=== PATIENT | female | born 1935 | race African-American/Black ===

== ENCOUNTER 2016-10-19 08:49 | Observation (INO) | payer BC, OTHER ==
--- NOTE | 2016-10-19 09:05 | CPEKG ---
Heart Rate: 79 RR Interval: 759 P-R Interval: 204 QRSD Interval: 108 QT Interval: 436 QTC Interval: 500 P [place]: 77 QRS [place]: -51 T Wave [place]: 83 EKG Severity - ABNORMAL ECG - EKG Impression: SINUS RHYTHM EKG Impression: MULTIPLE VENTRICULAR PREMATURE COMPLEXES EKG Impression: LEFT ATRIAL ABNORMALITY EKG Impression: LEFT ANTERIOR FASCICULAR BLOCK EKG Impression: CONSIDER ANTERIOR INFARCT EKG Impression: BORDERLINE PROLONGED QT INTERVAL Electronically Signed By: Doug Seals 19-Oct-2016 11:20:39
--- NOTE | 2016-10-19 09:14 | EDPHY ---
H & P Time Seen by Provider: 10/19/16 09:11 HPI/ROS: Chief complaint. Chest pain HPI. 81-year-old female here with chest discomfort that began about 2:00 a.m.. It is described as pressure. No radiation. She has associated shortness of breath. No cough or fever. Her discomfort is worse with deep breathing. She has no unusual leg pain or swelling. She was admitted about 1 week ago for dyspnea but no chest discomfort at that time. ROS Constitutional. no fever/chills, no weakness Eyes. no problems with vision ENT. no sore throat, no nasal drainage Cardiovascular. Chest pressure Respiratory. Shortness of breath Abdominal. no abdominal pain, no nausea/vomiting, no diarrhea . no problems urinating MS. no calf pain/swelling, no neck/back pain, no joint pain Skin. no rash Lymph. no swollen glands Neuro. no headache, no dizziness, no difficulty walking or with speech Past Medical/Surgical History: Past medical history is significant for coronary artery bypass graft, coronary artery disease, endarterectomy, hypertension, atrial fibrillation Social History: , lives at home, nonsmoker, no alcohol Smoking Status: Never smoked Physical Exam: General Appearance: Alert well-developed female mild distress vital signs are stable Eyes: Pupils equal and round no pallor or injection. ENT, Mouth: Mucous membranes are moist. Respiratory: There are no retractions, lungs are clear to auscultation. Cardiovascular: Regular rate and rhythm. Gastrointestinal: Abdomen is soft and nontender, no masses, bowel sounds normal. Neurological: Awake and alert, sensory and motor exams grossly normal. Skin: Warm and dry, no rashes. Musculoskeletal: Neck is supple nontender. Extremities symmetrical, full range of motion. Psychiatric: Patient is oriented X 3, there is no agitation. Constitutional: Initial Vital Signs Temperature (C) 36.5 C 10/19/16 08:52 Heart Rate 71 10/19/16 08:52 Respiratory Rate 16 10/19/16 08:52 Blood Pressure 144/71 H 10/19/16 08:52 O2 Sat (%) 94 10/19/16 08:52 O2 Delivery Mode Room Air Allergies/Adverse Reactions: Penicillins Allergy (Intermediate, Verified 09/21/15 07:09) Hives Home Medications: Medication Instructions Recorded Atorvastatin Calcium [Lipitor 20 20 mg PO DAILY@10/19/13 mg (*)] Cholecalciferol Vit D3 [Vitamin D3 1,000 units PO DAILY@10/19/13 (*)] Multivitamins [Multivitamin (*)] 1 each PO DAILY@10/19/13 [place]-3 Fatty Acids [Fish Oil 1000 1,000 mg PO DAILY@10/19/13 mg (*)] Clopidogrel Bisulfate [Plavix (*)] 75 mg PO DAILY@10/24/13 Apixaban [Eliquis] 5 mg PO BID@,04/16/15 Gabapentin [Neurontin 100 MG (*)] 100 mg PO BID@,04/22/15 Herbals/Supplements -Info Only 1 ea PO DAILY@05/18/16 Pantoprazole Sodium [Protonix 40mg 40 mg PO DAILY@05/18/16 (*)] Amlodipine Besylate 5 mg PO BID@,10/11/16 Calcium Carbonate [Oyster Shell 500 mg PO BID@,10/11/16 Calcium 500 mg (*)] Lisinopril [Zestril 10 mg (*)] 10 mg PO DAILY@10/11/16 Ranolazine [Ranexa] 500 mg PO BID@,10/11/16 Medical Decision Making - Diagnostics EKG Interpretation: EKG interpreted by me shows normal sinus rhythm normal interval. There is left axis deviation. There is left anterior fascicular block. There is no significant ST elevation or depression. There is multiple PVCs. The rate is 79 There is no significant change from previous EKG 10/11/2016 Imaging: One-view chest x-ray shows cardiomegaly and coronary artery disease but no evidence for pneumonia, pneumothorax, CHF Procedures: IV normal saline, monitor ED Course/Re-evaluation: Re-evaluation at 10:00 a.m. and patient remains stable. She continues to have some anterior chest discomfort. The patient, her son, and I discussed laboratory, EKG, x-ray he evaluation. We discussed treatment plan and recommendation for admission. They expressed understanding and agreement I consulted and discussed the case with Dr. Barnett who agrees to the admission Differential Diagnosis: I considered acute coronary syndrome, congestive heart failure. Unlikely the patient has pulmonary embolus as she is on Eliquis. - Data Points Laboratory Results: Laboratory Results 10/19/16 09:09 10/19/16 09:09 10/19/16 09:09 WBC 3.09 L 10^3/uL (3.80-9.50) RBC 4.60 10^6/uL (4.18-5.33) Hgb 13.5 g/dL (12.6-16.3) Hct 40.9 % (38.0-47.0) MCV 88.9 fL (81.5-99.8) MCH 29.3 pg (27.9-34.1) MCHC 33.0 g/dL (32.4-36.7) RDW 14.3 % (11.5-15.2) Plt Count 132 L 10^3/uL (150-400) MPV 10.9 fL (8.7-11.7) Neut % (Auto) 50.8 % (39.3-74.2) Lymph % (Auto) 39.2 % (15.0-45.0) Foster % (Auto) 7.1 % (4.5-13.0) Eos % (Auto) 1.6 % (0.6-7.6) Baso % (Auto) 1.0 % (0.3-1.7) Nucleat RBC Rel Count 0.0 % (0.0-0.2) Absolute Neuts (auto) 1.57 L 10^3/uL (1.70-6.50) Absolute Lymphs (auto) 1.21 10^3/uL (1.00-3.00) Absolute Monos (auto) 0.22 L 10^3/uL (0.30-0.80) Absolute Eos (auto) 0.05 10^3/uL (0.03-0.40) Absolute Basos (auto) 0.03 10^3/uL (0.02-0.10) Absolute Nucleated RBC 0.00 10^3/uL (0-0.01) Immature Gran % 0.3 % (0.0-1.1) Immature Gran # 0.01 10^3/uL (0.00-0.10) PT 14.6 SEC (12.0-15.0) INR 1.15 (0.83-1.16) APTT 32.0 SEC (23.0-38.0) Sodium 146 H mEq/L (134-144) Potassium 4.4 mEq/L (3.5-5.2) Chloride 107 mEq/L (97-110) Carbon Dioxide 27 mEq/l (22-31) Anion Gap 12 mEq/L (8-16) BUN 17 mg/dL (7-23) Creatinine 1.0 mg/dL (0.6-1.0) Estimated GFR 53 Glucose 106 H mg/dL (70-100) Calcium 9.8 mg/dL (8.5-10.4) Troponin I 0.021 ng/mL (0-0.034) NT-Pro-B Natriuret Pep 422 pg/mL (0-450) Departure - Departure Disposition: [facility] Inpatient Acute Clinical Impression: Chest pain Condition: Fair Referrals: Jorge Reardon [Primary Care Provider] - As per Instructions
[2016-10-19 09:43] LABS: ANION GAP 12 mEq/L (8-16); CALCIUM 9.8 mg/dL (8.5-10.4); CARBON DIOXIDE 27 mEq/l (22-31); CHLORIDE 107 mEq/L (97-110); GLOMERULAR FILTRATION RATE 53; GLUCOSE 106 mg/dL (70-100); POTASSIUM 4.4 mEq/L (3.5-5.2); SODIUM 146 mEq/L (134-144)
--- NOTE | 2016-10-19 09:43 | DX ---
Portable Chest, Single View October 19, 2016 at 9:32 am Indication: Chest pain Comparison: Two-view chest dated October 11, 2016 Findings: Cardiomegaly, midline sternal wires, prosthetic aortic valve, and numerous coronary stents are unchanged in configuration since 2 weeks prior. No pulmonary edema or pleural effusion has develo ped. Chronic peribronchial thickening is unchanged. Impression: 1. Cardiomegaly and stigmata of coronary artery disease are unchanged since 2 weeks prior. 2. No acute failure.
[2016-10-19 09:46] LABS: % IMMATURE GRANULYOCYTES 0.3 % (0.0-1.1); ABSOLUTE IMMATURE GRANULOCYTES 0.01 10^3/uL (0.00-0.10); ADD DIFF? NO; ADD MORPH? NO; ADD SCAN? NO; ATYPICAL LYMPHOCYTE FLAG 10 (0-99); FRAGMENT RBC FLAG 0 (0-99); HEMATOCRIT 40.9 % (38.0-47.0); HEMOGLOBIN 13.5 g/dL (12.6-16.3); LEFT SHIFT FLG 0 (0-99); LIPEMIA HEMOLYSIS FLAG 80 (0-99); MEAN CELL HEMOGLOBIN 29.3 pg (27.9-34.1); MEAN CELL VOLUME 88.9 fL (81.5-99.8); MEAN PLATELET VOLUME 10.9 fL (8.7-11.7); PLATELET CLUMPS FLAG 0 (0-99); PLATELET COUNT 132 10^3/uL (150-400); RED CELL DISTRIBUTION WIDTH 14.3 % (11.5-15.2)
[2016-10-19 09:47] LABS: INR 1.15 (0.83-1.16); PROTIME(PATIENT) 14.6 SEC (12.0-15.0)
[2016-10-19 09:54] LABS: TROPONIN I 0.021 ng/mL (0-0.034)
[2016-10-19] MEDS ORDERED: ALBUTEROL 3 ML DEYVIAL IH PRN (12:02)
[2016-10-19] MEDS ORDERED: ACETAMINOPHEN 325 MG TAB PO PRN (12:02)
[2016-10-19] MEDS ORDERED: ONDANSETRON 4 MG/2 ML VIAL IVP PRN (12:02)
[2016-10-19] MEDS ORDERED: ONDANSETRON DISINTEGRATING 4 MG TAB PO PRN (12:02)
--- NOTE | 2016-10-19 16:20 | GHP ---
[f rep st] HISTORY AND PHYSICAL DATE OF ADMISSION: 10/19/2016 CHIEF COMPLAINT: Chest pain. HISTORY: This is an 81-year-old female, with a past medical history of coronary artery disease and P E, who presents with chest pain. She notes that the pain began last night. She notes it has improve d since then, but she still feels some tightness. She denies any shortness of breath. She notes destiney t she had very similar symptoms about 1 week ago, when she also was hospitalized. She denies fevers or chills. She denies nausea or vomiting. She has had no numbness or weakness. PAST MEDICAL HISTORY: Includes: 1. Coronary artery disease. 2. History of PE, on chronic anticoagulation. 3. Atrial fibrillation. 4. Hypertension. 5. Hyperlipidemia. 6. Peripheral arterial disease. 7. Congestive heart failure with diastolic dysfunction and ejection fraction 45% to 50%. 8. Moderate pulmonary hypertension. 9. Chronic leukopenia and thrombocytopenia. PAST SURGICAL HISTORY: 1. CABG. 2. Cardiac stents. 3. CEA. FAMILY HISTORY: Parents are . SOCIAL HISTORY: The patient lives alone, but has a son who lives nearby and is very involved in her care. She is a never smoker. She denies significant alcohol use. No drug use. REVIEW OF SYSTEMS: A 10-point review of systems is obtained, negative except as per HPI. MEDICATIONS: Include: 1. Amlodipine. 2. Ranolazine. 3. Pantoprazole. 4. [place]-3 fatty acids. 5. Nitroglycerin. 6. Multivitamin. 7. Memantine. 8. Lisinopril. 9. Gabapentin. 10. Clopidogrel. 11. Cholecalciferol. 12. Calcium carbonate. 13. Atorvastatin. 14. Aspirin. 15. Eliquis. ALLERGIES: Penicillin. PHYSICAL EXAM: VITAL SIGNS: BP 144/77, heart rate 68, respiratory rate 18, O2 saturation 94% on rosie m air, temperature 36.4. GENERAL APPEARANCE: An elderly female. She is awake and alert. She is in no acute distress. HEENT: Eyes anicteric. Her pupils are dysconjugate. Orophary nx is clear, moist mucous membranes. HEART: Regular rate and rhythm, no MRG. PULMONARY: CTA bilat erally, normal work of breathing. ABDOMEN: Soft, nontender, nondistended. EXTREMITIES: No clubbin g, cyanosis, or edema. SKIN: Warm and dry, well perfused. NEURO/PSYCH: Oriented, appropriate, ple asant. CLINICAL DATA: Labs reviewed, significant for a white blood cell count of 3, platelets of 132. Coag s are within normal limits. Troponin is 0.021. ProBNP is 422. Otherwise CBC is essentially unremar kable. Chest x-ray reviewed and interpreted independently by myself shows cardiomegaly and stigmata of coron zaira artery disease, without change from prior. EKG reviewed and interpreted independently by myself shows sinus rhythm, multiple PVCs. Otherwise no acute abnormalities. ASSESSMENT AND PLAN: This is an 81-year-old female, past medical history of coronary artery disease, recent hospitalization for shortness of breath and chest pain, presenting with chest pain. 1. Chest pain, present for greater than 12 hours with initial negative troponin making acute coronar y syndrome highly unlikely. There are no significant EKG changes. She had a recent hospitalization for the same, at which time an echocardiogram was performed, showing no new wall motion abnormalities or other significant findings. Suspect there is some component of anxiety contributing to this. Sh e will be monitored overnight on telemetry. Will obtain serial troponins. If her initial workup is unremarkable, I would likely discharge her home to follow up with cardiology. In terms of medication changes, could consider addition of a long-acting nitrate, and it is unclear if patient is not curre ntly on a beta mir, but this will need to be evaluated further. 2. Coronary artery disease status post CABG and stents. As per above. She is followed by Dr. Jorge cabrera. 3. History of pulmonary embolus. Continue on Eliquis. Her presenting symptoms do not sound consist ent with a new PE, and she is not hypoxic, though could consider CT angiogram if she becomes hypoxic or tachycardic during this hospitalization. 4. History of atrial fibrillation, currently in sinus rhythm. Monitor on telemetry. 5. Chronic heart failure with both diastolic and mild systolic dysfunction. She does not have any e vidence of volume overload and her proBNP is within normal limits. Currently. 6. Moderate pulmonary hypertension. She is continued on her nocturnal oxygen. 7. Code status: She is a full code. 8. Disposition: Observation status. She likely will need less than 48 hours stay for evaluation an d management of above. 9. The patient is in my care. Old records were reviewed and summarized as per HPI and past medical history. Care plan reviewed with ER doctor and the patient's son, who is present at bedside. /[id number]/MODL
[2016-10-19] MEDS: APIXABAN 5 MG TAB PO SCH (19:57)
[2016-10-19] MEDS: GABAPENTIN 100 MG CAP PO SCH (19:58)
[2016-10-19] MEDS: RANOLAZINE 500 MG TAB.ER PO SCH (19:58)
[2016-10-19] MEDS ORDERED: amLODIPine BESYLATE 5 MG TAB PO SCH (20:00)
[2016-10-19] MEDS ORDERED: ASPIRIN 325 MG TAB PO SCH (21:00)
[2016-10-20 05:11] LABS: % IMMATURE GRANULYOCYTES 0.3 % (0.0-1.1); ABSOLUTE IMMATURE GRANULOCYTES 0.01 10^3/uL (0.00-0.10); ADD DIFF? NO; ADD MORPH? NO; ADD SCAN? NO; ATYPICAL LYMPHOCYTE FLAG 10 (0-99); FRAGMENT RBC FLAG 0 (0-99); HEMATOCRIT 38.6 % (38.0-47.0); HEMOGLOBIN 12.9 g/dL (12.6-16.3); LEFT SHIFT FLG 0 (0-99); LIPEMIA HEMOLYSIS FLAG 80 (0-99); MEAN CELL HEMOGLOBIN CONCENTR. 33.4 g/dL (32.4-36.7); MEAN CELL VOLUME 86.7 fL (81.5-99.8); MEAN PLATELET VOLUME 10.6 fL (8.7-11.7); PLATELET CLUMPS FLAG 0 (0-99); PLATELET COUNT 128 10^3/uL (150-400); RED BLOOD CELL COUNT 4.45 10^6/uL (4.18-5.33); RED CELL DISTRIBUTION WIDTH 13.9 % (11.5-15.2)
[2016-10-20 05:25] LABS: ANION GAP 7 mEq/L (8-16); CALCIUM 9.1 mg/dL (8.5-10.4); CARBON DIOXIDE 26 mEq/l (22-31); CHLORIDE 109 mEq/L (97-110); CREATININE 0.9 mg/dL (0.6-1.0); GLOMERULAR FILTRATION RATE 60; GLUCOSE 89 mg/dL (70-100); POTASSIUM 4.1 mEq/L (3.5-5.2); SODIUM 142 mEq/L (134-144)
[2016-10-20] MEDS ORDERED: LISINOPRIL 10 MG TAB PO SCH (08:00)
[2016-10-20] MEDS ORDERED: CLOPIDOGREL BISULFATE 75 MG TAB PO SCH (08:00)
[2016-10-20] MEDS ORDERED: CALCIUM CARBONATE 500 MG TAB PO SCH (08:00)
[2016-10-20] MEDS ORDERED: MULTIVITAMINS 1 EACH TAB PO SCH (08:00)
[2016-10-20] MEDS ORDERED: CHOLECALCIFEROL VIT D3 1,000 UNITS TAB PO SCH (08:00)
[2016-10-20] MEDS ORDERED: OMEGA-3 FATTY ACIDS 1,000 MG CAP PO SCH (08:00)
[2016-10-20] MEDS ORDERED: ATORVASTATIN CALCIUM 20 MG TAB PO SCH (08:00)
[2016-10-20] MEDS ORDERED: PANTOPRAZOLE SODIUM 40 MG TAB PO SCH (08:00)
[2016-10-20 08:05] VITALS: RESP 16
--- NOTE | 2016-10-20 08:55 | CPEKG ---
Heart Rate: 70 RR Interval: 857 P-R Interval: 200 QRSD Interval: 94 QT Interval: 420 QTC Interval: 454 P [place]: 62 QRS [place]: -73 T Wave [place]: 120 EKG Severity - ABNORMAL ECG - EKG Impression: SINUS RHYTHM EKG Impression: PROBABLE LEFT ATRIAL ABNORMALITY EKG Impression: LAD, CONSIDER LEFT ANTERIOR FASCICULAR BLOCK EKG Impression: NONSPECIFIC T ABNORMALITIES, LATERAL LEADS Electronically Signed By: Bhaskar Craig 20-Oct-2016 09:12:02
[2016-10-20] MEDS ORDERED: Memantine Hcl [Namenda Xr] 21 MG PO SCH (09:00)
[2016-10-20] MEDS: RANOLAZINE 500 MG TAB.ER PO SCH (09:00)
[2016-10-20] MEDS: GABAPENTIN 100 MG CAP PO SCH (09:00)
[2016-10-20] MEDS: APIXABAN 5 MG TAB PO SCH (09:01)
--- NOTE | 2016-10-20 12:37 | HOSPPROG ---
Hospitalist Progress Note Assessment/Plan: 81 yo F with pmh of CAD and recent admission for cp admitted with cp # chest pain: with negative trops x 3 and resolution of her chest pain since the time of admission. No significant events on tele or changes on ecg appreciated. Had recent IP w/u including echo and cardiology consultation. Cardiology consulted, but suspect patient is safe for dc home today once that evaluation is complete. # CAD: w/hx of cabg and stents, as above, followed by Atul and will continue her op regimen at this time which includes asa, statin, plavix. # PE: continue eliquis # p afib: without e/o a fib currently, continued on AC, monitoring on tele # chronic chf: EF of 45%, no e/o acute decompensation # htn/hld/pad: continue op meds # dispo: observation, expect she will be ready for dc later today if ok with cardiology Subjective: no significant overnight events, patient now feeling well, she is chest pain free, she has no other complaints, would like to see cardiology Objective: Vital Signs Temp Pulse Resp BP Pulse Ox 36.5 C 63 16 118/64 99 10/20/16 12:08 10/20/16 12:08 10/20/16 12:08 10/20/16 12:08 10/20/16 12:08 Laboratory Results 10/20/16 04:22 10/20/16 04:22 10/19/16 10/20/16 10/21/16 05:59 05:59 05:59 Intake Total 1040 Balance 1040 PT 14.6 SEC (12.0-15.0) 10/19/16 09:09 INR 1.15 (0.83-1.16) 10/19/16 09:09 awake alert elderly nad anicteric op clear rrr systolic murmur cta b soft nt nd no cce warm dry well perfused oriented appropriate ICD10 Worksheet Patient Problems: Problems Problem Status Diagnosed Atrial flutter Acute Chest pain Acute NSTEMI (non-ST elevated myocardial infarction) Acute Pelvic fracture Acute Pulmonary emboli Acute CAD (coronary artery disease) Acute Chest pain in adult Acute Dyspnea Acute Elevated blood pressure reading Acute Headache Acute Hypertension Acute
[2016-10-20 15:36] VITALS: BP 115/76; PULSE 61; TEMP 97.4; O2SAT 97
--- NOTE | 2016-10-21 10:10 | PDDCSUM ---
Discharge Summary Discharge Summary: Dates of service 10/19-10/20/15 Hospital course by problem: # chest pain: with negative trops x 3 and resolution of her chest pain since the time of admission. Cardiology evaluated and felt she was safe for dc and op f/u # CAD: w/hx of cabg and stents, as above, followed by Atul and will continue her op regimen at this time which includes asa, statin, plavix. # PE: continue eliquis # p afib: without e/o a fib currently, continued on AC, monitoring on tele # chronic chf: EF of 45%, no e/o acute decompensation # htn/hld/pad: continue op meds Dc home f/u with pcp/cardiology
== END 2016-10-20 19:15 | disposition home or self-care (01) ==
LOC: F2W 11:56
PROVIDERS: ADMIT Internal Medicine; ATTEND Internal Medicine
DX: R07.9 Chest pain, unspecified (principal); I25.10 Atherosclerotic heart disease of native coronary artery without angina pectoris; Z95.5 Presence of coronary angioplasty implant and graft; Z95.1 Presence of aortocoronary bypass graft; I48.0 Paroxysmal atrial fibrillation; I50.22 Chronic systolic (congestive) heart failure; Z86.711 Personal history of pulmonary embolism; I10 Essential (primary) hypertension; E78.5 Hyperlipidemia, unspecified; I73.9 Peripheral vascular disease, unspecified; D72.819 Decreased white blood cell count, unspecified; D69.6 Thrombocytopenia, unspecified
CPT/HCPCS: 71010; 93005; 97161; 97165; 99285; G0378; G8978; G8979; G8980; G8987; G8988; G8989

== ENCOUNTER 2016-10-22 06:22 | Inpatient (IN) | payer OTHER ==
--- NOTE | 2016-10-22 06:39 | CPEKG ---
Heart Rate: 62 RR Interval: 968 P-R Interval: 220 QRSD Interval: 96 QT Interval: 448 QTC Interval: 455 P [place]: 49 QRS [place]: -61 T Wave [place]: 65 EKG Severity - ABNORMAL ECG - EKG Impression: SINUS RHYTHM EKG Impression: FIRST DEGREE AV BLOCK EKG Impression: PROBABLE LEFT ATRIAL ABNORMALITY EKG Impression: LAD, CONSIDER LEFT ANTERIOR FASCICULAR BLOCK Electronically Signed By: Parisa Merlos 22-Oct-2016 14:09:04
[2016-10-22 06:53] LABS: % IMMATURE GRANULYOCYTES 0.3 % (0.0-1.1); ABSOLUTE IMMATURE GRANULOCYTES 0.01 10^3/uL (0.00-0.10); ADD DIFF? NO; ADD MORPH? NO; ADD SCAN? NO; ATYPICAL LYMPHOCYTE FLAG 0 (0-99); FRAGMENT RBC FLAG 0 (0-99); HEMATOCRIT 40.9 % (38.0-47.0); HEMOGLOBIN 13.4 g/dL (12.6-16.3); LEFT SHIFT FLG 0 (0-99); LIPEMIA HEMOLYSIS FLAG 80 (0-99); MEAN CELL HEMOGLOBIN 28.5 pg (27.9-34.1); MEAN CELL HEMOGLOBIN CONCENTR. 32.8 g/dL (32.4-36.7); MEAN PLATELET VOLUME 10.5 fL (8.7-11.7); PLATELET CLUMPS FLAG 0 (0-99); PLATELET COUNT 149 10^3/uL (150-400); RED CELL DISTRIBUTION WIDTH 13.8 % (11.5-15.2)
[2016-10-22 07:02] LABS: ALANINE AMINOTRANSFERASE 22 IU/L (9-52); ALBUMIN 4.3 g/dL (3.5-5.0); ALKALINE PHOSPHATASE 58 IU/L (38-126); ANION GAP 10 mEq/L (8-16); ASPARTATE AMINOTRANSFERASE 37 IU/L (14-46); BILIRUBIN,TOTAL 0.8 mg/dL (0.1-1.4); CALCIUM 9.6 mg/dL (8.5-10.4); CARBON DIOXIDE 26 mEq/l (22-31); CHLORIDE 107 mEq/L (97-110); GLOMERULAR FILTRATION RATE 53; GLUCOSE 103 mg/dL (70-100); POTASSIUM 4.6 mEq/L (3.5-5.2); SODIUM 143 mEq/L (134-144); TOTAL PROTEIN 7.1 g/dL (6.3-8.2)
[2016-10-22 07:13] LABS: TROPONIN I 0.034 ng/mL (0-0.034)
--- NOTE | 2016-10-22 07:25 | EDPHY ---
[id number]: The patient is an 81 year old female with history of CAD presenting with recurrent chest pain. The patient was admitted 10/19/15 with similar symptoms. She had 3 negative Troponin and was seen by Dr. Pollard, Cardiology, who discharged her home. This morning her chest pain returned. She woke up at 2:30 a.m. with shortness of breath and chest tightness. She got up, went downstairs, and took 3 Nitro but found no relief. She was able to sleep sitting up in a chair. Continues to have mild cp. The patient has a history of PE, she is on Eliquis. She took Aspirin last night. The patient denies cough, congestion, or recent sickness. REVIEW OF SYSTEMS: Aside from elements discussed in the HPI, a comprehensive 10-point review of systems was reviewed and is negative. Past Medical/Surgical History: CAD, HTN, PE, Afib, CABG 2013, Stents 2014, Aortic valve replacement, Blind in right eye. Social History: Family at bedside. Smoking Status: Never smoked Physical Exam: General Appearance: Alert, no distress Eyes: Pupils equal and round, no conjunctival pallor or injection ENT, Mouth: Mucous membranes moist Neck: Normal inspection Respiratory: Lungs are clear to auscultation Cardiovascular: Regular rate and rhythm, 2/6 systolic murmur, reproducible chest wall tenderness Gastrointestinal: Abdomen is soft and non-tender Neurological: A&O, nonfocal, normal gait Skin: Warm and dry, no rash Extremities: Nontender, 1+ pedal edema bilaterally Psychiatric: Mood and affect normal Constitutional: Initial Vital Signs Temperature (C) 36.4 C 10/22/16 06:24 Heart Rate 66 10/22/16 06:24 Respiratory Rate 17 10/22/16 06:24 Blood Pressure 116/62 10/22/16 06:24 O2 Sat (%) 94 10/22/16 06:24 O2 Delivery Mode Nasal Cannula O2 (L/minute) 2 Allergies/Adverse Reactions: Penicillins Allergy (Intermediate, Verified 10/26/16 07:15) Hives Home Medications: Medication Instructions Recorded Cholecalciferol Vit D3 [Vitamin D3 1,000 units PO DAILY@10/19/13 (*)] Multivitamins [Multivitamin (*)] 1 each PO DAILY@10/19/13 Clopidogrel Bisulfate [Plavix (*)] 75 mg PO DAILY@10/24/13 Apixaban [Eliquis] 5 mg PO BID@,04/16/15 Gabapentin [Neurontin 100 MG (*)] 100 mg PO BID@,04/22/15 Herbals/Supplements -Info Only 1 ea PO DAILY@05/18/16 Calcium Carbonate [Oyster Shell 500 mg PO DAILY@10/11/16 Calcium 500 mg (*)] Lisinopril [Zestril 10 mg (*)] 10 mg PO DAILY@10/11/16 Nitroglycerin [Nitrostat 0.4 mg 0.4 mg SL Q5M PRN 10/19/16 (*)] amLODIPine BESYLATE [Norvasc 5 mg 5 mg PO DAILY@10/19/16 (*)] Aspirin EC [Aspirin EC 81 mg (*)] 81 mg PO DAILY #0 tab 10/24/16 Atorvastatin Calcium [Lipitor 40 40 mg PO DAILY #30 tab 10/24/16 mg (*)] Medical Decision Making - Diagnostics EKG Interpretation: The 12 lead EKG was interpreted by myself. See hard copy and/or "tracemaster" electronic copy for interpretation: Sinus rhythm, First degree AV block, No ST or T segment changes. Imaging: Study: X-ray of the chest was obtained. Results: No change from 3 days ago. Images were interpreted by the radiologist, Dr. Hansen. I viewed the images myself on the PACS system. ED Course/Re-evaluation: This pt with known extensive CAD presents with recurrent cp. stat EKG reveals no evidence of ischemia or dysthymia. Pt took ASA in last 24 hrs. IV was established. The patient received 4mg Morphine IV, 4mg Zofran IV, and Nitro. Better after meds. Stable throughout her ED course. 0815: initial troponin negative. Pt will require admission for further cardiac evaluation. Hospitalist service consulted. The patient will be admitted to the hospitalist, Dr. Berrios. I do not suspect recurrent PE in this pt. Differential Diagnosis: includes though not limited to ACS, PE, PTX, pneumonia, GERD. - Data Points Laboratory Results: Laboratory Results 10/23/16 04:06 10/23/16 04:06 Medications Given: Discontinued Medications Acetaminophen (Tylenol) 650 mg PO Q4HRS PRN PRN Reason: Pain, Mild/Fever, Can Take PO Stop: 04/20/17 08:50 Last Admin: 10/22/16 22:08 Dose: 650 mg Acetaminophen (Tylenol) 650 mg PO QID PRN PRN Reason: Pain, Mild Able to Take PO Stop: 04/21/17 05:59 Last Admin: 10/24/16 12:00 Dose: 650 mg Amlodipine Besylate (Norvasc) 5 mg PO DAILY@20 [facility] Stop: 04/20/17 19:59 Last Admin: 10/23/16 19:58 Dose: 5 mg Apixaban (Eliquis) 5 mg PO BID@08,20 [facility] Stop: 04/20/17 19:59 Last Admin: 10/22/16 21:04 Dose: Not Given Aspirin (Aspirin) 325 mg PO HS [facility] Stop: 04/20/17 20:59 Last Admin: 10/22/16 20:23 Dose: 325 mg Aspirin Buffered (Aspirin Ec) 325 mg PO ONCALL ONE Stop: 10/23/16 10:01 Last Admin: 10/23/16 13:45 Dose: Not Given Aspirin Buffered (Aspirin Ec) 325 mg PO DAILY [facility] Stop: 04/22/17 08:59 Last Admin: 10/24/16 08:54 Dose: 325 mg Atorvastatin Calcium (Lipitor) 20 mg PO DAILY@08 [facility] Stop: 04/21/17 07:59 Last Admin: 10/23/16 13:44 Dose: 20 mg Atorvastatin Calcium (Lipitor) 40 mg PO DAILY [facility] Stop: 04/22/17 08:59 Last Admin: 10/24/16 08:55 Dose: 40 mg Clopidogrel Bisulfate (Plavix) 75 mg PO DAILY@08 [facility] Stop: 04/21/17 07:59 Last Admin: 10/23/16 13:40 Dose: Not Given Clopidogrel Bisulfate (Plavix) 300 mg PO ONCE ONE Stop: 10/23/16 12:04 Last Admin: 10/23/16 13:45 Dose: Not Given Clopidogrel Bisulfate (Plavix) 75 mg PO DAILY [facility] Stop: 04/22/17 08:59 Last Admin: 10/24/16 08:54 Dose: 75 mg Diazepam (Valium) 5 mg PO ONCALL ONE Stop: 10/23/16 10:01 Last Admin: 10/23/16 13:45 Dose: Not Given Diphenhydramine HCl (Benadryl) 25 mg PO ONCALL ONE Stop: 10/23/16 10:01 Last Admin: 10/23/16 13:44 Dose: Not Given Famotidine (Pepcid) 20 mg PO ONCALL ONE Stop: 10/23/16 10:01 Last Admin: 10/23/16 13:44 Dose: Not Given Famotidine (Pepcid) 20 mg PO BID [facility] Stop: 04/21/17 20:59 Last Admin: 10/24/16 08:53 Dose: 20 mg Gabapentin (Neurontin) 100 mg PO BID@08,20 [facility] Stop: 04/20/17 19:59 Last Admin: 10/24/16 08:54 Dose: 100 mg Lisinopril (Zestril) 10 mg PO DAILY@08 [facility] Stop: 04/21/17 07:59 Last Admin: 10/24/16 08:54 Dose: 10 mg Morphine Sulfate (Morphine) 4 mg IVP EDNOW ONE Stop: 10/22/16 07:34 Last Admin: 10/22/16 07:47 Dose: 4 mg Nitroglycerin (Nitro-Bid 2%) 1 inch TP EDNOW ONE Stop: 10/22/16 07:35 Last Admin: 10/22/16 07:48 Dose: 1 inch Ondansetron HCl (Zofran) 4 mg IVP EDNOW ONE Stop: 10/22/16 07:34 Last Admin: 10/22/16 07:48 Dose: 4 mg Departure - Departure Disposition: [facility] Inpatient Acute Clinical Impression: Chest pain Condition: Fair Report Scribed for: Parisa Merlos Report Scribed by: Tiffany Benitez Date of Report: 10/22/16 Time of Report: 07:28 Physician Review and Approval Statement: 10/22/16 07:29 Portions of this note were transcribed by a medical staff assistant. I personally performed the history, physical exam, and medical decision-making; and confirmed the accuracy of the information in the transcribed note.
[2016-10-22] MEDS ORDERED: ONDANSETRON 4 MG/2 ML VIAL IVP ONE (07:33)
[2016-10-22] MEDS ORDERED: NITROGLYCERIN 2% 1 GM PACKET TP ONE (07:34)
--- NOTE | 2016-10-22 08:35 | DX ---
PA and Lateral Chest October 22, 2016 Indication: Chest pain Comparison: Portable chest dated October 19, 2016 Findings: The lungs remain clear. Cardiomegaly, prosthetic aortic valve, midline sternal wires, and n umerous coronary stents are unchanged in configuration. No edema or effusion has developed. Impression: 1. No acute change since 3 days prior. 2. Cardiomegaly and stigmata of cardiovascular disease are unchanged.
[2016-10-22] MEDS ORDERED: ONDANSETRON 4 MG/2 ML VIAL IVP PRN (08:51)
[2016-10-22] MEDS ORDERED: ONDANSETRON DISINTEGRATING 4 MG TAB PO PRN (08:51)
[2016-10-22] MEDS ORDERED: oxyCODONE IR 5 MG TAB PO PRN (08:51)
--- NOTE | 2016-10-22 09:29 | GHP ---
[f rep st] HISTORY AND PHYSICAL DATE OF ADMISSION: 10/22/2016 CHIEF COMPLAINT: Chest pain. HISTORY OF PRESENT ILLNESS: This is an 81-year-old female with a history of coronary artery disease, status post multiple stents, as well as a CABG, an aortic valve replacement, [address] [facility] t week and a half for chest pain and dyspnea, presents with chest pain. This started when she was in bed. It does not seem to be exertional. Described as a pressure sensation associated with shortnes s of breath. No other real symptoms. She took 3 nitroglycerin, which did not help her pain. She th us presented to the emergency department where she received 4 mg of morphine. When I am seeing her, she is chest pain-free. She says that this is like her similar episodes of angina, which have requir ed stenting in the past. The patient took her Eliquis as well as her aspirin and Plavix today. PAST MEDICAL/SURGICAL HISTORY: 1. Coronary artery disease, status post CABG about 4 years ago. Her last catheterization was April, where she received a balloon angioplasty. 2. History of PE. She is on anticoagulation, took her Eliquis this morning. 3. Atrial fibrillation. 4. Hypertension. 5. Hyperlipidemia. 6. Peripheral vascular disease. 7. Congestive heart failure with diastolic dysfunction and ejection fraction of 45% to 50%. 8. Moderate pulmonary hypertension. 9. Chronic leukopenia and thrombocytopenia. 10. CEA. FAMILY HISTORY: Parents are . SOCIAL HISTORY: She lives alone. She has sons who are involved in her care. She does not drink sig nificant alcohol. She does not use drugs. REVIEW OF SYSTEMS: Ten-point review of systems is negative, except per HPI. MEDICATIONS: Please see medication reconciliation. ALLERGIES: Penicillin. PHYSICAL EXAM: VITAL SIGNS: Blood pressure is 153/71, heart rate 62, respiration rate 16, saturatin g 99% on room air. Temperature is 36.4. GENERAL: The patient is a pleasant, elderly female who is lying in bed, comfortable, in no acute distress. HEENT: Shows her to be normocephalic, atraumatic. CARDIOVASCULAR: Regular rate and rhythm. She has a 1/6 systolic murmur. She has no elevated JVP. No lower extremity edema. PULMONARY: Lungs clear to auscultation bilaterally. ABDOMEN: Soft, non tender, nondistended. SKIN: No rash. : No Cruz. NEUROLOGIC: Exam shows her to be alert and or iented x3. She is moving all extremities. PSYCHIATRIC: Exam shows normal mood and affect. LABS: White count is 3. Platelets are 149. D-dimer 0.28. Troponin 0.034. Creatinine is 1.0. DATA: 1. I have personally viewed and interpreted her chest x-ray. This shows cardiomegaly with nothing a cute. 2. EKG is unchanged from prior. This shows sinus rhythm, left axis deviation. IMPRESSION/PLAN: An 81-year-old female with chest pain. 1. Chest pain: She has a history of pulmonary embolism and coronary artery disease, though she is a nticoagulated, with a negative D-dimer. I have discussed this with Dr. Akhtar. She has had 3 admissio ns in about the last week and a half for similar issues. Will defer to Drs. Akhtar and Atul barnett ng additional workup, including stress test or catheterization. I will trend her troponins for now. Continue her cardiac medications. 2. Coronary artery disease, status post CABG: Continue cardiac medications as above. 3. History of pulmonary embolism: Continue Eliquis. 4. Hypertension. 5. Hyperlipidemia. 6. Congestive heart failure: Does not appear decompensated now. 7. History of pulmonary hypertension: On nocturnal oxygen. 8. Code status: She would like to be full code. /[id number]/MODL
--- NOTE | 2016-10-22 12:48 | SOAPPROG ---
SOAP Progress Note Assessment/Plan: Assessment: Cardiology ([facility]) 1. Recurrent chest pain. 3rd admission for chest discomfort/shortness of breath in the past month. She describes substernal chest heaviness substernally with a pleuritic component. She compares her chest discomfort quality to her recent previous admission but not exactly like prior angina. It was however unresponsive to NTG in the ED. Initial trop is negative. 12 lead EKG in non acute. CXR shows cardiomegaly w/o overt CHF. 2. Non-ischemic cardiomyopathy, last LVEF 40-45% in March 2016. On SEBASTIEN, no BB. 3. CAD s/p remote multivessel PCI and CABG. She has a known SVG occlusion to OM1. LHC in January 2016 showed no progression of CAD. Treated w/ Plavix. History of chronic anginal symptoms treated w/ Ranexa. 4. Bioprosthetic AVR with recent increase in gradients. 5. History of right carotid endarterectomy. 6. History of atrial fibrillation, currently maintaining NSR. 7. Frequent premature ventricular and atrial contractions on telemetry. No correlation w/ symptoms during physical exam. 8. History of moderate pulmonary hypertension treated w/ nocturnal O2. 9. Hypertension adequately controlled on current medication regimen. 10. Beta mir intolerance. 11. Hyperlipidemia. 12. History of pulmonary embolism, currently treated w/ Eliquis. 13. Chronic leukopenia and thrombocytopenia. Plan: 1. Keep NPO. 2. Dr. Pollard to perform LHC cath this afternoon, tomorrow possibly. Awaiting final word. Subjective: Chest pain free at this time. No other complaints. She had been feeling very leading up to this episode. Chest discomfort has been coming at nights but not during the day. Objective: Vital Signs Temp Pulse Resp BP Pulse Ox 36.5 C 68 18 121/70 H 94 10/22/16 11:48 10/22/16 11:48 10/22/16 11:48 10/22/16 11:48 10/22/16 11:48 Physical Exam - Physical Exam General Appearance: WD/WN, alert, no apparent distress Respiratory: chest non-tender, lungs clear, normal breath sounds Cardiac/Chest: normal peripheral pulses, regular rate, rhythm, edema (1+ bilat. lower extremity bilaterally), systolic murmur (II/ GENO LSB) Peripheral Pulses: 2+: dorsalis-pedis (R), dorsalis-pedis (L) Abdomen: normal bowel sounds, non-tender, soft Extremities: swelling Neuro/Psych: no motor/sensory deficits, alert, normal mood/affect, oriented x 3 ICD10 Worksheet Patient Problems: Problems Problem Status Diagnosed Atrial flutter Acute Chest pain Acute NSTEMI (non-ST elevated myocardial infarction) Acute Pelvic fracture Acute Pulmonary emboli Acute CAD (coronary artery disease) Acute Chest pain in adult Acute Dyspnea Acute Elevated blood pressure reading Acute Headache Acute Hypertension Acute
[2016-10-22] MEDS: ACETAMINOPHEN 325 MG TAB PO PRN ×2 (15:17→22:08)
[2016-10-22] MEDS ORDERED: NITROGLYCERIN 0.4 MG BTL SL PRN (19:07)
[2016-10-22] MEDS ORDERED: APIXABAN 5 MG TAB PO SCH (20:00)
[2016-10-22] MEDS: amLODIPine BESYLATE 5 MG TAB PO SCH (20:22)
[2016-10-22] MEDS: GABAPENTIN 100 MG CAP PO SCH (20:22)
[2016-10-22] MEDS ORDERED: ASPIRIN 325 MG TAB PO SCH (21:00)
[2016-10-22] MEDS ORDERED: TEMAZEPAM 15 MG CAP PO PRN (23:25)
[2016-10-23 04:57] LABS: ADD DIFF? NO; ADD MORPH? NO; ADD SCAN? NO; ATYPICAL LYMPHOCYTE FLAG 30 (0-99); FRAGMENT RBC FLAG 0 (0-99); HEMATOCRIT 39.4 % (38.0-47.0); HEMOGLOBIN 12.8 g/dL (12.6-16.3); LEFT SHIFT FLG 0 (0-99); LIPEMIA HEMOLYSIS FLAG 80 (0-99); MEAN CELL HEMOGLOBIN CONCENTR. 32.5 g/dL (32.4-36.7); MEAN CELL VOLUME 89.3 fL (81.5-99.8); MEAN PLATELET VOLUME 10.7 fL (8.7-11.7); PLATELET CLUMPS FLAG 0 (0-99); PLATELET COUNT 128 10^3/uL (150-400); RED BLOOD CELL COUNT 4.41 10^6/uL (4.18-5.33); RED CELL DISTRIBUTION WIDTH 13.8 % (11.5-15.2)
[2016-10-23 05:09] LABS: APTT 31.3 SEC (23.0-38.0); INR 1.14 (0.83-1.16); PROTIME(PATIENT) 14.5 SEC (12.0-15.0)
[2016-10-23 05:33] LABS: ANION GAP 7 mEq/L (8-16); CALCIUM 9.1 mg/dL (8.5-10.4); CARBON DIOXIDE 29 mEq/l (22-31); CHLORIDE 106 mEq/L (97-110); CHOLESTEROL 153 mg/dL (140-220); CREATININE 1.1 mg/dL (0.6-1.0); GLOMERULAR FILTRATION RATE 48; GLUCOSE 87 mg/dL (70-100); HIGH DENSITY LIPOPROTEIN 51 mg/dL (40-85); LDL/HDL RATIO 1.67 RATIO (1.00-3.22); LOW DENSITY LIPOPROTEIN 85 mg/dL (80-100); MAGNESIUM 1.9 mg/dL (1.6-2.3); NON-HIGH DENSITY LIPOPROTEIN 102 mg/dL (90-129); POTASSIUM 4.6 mEq/L (3.5-5.2); SODIUM 142 mEq/L (134-144); TRIGLYCERIDE 89 mg/dL (35-135); VERY LOW DENSITY LIPOPROTEINS 17 mg/dL (8-25)
[2016-10-23] MEDS ORDERED: NITROGLYCERIN 0.4 MG BTL SL PRN ×2 (06:00→12:03)
[2016-10-23] MEDS ORDERED: ACETAMINOPHEN 325 MG TAB PO PRN (06:00)
[2016-10-23] MEDS ORDERED: ATORVASTATIN CALCIUM 20 MG TAB PO SCH (08:00)
[2016-10-23] MEDS ORDERED: CLOPIDOGREL BISULFATE 75 MG TAB PO SCH (08:00)
--- NOTE | 2016-10-23 08:10 | CPEKG ---
Heart Rate: 65 RR Interval: 923 P-R Interval: 200 QRSD Interval: 102 QT Interval: 460 QTC Interval: 479 P [place]: 47 QRS [place]: -28 T Wave [place]: 85 EKG Severity - ABNORMAL ECG - EKG Impression: SINUS RHYTHM EKG Impression: VENTRICULAR TRIGEMINY EKG Impression: BORDERLINE LEFT AXIS DEVIATION Electronically Signed By: Bhaskar Craig 23-Oct-2016 10:51:30
[2016-10-23] MEDS ORDERED: MIDAZOLAM 2 MG/2 ML VIAL ONE ×2 (09:11→10:55)
[2016-10-23] MEDS ORDERED: fentaNYL 100 MCG/2 ML INJ ONE (09:11)
[2016-10-23] MEDS ORDERED: LIDOCAINE 1% 30 ML SDV ONE (09:11)
[2016-10-23] MEDS ORDERED: VERAPAMIL 5 MG/2 ML VIAL ONE ×2 (09:11→10:55)
[2016-10-23] MEDS ORDERED: IOPAMIDOL (ISOVUE-370) 150 ML BTL IV ONE ×3 (09:11→11:13)
[2016-10-23] MEDS ORDERED: HEPARIN 10,000 UNIT/10 ML MDV ONE (09:11)
--- NOTE | 2016-10-23 09:41 | PDCARPN ---
Cardiology Progress Note Chief Complaint: CC: Chest pain Assessment/Plan: Assessment: 1. CAD 2. Paroxysmal atrial fibrillation 3. Non ischemic CM, LVEF 40% 4. Hx of prosthetic AVR 5. new onset of atypical chest pain with normal enzymes Plan: 1. Left heart catheterization this AM 2. INcrease Amlodipine to 10 mg daily 3. INcrease Atorvastatin to 40 mg daily 10/23/16 09:39 Subjective: Lizeth is feeling well this AM. No new episodes of chest pain. Trop is negative x 3. Telemetry demonstrates NSR with ventricular bigeminy, asymptomatic. BP slightly elevated with readings in the upper 130's to 140's. LDL is 85 on Atorvastatin 20 mg daily. Reviewed/Discussed With: family, multidisciplinary team Time Spent With Patient: 20 min Objective: Vital Signs (8 Hrs) Temp Pulse Resp BP Pulse Ox 10/23/16 08:31 36.7 C 68 19 134/70 H 94 10/23/16 04:07 36.6 C 61 20 146/64 H 100 Intake/Output (24 Hrs) 10/22/16 10/23/16 10/24/16 05:59 05:59 05:59 Intake Total 350 Balance 350 Intake: Oral (ml) 350 Other: Weight 74.8 kg Number of Voids Toilet 1 Result Diagrams: 10/23/16 04:06 10/23/16 04:06 Cardiac Labs: Cardiac Lab Results (72 Hrs) 10/22/16 10/22/16 17:35 15:20 Troponin I 0.022 0.013 - Physical Exam Constitutional: WDWN Cardiovascular: regular rate and rhythm Neurologic: AAOx3 Psychiatric: cooperative, interactive, following commands ICD10 Worksheet Patient Problems: Problems Problem Status Diagnosed Atrial flutter Acute Chest pain Acute NSTEMI (non-ST elevated myocardial infarction) Acute Pelvic fracture Acute Pulmonary emboli Acute CAD (coronary artery disease) Acute Chest pain in adult Acute Dyspnea Acute Elevated blood pressure reading Acute Headache Acute Hypertension Acute
[2016-10-23] MEDS ORDERED: diphenhydrAMINE 25 MG CAP PO ONE (10:00)
[2016-10-23] MEDS ORDERED: ASPIRIN EC 325 MG TAB PO ONE (10:00)
[2016-10-23] MEDS ORDERED: FAMOTIDINE 20 MG TAB PO ONE (10:00)
[2016-10-23] MEDS ORDERED: DIAZEPAM 5 MG TAB PO ONE (10:00)
[2016-10-23] MEDS ORDERED: NITROGLYCERIN 1,500 MCG/15 ML VIAL MISC ONE (10:55)
[2016-10-23] MEDS ORDERED: CLOPIDOGREL BISULFATE 75 MG TAB ONE (11:51)
[2016-10-23] MEDS ORDERED: LORazepam 2 MG/ML INJ IVP PRN (12:03)
[2016-10-23] MEDS ORDERED: HYDROCODONE/APAP 5/325 TAB PO PRN (12:03)
[2016-10-23] MEDS ORDERED: CLOPIDOGREL BISULFATE 75 MG TAB PO ONE (12:03)
[2016-10-23] MEDS ORDERED: ATROPINE SULFATE 1 MG/10 ML SYR IVP PRN (12:03)
[2016-10-23] MEDS ORDERED: TEMAZEPAM 15 MG CAP PO PRN (12:03)
[2016-10-23] MEDS ORDERED: OXYCODONE/APAP 5/325 TAB PO PRN (12:03)
--- NOTE | 2016-10-23 12:12 | PDDXCAT ---
Diagnostic Cath Note - . Date: 10/23/16 Manager Treasury: Atul Indication: CCC Class III and IV angina on medical treatment - Procedure Access: right wrist Procedure: coronary angiography, other (PCI OM1) - Materials Left Heart Cath size: 6F Left Heart Cath materials: JL4.5, JR4.0 - Findings-Left Heart Catheterization LM: Bifurcates. No significant disease LAD: Extensive stenting in the proximal, mid and distal vessel-widely patent. Extensive stenting in bifurcation fashion of 1st diagonal branch - widely patent. Up to 50% ostial diagonal stenosis-unchanged. Up to 50% apical LAD stenosis-unchanged. LCX: Dominant. Proximal stent widely patent. Distal vessel including multiple posterolateral and PDA branches widely patent with mild diffuse disease. Extensively stented 1st. Two 6 marginal branch once again demonstrates severe recurrent restenoses greater than 90% in the proximal and midvessel. RCA: Large non dominant vessel with proximal tubular 60% stenosis. Mid 50% disease. rSVG: Not injected. Known to be occluded. LVEF: Prosthetic Aortic valve not crossed Complications: None apparent Estimated blood loss: <50ml Closure method: TR Band Assessment: 1. Once again patient demonstrates progressive restenotic recurrent lesions within 1st obtuse marginal branch. 2. All other stented segments including LAD, diagonal and proximal circumflex are widely patent. Plan: Circumflex percutaneous intervention Intervention: Obtuse marginal was approached utilizing a 6 [place] EBU 4.5 guide catheter. A long steffen house supervisor 150 wire was placed through a 2.0 x 12 mm crso-blz-aais emerge balloon. The wire was exchanged for a long [place] wire. Pre dilation was performed up to 14 atmospheres. intravascular ultrasound imaging was then performed. We then attempted to place a 2.5 mm x 32 mm synergy drug-eluting stent. However, this would not cross proximally. 2.5 mm balloon angioplasty was performed and again the stent would not cross. The 2 mm sqqs-sdj-jqcl balloon was again placed out distally and the wire was exchanged for a long wiggle wire. 2.75 mm x 12 mm non compliant emerge balloon was utilized for proximal and ostial pre dilation up to 25 atmospheres. This allowed passage of the 2.5 mm x 32 mm synergy stent which was carefully positioned at the ostium of the OptEase marginal branch through the proximal and midvessel and deployed to 16 and then 18 atmospheres. Ultrasound imaging demonstrated excellent stent deployment except in a focal area proximally where there was severe under expansion due to with was likely fibrotic stenosis. The 2.75 mm noncompliant emerge balloon was again positioned and post dilations were performed to 25 and 30 atmospheres. Balloon wire removed intracoronary nitroglycerin and verapamil were administered followed by final orthogonal angiography. Post intervention there was no evidence of complication. There was angiographic excellent result with likely some degree of persistent under dilation due to unyielding lesion in the very proximal portion of the OptEase marginal branch. This is likely less than 50% in severity. There is no significant encroachment on the AV groove circumflex. Patient will remain on low-dose aspirin, Plavix and we will consider reinstituting her oral anticoagulant tomorrow. If chest pain persists other nonischemic causes will need to be evaluated. for further restenoses of this lesion consideration for laser atherectomy or rotational atherectomy will need to be undertaken. Patient Problems: Problems Problem Status Diagnosed Atrial flutter Acute Chest pain Acute NSTEMI (non-ST elevated myocardial infarction) Acute Pelvic fracture Acute Pulmonary emboli Acute CAD (coronary artery disease) Acute Chest pain in adult Acute Dyspnea Acute Elevated blood pressure reading Acute Headache Acute Hypertension Acute
[2016-10-23] MEDS ORDERED: D5W 1/2 NS 1,000 ML IV SCH (12:15)
[2016-10-23] MEDS ORDERED: ACETAMINOPHEN 325 MG TAB ONE (12:34)
--- NOTE | 2016-10-23 12:37 | CPEKG ---
Heart Rate: 55 RR Interval: 1091 P-R Interval: 216 QRSD Interval: 100 QT Interval: 468 QTC Interval: 448 P [place]: 35 QRS [place]: -55 T Wave [place]: 148 EKG Severity - ABNORMAL ECG - EKG Impression: SINUS RHYTHM EKG Impression: LAD, CONSIDER LEFT ANTERIOR FASCICULAR BLOCK EKG Impression: NONSPECIFIC T ABNORMALITIES, LATERAL LEADS Electronically Signed By: Bhaskar Craig 23-Oct-2016 22:04:40
--- NOTE | 2016-10-23 13:33 | HOSPPROG ---
Hospitalist Progress Note Assessment/Plan: ASSESSMENT/PLAN: # CAD with CP s/p RADHA to OM1 for ISR - asa/plavix/statin - s/p CABG about 4 years ago # paroxysmal atrial fibrillation - Eliquis per Cardiology # htn - norvasc, lisino # AVR, prosthetic # PE - eliquis per cards # FCFT SUBJECTIVE: Status post drug-eluting stent placement; no chest pain currently OBJECTIVE: Vitals reviewed Comfortable, no acute distress Regular rate and rhythm, 1/6 systolic murmur, no rubs or gallops No respiratory distress, lungs clear to auscultation bilaterally; no wheezes rales or rhonchi Abdomen with normal bowel sounds, soft, nontender, nondistended LABORATORY DATA: Troponins negative IMAGING: Nothing new MICROBIOLOGY: None ECG: T-wave flattening in V6, personally interpreted Dr. Pollard's operative no reviewed Disposition: Inpatient needs greater than 2 midnights for treatment of the above Objective: Vital Signs Temp Pulse Resp BP Pulse Ox 36.4 C 53 L 16 130/68 H 98 10/23/16 12:06 10/23/16 12:06 10/23/16 12:06 10/23/16 12:06 10/23/16 12:06 Laboratory Results 10/23/16 04:06 10/23/16 04:06 10/22/16 10/23/16 10/24/16 05:59 05:59 05:59 Intake Total 350 1000 Balance 350 1000 PT 14.5 SEC (12.0-15.0) 10/23/16 04:06 INR 1.14 (0.83-1.16) 10/23/16 04:06 ICD10 Worksheet Patient Problems: Problems Problem Status Diagnosed Atrial flutter Acute Chest pain Acute NSTEMI (non-ST elevated myocardial infarction) Acute Pelvic fracture Acute Pulmonary emboli Acute CAD (coronary artery disease) Acute Chest pain in adult Acute Dyspnea Acute Elevated blood pressure reading Acute Headache Acute Hypertension Acute
[2016-10-23] MEDS: LISINOPRIL 10 MG TAB PO SCH (13:44)
[2016-10-23] MEDS: GABAPENTIN 100 MG CAP PO SCH ×2 (13:44→19:58)
[2016-10-23] MEDS: amLODIPine BESYLATE 5 MG TAB PO SCH (19:58)
[2016-10-23] MEDS: FAMOTIDINE 20 MG TAB PO SCH (19:58)
[2016-10-24 04:45] LABS: ADD DIFF? NO; ADD MORPH? NO; ADD SCAN? NO; ATYPICAL LYMPHOCYTE FLAG 10 (0-99); FRAGMENT RBC FLAG 0 (0-99); HEMATOCRIT 37.7 % (38.0-47.0); HEMOGLOBIN 12.5 g/dL (12.6-16.3); LEFT SHIFT FLG 0 (0-99); LIPEMIA HEMOLYSIS FLAG 80 (0-99); MEAN CELL HEMOGLOBIN 29.1 pg (27.9-34.1); MEAN CELL HEMOGLOBIN CONCENTR. 33.2 g/dL (32.4-36.7); MEAN CELL VOLUME 87.7 fL (81.5-99.8); MEAN PLATELET VOLUME 10.3 fL (8.7-11.7); PLATELET CLUMPS FLAG 0 (0-99); PLATELET COUNT 118 10^3/uL (150-400); RED CELL DISTRIBUTION WIDTH 13.9 % (11.5-15.2)
[2016-10-24 05:13] LABS: ALBUMIN 3.5 g/dL (3.5-5.0); ANION GAP 6 mEq/L (8-16); ASPARTATE AMINOTRANSFERASE 23 IU/L (14-46); BILIRUBIN,TOTAL 0.4 mg/dL (0.1-1.4); CALCIUM 8.9 mg/dL (8.5-10.4); CARBON DIOXIDE 28 mEq/l (22-31); CHLORIDE 107 mEq/L (97-110); CREATININE 0.9 mg/dL (0.6-1.0); GLOMERULAR FILTRATION RATE 60; GLUCOSE 84 mg/dL (70-100); LACTATE DEHYDROGENASE 463 IU/L (313-618); MAGNESIUM 1.8 mg/dL (1.6-2.3); POTASSIUM 4.2 mEq/L (3.5-5.2); SODIUM 141 mEq/L (134-144)
[2016-10-24 07:40] VITALS: O2SAT 96
--- NOTE | 2016-10-24 08:07 | PDCARPN ---
Cardiology Progress Note Chief Complaint: Chest Pain Assessment/Plan: Assessment: 1. CAD with PCI yesterday to OM1 2. Paroxysmal atrial fibrillation 3. Non ischemic CM, LVEF 40% 4. Hx of prosthetic AVR 5. new onset of atypical chest pain with normal enzymes Plan: 1. Tylenol this Am for headache 2. Aspirin 81 mg daily 3. Plavix 75 mg daily 4. Restart Eliquis 5 mg bid tomorrow 5. Stable for discharge home 6. Increased Atorvastatin to 40 mg daily 7. Keep amlodipine at 5 mg daily 8. Will arrange for follow up next week 10/23/16 09:39 10/24/16 08:02 Subjective: Lizeth has had no further complaints of chest pain. [facility] yesterday with PCI to OM1. Tolerated procedure well. No post op complications. Hemodynamically stable. Radial site with mild ecchymosis. Radial pulse 2+. Occaisional PvC's and trigeminy on telemetery. BP well controlled. She does complaint of headache this morning. Time Spent With Patient: 20 minutes Objective: Vital Signs (8 Hrs) Temp Pulse Resp BP Pulse Ox 10/24/16 07:37 36.6 C 75 16 109/65 96 10/24/16 04:00 36.6 C 67 14 135/71 H 98 Intake/Output (24 Hrs) 10/23/16 10/24/16 10/25/16 05:59 05:59 05:59 Intake Total 850 Balance 850 Intake: Oral (ml) 850 Other: Number of Voids Toilet 2 Number of Stools Toilet 1 Result Diagrams: 10/24/16 04:00 10/24/16 04:00 ICD10 Worksheet Patient Problems: Problems Problem Status Diagnosed Atrial flutter Acute Chest pain Acute NSTEMI (non-ST elevated myocardial infarction) Acute Pelvic fracture Acute Pulmonary emboli Acute CAD (coronary artery disease) Acute Chest pain in adult Acute Dyspnea Acute Elevated blood pressure reading Acute Headache Acute Hypertension Acute
--- NOTE | 2016-10-24 08:41 | CPEKG ---
Heart Rate: 64 RR Interval: 938 P-R Interval: 204 QRSD Interval: 96 QT Interval: 444 QTC Interval: 458 P [place]: 44 QRS [place]: -54 T Wave [place]: 221 EKG Severity - ABNORMAL ECG - EKG Impression: SINUS RHYTHM EKG Impression: VENTRICULAR TRIGEMINY EKG Impression: LEFT ANTERIOR FASCICULAR BLOCK EKG Impression: NONSPECIFIC T ABNORMALITIES, LATERAL LEADS Electronically Signed By: Deric Sandhu 24-Oct-2016 15:47:31
[2016-10-24] MEDS: FAMOTIDINE 20 MG TAB PO SCH (08:53)
[2016-10-24] MEDS: LISINOPRIL 10 MG TAB PO SCH (08:54)
[2016-10-24] MEDS: GABAPENTIN 100 MG CAP PO SCH (08:54)
[2016-10-24] MEDS ORDERED: ATORVASTATIN CALCIUM 40 MG TAB PO SCH (09:00)
[2016-10-24] MEDS ORDERED: ASPIRIN EC 325 MG TAB PO SCH (09:00)
[2016-10-24] MEDS ORDERED: CLOPIDOGREL BISULFATE 75 MG TAB PO SCH (09:00)
[2016-10-24 11:03] VITALS: PULSE 81; RESP 17; TEMP 97.8
[2016-10-24 13:23] VITALS: BP 113/62
--- NOTE | 2016-10-24 15:35 | GDS ---
[f rep st] DISCHARGE SUMMARY DISCHARGE DIAGNOSES: 1. Coronary artery disease, status post recent stenting to marginal branch of left circumflex. 2. Previous history of CABG. 3. History of pulmonary embolism. 4. Atrial fibrillation. 5. Hypertension. 6. Peripheral vascular disease. 7. Congestive heart failure with diastolic dysfunction. Ejection fraction of 45% to 50%. 8. Moderate pulmonary hypertension. 9. Chronic leukopenia. 10. Thrombocytopenia. HISTORY: This is an 81-year-old female who has been admitted 3 times in the last several weeks for c hest pain. HOSPITAL COURSE: Patient was admitted. Cardiology was consulted, and the patient underwent angiogra m. She did have a re-stenosis of a marginal branch of the left circumflex. That was stented. She h as been doing well. She had one blood pressure that was low the morning of discharge. When repeated , it was back to normal. She will be discharged home. She is instructed to restart her Eliquis carlos rrow, but to continue all other medicines as previous, except that her lovastatin will be increased t o 40 mg daily. FOLLOWUP INSTRUCTIONS: She is instructed to follow up with Cardiology in 1-2 weeks. /[id number]/MODL
== END 2016-10-24 16:01 | disposition home or self-care (01) | DRG 247 ==
LOC: F2W 09:13 → OBSVTOIN 10-23 13:33
PROVIDERS: ADMIT Student in an Organized Health Care Education/Training Program; ATTEND Student in an Organized Health Care Education/Training Program
PROC: 027034Z Dilation of Coronary Artery, One Artery with Drug-eluting Intraluminal Device, Percutaneous Approach (ICD-10-PCS; principal; 2016-10-23 11:48)
PROC: B2111ZZ Fluoroscopy of Multiple Coronary Arteries using Low Osmolar Contrast (ICD-10-PCS; principal; 2016-10-23 11:48)
DX: I77.1 Stricture of artery (principal); I50.30 Unspecified diastolic (congestive) heart failure; I42.9 Cardiomyopathy, unspecified; I48.91 Unspecified atrial fibrillation; I11.0 Hypertensive heart disease with heart failure; I73.9 Peripheral vascular disease, unspecified; I27.2 Other secondary pulmonary hypertension; D72.819 Decreased white blood cell count, unspecified; D69.6 Thrombocytopenia, unspecified; H54.41 Blindness, right eye, normal vision left eye; E78.5 Hyperlipidemia, unspecified; Z95.1 Presence of aortocoronary bypass graft; Z86.711 Personal history of pulmonary embolism; Z88.0 Allergy status to penicillin; Z95.3 Presence of xenogenic heart valve
CPT/HCPCS: C1725; C1753; C1769; C1874; C1887; C9600; G0378; J1644; J2250; J2405; J3010; Q9967

== ENCOUNTER 2016-10-26 07:10 | Emergency (ER) | payer OTHER ==
--- NOTE | 2016-10-26 07:17 | EDPHY ---
H & P Time Seen by Provider: 10/26/16 07:15 HPI/ROS: CHIEF COMPLAINT: It is hard for me to breathe HISTORY OF PRESENT ILLNESS: This 81-year-old woman is anticoagulated on Eliquis for history of atrial fibrillation. She had cardiac catheterization on October 23 of this year and had obtuse marginal stenting but the remainder of her coronary is did not show critical stenosis. She was restarted on her Eliquis 2 days ago and felt reasonably well yesterday except being a little bit tired. Today she woke up at 6:20 a.m. this some tightness or chest and felt like she was having a little bit of trouble breathing. Symptoms mild and not associated with cough or fever or leg swelling or hemoptysis. Her tightness in her chest does not radiate and not associated with syncope or nausea or vomiting. REVIEW OF SYSTEMS: Eye: no change in vision ENT: no sore throat Cardiac: HPI Pulmonary: HPI Abdomen: no vomiting, diarrhea, abdominal pain Musculoskeletal: no back pain Skin: Some bruising on the right wrist at the site of her angiogram Neuro: no headache Constitutional: no fever : no urinary symptoms A comprehensive 10 point review of systems is otherwise negative aside from elements mentioned in the history of present illness. PAST MEDICAL HISTORY: Discharge summary dated 1 the 03/04/2016, discharge summary dated 10/23/2026, cardiac catheterization note dated 06/02/2017 personally reviewed by myself. Includes coronary artery disease, bypass surgery, pulmonary embolism on Eliquis, atrial fibrillation, hypertension, CHF with ejection fraction approximately 50%, chronic leukopenia and thrombocytopenia. She had coronary angiogram on October [address] Pollard which has 1st OM stenting at that time. Social history: Here with family, nonsmoker General Appearance: Alert and conversant, cooperative. Eyes: No scleral icterus. ENT, Mouth: Normal mucous membranes. Respiratory: Normal respiratory effort, breath sounds equal, lungs are clear to auscultation. Cardiovascular: Regular rate and rhythm. Frequent extrasystole. Gastrointestinal: Abdomen is soft and non tender. Neurological: Alert and oriented x3. Normally conversant. Face symmetric, normal movement and sensation in all extremities. Skin: Bruising around the right radial artery angiogram site but normal motor sensory and capillary refill in the right hand. Musculoskeletal: No peripheral edema and no joint swelling. No calf tenderness. Psychiatric: Not agitated. Emergency Department course/MDM: Patient presents with oxygen saturation 97% on room air. She is speaking in full sentences. She is on Eliquis and I think that pulmonary embolism would therefore be unlikely. She had recent coronary arteriography and I think acute coronary closure in is not highly likely. 841: Results discussed with patient and family, stable for discharge. Discussed with Dr. Pollard in detail he knows the patient well who recommends discharge if no acute changes on EKG, he believes that the troponin value would be related to her recent stenting and does not require admission or further evaluation. Smoking Status: Never smoked Constitutional: Initial Vital Signs Temperature (C) 36.6 C 10/26/16 07:16 Heart Rate 72 10/26/16 07:16 Respiratory Rate 20 10/26/16 07:16 O2 Sat (%) 97 10/26/16 07:16 O2 Delivery Mode Room Air Allergies/Adverse Reactions: Penicillins Allergy (Intermediate, Verified 10/26/16 07:15) Hives Home Medications: Medication Instructions Recorded Cholecalciferol Vit D3 [Vitamin D3 1,000 units PO DAILY@10/19/13 (*)] Multivitamins [Multivitamin (*)] 1 each PO DAILY@10/19/13 Clopidogrel Bisulfate [Plavix (*)] 75 mg PO DAILY@10/24/13 Apixaban [Eliquis] 5 mg PO BID@,04/16/15 Gabapentin [Neurontin 100 MG (*)] 100 mg PO BID@,04/22/15 Herbals/Supplements -Info Only 1 ea PO DAILY@05/18/16 Calcium Carbonate [Oyster Shell 500 mg PO DAILY@10/11/16 Calcium 500 mg (*)] Lisinopril [Zestril 10 mg (*)] 10 mg PO DAILY@10/11/16 Nitroglycerin [Nitrostat 0.4 mg 0.4 mg SL Q5M PRN 10/19/16 (*)] amLODIPine BESYLATE [Norvasc 5 mg 5 mg PO DAILY@10/19/16 (*)] Aspirin EC [Aspirin EC 81 mg (*)] 81 mg PO DAILY #0 tab 10/24/16 Atorvastatin Calcium [Lipitor 40 40 mg PO DAILY #30 tab 10/24/16 mg (*)] Medical Decision Making - Diagnostics EKG Interpretation: 12-lead EKG interpreted by me; official reading is in trace master. My interpretation is sinus rhythm, left anterior fascicular block, no acute ischemic changes. Imaging: Chest x-ray viewed independently by myself shows sternal wires from CABG, aortic valve, multiple stents, cardiomegaly. Unchanged from 3 days ago and no reason for shortness of breath identified. Differential Diagnosis: Differential diagnosis considered for shortness of breath including but not limited to pulmonary infectious process, COPD, asthma, pulmonary embolus and congestive heart failure. Consult/Admit Bed Type: Dr. Pollard 816am - Data Points Laboratory Results: Laboratory Results 10/26/16 07:29 10/26/16 07:29 10/26/16 07:29 WBC 3.46 L 10^3/uL (3.80-9.50) RBC 4.46 10^6/uL (4.18-5.33) Hgb 13.2 g/dL (12.6-16.3) Hct 39.2 % (38.0-47.0) MCV 87.9 fL (81.5-99.8) MCH 29.6 pg (27.9-34.1) MCHC 33.7 g/dL (32.4-36.7) RDW 14.1 % (11.5-15.2) Plt Count 142 L 10^3/uL (150-400) MPV 11.0 fL (8.7-11.7) Neut % (Auto) 46.2 % (39.3-74.2) Lymph % (Auto) 42.5 % (15.0-45.0) [place] % (Auto) 7.8 % (4.5-13.0) Eos % (Auto) 2.3 % (0.6-7.6) Baso % (Auto) 0.9 % (0.3-1.7) Nucleat RBC Rel Count 0.0 % (0.0-0.2) Absolute Neuts (auto) 1.60 L 10^3/uL (1.70-6.50) Absolute Lymphs (auto) 1.47 10^3/uL (1.00-3.00) Absolute Monos (auto) 0.27 L 10^3/uL (0.30-0.80) Absolute Eos (auto) 0.08 10^3/uL (0.03-0.40) Absolute Basos (auto) 0.03 10^3/uL (0.02-0.10) Absolute Nucleated RBC 0.00 10^3/uL (0-0.01) Immature Gran % 0.3 % (0.0-1.1) Immature Gran # 0.01 10^3/uL (0.00-0.10) Sodium 144 mEq/L (134-144) Potassium 4.4 mEq/L (3.5-5.2) Chloride 108 mEq/L (97-110) Carbon Dioxide 26 mEq/l (22-31) Anion Gap 10 mEq/L (8-16) BUN 24 H mg/dL (7-23) Creatinine 1.1 H mg/dL (0.6-1.0) Estimated GFR 48 Glucose 95 mg/dL (70-100) Calcium 9.6 mg/dL (8.5-10.4) Troponin I 0.120 H ng/mL (0-0.034) Departure - Departure Disposition: Home, Routine, Self-Care Clinical Impression: Chest pain in adult, Dyspnea Condition: Good Instructions: Dyspnea (ED) Referrals: Jorge Reardon [Primary Care Provider] - As per Instructions James Pollard MD [Medical Doctor] - As per Instructions (as scheduled)
--- NOTE | 2016-10-26 07:27 | CPEKG ---
Heart Rate: 74 RR Interval: 811 P-R Interval: 200 QRSD Interval: 100 QT Interval: 356 QTC Interval: 395 P [place]: 60 QRS [place]: -56 T Wave [place]: 166 EKG Severity - ABNORMAL ECG - EKG Impression: SINUS RHYTHM EKG Impression: VENTRICULAR TRIGEMINY EKG Impression: LEFT ANTERIOR FASCICULAR BLOCK Electronically Signed By: Jose Jauregui 26-Oct-2016 08:12:05
[2016-10-26 07:43] LABS: % IMMATURE GRANULYOCYTES 0.3 % (0.0-1.1); ABSOLUTE IMMATURE GRANULOCYTES 0.01 10^3/uL (0.00-0.10); ADD DIFF? NO; ADD MORPH? NO; ADD SCAN? NO; ATYPICAL LYMPHOCYTE FLAG 0 (0-99); FRAGMENT RBC FLAG 0 (0-99); HEMATOCRIT 39.2 % (38.0-47.0); HEMOGLOBIN 13.2 g/dL (12.6-16.3); LEFT SHIFT FLG 0 (0-99); LIPEMIA HEMOLYSIS FLAG 80 (0-99); MEAN CELL HEMOGLOBIN 29.6 pg (27.9-34.1); MEAN CELL HEMOGLOBIN CONCENTR. 33.7 g/dL (32.4-36.7); MEAN CELL VOLUME 87.9 fL (81.5-99.8); PLATELET CLUMPS FLAG 10 (0-99); PLATELET COUNT 142 10^3/uL (150-400); RED BLOOD CELL COUNT 4.46 10^6/uL (4.18-5.33); RED CELL DISTRIBUTION WIDTH 14.1 % (11.5-15.2)
[2016-10-26 07:59] LABS: ANION GAP 10 mEq/L (8-16); CALCIUM 9.6 mg/dL (8.5-10.4); CARBON DIOXIDE 26 mEq/l (22-31); CHLORIDE 108 mEq/L (97-110); CREATININE 1.1 mg/dL (0.6-1.0); GLOMERULAR FILTRATION RATE 48; GLUCOSE 95 mg/dL (70-100); POTASSIUM 4.4 mEq/L (3.5-5.2); SODIUM 144 mEq/L (134-144)
[2016-10-26 08:24] VITALS: RESP 18
[2016-10-26 09:18] VITALS: BP 125/71; PULSE 64; TEMP 98.2; O2SAT 97
--- NOTE | 2016-10-26 10:51 | DX ---
Chest, AP Upright and Lateral Views October 26, 2016 7:34 a.m. Clinical History: 81-year-old female with chest pain and shortness of breath. Comparison Studies: Chest, dated October 22, 2016 and October 19, 2016. Findings: Oxygen tubing and telemetry monitoring lead lines are present. There are median sternotomy wires, mediastinal surgical clips consistent with prior CABG, and an aortic valve prosthesis. Numerou s left-sided coronary artery stents are present. The cardiac silhouette remains enlarged. The pulmona ry vasculature is normal. There is no focal infiltrate, pleural effusion, peripheral interstitial berna ma, or pneumothorax. The trachea is midline. The osseous structures are stable with an old healed rig ht 6th posterior rib fracture and mild T6 and L1 compression deformities. Impression: No acute abnormality, or substantial interval change from prior studies this month.
== END 2016-10-26 09:19 | disposition home or self-care (01) ==
DX: R07.9 Chest pain, unspecified (principal); R06.00 Dyspnea, unspecified; Z79.82 Long term (current) use of aspirin

== ENCOUNTER 2016-11-03 03:35 | Observation (INO) | payer OTHER ==
--- NOTE | 2016-11-03 03:55 | CPEKG ---
Heart Rate: 72 RR Interval: 833 P-R Interval: 212 QRSD Interval: 108 QT Interval: 424 QTC Interval: 465 P [place]: 53 QRS [place]: -40 T Wave [place]: 86 EKG Severity - ABNORMAL ECG - EKG Impression: SINUS RHYTHM EKG Impression: VENTRICULAR PREMATURE COMPLEX EKG Impression: PROBABLE LEFT ATRIAL ABNORMALITY EKG Impression: LEFT ANTERIOR FASCICULAR BLOCK Electronically Signed By: Niels Echols 03-Nov-2016 06:53:10
[2016-11-03] MEDS ORDERED: ASPIRIN 81 MG CHEWABLE TAB PO ONE (03:56)
[2016-11-03] MEDS ORDERED: NS 500 ML IV ONE (03:56)
[2016-11-03] MEDS ORDERED: NITROGLYCERIN 0.4 MG BTL SL PRN ×2 (03:56→05:48)
--- NOTE | 2016-11-03 03:56 | EDPHY ---
H & P Stated Complaint: pt c/o tightness in chest and sob beginning at 2200 last pm HPI/ROS: HPI CHIEF COMPLAINT: Chest tightness, shortness of breath HISTORY OF PRESENT ILLNESS: the patient very pleasant 81-year-old female significant past medical history for coronary artery disease with stents, recent hospitalization the beginning of October for a new stent of left circumflex, history of peripheral vascular disease, pulmonary embolism, heart failure, CABG, PE on Eliquis who presents to the emergency room with pressure in her chest across her entire chest and then more so on her left side of her chest. She also tells me she feels dyspneic. She states that around 3 hours ago she had onset of chest discomfort she was lying down when this happened she describes a dull pressure nonradiating she has associated shortness of breath with this. She denies dyspnea on exertion or PND. She tells me she took 3 nitroglycerin prior to arrival and this did not help with her pain. Upon arrival here in the emergency room she is complaining of discomfort in her chest pressure-like sensation. Past Medical History: Peripheral vascular disease, hypertension, AFib, coronary disease, CHF, pulmonary hypertension, pulmonary embolism, recent cardiac stenting Past Surgical History: CABG, recent cardiac stent Social History: Denies use of drugs alcohol tobacco products Family History: Noncontributory ROS REVIEW OF SYSTEMS: A comprehensive 10 point review of systems is otherwise negative aside from elements mentioned in the history of present illness. Exam Constitutional triage nursing summary reviewed, vital signs reviewed, awake/ alert. Eyes normal conjunctivae and sclera, EOMI, PERRLA. HENT normal inspection, atraumatic, moist mucus membranes, no epistaxis, neck supple/ no meningismus, no raccoon eyes. Respiratory clear to auscultation bilaterally, normal breath sounds, no respiratory distress, no wheezing. Cardiovascular rate normal, regular rhythm, no murmur, no edema, distal pulses normal. Gastrointestinal soft, non-tender, no rebound, no guarding, normal bowel sounds, no distension, no pulsatile mass. Genitourinary no CVA tenderness. Musculoskeletal no midline vertebral tenderness, full range of motion, no calf swelling, no tenderness of extremities, no meningismus, good pulses, neurovascularly intact. Skin pink, warm, & dry, no rash, skin atraumatic. Neurologic awake, alert and oriented x 3, AAOx3, moves all 4 extremities equally, motor intact, sensory intact, CN II-XII intact, normal cerebellar, normal vision, normal speech. Psychiatric normal mood/affect. Heme/Lymph/Immune no lymphadenopathy. Differential diagnosis includes but is not limited to: ACS, atypical chest pain , pneumothorax, pneumonia, pulmonary embolism, aortic dissection, congestive heart failure, tumor, musculoskeletal pain, esophageal pain, GERD, peptic ulcer disease, pancreatitis Medical Decision Making: This patient had an IV established be placed on full reporting consultant she began full-dose aspirin and nitroglycerin, also may be given morphine for pain control we will obtain an EKG to rule out acute coronary syndrome. Re-evaluation: EKG interpretation by me on record in babberly system. Impression time of EKG is 3:53 a.m. this is sinus rhythm rate of 72 I do not appreciate acute ST elevation or significant ST depression there is ST segment flattening in V4 V5 V6 similar morphology to EKG done on 10/24/2016. 0509: Re-evaluation at this time she is resting comfortably no complaints she is chest pain-free. She received IV morphine. I did speak with the hospital service Dr. Black who agrees to admit this patient for chest pain evaluation recent admission for new stent. is noted this patient has a very borderline elevated troponin. EKG is similar to previous EKGs. ED x-ray chest one view: This shows cardiomegaly, otherwise unremarkable chest x-ray. Source: Patient - Medical/Surgical History Hx Asthma: No Hx Chronic Respiratory Disease: Yes Hx Diabetes: No Hx Cardiac Disease: Yes Hx Renal Disease: No Hx Cirrhosis: No Hx Alcoholism: No Hx HIV/AIDS: No Hx Splenectomy or Spleen Trauma: No Other PMH: Home , STENTS 2014, CABG 2012, endarterectomy(rt), HTN, headaches, AFIB, blind in rt eye, AORTIC VALVE REPLACEMENT, csection x 2 - Social History Smoking Status: Never smoked Constitutional: Initial Vital Signs Temperature (C) 36.6 C 11/03/16 03:39 Heart Rate 58 L 11/03/16 03:39 Respiratory Rate 18 11/03/16 03:39 Blood Pressure 114/64 11/03/16 03:39 O2 Sat (%) 95 11/03/16 03:39 O2 Delivery Mode Room Air Allergies/Adverse Reactions: Penicillins Allergy (Intermediate, Verified 11/03/16 03:44) Hives Home Medications: Medication Instructions Recorded Cholecalciferol Vit D3 [Vitamin D3 1,000 units PO DAILY@10/19/13 (*)] Multivitamins [Multivitamin (*)] 1 each PO DAILY@10/19/13 Clopidogrel Bisulfate [Plavix (*)] 75 mg PO DAILY@10/24/13 Apixaban [Eliquis] 5 mg PO BID@,04/16/15 Gabapentin [Neurontin 100 MG (*)] 100 mg PO BID@,04/22/15 Herbals/Supplements -Info Only 1 ea PO DAILY@05/18/16 Calcium Carbonate [Oyster Shell 500 mg PO DAILY@10/11/16 Calcium 500 mg (*)] Lisinopril [Zestril 10 mg (*)] 10 mg PO DAILY@10/11/16 Nitroglycerin [Nitrostat 0.4 mg 0.4 mg SL Q5M PRN 10/19/16 (*)] amLODIPine BESYLATE [Norvasc 5 mg 5 mg PO DAILY@10/19/16 (*)] Aspirin EC [Aspirin EC 81 mg (*)] 81 mg PO DAILY #0 tab 10/24/16 Atorvastatin Calcium [Lipitor 20 20 mg PO DAILY 11/03/16 mg (*)] Pantoprazole Sodium [Protonix 40mg 40 mg PO DAILY 11/03/16 (*)] Ranolazine [Ranexa] 500 mg PO BID@,11/03/16 Medical Decision Making - Data Points Laboratory Results: Laboratory Results 11/03/16 03:55 11/03/16 03:55 Medications Given: Discontinued Medications Aspirin (Aspirin) 324 mg PO EDNOW ONE Stop: 11/03/16 03:57 Last Admin: 11/03/16 04:10 Dose: 324 mg Sodium Chloride (Ns) 500 mls @ 0 mls/hr IV ONCE ONE PRN Reason: As Directed Stop: 11/03/16 03:57 Last Admin: 11/03/16 04:10 Dose: 500 mls Morphine Sulfate (Morphine) 4 mg IVP EDNOW ONE Stop: 11/03/16 04:14 Last Admin: 11/03/16 04:28 Dose: 4 mg Ondansetron HCl (Zofran) 4 mg IVP EDNOW ONE Stop: 11/03/16 04:14 Last Admin: 11/03/16 04:28 Dose: 4 mg Departure - Departure Disposition: [facility] Clinical Impression: Chest pain at rest Condition: Good
[2016-11-03] MEDS ORDERED: ONDANSETRON 4 MG/2 ML VIAL IVP ONE (04:13)
[2016-11-03 04:17] LABS: % IMMATURE GRANULYOCYTES 0.3 % (0.0-1.1); ABSOLUTE IMMATURE GRANULOCYTES 0.01 10^3/uL (0.00-0.10); ADD DIFF? NO; ADD MORPH? NO; ADD SCAN? NO; ATYPICAL LYMPHOCYTE FLAG 10 (0-99); FRAGMENT RBC FLAG 0 (0-99); HEMATOCRIT 39.2 % (38.0-47.0); HEMOGLOBIN 12.8 g/dL (12.6-16.3); LEFT SHIFT FLG 0 (0-99); LIPEMIA HEMOLYSIS FLAG 80 (0-99); MEAN CELL HEMOGLOBIN CONCENTR. 32.7 g/dL (32.4-36.7); MEAN CELL VOLUME 88.9 fL (81.5-99.8); MEAN PLATELET VOLUME 10.6 fL (8.7-11.7); PLATELET CLUMPS FLAG 0 (0-99); PLATELET COUNT 142 10^3/uL (150-400); RED BLOOD CELL COUNT 4.41 10^6/uL (4.18-5.33); RED CELL DISTRIBUTION WIDTH 13.8 % (11.5-15.2)
[2016-11-03 04:23] LABS: ALANINE AMINOTRANSFERASE 24 IU/L (9-52); ALKALINE PHOSPHATASE 65 IU/L (38-126); ANION GAP 11 mEq/L (8-16); ASPARTATE AMINOTRANSFERASE 26 IU/L (14-46); BILIRUBIN,TOTAL 0.5 mg/dL (0.1-1.4); BILIRUBIN-CONJUGATED 0.2 mg/dL (0.0-0.5); BILIRUBIN-UNCONJUGATED 0.3 mg/dL (0.0-1.1); CALCIUM 9.4 mg/dL (8.5-10.4); CARBON DIOXIDE 26 mEq/l (22-31); CHLORIDE 105 mEq/L (97-110); CREATININE 1.1 mg/dL (0.6-1.0); GLOMERULAR FILTRATION RATE 48; GLUCOSE 107 mg/dL (70-100); MAGNESIUM 1.9 mg/dL (1.6-2.3); POTASSIUM 4.3 mEq/L (3.5-5.2); SODIUM 142 mEq/L (134-144); TOTAL PROTEIN 6.6 g/dL (6.3-8.2)
[2016-11-03 04:26] LABS: APTT 33.5 SEC (23.0-38.0); INR 1.22 (0.83-1.16); PROTIME(PATIENT) 15.4 SEC (12.0-15.0)
[2016-11-03 04:35] LABS: CREATINE KINASE-MB FRACTION 0.84 ng/mL (0-3.19); TROPONIN I 0.036 ng/mL (0-0.034)
[2016-11-03] MEDS ORDERED: HYDROCODONE/APAP 5/325 TAB PO PRN (05:45)
[2016-11-03] MEDS ORDERED: ONDANSETRON DISINTEGRATING 4 MG TAB PO PRN (05:45)
[2016-11-03] MEDS ORDERED: ACETAMINOPHEN 325 MG TAB PO PRN (05:45)
[2016-11-03] MEDS ORDERED: ONDANSETRON 4 MG/2 ML VIAL IVP PRN (05:45)
--- NOTE | 2016-11-03 07:39 | PDGENHP ---
History and Physical - Chief Complaint Chest pain - History of Present Illness Patient is a 81-year-old female with a history of CAD s/p CABG and PCI, most recently on 08/23 of OM1, history of PE on systemic anticoagulation, atrial fibrillation hypertension, hyperlipidemia, peripheral vascular disease and systolic/diastolic heart failure, with recent admission for NSTEMI (10/19 to 10/24) with above-mentioned PCI who presents to the ED complaining of an episode of chest pain. Patient states she was sleeping and was awoken at around midnight with sensation of substernal and left-sided chest pressure. Pain was associated with sensation of shortness of breath, but no palpitations, nausea, diaphoresis or lightheadedness. Pain did not improve with sublingual nitro, so her son brought her to the ED for further evaluation. Since discharge on 10/23, patient has been living with her son and he reports that she has been compliant with all prescribed medications including DAPT and eliquis. She had one ED visit on 10/26 for chest tightness, w/u was unrevealing and she was discharged home. She has not had any recent fevers, chills, cough, congestion, nausea, vomiting, diarrhea or dysuria. Arrival to the ED patient was afebrile hemodynamically stable. EKG was unchanged from priors. Labs revealed normal CBC and BMP, indeterminately elevated troponin. Patient was given aspirin in symptoms resolved over the course of ED stay. She was then admitted to the hospital service for further management. History Information - Allergies/Home Medication List Allergies/Adverse Reactions: Penicillins Allergy (Intermediate, Verified 11/03/16 03:44) Hives Home Medications: Cholecalciferol Vit D3 [Vitamin D3 (*)] 1,000 units PO DAILY@10/19/13 [Last Taken 10/21/16] Multivitamins [Multivitamin (*)] 1 each PO DAILY@10/19/13 [Last Taken ] Clopidogrel Bisulfate [Plavix (*)] 75 mg PO DAILY@10/24/13 [Last Taken ] Apixaban [Eliquis] 5 mg PO BID@,04/16/15 [Last Taken 10/21/16] Gabapentin [Neurontin 100 MG (*)] 100 mg PO BID@,04/22/15 [Last Taken 10/21] Herbals/Supplements -Info Only 1 ea PO DAILY@05/18/16 [Last Taken 10/21/16] Calcium Carbonate [Oyster Shell Calcium 500 mg (*)] 500 mg PO DAILY@10/11/16 [Last Taken 10/21/16] Lisinopril [Zestril 10 mg (*)] 10 mg PO DAILY@10/11/16 [Last Taken 10/21/16] Nitroglycerin [Nitrostat 0.4 mg (*)] 0.4 mg SL Q5M PRN 10/19/16 [Last Taken 04/01] amLODIPine BESYLATE [Norvasc 5 mg (*)] 5 mg PO DAILY@10/19/16 [Last Taken 04/01] I have personally reviewed and updated: family history, medical history, social history, surgical history - Past Medical History atrial fibrillation, coronary artery disease, CHF, diabetes type 2, hypertension , hyperlipidemia, peripheral artery disease, pulmonary embolism - Surgical History Reports: coronary bypass surgery, coronary stent, vascular surgery (CEA) - Family History Positive for: non-pertinent - Social History Smoking Status: Never smoked Additional social history: Previously lived independently in her own home, since recent hospitalization has been living with her son who is very involved in her care. Review of Systems ROS: 10pt was reviewed & negative except for what was stated in HPI & below Physical Exam Temp Pulse Resp BP Pulse Ox 36.6 C 65 16 123/78 H 95 11/03/16 03:39 11/03/16 04:15 11/03/16 04:15 11/03/16 04:15 11/03/16 06:11 O2 (L/minute) 2 Constitutional: no apparent distress, appears nourished, not in pain Eyes: PERRL, anicteric sclera, EOMI (chronic R eye palsy; L EOMI) Ears, Nose, Mouth, Throat: moist mucous membranes, hearing normal, ears appear normal, no oral mucosal ulcers Cardiovascular: regular rate and rhythym, no murmur, rub, or gallop, pulses symmetric bilaterally, No JVD, No edema Peripheral Pulses: 2+: dorsalis-pedis (R), dorsalis-pedis (L) Respiratory: no respiratory distress, no rales or rhonchi, clear to auscultation Gastrointestinal: normoactive bowel sounds, soft, non-tender abdomen, no palpable masses, No guarding, No rebound Genitourinary: no bladder fullness, no bladder tenderness Skin: warm, normal color, no rashes or abrasions, no fluctuance, No mottled Musculoskeletal: full muscle strength, no muscle tenderness, normal joint ROM, no joint effusions Neurologic: AAOx3, sensation intact bilaterally, CN II-XII Intact, No weakness, No numbness Psychiatric: interacting appropriately, not anxious, not encephalopathic, thought process linear Lab Data & Imaging Review 11/03/16 03:55 11/03/16 03:55 WBC 3.35 10^3/uL (3.80-9.50) L 11/03/16 03:55 RBC 4.41 10^6/uL (4.18-5.33) 11/03/16 03:55 Hgb 12.8 g/dL (12.6-16.3) 11/03/16 03:55 Hct 39.2 % (38.0-47.0) 11/03/16 03:55 MCV 88.9 fL (81.5-99.8) 11/03/16 03:55 MCH 29.0 pg (27.9-34.1) 11/03/16 03:55 MCHC 32.7 g/dL (32.4-36.7) 11/03/16 03:55 RDW 13.8 % (11.5-15.2) 11/03/16 03:55 Plt Count 142 10^3/uL (150-400) L 11/03/16 03:55 MPV 10.6 fL (8.7-11.7) 11/03/16 03:55 Neut % (Auto) 39.9 % (39.3-74.2) 11/03/16 03:55 Lymph % (Auto) 48.4 % (15.0-45.0) H 11/03/16 03:55 [place] % (Auto) 7.8 % (4.5-13.0) 11/03/16 03:55 Eos % (Auto) 2.7 % (0.6-7.6) 11/03/16 03:55 Baso % (Auto) 0.9 % (0.3-1.7) 11/03/16 03:55 Nucleat RBC Rel Count 0.0 % (0.0-0.2) 11/03/16 03:55 Absolute Neuts (auto) 1.34 10^3/uL (1.70-6.50) L 11/03/16 03:55 Absolute Lymphs (auto) 1.62 10^3/uL (1.00-3.00) 11/03/16 03:55 Absolute Monos (auto) 0.26 10^3/uL (0.30-0.80) L 11/03/16 03:55 Absolute Eos (auto) 0.09 10^3/uL (0.03-0.40) 11/03/16 03:55 Absolute Basos (auto) 0.03 10^3/uL (0.02-0.10) 11/03/16 03:55 Absolute Nucleated RBC 0.00 10^3/uL (0-0.01) 11/03/16 03:55 Immature Gran % 0.3 % (0.0-1.1) 11/03/16 03:55 Immature Gran # 0.01 10^3/uL (0.00-0.10) 11/03/16 03:55 PT 15.4 SEC (12.0-15.0) H 11/03/16 03:55 INR 1.22 (0.83-1.16) H 11/03/16 03:55 APTT 33.5 SEC (23.0-38.0) 11/03/16 03:55 Sodium 142 mEq/L (134-144) 11/03/16 03:55 Potassium 4.3 mEq/L (3.5-5.2) 11/03/16 03:55 Chloride 105 mEq/L (97-110) 11/03/16 03:55 Carbon Dioxide 26 mEq/l (22-31) 11/03/16 03:55 Anion Gap 11 mEq/L (8-16) 11/03/16 03:55 BUN 23 mg/dL (7-23) 11/03/16 03:55 Creatinine 1.1 mg/dL (0.6-1.0) H 11/03/16 03:55 Estimated GFR 48 11/03/16 03:55 Glucose 107 mg/dL (70-100) H 11/03/16 03:55 Calcium 9.4 mg/dL (8.5-10.4) 11/03/16 03:55 Magnesium 1.9 mg/dL (1.6-2.3) 11/03/16 03:55 Total Bilirubin 0.5 mg/dL (0.1-1.4) 11/03/16 03:55 Conjugated Bilirubin 0.2 mg/dL (0.0-0.5) 11/03/16 03:55 Unconjugated Bilirubin 0.3 mg/dL (0.0-1.1) 11/03/16 03:55 AST 26 IU/L (14-46) 11/03/16 03:55 ALT 24 IU/L (9-52) 11/03/16 03:55 Alkaline Phosphatase 65 IU/L (38-126) 11/03/16 03:55 Creatine Kinase 44 IU/L (0-156) 11/03/16 03:55 CK-MB (CK-2) Fraction 0.84 ng/mL (0-3.19) 11/03/16 03:55 Troponin I 0.036 ng/mL (0-0.034) H 11/03/16 03:55 NT-Pro-B Natriuret Pep 339 pg/mL (0-450) 11/03/16 03:55 Total Protein 6.6 g/dL (6.3-8.2) 11/03/16 03:55 Albumin 4.0 g/dL (3.5-5.0) 11/03/16 03:55 Lipase 109.0 IU/L (23-300) 11/03/16 03:55 Visualized and Interpreted Chest x-ray results: Yes Chest X-Ray results: no infiltrate (Sternotomy wires, no obvious infiltrate, unchanged from priors) Visualized and Interpreted EKG results: Yes EKG Interpretation: Positive for: normal sinsus rhythm (With PVC, unchanged from priors) Assessment & Plan Assessment: Patient is an 81-year-old female with history of CAD who recently underwent PCI , atrial fibrillation on systemic anticoagulation HTN, HLD, who presents to the ED with an episode of chest pain unresponsive to home SL nitro. Plan: # chest pain, indeterminant troponin Patient with extensive cardiac history and PCI with stent to OM1 on 10/23 after an NSTEMI. She reports compliance with all her home meds. Symptoms have now resolved. Will trend troponins (initial mildly elevated) and consider cardiology consult. Will cont home meds. # atrial fibrillation/HTN/HL In sinus rhythm, rate controlled, BP stable. Will continue eliquis and all home meds. # chronic systolic and diastolic CHF Appears to be euvolemic, BNP wnl. CHF is stable. Will cont home meds. # chronic thrombocytopenia/leukopenia CBC appears at baseline. Will monitor # dispo: admit as observation status for chest pain # gen: Cardiac diet DVT ppx: on eliquis Full code
--- NOTE | 2016-11-03 10:03 | DX ---
Portable AP Upright Chest, at 4:10 a.m. Clinical History: 81-year-old female complaining of chest pain. COMPARISON STUDY: Chest, dated October 26, 2016, at 7:34 a.m. FINDINGS: There are surgical clips at the base of the right neck. Median sternotomy wires, an aortic valvuloplasty, median sternotomy clips (consistent with prior CABG), and extensive left-sided coronar y artery stents are again noted. There are telemetry monitoring lead lines present. The cardiac silho uette remains enlarged. There is mild peribronchial thickening. Calcified granulomata are seen at the right hilum. There is no interstitial edema or new focal infiltrate. There is no pleural effusion or pneumothorax. There is an old healed sixth right posterior rib fracture deformity. IMPRESSION: No acute abnormality, or substantial change from October 26, 2016.
[2016-11-03 12:08] VITALS: TEMP 97.8
[2016-11-03 13:14] LABS: CREATINE KINASE-MB FRACTION 0.37 ng/mL (0-3.19); TROPONIN I 0.017 ng/mL (0-0.034)
[2016-11-03 17:10] VITALS: BP 104/61; PULSE 68; RESP 18; O2SAT 96
--- NOTE | 2016-11-03 19:52 | GDS ---
[f rep st] DISCHARGE SUMMARY DISCHARGE DIAGNOSES: 1. Chest pain, suspect noncardiac. 2. Coronary artery disease, status post recent stent. 3. Atrial fibrillation. 4. Diabetes type 2. 5. Hyperlipidemia. 6. History of pulmonary embolus. HISTORY: Lizeth is an 81-year-old female with a history of coronary artery disease, status post previo us CABG and stents, who recently had a stent to her obtuse marginal artery by Dr. Pollard. She is al so on chronic anticoagulation for history of pulmonary embolus. Despite this cardiac catheterization , she continues to have intermittent chest pain and returning to the emergency room. Her first ER vi sit, she was discharged home and now she represents again and this time, she was admitted as she did have a borderline troponin elevation of 0.036. She was admitted under observation and her second tro ponin was completely normal. Dr. Pollard was aware of her admission. Review of his last cath report does reveal that all of her stents are widely patent and he did stent an OM branch however, it was u nclear whether or not her chest pain would be relieved by this. At that time, he felt any further pr esentations of chest pain were likely noncardiac in origin. We did not see anything objective or con cerning for ongoing coronary ischemia at this time and so Dr. Pollard did feel she was okay to go steff e. These ongoing chest pain episodes are likely noncardiac. She is already on Ranexa. DISCHARGE MEDICATIONS: Please see computer record for full detailed list. There are no new medicati ons at time of hospital discharge. DISCHARGE INSTRUCTIONS: Follow up closely with primary care and Dr. Pollard. Patient was seen and examined by me on the day of discharge. /[id number]/MODL
[2016-11-03] MEDS ORDERED: GABAPENTIN 100 MG CAP PO SCH (20:00)
[2016-11-03] MEDS ORDERED: amLODIPine BESYLATE 5 MG TAB PO SCH (20:00)
[2016-11-03] MEDS ORDERED: APIXABAN 5 MG TAB PO SCH (20:00)
[2016-11-03] MEDS ORDERED: RANOLAZINE 500 MG TAB.ER PO SCH (20:00)
[2016-11-04] MEDS ORDERED: CALCIUM CARBONATE 500 MG TAB PO SCH (08:00)
[2016-11-04] MEDS ORDERED: CLOPIDOGREL BISULFATE 75 MG TAB PO SCH (08:00)
[2016-11-04] MEDS ORDERED: LISINOPRIL 10 MG TAB PO SCH (08:00)
[2016-11-04] MEDS ORDERED: ASPIRIN EC 81 MG TAB PO SCH (09:00)
[2016-11-04] MEDS ORDERED: PANTOPRAZOLE SODIUM 40 MG TAB PO SCH (09:00)
[2016-11-04] MEDS ORDERED: ATORVASTATIN CALCIUM 20 MG TAB PO SCH (09:00)
== END 2016-11-03 17:22 | disposition home or self-care (01) ==
LOC: INTOOBSV 05:08 → F2N 09:32
PROVIDERS: ADMIT Internal Medicine; ATTEND Internal Medicine
DX: R07.89 Other chest pain (principal); I48.91 Unspecified atrial fibrillation; I25.10 Atherosclerotic heart disease of native coronary artery without angina pectoris; I50.42 Chronic combined systolic (congestive) and diastolic (congestive) heart failure; E11.51 Type 2 diabetes mellitus with diabetic peripheral angiopathy without gangrene; I73.9 Peripheral vascular disease, unspecified; E78.5 Hyperlipidemia, unspecified; H54.41 Blindness, right eye, normal vision left eye; Z86.711 Personal history of pulmonary embolism; Z95.1 Presence of aortocoronary bypass graft; Z95.5 Presence of coronary angioplasty implant and graft; Z95.2 Presence of prosthetic heart valve; Z88.0 Allergy status to penicillin; D69.6 Thrombocytopenia, unspecified
CPT/HCPCS: 71010; 93005; G0378; J2405; 96374

== ENCOUNTER 2016-11-11 00:25 | Inpatient (IN) | payer OTHER ==
--- NOTE | 2016-11-11 00:35 | CPEKG ---
Heart Rate: 79 RR Interval: 759 P-R Interval: 196 QRSD Interval: 104 QT Interval: 404 QTC Interval: 464 P [place]: 57 QRS [place]: -56 T Wave [place]: 84 EKG Severity - ABNORMAL ECG - EKG Impression: SINUS RHYTHM EKG Impression: PROBABLE LEFT ATRIAL ABNORMALITY Electronically Signed By: Nga Vela 13-Nov-2016 00:21:12
[2016-11-11 01:07] LABS: % IMMATURE GRANULYOCYTES 0.3 % (0.0-1.1); ABSOLUTE IMMATURE GRANULOCYTES 0.01 10^3/uL (0.00-0.10); ADD DIFF? NO; ADD MORPH? NO; ADD SCAN? NO; ATYPICAL LYMPHOCYTE FLAG 10 (0-99); FRAGMENT RBC FLAG 0 (0-99); HEMATOCRIT 37.6 % (38.0-47.0); HEMOGLOBIN 12.9 g/dL (12.6-16.3); LEFT SHIFT FLG 0 (0-99); LIPEMIA HEMOLYSIS FLAG 90 (0-99); MEAN CELL HEMOGLOBIN 29.9 pg (27.9-34.1); MEAN CELL HEMOGLOBIN CONCENTR. 34.3 g/dL (32.4-36.7); MEAN PLATELET VOLUME 9.9 fL (8.7-11.7); PLATELET CLUMPS FLAG 0 (0-99); PLATELET COUNT 135 10^3/uL (150-400); RED BLOOD CELL COUNT 4.32 10^6/uL (4.18-5.33); RED CELL DISTRIBUTION WIDTH 13.8 % (11.5-15.2)
[2016-11-11] MEDS ORDERED: MAALOX/LIDO/HYOSC GI COCKTAIL 55 ML BOTTLE PO ONE (01:13)
[2016-11-11] MEDS ORDERED: ACETAMINOPHEN 325 MG TAB PO ONE (01:13)
--- NOTE | 2016-11-11 01:18 | EDPHY ---
H & P Stated Complaint: chest tightness since 1999, took 2 nitro lpta no relief Time Seen by Provider: 11/11/16 01:02 HPI/ROS: HPI The patient presents with chest tightness which began at approximately 8:00 p.m. tonight while she was sitting. The tightness came on suddenly and is diffuse throughout her chest. She notices it mostly when she takes a deep breath. This is associated with mild sore throat. She does not have any associated fever, cough, rhinorrhea. She does not have any shortness of breath, nausea or vomiting. The pain is similar to several episodes she has had over the past 1 month. Early in October she had a stent placed in her obtuse marginal artery by Dr. Pollard. She was subsequently admitted on November 03 for recurrent chest tightness. She had a normal workup and was discharged home. The pain was thought to be noncardiac. She does have a history of pulmonary embolism is chronically anticoagulated. She took nitroglycerin prior to arrival with no improvement in her symptoms.. REVIEW OF SYSTEMS Constitutional: No fever, no chills. Eyes: No discharge. ENT: No sore throat. Cardiovascular: + chest pain, no palpitations. Respiratory: No cough, no shortness of breath. Gastrointestinal: No abdominal pain, no vomiting. Genitourinary: No hematuria. Musculoskeletal: No back pain. Skin: No rashes. Neurological: No headache. PMHx: CAD, status post stenting performed earlier this month PHYSICAL General Appearance: Alert, no distress Eyes: Pupils equal and round no pallor or injection ENT, Mouth: Mucous membranes moist Respiratory: There are no retractions, lungs are clear to auscultation Cardiovascular: Regular rate and rhythm Gastrointestinal: Abdomen is soft and non-tender, no masses, bowel sounds normal Neurological: A&O, moves all extremities Skin: Warm and dry, no rashes Musculoskeletal: Neck is supple non tender Extremities: symmetrical, full range of motion Psychiatric: Patient is oriented X 3, there is no agitation Source: Patient Exam Limitations: No limitations - Personal History Current Tetanus/Diphtheria Vaccine: Unsure Current Tetanus Diphtheria and Acellular Pertussis (TDAP): Unsure - Medical/Surgical History Hx Asthma: No Hx Chronic Respiratory Disease: Yes Hx Diabetes: No Hx Cardiac Disease: Yes Hx Renal Disease: No Hx Cirrhosis: No Hx Alcoholism: No Hx HIV/AIDS: No Hx Splenectomy or Spleen Trauma: No Other PMH: Home 02, STENTS 2014, CABG 2013, endarterectomy(rt), HTN, headaches, AFIB, blind in rt eye, AORTIC VALVE REPLACEMENT, csection x 2 - Social History Smoking Status: Never smoked Constitutional: Initial Vital Signs Temperature (C) 36.4 C 11/11/16 00:38 Heart Rate 73 11/11/16 00:38 Respiratory Rate 15 11/11/16 00:38 Blood Pressure 139/72 H 11/11/16 00:38 O2 Sat (%) 99 11/11/16 00:38 O2 Delivery Mode Nasal Cannula O2 (L/minute) 2 Allergies/Adverse Reactions: Penicillins Allergy (Intermediate, Verified 11/03/16 03:44) Hives Home Medications: Medication Instructions Recorded Cholecalciferol Vit D3 [Vitamin D3 1,000 units PO DAILY@10/19/13 (*)] Multivitamins [Multivitamin (*)] 1 each PO DAILY@10/19/13 Clopidogrel Bisulfate [Plavix (*)] 75 mg PO DAILY@10/24/13 Apixaban [Eliquis] 5 mg PO BID@,04/16/15 Gabapentin [Neurontin 100 MG (*)] 100 mg PO BID@,04/22/15 Herbals/Supplements -Info Only 1 ea PO DAILY@05/18/16 Calcium Carbonate [Oyster Shell 500 mg PO DAILY@10/11/16 Calcium 500 mg (*)] Lisinopril [Zestril 10 mg (*)] 10 mg PO DAILY@10/11/16 Nitroglycerin [Nitrostat 0.4 mg 0.4 mg SL Q5M PRN 10/19/16 (*)] amLODIPine BESYLATE [Norvasc 5 mg 5 mg PO DAILY@10/19/16 (*)] Aspirin EC [Aspirin EC 81 mg (*)] 81 mg PO DAILY #0 tab 10/24/16 Atorvastatin Calcium [Lipitor 20 20 mg PO DAILY 11/03/16 mg (*)] Pantoprazole Sodium [Protonix 40mg 40 mg PO DAILY 11/03/16 (*)] Ranolazine [Ranexa] 500 mg PO BID@08,11/03/16 Medical Decision Making - Diagnostics EKG Interpretation: EKG: Complete interpretation has been separately recorded in the [facility] archive. Summary impression: Normal sinus rhythm, diffuse T-wave flattening, PVCs, unchanged from prior EKG. Imaging: Chest x-ray two views shows no infiltrate, mild cardiomegaly, unchanged from prior chest x-ray, interpreted by me, radiology interpretation is pending. ED Course/Re-evaluation: 1:10 a.m.- Initial patient encounter. Plan for GI cocktail, Tylenol. We will check basic labs and chest x-ray. 2:30 a.m.- The patient is feeling better after GI cocktail and Tylenol. Chest x-ray and EKG are unremarkable. Labs show slight elevation in troponin, on par with prior elevations. I plan to repeat the troponin 2 hours from the initial to make sure it is down trending. 3:45 a.m.- Repeat troponin is slightly increasing. Because of this, I feel she should be admitted for observation overnight. I have re-evaluated her. She is feeling better still. Aspirin has been ordered. She will be admitted to the hospitalist service. I discussed the case with Dr. Pierre. Differential Diagnosis: This is an 81-year-old female with history of CAD, PE coming in from home with recurrent chest tightness, recent admission for this pain about 1 week ago with a normal workup. Differential diagnosis includes ACS, GERD, gastritis, less likely pulmonary embolism. - Data Points Laboratory Results: Laboratory Results 11/11/16 01:00 11/11/16 01:00 11/11/16 11/11/16 03:02 01:00 WBC 3.44 L 10^3/uL (3.80-9.50) RBC 4.32 10^6/uL (4.18-5.33) Hgb 12.9 g/dL (12.6-16.3) Hct 37.6 L % (38.0-47.0) MCV 87.0 fL (81.5-99.8) MCH 29.9 pg (27.9-34.1) MCHC 34.3 g/dL (32.4-36.7) RDW 13.8 % (11.5-15.2) Plt Count 135 L 10^3/uL (150-400) MPV 9.9 fL (8.7-11.7) Neut % (Auto) 43.3 % (39.3-74.2) Lymph % (Auto) 44.8 % (15.0-45.0) [place] % (Auto) 8.7 % (4.5-13.0) Eos % (Auto) 2.0 % (0.6-7.6) Baso % (Auto) 0.9 % (0.3-1.7) Nucleat RBC Rel Count 0.0 % (0.0-0.2) Absolute Neuts (auto) 1.49 L 10^3/uL (1.70-6.50) Absolute Lymphs (auto) 1.54 10^3/uL (1.00-3.00) Absolute Monos (auto) 0.30 10^3/uL (0.30-0.80) Absolute Eos (auto) 0.07 10^3/uL (0.03-0.40) Absolute Basos (auto) 0.03 10^3/uL (0.02-0.10) Absolute Nucleated RBC 0.00 10^3/uL (0-0.01) Immature Gran % 0.3 % (0.0-1.1) Immature Gran # 0.01 10^3/uL (0.00-0.10) Sodium 140 mEq/L (134-144) Potassium 4.4 mEq/L (3.5-5.2) Chloride 104 mEq/L (97-110) Carbon Dioxide 24 mEq/l (22-31) Anion Gap 12 mEq/L (8-16) BUN 28 H mg/dL (7-23) Creatinine 1.4 H mg/dL (0.6-1.0) Estimated GFR 36 Glucose 103 H mg/dL (70-100) Calcium 9.9 mg/dL (8.5-10.4) Troponin I 0.052 H ng/mL 0.043 H ng/mL (0-0.034) (0-0.034) Medications Given: Discontinued Medications Acetaminophen (Tylenol) 650 mg PO EDNOW ONE Stop: 11/11/16 01:14 Last Admin: 11/11/16 01:19 Dose: 650 mg Aspirin (Aspirin) 325 mg PO EDNOW ONE Stop: 11/11/16 03:57 Last Admin: 11/11/16 04:23 Dose: 325 mg Sodium Chloride (Ns) 500 mls @ 0 mls/hr IV ONCE ONE PRN Reason: As Directed Stop: 11/11/16 01:48 Last Admin: 11/11/16 01:52 Dose: 500 mls Miscellaneous Medication (Gi Cocktail) 55 ml PO EDNOW ONE Stop: 11/11/16 01:14 Last Admin: 11/11/16 01:51 Dose: 55 ml Morphine Sulfate (Morphine) 2 mg IVP EDNOW ONE Stop: 11/11/16 01:47 Last Admin: 11/11/16 01:51 Dose: 2 mg Departure - Departure Disposition: [facility] Inpatient Acute Clinical Impression: Chest pain of unknown etiology, Elevated troponin level, CAD (coronary artery disease) Condition: Fair
[2016-11-11 01:24] LABS: ANION GAP 12 mEq/L (8-16); CALCIUM 9.9 mg/dL (8.5-10.4); CARBON DIOXIDE 24 mEq/l (22-31); CHLORIDE 104 mEq/L (97-110); CREATININE 1.4 mg/dL (0.6-1.0); GLOMERULAR FILTRATION RATE 36; GLUCOSE 103 mg/dL (70-100); POTASSIUM 4.4 mEq/L (3.5-5.2); SODIUM 140 mEq/L (134-144)
[2016-11-11 01:37] LABS: TROPONIN I 0.043 ng/mL (0-0.034)
[2016-11-11] MEDS ORDERED: NS 500 ML IV ONE (01:47)
[2016-11-11] MEDS ORDERED: ASPIRIN 325 MG TAB PO ONE (03:56)
[2016-11-11] MEDS ORDERED: MAALOX/LIDO/HYOSC GI COCKTAIL 55 ML BOTTLE PO PRN (04:04)
[2016-11-11] MEDS ORDERED: ONDANSETRON 4 MG/2 ML VIAL IVP PRN (04:04)
[2016-11-11] MEDS ORDERED: NITROGLYCERIN 0.4 MG BTL SL PRN (04:04)
[2016-11-11] MEDS ORDERED: ONDANSETRON DISINTEGRATING 4 MG TAB PO PRN (04:04)
--- NOTE | 2016-11-11 04:48 | PDGENHP ---
History and Physical - Chief Complaint chest pain - History of Present Illness 81 yo female with h/o CAD s/p CABG and extensive LAD and left circumflex stenting history with most recent obtuse marginal stent placement on 10/23/2016 presents to ED with chest pain. CP onset was at rest. It is describes as diffuse and pressure-like. No associated N/V, diaphoresis or SOB. She took NTG prior to arrival without improvement. She is anti-coagulated for prior PE and h/o A fib. She was admitted just last week with CP and minimal troponin elevation, which normalized. Her technical support internship, Dr. Pollard, was consulted at that time and felt her chest pain was non-cardiac in origin. She has an appointment with GI on 11/22/2016 to pursue workup for possible GI etiology. In the ED, she received a full dose Aspirin, morphine and a GI cocktail. She is chest pain free at the time of my evaluation. Her troponin was mildly elevated, thus she is admitted for further evaluation. History Information - Allergies/Home Medication List Allergies/Adverse Reactions: Penicillins Allergy (Intermediate, Verified 11/03/16 03:44) Hives Home Medications: Cholecalciferol Vit D3 [Vitamin D3 (*)] 1,000 units PO DAILY@10/19/13 [Last Taken 11/02/16] Multivitamins [Multivitamin (*)] 1 each PO DAILY@10/19/13 [Last Taken ] Clopidogrel Bisulfate [Plavix (*)] 75 mg PO DAILY@10/24/13 [Last Taken ] Apixaban [Eliquis] 5 mg PO BID@04/16/15 [Last Taken 11/02/16 20:00] Gabapentin [Neurontin 100 MG (*)] 100 mg PO BID@04/22/15 [Last Taken 11/02 20:00] Herbals/Supplements -Info Only 1 ea PO DAILY@05/18/16 [Last Taken 10/21/16] Calcium Carbonate [Oyster Shell Calcium 500 mg (*)] 500 mg PO DAILY@10/11/16 [Last Taken 11/02/16] Lisinopril [Zestril 10 mg (*)] 10 mg PO DAILY@10/11/16 [Last Taken 11/02/16] Nitroglycerin [Nitrostat 0.4 mg (*)] 0.4 mg SL Q5M PRN 10/19/16 [Last Taken 04/01] amLODIPine BESYLATE [Norvasc 5 mg (*)] 5 mg PO DAILY@20 10/19/16 [Last Taken ] Atorvastatin Calcium [Lipitor 20 mg (*)] 20 mg PO DAILY 11/03/16 [Last Taken ] Pantoprazole Sodium [Protonix 40mg (*)] 40 mg PO DAILY 11/03/16 [Last Taken ] Ranolazine [Ranexa] 500 mg PO BID@08,11/03/16 [Last Taken 11/02/16 20:00] I have personally reviewed and updated: family history, medical history, social history, surgical history - Past Medical History atrial fibrillation, coronary artery disease, CHF, diabetes type 2, hypertension , hyperlipidemia, peripheral artery disease, pulmonary embolism - Surgical History Reports: coronary bypass surgery, coronary stent, vascular surgery (CEA) - Family History Positive for: non-pertinent - Social History Smoking Status: Never smoked Additional social history: Previously lived independently in her own home, since recent hospitalization has been living with her son who is very involved in her care. Review of Systems ROS: 10pt was reviewed & negative except for what was stated in HPI & below Physical Exam Temp Pulse Resp BP Pulse Ox 36.4 C 86 14 130/62 H 94 11/11/16 00:38 11/11/16 04:00 11/11/16 04:00 11/11/16 04:00 11/11/16 04:00 Constitutional: no apparent distress Eyes: PERRL Ears, Nose, Mouth, Throat: moist mucous membranes Cardiovascular: regular rate and rhythym, systolic murmur Respiratory: no respiratory distress, clear to auscultation Gastrointestinal: normoactive bowel sounds, soft, non-tender abdomen Skin: warm Neurologic: AAOx3 Psychiatric: interacting appropriately Lab Data & Imaging Review 11/11/16 01:00 11/11/16 01:00 WBC 3.44 10^3/uL (3.80-9.50) L 11/11/16 01:00 RBC 4.32 10^6/uL (4.18-5.33) 11/11/16 01:00 Hgb 12.9 g/dL (12.6-16.3) 11/11/16 01:00 Hct 37.6 % (38.0-47.0) L 11/11/16 01:00 MCV 87.0 fL (81.5-99.8) 11/11/16 01:00 MCH 29.9 pg (27.9-34.1) 11/11/16 01:00 MCHC 34.3 g/dL (32.4-36.7) 11/11/16 01:00 RDW 13.8 % (11.5-15.2) 11/11/16 01:00 Plt Count 135 10^3/uL (150-400) L 11/11/16 01:00 MPV 9.9 fL (8.7-11.7) 11/11/16 01:00 Neut % (Auto) 43.3 % (39.3-74.2) 11/11/16 01:00 Lymph % (Auto) 44.8 % (15.0-45.0) 11/11/16 01:00 [place] % (Auto) 8.7 % (4.5-13.0) 11/11/16 01:00 Eos % (Auto) 2.0 % (0.6-7.6) 11/11/16 01:00 Baso % (Auto) 0.9 % (0.3-1.7) 11/11/16 01:00 Nucleat RBC Rel Count 0.0 % (0.0-0.2) 11/11/16 01:00 Absolute Neuts (auto) 1.49 10^3/uL (1.70-6.50) L 11/11/16 01:00 Absolute Lymphs (auto) 1.54 10^3/uL (1.00-3.00) 11/11/16 01:00 Absolute Monos (auto) 0.30 10^3/uL (0.30-0.80) 11/11/16 01:00 Absolute Eos (auto) 0.07 10^3/uL (0.03-0.40) 11/11/16 01:00 Absolute Basos (auto) 0.03 10^3/uL (0.02-0.10) 11/11/16 01:00 Absolute Nucleated RBC 0.00 10^3/uL (0-0.01) 11/11/16 01:00 Immature Gran % 0.3 % (0.0-1.1) 11/11/16 01:00 Immature Gran # 0.01 10^3/uL (0.00-0.10) 11/11/16 01:00 Sodium 140 mEq/L (134-144) 11/11/16 01:00 Potassium 4.4 mEq/L (3.5-5.2) 11/11/16 01:00 Chloride 104 mEq/L (97-110) 11/11/16 01:00 Carbon Dioxide 24 mEq/l (22-31) 11/11/16 01:00 Anion Gap 12 mEq/L (8-16) 11/11/16 01:00 BUN 28 mg/dL (7-23) H 11/11/16 01:00 Creatinine 1.4 mg/dL (0.6-1.0) H 11/11/16 01:00 Estimated GFR 36 11/11/16 01:00 Glucose 103 mg/dL (70-100) H 11/11/16 01:00 Calcium 9.9 mg/dL (8.5-10.4) 11/11/16 01:00 Troponin I 0.052 ng/mL (0-0.034) H 11/11/16 03:02 Assessment & Plan Assessment: Chest pain - Trop mildly elevated 0.04 --> 0.05. EKG unchanged from prior. Based on recent evaluation and cards opinion, there may be a non-cardiac source for her pain. However, given mild trop elevation, will admit to [facility], trend trop and discuss with Cards in am. She remains chest pain free at this time. It's unclear if her recent OM stent successfully relieved her chest pain. Will continue Ranexa. She has outpt GI follow up scheduled. Will repeat GI cocktail as needed and trial Pepcid. CAD s/p CABG and extensive stenting - last stent 10/23/2016 to obtuse marginal. Continue dual anti-platelet therapy, statin. Not on BB. Needs med rec completed in am. PE - continue Eliquis. A fib - rate controlled, anti-coagulated. JACOB - Cr 1.4, up from baseline of ~1. Query pre-renal. Will give gentle NS and recheck in AM. Dispo - obs
--- NOTE | 2016-11-11 04:57 | CPEKG ---
Heart Rate: 71 RR Interval: 845 P-R Interval: 212 QRSD Interval: 104 QT Interval: 436 QTC Interval: 474 P [place]: 44 QRS [place]: -56 EKG Severity - ABNORMAL ECG - EKG Impression: SINUS RHYTHM EKG Impression: VENTRICULAR PREMATURE COMPLEX EKG Impression: PROBABLE LEFT ATRIAL ABNORMALITY EKG Impression: LEFT ANTERIOR FASCICULAR BLOCK Electronically Signed By: Akhil Wang 13-Nov-2016 00:16:53
[2016-11-11] MEDS ORDERED: NS 1,000 ML IV SCH (05:30)
[2016-11-11] MEDS: FAMOTIDINE 20 MG TAB PO SCH ×3 (06:10→21:29)
--- NOTE | 2016-11-11 08:14 | DX ---
PA and Lateral Chest November 11, 2016 0058 hours Indication: Chest pain. Comparison: Portable chest dated November 03, 2016. Findings: Moderate cardiomegaly, midline sternal wires, prosthetic aortic valve, and extensive smiley ry stents are all unchanged. No edema, pneumothorax, airspace consolidation or effusion. Calcified ri ght hilar granulomas are unchanged. Impression: 1. No acute process. 2. Stigmata of coronary artery disease unchanged.
[2016-11-11] MEDS ORDERED: CLOPIDOGREL BISULFATE 75 MG TAB PO SCH (09:00)
[2016-11-11] MEDS ORDERED: ASPIRIN 325 MG TAB PO SCH (09:00)
[2016-11-11] MEDS ORDERED: ASPIRIN 81 MG CHEWABLE TAB PO SCH (09:00)
[2016-11-11] MEDS ORDERED: RANOLAZINE 500 MG TAB.ER PO SCH (09:00)
[2016-11-11] MEDS ORDERED: APIXABAN 5 MG TAB PO SCH (09:00)
[2016-11-11 09:09] LABS: ANION GAP 7 mEq/L (8-16); CALCIUM 9.5 mg/dL (8.5-10.4); CARBON DIOXIDE 28 mEq/l (22-31); CHLORIDE 107 mEq/L (97-110); CREATININE 1.3 mg/dL (0.6-1.0); GLOMERULAR FILTRATION RATE 39; GLUCOSE 99 mg/dL (70-100); POTASSIUM 4.6 mEq/L (3.5-5.2); SODIUM 142 mEq/L (134-144)
[2016-11-11 09:20] LABS: TROPONIN I 0.051 ng/mL (0-0.034)
--- NOTE | 2016-11-11 11:19 | SOAPPROG ---
SOAP Progress Note Assessment/Plan: Assessment: Multiple admissions for recurrent chest pain etiology unknown. Not responsive to nitroglycerin. Very minimal elevation in troponin. Known CAD. Status post recent stenting of circumflex obtuse marginal branch. Anticoagulated with Eliquis due to history of pulmonary embolus and paroxysmal atrial fibrillation. Plan: Options were discussed with the hospitalist service as well as the patient. We will plan for heart catheterization tomorrow morning after holding Eliquis today. Films have been reviewed. We will likely perform FFR measurement on circumflex AV groove branch, circumflex obtuse marginal branch, lad, LAD diagonal and even the large non dominant right coronary artery. 11/11/16 11:16 Objective: Vital Signs Temp Pulse Resp BP Pulse Ox 97.8 F 71 20 124/65 H 96 11/11/16 07:56 11/11/16 07:56 11/11/16 07:56 11/11/16 07:56 11/11/16 07:56 Laboratory Results 11/11/16 08:20 11/10/16 11/11/16 11/12/16 05:59 05:59 05:59 Intake Total 750 Output Total 25 Balance 725 ICD10 Worksheet Patient Problems: Problems Problem Status Diagnosed Atrial flutter Acute CAD (coronary artery disease) Acute Chest pain Acute Chest pain of unknown etiology Acute NSTEMI (non-ST elevated myocardial infarction) Acute Pelvic fracture Acute Pulmonary emboli Acute Troponin level elevated Acute Chest pain at rest Acute Chest pain in adult Acute Dyspnea Acute Elevated blood pressure reading Acute Headache Acute Hypertension Acute
[2016-11-11] MEDS ORDERED: PNEUMOC 13-VAL CONJ-DIP CRM/PF 0.5 ML SYR IM ONE ×2 (11:29→16:00)
[2016-11-11] MEDS ORDERED: FLU VACC TS 2016-17(65YR+)/PF 0.5 ML SYR (FLUZONE HIGH DOSE) IM ONE ×2 (11:29→16:00)
--- NOTE | 2016-11-11 12:46 | HOSPPROG ---
Hospitalist Progress Note Assessment/Plan: 81 yo F with PMH that includes CAD and mild dementia admitted for the 5th time this month for chest pain # chest pain: challenging evaluation in patient with significant cardiac history but also memory impairment limiting her ability to provide detailed history. She reports recurrent chest pain yesterday that has since resolved. She has a chronic troponin elevation and this is at baseline. No ecg changes noted on personal review of ecg, continued LAFB and no clear ischemic changes. Cardiology consulted, plan for cath in am. # CAD: s/p stents and CABG, as above, recurrent admissions for chest pain. Continue OP meds that include asa, plavix, statin. Not currently on BB for unclear reasons, will need to discuss w/cardiology if this should be added. Continue ranexa. # bonnie on ckd: baseline creatinine closer to 1.1, currently 1.3. Likely a component of pre renal azotemia. Monitoring, will hydrate overnight for cath in am. Will hold lisinopril. # hx of PE: on eliquis which we will hold for now in anticipation of cath in am # chronic systolic heart failure: with EF of 45%, no e/o decompensation currently # pvd: continue op meds # dispo: IP status, high risk presenting issue will need > 48 hrs stay Pt new to my care. Old records reviewed and summarized as above. Care plan reviewed with cardiology. Subjective: no significant overnight events, currently chest pain free, remembers having chest pain yesterday Objective: Vital Signs Temp Pulse Resp BP Pulse Ox 36.5 C 61 11 L 112/60 95 11/11/16 12:09 11/11/16 12:09 11/11/16 12:09 11/11/16 12:09 11/11/16 12:09 Laboratory Results 11/11/16 08:20 11/10/16 11/11/16 11/12/16 05:59 05:59 05:59 Intake Total 750 Output Total 25 Balance 725 awake alert nad anicteric op clear rrr no mrg cta dec bs at bases soft nt nd no cce warm dry well perfused oriented appropriate some memory deficits ICD10 Worksheet Patient Problems: Problems Problem Status Diagnosed Atrial flutter Acute CAD (coronary artery disease) Acute Chest pain Acute Chest pain of unknown etiology Acute NSTEMI (non-ST elevated myocardial infarction) Acute Pelvic fracture Acute Pulmonary emboli Acute Troponin level elevated Acute Chest pain at rest Acute Chest pain in adult Acute Dyspnea Acute Elevated blood pressure reading Acute Headache Acute Hypertension Acute
[2016-11-11] MEDS ORDERED: SODIUM BICARBONATE 150 MEQ in D5W 1,000 ML IV SCH (15:30)
[2016-11-11] MEDS: GABAPENTIN 100 MG CAP PO SCH (21:28)
[2016-11-11] MEDS: RANOLAZINE 500 MG TAB.ER PO SCH (21:29)
[2016-11-11] MEDS: amLODIPine BESYLATE 5 MG TAB PO SCH (21:29)
[2016-11-12 05:06] LABS: % IMMATURE GRANULYOCYTES 0.2 % (0.0-1.1); ABSOLUTE IMMATURE GRANULOCYTES 0.01 10^3/uL (0.00-0.10); ADD DIFF? NO; ADD MORPH? NO; ADD SCAN? NO; ATYPICAL LYMPHOCYTE FLAG 0 (0-99); FRAGMENT RBC FLAG 0 (0-99); HEMATOCRIT 39.2 % (38.0-47.0); HEMOGLOBIN 13.1 g/dL (12.6-16.3); LEFT SHIFT FLG 0 (0-99); LIPEMIA HEMOLYSIS FLAG 80 (0-99); MEAN CELL HEMOGLOBIN 29.5 pg (27.9-34.1); MEAN CELL HEMOGLOBIN CONCENTR. 33.4 g/dL (32.4-36.7); MEAN CELL VOLUME 88.3 fL (81.5-99.8); MEAN PLATELET VOLUME 10.8 fL (8.7-11.7); PLATELET CLUMPS FLAG 10 (0-99); PLATELET COUNT 129 10^3/uL (150-400); RED BLOOD CELL COUNT 4.44 10^6/uL (4.18-5.33); RED CELL DISTRIBUTION WIDTH 13.7 % (11.5-15.2)
[2016-11-12 05:18] LABS: ANION GAP 8 mEq/L (8-16); CALCIUM 8.8 mg/dL (8.5-10.4); CARBON DIOXIDE 25 mEq/l (22-31); CHLORIDE 110 mEq/L (97-110); CHOLESTEROL 138 mg/dL (140-220); CHOLESTEROL/HDL RATIO 2.51 RATIO (1.00-4.44); CREATININE 1.1 mg/dL (0.6-1.0); GLOMERULAR FILTRATION RATE 48; GLUCOSE 98 mg/dL (70-100); HIGH DENSITY LIPOPROTEIN 55 mg/dL (40-85); INR 1.17 (0.83-1.16); LDL/HDL RATIO 1.25 RATIO (1.00-3.22); LOW DENSITY LIPOPROTEIN 69 mg/dL (80-100); MAGNESIUM 1.8 mg/dL (1.6-2.3); NON-HIGH DENSITY LIPOPROTEIN 83 mg/dL (90-129); POTASSIUM 4.3 mEq/L (3.5-5.2); PROTIME(PATIENT) 14.9 SEC (12.0-15.0); SODIUM 143 mEq/L (134-144); TRIGLYCERIDE 74 mg/dL (35-135); VERY LOW DENSITY LIPOPROTEINS 14 mg/dL (8-25)
[2016-11-12 05:19] LABS: APTT 31.9 SEC (23.0-38.0)
--- NOTE | 2016-11-12 06:11 | CPEKG ---
Heart Rate: 69 RR Interval: 870 P-R Interval: 212 QRSD Interval: 104 QT Interval: 444 QTC Interval: 476 P [place]: 29 QRS [place]: -49 T Wave [place]: 75 EKG Severity - ABNORMAL ECG - EKG Impression: SINUS RHYTHM EKG Impression: PROBABLE LEFT ATRIAL ABNORMALITY EKG Impression: INCOMPLETE RBBB AND LAFB EKG Impression: NONSPECIFIC ST_T WAVE ABNORMAILITES EKG Impression: BASELINE ARTIFACT PRECLUDES ACCURATE INTERPRETATION Electronically Signed By: Fernando Scales 12-Nov-2016 12:15:07
[2016-11-12] MEDS ORDERED: LISINOPRIL 10 MG TAB PO SCH (08:00)
[2016-11-12] MEDS ORDERED: IOPAMIDOL (ISOVUE-370) 150 ML BTL IV ONE ×2 (09:03→09:09)
[2016-11-12] MEDS ORDERED: fentaNYL 100 MCG/2 ML INJ ONE (09:03)
[2016-11-12] MEDS ORDERED: LIDOCAINE 1% 30 ML SDV ONE (09:03)
[2016-11-12] MEDS ORDERED: MIDAZOLAM 2 MG/2 ML VIAL ONE (09:03)
[2016-11-12] MEDS ORDERED: NITROGLYCERIN 1,500 MCG/15 ML VIAL MISC ONE (09:04)
[2016-11-12] MEDS ORDERED: BIVALIRUDIN 250 MG/5 ML VIAL IV ONE (09:04)
[2016-11-12] MEDS ORDERED: VERAPAMIL 5 MG/2 ML VIAL ONE (09:04)
[2016-11-12] MEDS ORDERED: ADENOSINE 90 MG/30 ML VIAL IV ONE (09:17)
[2016-11-12] MEDS ORDERED: ADENOSINE 6 MG/2 ML VIAL ONE (10:27)
[2016-11-12] MEDS ORDERED: CLOPIDOGREL BISULFATE 75 MG TAB ONE (11:00)
[2016-11-12] MEDS ORDERED: DIAZEPAM 5 MG TAB PO ONE (11:08)
[2016-11-12] MEDS ORDERED: ASPIRIN EC 325 MG TAB PO ONE (11:08)
[2016-11-12] MEDS ORDERED: diphenhydrAMINE 25 MG CAP PO ONE (11:08)
[2016-11-12] MEDS ORDERED: ATROPINE SULFATE 1 MG/10 ML SYR IVP PRN (11:09)
[2016-11-12] MEDS ORDERED: LORazepam 2 MG/ML INJ IVP PRN (11:09)
[2016-11-12] MEDS ORDERED: HYDROCODONE/APAP 5/325 TAB PO PRN (11:09)
[2016-11-12] MEDS ORDERED: CLOPIDOGREL BISULFATE 75 MG TAB PO ONE (11:09)
--- NOTE | 2016-11-12 11:23 | SUROPNOTE ---
ANN MARIE Operative Report - Surgery Procedure: 1. Selective coronary angiography via right radial approach. 2. Fractional flow reserve measurement in left anterior descending diagonal 3. Fractional flow reserve measurement in principal obtuse marginal branch 4. Fractional flow reserve measurement and distal codominant AV groove circumflex 5. Fractional flow reserve measurement and intravascular ultrasound imaging throughout the entire length of left anterior descending coronary artery 6. Fractional flow reserve measurement, intravascular ultrasound imaging and intracoronary stent placement in proximal and mid right coronary artery. Physician: Atul indications: Known coronary artery disease, multiple and frequent admissions for recurrent chest pain. [place] cardiovascular Class 4. 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 Description: Risks benefits and alternatives were discussed in detail. Shahzad 's test was normal. Informed consent was obtained. Patient brought to the catheterization laboratory. Right wrist was sterilely prepped and draped. 2% lidocaine utilized for local anesthetic. Six Thai slender sheath placed right radial artery utilizing micropuncture technique. Intra-arterial verapamil was administered and intravenous Angiomax was administered. Angled Glidewire was necessary to traverse the radial artery. Six Thai EBU 4.5 guide catheter was placed and guiding angiography was performed. Intracoronary nitroglycerin and verapamil were administered. Sequential fractional flow reserve measurement was made in the LAD diagonal, principal options marginal, distal AV groove circumflex and left anterior descending. This was performed using intravenous adenosine per protocol. FFR within the diagonal branch was 0.95, the obtuse marginal was which is 0.90 you with the distal circumflex was 0.92 and the left anterior descending was 0.84. For social we decided to perform ultrasound imaging on the LAD as there was the appearance of a focal stenosis in the distal stent. Ultrasound imaging was performed and showed only moderate focal disease. Given the FFR that did not meet hemodynamic significance and the intravascular ultrasound that also did not show a significant lesion this was not treated. Wire was removed and angiography was performed. Guide catheter was then exchanged for a 6 Thai JR4 guide catheter. There is damping within the right coronary. Intracoronary nitroglycerin and verapamil were administered. FFR wire was placed in the guide catheter was backed out. There was an IFR of 0.79. At this point we had run out of intravenous adenosine and FFR measurement was made with sequential high-dose boluses of intracoronary adenosine. FFR was usually around 0.80. It was felt that this was likely significant. Intravascular ultrasound imaging was performed showing a mid and proximal lesion is approximately 80% severity. The decision was made to place a stent. A 2.75 x 38 mm synergy drug-eluting stent was carefully positioned and deployed to 18 and then 20 atmospheres. Repeat ultrasound imaging and angiography showed excellent result without significant encroachment on the large RV branch which was in stent care home and no under deployment. Final orthogonal angiography was performed and TR band was placed. Findings: For details of coronary anatomy please see previous multiple cardiac catheterization reports. There are extensive stents in the LAD, diagonal, obtuse marginal and proximal circumflex. These appear widely patent. The diagonal origin has a hazy lesion which was not significant by FFR measurement. The LAD has a focal area of interest and distal restenoses which was moderate by both FFR and intravascular ultrasound but not severe or flow limiting. The right coronary as described above with sequential proximal and mid 80% stenoses in this codominant/non dominant large vessel. Following percutaneous intervention there is excellent result within the right coronary with single stent.
[2016-11-12] MEDS ORDERED: NITROGLYCERIN 0.4 MG BTL SL ONE (11:36)
[2016-11-12] MEDS: FAMOTIDINE 20 MG TAB PO SCH ×2 (13:44→20:44)
[2016-11-12] MEDS: PANTOPRAZOLE SODIUM 40 MG TAB PO SCH (13:45)
--- NOTE | 2016-11-12 13:53 | HOSPPROG ---
Hospitalist Progress Note Assessment/Plan: 81 yo F with PMH that includes CAD and mild dementia admitted for the 5th time this month for chest pain # chest pain: with recurrent hospitalizations for the same over the last month, as next # CAD: has hx of cabg and stents, repeat angiography today and PCI to right coronary with good flow post stenting # bonnie on ckd: baseline creatinine closer to 1.1, with pre renal azotemia and now back to baseline # hx of PE: resumed on eliquis # chronic systolic heart failure: with EF of 45%, no e/o decompensation currently # pvd: continue op meds # dispo: IP status, high risk presenting issue will need > 48 hrs stay Reviewed care plan with patients family present at bedside. Subjective: no significant overnight events, patient is s/p cath and doing well w/o complaints, eating lunch Objective: Vital Signs Temp Pulse Resp BP Pulse Ox 36.6 C 77 15 132/71 H 100 11/12/16 11:22 11/12/16 13:47 11/12/16 13:47 11/12/16 13:47 11/12/16 13:47 Laboratory Results 11/12/16 04:25 11/12/16 04:25 11/11/16 11/12/16 11/13/16 05:59 05:59 05:59 Intake Total 400 Balance 400 PT 14.9 SEC (12.0-15.0) 11/12/16 04:25 INR 1.17 (0.83-1.16) H 11/12/16 04:25 awake alert nad anicteric op clear rrr no mrg cta dec bs at bases soft nt nd no cce warm dry well perfused oriented appropriate some memory deficits ICD10 Worksheet Patient Problems: Problems Problem Status Diagnosed Atrial flutter Acute CAD (coronary artery disease) Acute Chest pain Acute Chest pain of unknown etiology Acute NSTEMI (non-ST elevated myocardial infarction) Acute Pelvic fracture Acute Pulmonary emboli Acute Troponin level elevated Acute Chest pain at rest Acute Chest pain in adult Acute Dyspnea Acute Elevated blood pressure reading Acute Headache Acute Hypertension Acute
[2016-11-12] MEDS: ASPIRIN EC 81 MG TAB PO SCH (14:05)
[2016-11-12] MEDS: GABAPENTIN 100 MG CAP PO SCH ×2 (14:06→20:44)
[2016-11-12] MEDS: CALCIUM CARBONATE 500 MG TAB PO SCH (14:07)
[2016-11-12] MEDS: CHOLECALCIFEROL VIT D3 1,000 UNITS TAB PO SCH (14:07)
[2016-11-12] MEDS: MULTIVITAMINS 1 EACH TAB PO SCH (14:08)
[2016-11-12] MEDS: CLOPIDOGREL BISULFATE 75 MG TAB PO SCH (14:08)
[2016-11-12] MEDS: ATORVASTATIN CALCIUM 20 MG TAB PO SCH (14:08)
[2016-11-12] MEDS: RANOLAZINE 500 MG TAB.ER PO SCH ×2 (14:09→20:44)
[2016-11-12] MEDS: ACETAMINOPHEN 325 MG TAB PO PRN (16:09)
--- NOTE | 2016-11-12 20:13 | CPEKG ---
Heart Rate: 68 RR Interval: 882 P-R Interval: 208 QRSD Interval: 102 QT Interval: 440 QTC Interval: 469 P Alma: 48 QRS Alma: -49 EKG Severity - ABNORMAL ECG - EKG Impression: SINUS RHYTHM EKG Impression: VENTRICULAR PREMATURE COMPLEX EKG Impression: INCOMPLETE RBBB AND LAFB Electronically Signed By: Nga Vela 13-Nov-2016 00:19:54
[2016-11-12] MEDS: amLODIPine BESYLATE 5 MG TAB PO SCH (20:44)
[2016-11-12] MEDS: D5W 1/2 NS 1,000 ML IV SCH (20:48)
[2016-11-13 04:52] LABS: ALBUMIN 2.9 g/dL (3.5-5.0); ANION GAP 5 mEq/L (8-16); ASPARTATE AMINOTRANSFERASE 24 IU/L (14-46); BILIRUBIN,TOTAL 0.4 mg/dL (0.1-1.4); CALCIUM 8.4 mg/dL (8.5-10.4); CARBON DIOXIDE 27 mEq/l (22-31); CHLORIDE 109 mEq/L (97-110); CREATININE 0.8 mg/dL (0.6-1.0); GLOMERULAR FILTRATION RATE > 60; GLUCOSE 124 mg/dL (70-100); LACTATE DEHYDROGENASE 398 IU/L (313-618); MAGNESIUM 1.8 mg/dL (1.6-2.3); POTASSIUM 4.4 mEq/L (3.5-5.2); SODIUM 141 mEq/L (134-144)
[2016-11-13 04:53] LABS: % IMMATURE GRANULYOCYTES 0.4 % (0.0-1.1); ABSOLUTE IMMATURE GRANULOCYTES 0.01 10^3/uL (0.00-0.10); ADD DIFF? NO; ADD MORPH? NO; ADD SCAN? NO; ATYPICAL LYMPHOCYTE FLAG 10 (0-99); FRAGMENT RBC FLAG 0 (0-99); HEMATOCRIT 35.5 % (38.0-47.0); HEMOGLOBIN 11.8 g/dL (12.6-16.3); LEFT SHIFT FLG 0 (0-99); LIPEMIA HEMOLYSIS FLAG 80 (0-99); MEAN CELL HEMOGLOBIN 29.3 pg (27.9-34.1); MEAN CELL HEMOGLOBIN CONCENTR. 33.2 g/dL (32.4-36.7); MEAN CELL VOLUME 88.1 fL (81.5-99.8); MEAN PLATELET VOLUME 9.9 fL (8.7-11.7); PLATELET CLUMPS FLAG 0 (0-99); PLATELET COUNT 106 10^3/uL (150-400); RED BLOOD CELL COUNT 4.03 10^6/uL (4.18-5.33); RED CELL DISTRIBUTION WIDTH 13.5 % (11.5-15.2)
[2016-11-13] MEDS: D5W 1/2 NS 1,000 ML IV SCH (05:35)
--- NOTE | 2016-11-13 08:21 | CPEKG ---
Heart Rate: 67 RR Interval: 896 P-R Interval: 212 QRSD Interval: 100 QT Interval: 440 QTC Interval: 465 P Collins: 48 QRS Collins: -46 T Wave Collins: 126 EKG Severity - ABNORMAL ECG - EKG Impression: SINUS RHYTHM AND FIRST DEGREE AV BLOCK EKG Impression: LEFT ANTERIOR FASCICULAR BLOCK EKG Impression: NONSPECIFIC T ABNORMALITIES, LATERAL LEADS Electronically Signed By: Fernando Scales 13-Nov-2016 16:29:16
[2016-11-13] MEDS: FAMOTIDINE 20 MG TAB PO SCH ×2 (09:39→20:15)
[2016-11-13] MEDS: RANOLAZINE 500 MG TAB.ER PO SCH ×2 (09:39→20:15)
[2016-11-13] MEDS: ASPIRIN EC 325 MG TAB PO SCH (09:39)
[2016-11-13] MEDS: PANTOPRAZOLE SODIUM 40 MG TAB PO SCH (09:40)
[2016-11-13] MEDS: CALCIUM CARBONATE 500 MG TAB PO SCH (09:40)
[2016-11-13] MEDS: CLOPIDOGREL BISULFATE 75 MG TAB PO SCH (09:40)
[2016-11-13] MEDS: CHOLECALCIFEROL VIT D3 1,000 UNITS TAB PO SCH (09:40)
[2016-11-13] MEDS: GABAPENTIN 100 MG CAP PO SCH ×2 (09:40→20:16)
[2016-11-13] MEDS: MULTIVITAMINS 1 EACH TAB PO SCH (09:40)
[2016-11-13] MEDS: ATORVASTATIN CALCIUM 20 MG TAB PO SCH (09:40)
[2016-11-13] MEDS: ASPIRIN EC 81 MG TAB PO SCH (09:43)
--- NOTE | 2016-11-13 13:31 | SOAPPROG ---
SOAP Progress Note Assessment/Plan: Assessment: Multiple admissions for recurrent chest pain etiology unknown. Not responsive to nitroglycerin. Very minimal elevation in troponin. Known CAD. Status post recent stenting of circumflex obtuse marginal branch. Anticoagulated with Eliquis due to history of pulmonary embolus and paroxysmal atrial fibrillation. Plan: Options were discussed with the hospitalist service as well as the patient. We will plan for heart catheterization tomorrow morning after holding Eliquis today. Films have been reviewed. We will likely perform FFR measurement on circumflex AV groove branch, circumflex obtuse marginal branch, lad, LAD diagonal and even the large non dominant right coronary artery. 11/11/16 11:16 11/13/16 13:29 Patient did have an episode of 10/10 chest pain immediately following yesterday' s catheterization. She has not had any further discomfort. In discussing this with her she believes her chest pain is emotionally triggered. This occurs when she starts thinking about things and gets upset. Catheterization yesterday was extensive with FFR measurement of all major coronaries in branches. Only significant lesion was in the right coronary which had never been treated in the past. Ultrasound image guided stenting was performed with excellent result. At this point in time I would not expect the patient to have ischemic chest pain. Patient would prefer to wait until tomorrow to be discharged. I am in agreement with this given her episode of chest pain yesterday following catheterization and the fact that she has had 7 recurrent admissions within the last 2 months. Other potential causes of recurrent chest pain (including anxiety) will need to be explored in the future if she continues to have symptoms. Objective: Vital Signs Temp Pulse Resp BP Pulse Ox 97.8 F 70 16 122/58 H 95 11/13/16 12:00 11/13/16 12:00 11/13/16 12:00 11/13/16 12:00 11/13/16 12:00 Laboratory Results 11/13/16 04:26 11/13/16 04:26 11/12/16 11/13/16 11/14/16 05:59 05:59 05:59 Intake Total 400 2845 Output Total 1450 Balance 400 1395 PT 14.9 SEC (12.0-15.0) 11/12/16 04:25 INR 1.17 (0.83-1.16) H 11/12/16 04:25 ICD10 Worksheet Patient Problems: Problems Problem Status Diagnosed Atrial flutter Acute CAD (coronary artery disease) Acute Chest pain Acute Chest pain of unknown etiology Acute NSTEMI (non-ST elevated myocardial infarction) Acute Pelvic fracture Acute Pulmonary emboli Acute Troponin level elevated Acute Chest pain at rest Acute Chest pain in adult Acute Dyspnea Acute Elevated blood pressure reading Acute Headache Acute Hypertension Acute
--- NOTE | 2016-11-13 15:06 | HOSPPROG ---
Hospitalist Progress Note Assessment/Plan: 81 yo F with PMH that includes CAD and mild dementia admitted for the 5th time this month for chest pain # chest pain: with recurrent hospitalizations for the same over the last month, as next # CAD: has hx of cabg and stents, repeat angiography today and PCI to right coronary with good flow post stenting. Extensive evaluation by cardiology revealed good flow in all coronary arteries. At this time, recurrent chest pain is very unlikely to be cardiac in nature. # bonnie on ckd: 2/2 pre renal azotemia and now back to baseline # hx of PE: resumed on eliquis # chronic systolic heart failure: with EF of 45%, no e/o decompensation currently # deconditioning: patient feeling a bit weak and requiring assist to ambulate, not currently safe in her ADLs and will hold off on dc until pt/ot has re- evaluated in the am. # pvd: continue op meds # dispo: IP status, high risk presenting issue will need > 48 hrs stay Reviewed care plan with cardiology. Subjective: no significant overnight events, patient has not had chest pain today, she is feeling fatigued and weaker than usual with ambulation Objective: Vital Signs Temp Pulse Resp BP Pulse Ox 36.6 C 70 16 122/58 H 95 11/13/16 12:00 11/13/16 12:00 11/13/16 12:00 11/13/16 12:00 11/13/16 12:00 Laboratory Results 11/13/16 04:26 11/13/16 04:26 11/12/16 11/13/16 11/14/16 05:59 05:59 05:59 Intake Total 400 2845 Output Total 1450 Balance 400 1395 PT 14.9 SEC (12.0-15.0) 11/12/16 04:25 INR 1.17 (0.83-1.16) H 11/12/16 04:25 awake alert nad anicteric op clear rrr no mrg cta dec bs at bases soft nt nd no cce warm dry well perfused oriented appropriate some memory deficits ICD10 Worksheet Patient Problems: Problems Problem Status Diagnosed Atrial flutter Acute CAD (coronary artery disease) Acute Chest pain Acute Chest pain of unknown etiology Acute NSTEMI (non-ST elevated myocardial infarction) Acute Pelvic fracture Acute Pulmonary emboli Acute Troponin level elevated Acute Chest pain at rest Acute Chest pain in adult Acute Dyspnea Acute Elevated blood pressure reading Acute Headache Acute Hypertension Acute
[2016-11-13] MEDS: ACETAMINOPHEN 325 MG TAB PO PRN (20:15)
[2016-11-13] MEDS: amLODIPine BESYLATE 5 MG TAB PO SCH (20:16)
[2016-11-14] MEDS: MULTIVITAMINS 1 EACH TAB PO SCH (08:38)
[2016-11-14] MEDS: GABAPENTIN 100 MG CAP PO SCH (08:38)
[2016-11-14] MEDS: RANOLAZINE 500 MG TAB.ER PO SCH (08:39)
[2016-11-14] MEDS: ATORVASTATIN CALCIUM 20 MG TAB PO SCH (08:39)
[2016-11-14] MEDS: CALCIUM CARBONATE 500 MG TAB PO SCH (08:39)
[2016-11-14] MEDS: ASPIRIN EC 325 MG TAB PO SCH (08:39)
[2016-11-14] MEDS: CLOPIDOGREL BISULFATE 75 MG TAB PO SCH (08:39)
[2016-11-14] MEDS: CHOLECALCIFEROL VIT D3 1,000 UNITS TAB PO SCH (08:39)
[2016-11-14] MEDS: PANTOPRAZOLE SODIUM 40 MG TAB PO SCH (08:40)
[2016-11-14] MEDS: FAMOTIDINE 20 MG TAB PO SCH (08:40)
--- NOTE | 2016-11-14 09:17 | PDIAF ---
- Diagnosis Diagnosis: chest pain Code Status: Full Code - Medication Management Discharge Medications: Medications to Continue on Transfer Cholecalciferol Vit D3 [Vitamin D3 (*)] 1,000 units PO DAILY@10/19/13 [Last Taken 11/10/16] Multivitamins [Multivitamin (*)] 1 each PO DAILY@10/19/13 [Last Taken ] Clopidogrel Bisulfate [Plavix (*)] 75 mg PO DAILY@10/24/13 [Last Taken ] Apixaban [Eliquis] 5 mg PO BID@,04/16/15 [Last Taken 11/10/16] Gabapentin [Neurontin 100 MG (*)] 100 mg PO BID@,04/22/15 [Last Taken 11/10] Herbals/Supplements -Info Only 1 ea PO DAILY@05/18/16 [Last Taken 11/10/16] Calcium Carbonate [Oyster Shell Calcium 500 mg (*)] 500 mg PO DAILY@10/11/16 [Last Taken 11/10/16] Lisinopril [Zestril 10 mg (*)] 10 mg PO DAILY@10/11/16 [Last Taken 11/10/16] Nitroglycerin [Nitrostat 0.4 mg (*)] 0.4 mg SL Q5M PRN 10/19/16 [Last Taken ] amLODIPine BESYLATE [Norvasc 5 mg (*)] 5 mg PO DAILY@10/19/16 [Last Taken ] Aspirin EC [Aspirin EC 81 mg (*)] 81 mg PO DAILY #0 tab 10/24/16 [Last Taken ] Atorvastatin Calcium [Lipitor 20 mg (*)] 20 mg PO DAILY 11/03/16 [Last Taken ] Pantoprazole Sodium [Protonix 40mg (*)] 40 mg PO DAILY 11/03/16 [Last Taken ] Ranolazine [Ranexa] 500 mg PO BID@,11/03/16 [Last Taken 11/10/16] Discharge Medications: Refer to the Discharge Home Medication list for PRN reason. - Orders Services needed: Home Care, Registered Nurse, Physical Therapy, Occupational Therapy Home Care Face to Face: I certify that this patient was under my care and that I had the required [id number] encounter meeting the encounter requirements on the discharge day. My findings support the fact that the patient is homebound as defined in CMS Chapter 7 Medicare Benefits Manual 30.1.1, The condition of the patient is such that there exists a normal inability to leave home and consequently, leaving home would require a considerable and taxing effort. - Follow Up Care Current Providers and Referrals: James Pollard MD [Medical Doctor] - NONE *PRIMARY CARE P,. [Primary Care Provider] -
--- NOTE | 2016-11-14 10:29 | SOAPPROG ---
SOAP Progress Note Assessment/Plan: Assessment: Multiple admissions for recurrent chest pain etiology unknown. Not responsive to nitroglycerin. Very minimal elevation in troponin. Known CAD. Status post recent stenting of circumflex obtuse marginal branch. Anticoagulated with Eliquis due to history of pulmonary embolus and paroxysmal atrial fibrillation. Plan: Options were discussed with the hospitalist service as well as the patient. We will plan for heart catheterization tomorrow morning after holding Eliquis today. Films have been reviewed. We will likely perform FFR measurement on circumflex AV groove branch, circumflex obtuse marginal branch, lad, LAD diagonal and even the large non dominant right coronary artery. 11/11/16 11:16 11/13/16 13:29 Patient did have an episode of 10/10 chest pain immediately following yesterday' s catheterization. She has not had any further discomfort. In discussing this with her she believes her chest pain is emotionally triggered. This occurs when she starts thinking about things and gets upset. Catheterization yesterday was extensive with FFR measurement of all major coronaries in branches. Only significant lesion was in the right coronary which had never been treated in the past. Ultrasound image guided stenting was performed with excellent result. At this point in time I would not expect the patient to have ischemic chest pain. Patient would prefer to wait until tomorrow to be discharged. I am in agreement with this given her episode of chest pain yesterday following catheterization and the fact that she has had 7 recurrent admissions within the last 2 months. Other potential causes of recurrent chest pain (including anxiety) will need to be explored in the future if she continues to have symptoms. 11/14/16 10:27 No further chest discomfort. Patient ready for discharge. She is on Eliquis for past history of paroxysmal atrial fibrillation (details currently pending) as well as an episode of small pulmonary emboli approximately a year ago. She is an intermediate/normal Plavix metabolizer. Would recommend triple anticoagulation therapy with aspirin 81 mg, Plavix 75 mg and Eliquis for 1 month. At that time we will either get rid of the aspirin or the Eliquis. She may require prolonged ambulatory monitoring to assess atrial fibrillation burden. In addition I will research her past atrial fibrillation history. Furthermore, I will research the details of her pulmonary embolus and discuss this with Dr. Lomeli her primary care physician to determine if anticoagulation is required long-term. In the meantime, she can be discharged and we will follow up with her next week. Objective: Vital Signs Temp Pulse Resp BP Pulse Ox 97.5 F 90 19 131/77 H 94 11/14/16 08:00 11/14/16 08:00 11/14/16 08:00 11/14/16 08:00 11/14/16 08:00 Laboratory Results 11/13/16 04:26 11/13/16 04:26 11/13/16 11/14/16 11/15/16 05:59 05:59 05:59 Intake Total 2845 500 Output Total 1450 900 Balance 1395 -400 PT 14.9 SEC (12.0-15.0) 11/12/16 04:25 INR 1.17 (0.83-1.16) H 11/12/16 04:25 ICD10 Worksheet Patient Problems: Problems Problem Status Diagnosed Atrial flutter Acute CAD (coronary artery disease) Acute Chest pain Acute Chest pain of unknown etiology Acute NSTEMI (non-ST elevated myocardial infarction) Acute Pelvic fracture Acute Pulmonary emboli Acute Troponin level elevated Acute Chest pain at rest Acute Chest pain in adult Acute Dyspnea Acute Elevated blood pressure reading Acute Headache Acute Hypertension Acute
[2016-11-14 13:01] VITALS: BP 108/64; PULSE 69; RESP 16; TEMP 98.3; O2SAT 93
--- NOTE | 2016-11-14 19:19 | GDS ---
[f rep st] DISCHARGE SUMMARY DISCHARGE DIAGNOSES: Include: 1. Chronic chest pain. 2. Coronary artery disease. 3. Acute kidney injury. 4. Chronic kidney disease. 5. History of pulmonary embolism. 6. Chronic systolic heart failure. 7. Peripheral vascular disease. HISTORY OF PRESENT ILLNESS: An 81-year-old female who presented with chest pain. For details of liza carter's initial presentation, please see the history and physical dated 11/11/2016. CONSULTATIVE SERVICES: Include Cardiology, Dr. Pollard. PROCEDURES: Include cardiac catheterization on 11/12/2016. HOSPITAL COURSE BY ISSUE: 1. Recurrent chest pain: This is a chronic complaint for this patient. She has had multiple hospit alizations recently with complaints of chest pain. Patient was taken for cardiac catheterization destiney t did not show any lesions requiring intervention. Patient was stented to the circumflex obtuse gasper inal branch. Patient is being discharged on triple therapy anticoagulation with Eliquis, Plavix, and aspirin. She is to follow with Dr. Pollard in the outpatient setting. 2. History of pulmonary embolism: Patient continues on her Eliquis therapy. 3. Coronary artery disease: As above, patient was stented to the circumflex obtuse marginal branch. Will follow postdischarge with Dr. Akhtar for her first post disposition followup appointment. MEDICATIONS AT THE TIME OF DISPOSITION: Please reference medication reconciliation printed on 2016. FOLLOWUP APPOINTMENTS: Include with Dr. Akhtar on 11/24/2016. PENDING STUDIES AT THE TIME OF THIS DICTATION: None. I spent greater than 30 minutes in the planning and coordination of this discharge. /[id number]/MODL
== END 2016-11-14 16:17 | disposition home health service (06) | DRG 247 ==
LOC: F2W 05:49 → OBSVTOIN 15:27
PROVIDERS: ADMIT Hospitalist; ATTEND Hospitalist
PROC: B2111ZZ Fluoroscopy of Multiple Coronary Arteries using Low Osmolar Contrast (ICD-10-PCS; principal; 2016-11-12 11:06)
PROC: 4A023N7 Measurement of Cardiac Sampling and Pressure, Left Heart, Percutaneous Approach (ICD-10-PCS; principal; 2016-11-12 11:06)
PROC: B2151ZZ Fluoroscopy of Left Heart using Low Osmolar Contrast (ICD-10-PCS; principal; 2016-11-12 11:06)
PROC: 027034Z Dilation of Coronary Artery, One Artery with Drug-eluting Intraluminal Device, Percutaneous Approach (ICD-10-PCS; principal; 2016-11-12 11:06)
PROC: B241ZZ3 Ultrasonography of Multiple Coronary Arteries, Intravascular (ICD-10-PCS; principal; 2016-11-12 11:06)
DX: I25.10 Atherosclerotic heart disease of native coronary artery without angina pectoris (principal); I50.22 Chronic systolic (congestive) heart failure; N17.9 Acute kidney failure, unspecified; I48.91 Unspecified atrial fibrillation; I12.9 Hypertensive chronic kidney disease with stage 1 through stage 4 chronic kidney disease, or unspecified chronic kidney disease; N18.9 Chronic kidney disease, unspecified; I73.9 Peripheral vascular disease, unspecified; Z95.5 Presence of coronary angioplasty implant and graft; Z86.711 Personal history of pulmonary embolism; Z79.01 Long term (current) use of anticoagulants; Z99.81 Dependence on supplemental oxygen; Z95.2 Presence of prosthetic heart valve; Z95.1 Presence of aortocoronary bypass graft
CPT/HCPCS: 96374; 97112-GP; 97116-GP; 97161-GP; 97165-GO; 97535-GO; C1753; C1769; C1874; C1887; C9600; G0008; G0009; G8978-GP-CI; G8978-GP-CJ; G8979-GP-CI; G8980-GP-CI; G8987-GO-CI; G8988-GO-CH; J0153; J0583; J1644; J2250; J3010; Q9967

== ENCOUNTER 2016-11-16 01:24 | Emergency (ER) | payer OTHER ==
--- NOTE | 2016-11-16 01:44 | CPEKG ---
Heart Rate: 74 RR Interval: 811 P-R Interval: 204 QRSD Interval: 104 QT Interval: 408 QTC Interval: 453 P Munster: 55 QRS Munster: -51 T Wave Mun[place]: 69 EKG Severity - ABNORMAL ECG - EKG Impression: SINUS RHYTHM EKG Impression: PROBABLE LEFT ATRIAL ABNORMALITY EKG Impression: LAD, CONSIDER LEFT ANTERIOR FASCICULAR BLOCK Electronically Signed By: James Sanders 16-Nov-2016 05:47:59
--- NOTE | 2016-11-16 01:52 | EDPHY ---
HPI/HX/ROS/PE/MDM Narrative: Chief complaint: Shortness of breath HPI: 81-year-old woman who was discharged from the hospital yesterday after admission for workup for chest pain shortness of breath. Patient had a coronary catheterization done by Dr. Pollard was found to not have any obstructive disease but did have a stent placed at that time. Patient was kept an extra night because she was having some confusion as she has had in the past post anesthesia. Tonight patient states she began feeling short of breath while at rest. There were no exacerbating factors. Is not worsened by getting up walking around. She denies any chest pain. She called her granddaughter brought her to the hospital for further evaluation. Patient does suffer from some short-term memory loss and does not have full recollection of her admission to the hospital last week. Is aware that it is winter time and that it is 2016 but is unable to tell me the month or the day. No nausea or vomiting. No fevers or chills. States that there are no aggravating or alleviating factors for her shortness of breath. Symptoms began about 9 o'clock this evening. Granddaughter states the patient has had problems with confusion after she has had sedation for prior catheterizations. ROS: 10 point Review of Systems is negative except as noted in the HPI. Physical exam: Gen: Awake, Alert, No Distress HEENT: Nose: no rhinorrhea Eyes: PERRLA, EOMI Mouth: Moist mucosa Neck: Supple, no JVD Chest: nontender, lungs clear to auscultation Heart: S1, S2 normal, no murmur Abd: Soft, non-tender, no guarding Back: no CVA tenderness, no midline tenderness Ext: no edema, non-tender Skin: no rash Neuro: CN II-XII intact, Sensation grossly intact, Strength 5/5 in bilateral upper and lower extremities ED Course: 81-year-old female presenting with shortness of breath. She was discharged yesterday after catheterization for a workup for chest pain shortness of breath. Patient is confused and mildly disoriented here. Granddaughter states that she suffers from short-term memory loss but this is worse than usual. She does live alone in her own home with [facility]. Will obtain ECG, laboratory evaluations of blood work and urinalysis. EC sinus rhythm, rate of 74, left anterior fascicular block, no acute ST or T-wave changes. ECG is unchanged from the 13 November 2016. Chest x-ray: No acute findings per my interpretation. Patient is resting comfortably. Her shortness of breath has resolved. Troponin is noted to be 0.37 but this is down from prior admission and likely secondary to her catheterization. ECG is unchanged. Blood work otherwise is unremarkable. Urinalysis is negative. Patient is comfortable. I have discussed at length with the patient and her granddaughter that there are no acute findings at this time. Patient does have some findings suggestive of dementia and I think this is contributing to her sensation of feeling short of breath at night. She has an appointment to follow up with csw on the and referral to GI. She has been unsuccessful in finding a primary care doctor refer her to a on-call for further evaluation. Her vital signs and oxygenation otherwise look good. Do not see any evidence of acute process or infection. Will discharge with follow-up with her outpatient referrals as are in place. Granddaughter is comfortable taking her home will be able to stay with her. They are aware of my concerns about her memory and will pursue further evaluation of that as well. - Data Points Laboratory Results: Laboratory Results 11/16/16 01:50 11/16/16 01:50 11/16/16 11/16/16 02:20 01:50 WBC 2.91 L 10^3/uL (3.80-9.50) RBC 4.29 10^6/uL (4.18-5.33) Hgb 12.7 g/dL (12.6-16.3) Hct 37.4 L % (38.0-47.0) MCV 87.2 fL (81.5-99.8) MCH 29.6 pg (27.9-34.1) MCHC 34.0 g/dL (32.4-36.7) RDW 13.6 % (11.5-15.2) Plt Count 125 L 10^3/uL (150-400) MPV 10.1 fL (8.7-11.7) Neut % (Auto) 44.4 % (39.3-74.2) Lymph % (Auto) 40.5 % (15.0-45.0) [place] % (Auto) 10.7 % (4.5-13.0) Eos % (Auto) 3.4 % (0.6-7.6) Baso % (Auto) 0.7 % (0.3-1.7) Nucleat RBC Rel Count 0.0 % (0.0-0.2) Absolute Neuts (auto) 1.29 L 10^3/uL (1.70-6.50) Absolute Lymphs (auto) 1.18 10^3/uL (1.00-3.00) Absolute Monos (auto) 0.31 10^3/uL (0.30-0.80) Absolute Eos (auto) 0.10 10^3/uL (0.03-0.40) Absolute Basos (auto) 0.02 10^3/uL (0.02-0.10) Absolute Nucleated RBC 0.00 10^3/uL (0-0.01) Immature Gran % 0.3 % (0.0-1.1) Immature Gran # 0.01 10^3/uL (0.00-0.10) Sodium 140 mEq/L (134-144) Potassium 4.6 mEq/L (3.5-5.2) Chloride 105 mEq/L (97-110) Carbon Dioxide 29 mEq/l (22-31) Anion Gap 6 mEq/L (8-16) BUN 11 mg/dL (7-23) Creatinine 1.0 mg/dL (0.6-1.0) Estimated GFR 53 Glucose 117 H mg/dL (70-100) Calcium 9.4 mg/dL (8.5-10.4) Troponin I 0.037 H ng/mL (0-0.034) Urine Color PALE YELLOW Urine Appearance CLEAR Urine pH 9.0 H (5.0-7.5) Ur Specific [place] 1.002 (1.002-1.030) Urine Protein NEGATIVE (NEGATIVE) Urine Ketones NEGATIVE (NEGATIVE) Urine Blood NEGATIVE (NEGATIVE) Urine Nitrate NEGATIVE (NEGATIVE) Urine Bilirubin NEGATIVE (NEGATIVE) Urine Urobilinogen NEGATIVE EU (0.2-1.0) Ur Leukocyte Esterase NEGATIVE (NEGATIVE) Urine Glucose NEGATIVE (NEGATIVE) General Time Seen by Provider: 11/16/16 01:36 Initial Vital Signs: Initial Vital Signs Temperature (C) 36.7 C 11/16/16 01:29 Heart Rate 67 11/16/16 01:29 Respiratory Rate 20 11/16/16 01:29 Blood Pressure 134/69 H 11/16/16 01:29 O2 Sat (%) 94 11/16/16 01:29 O2 Delivery Mode Room Air Allergies/Adverse Reactions: Penicillins Allergy (Intermediate, Verified 11/16/16 01:28) Hives Home Medications: Medication Instructions Recorded Cholecalciferol Vit D3 [Vitamin D3 1,000 units PO DAILY@10/19/13 (*)] Multivitamins [Multivitamin (*)] 1 each PO DAILY@10/19/13 Clopidogrel Bisulfate [Plavix (*)] 75 mg PO DAILY@10/24/13 Apixaban [Eliquis] 5 mg PO BID@,04/16/15 Gabapentin [Neurontin 100 MG (*)] 100 mg PO BID@,04/22/15 Herbals/Supplements -Info Only 1 ea PO DAILY@05/18/16 Calcium Carbonate [Oyster Shell 500 mg PO DAILY@10/11/16 Calcium 500 mg (*)] Lisinopril [Zestril 10 mg (*)] 10 mg PO DAILY@10/11/16 Nitroglycerin [Nitrostat 0.4 mg 0.4 mg SL Q5M PRN 10/19/16 (*)] amLODIPine BESYLATE [Norvasc 5 mg 5 mg PO DAILY@10/19/16 (*)] Aspirin EC [Aspirin EC 81 mg (*)] 81 mg PO DAILY #0 tab 10/24/16 Atorvastatin Calcium [Lipitor 20 20 mg PO DAILY 11/03/16 mg (*)] Pantoprazole Sodium [Protonix 40mg 40 mg PO DAILY 11/03/16 (*)] Ranolazine [Ranexa] 500 mg PO BID@,11/03/16 Departure - Departure Disposition: Home, Routine, Self-Care Clinical Impression: Shortness of breath Condition: Good Instructions: Dyspnea (ED) Additional Instructions: Follow up with your csw as scheduled. Follow up with primary care physician in 2-3 days. I have provided you with a referral to the on-call internal medicine doctor. Return to the emergency depart for increasing chest pain, shortness of breath, fevers, chills, or any other concerns. Referrals: NONE *PRIMARY CARE P,. [Primary Care Provider] - As per Instructions Soheila Hardy MD [Medical Doctor] - As per Instructions
[2016-11-16 02:01] LABS: % IMMATURE GRANULYOCYTES 0.3 % (0.0-1.1); ABSOLUTE IMMATURE GRANULOCYTES 0.01 10^3/uL (0.00-0.10); ADD DIFF? NO; ADD MORPH? NO; ADD SCAN? NO; ATYPICAL LYMPHOCYTE FLAG 50 (0-99); FRAGMENT RBC FLAG 0 (0-99); HEMATOCRIT 37.4 % (38.0-47.0); HEMOGLOBIN 12.7 g/dL (12.6-16.3); LEFT SHIFT FLG 0 (0-99); LIPEMIA HEMOLYSIS FLAG 90 (0-99); MEAN CELL HEMOGLOBIN 29.6 pg (27.9-34.1); MEAN CELL VOLUME 87.2 fL (81.5-99.8); MEAN PLATELET VOLUME 10.1 fL (8.7-11.7); PLATELET CLUMPS FLAG 10 (0-99); PLATELET COUNT 125 10^3/uL (150-400); RED BLOOD CELL COUNT 4.29 10^6/uL (4.18-5.33); RED CELL DISTRIBUTION WIDTH 13.6 % (11.5-15.2)
[2016-11-16 02:23] LABS: ANION GAP 6 mEq/L (8-16); CALCIUM 9.4 mg/dL (8.5-10.4); CARBON DIOXIDE 29 mEq/l (22-31); CHLORIDE 105 mEq/L (97-110); GLOMERULAR FILTRATION RATE 53; GLUCOSE 117 mg/dL (70-100); POTASSIUM 4.6 mEq/L (3.5-5.2); SODIUM 140 mEq/L (134-144)
[2016-11-16 02:25] VITALS: PULSE 72
[2016-11-16 02:29] LABS: COLOR PALE YELLOW; LEUKOCYTE ESTERASE,URINE NEGATIVE (NEGATIVE); NITRITE,URINE NEGATIVE (NEGATIVE)
[2016-11-16 02:40] LABS: TROPONIN I 0.037 ng/mL (0-0.034)
[2016-11-16 03:25] VITALS: BP 143/65; RESP 18; TEMP 97.9; O2SAT 95
--- NOTE | 2016-11-16 08:41 | DX ---
PA and Lateral Chest Indication: Shortness of breath. Comparison: Two-view chest from [address] chest dated December 27, 2015 Findings: Lungs are well aerated and clear. No edema, consolidation or effusion. A subacute posterior right fifth rib fracture with healing callus results in a nodular asymmetry in the outer upper right breast. Cardiomegaly, midline sternal wires, prosthetic aortic valve, and numerous coronary stents a re unchanged. Impression: 1. Clear lungs. No acute process. 2. Cardiomegaly. No failure. 3. Subacute posterior right fifth rib fracture.
== END 2016-11-16 03:23 | disposition home or self-care (01) ==
DX: R06.02 Shortness of breath (principal); Z79.82 Long term (current) use of aspirin

== ENCOUNTER 2016-11-16 07:56 | Emergency (ER) | payer OTHER ==
[2016-11-16 08:02] VITALS: TEMP 98.2
[2016-11-16 08:13] VITALS: PULSE 70
--- NOTE | 2016-11-16 08:15 | CPEKG ---
Heart Rate: 82 RR Interval: 732 P-R Interval: 216 QRSD Interval: 92 QT Interval: 400 QTC Interval: 468 P [place]: 70 QRS [place]: -58 EKG Severity - ABNORMAL ECG - EKG Impression: SINUS RHYTHM EKG Impression: LAD, CONSIDER LEFT ANTERIOR FASCICULAR BLOCK EKG Impression: BORDERLINE T ABNORMALITIES, ANT-LAT LEADS Electronically Signed By: Marcelo Franco 16-Nov-2016 08:27:46
--- NOTE | 2016-11-16 08:17 | EDPHY ---
H & P Stated Complaint: Here earlier this morning for same c/o of midsternal CP Time Seen by Provider: 11/16/16 08:12 HPI/ROS: CHIEF COMPLAINT: Recurrent chest pain HISTORY OF PRESENT ILLNESS: The patient is an 81-year-old female with multiple medical problems including coronary artery disease, failed CABG, of aortic valve replacement on Eliquis who presents to the ED with recurrent chest pain. The patient has had a total of 9 visits to the emergency department over the past several months. She has been admitted multiple times. During her last admission at the end of October, she did undergo angiography which demonstrated a right coronary artery lesion which was stented successfully. The patient was actually in the emergency department earlier this morning with similar complaints of chest pain shortness of breath. At that point time she had no acute changes on her EKG. At this point time the patient states that her dyspnea has improved. She has no active complaints at the time my evaluation. She specifically denies fever, cough or congestion. REVIEW OF SYSTEMS: A comprehensive 10 point review of systems is otherwise negative aside from elements mentioned in the history of present illness. Source: Patient Exam Limitations: No limitations - Personal History Current Tetanus Diphtheria and Acellular Pertussis (TDAP): Yes - Medical/Surgical History Hx Asthma: No Hx Chronic Respiratory Disease: Yes Hx Diabetes: No Hx Cardiac Disease: Yes Hx Renal Disease: No Hx Cirrhosis: No Hx Alcoholism: No Hx HIV/AIDS: No Hx Splenectomy or Spleen Trauma: No Other PMH: Home , STENTS 2014, CABG 2012, endarterectomy(rt), HTN, headaches, AFIB, blind in rt eye, AORTIC VALVE REPLACEMENT, csection x 2, pe post valve replacement - Social History Smoking Status: Never smoked - Physical Exam Exam: General Appearance: Alert, no distress Eyes: Pupils equal and round no pallor or injection ENT, Mouth: Mucous membranes moist Respiratory: There are no retractions, lungs are clear to auscultation Cardiovascular: Regular rate and rhythm Gastrointestinal: Abdomen is soft and nontender, no masses, bowel sounds normal Neurological: A&O, normal motor function, normal sensory exam, normal cranial nerves Skin: Warm and dry, no rashes Musculoskeletal: Neck is supple nontender Extremities: symmetrical, full range of motion Constitutional: Initial Vital Signs Temperature (C) 36.8 C 11/16/16 07:59 Heart Rate 77 11/16/16 07:59 Respiratory Rate 18 11/16/16 07:59 Blood Pressure 146/76 H 11/16/16 07:59 O2 Sat (%) 94 11/16/16 07:59 O2 Delivery Mode Room Air Allergies/Adverse Reactions: Penicillins Allergy (Intermediate, Verified 11/16/16 07:57) Hives Home Medications: Medication Instructions Recorded Cholecalciferol Vit D3 [Vitamin D3 1,000 units PO DAILY@10/19/13 (*)] Multivitamins [Multivitamin (*)] 1 each PO DAILY@10/19/13 Clopidogrel Bisulfate [Plavix (*)] 75 mg PO DAILY@10/24/13 Apixaban [Eliquis] 5 mg PO BID@,04/16/15 Gabapentin [Neurontin 100 MG (*)] 100 mg PO BID@,04/22/15 Herbals/Supplements -Info Only 1 ea PO DAILY@05/18/16 Calcium Carbonate [Oyster Shell 500 mg PO DAILY@10/11/16 Calcium 500 mg (*)] Lisinopril [Zestril 10 mg (*)] 10 mg PO DAILY@10/11/16 Nitroglycerin [Nitrostat 0.4 mg 0.4 mg SL Q5M PRN 10/19/16 (*)] amLODIPine BESYLATE [Norvasc 5 mg 5 mg PO DAILY@10/19/16 (*)] Aspirin EC [Aspirin EC 81 mg (*)] 81 mg PO DAILY #0 tab 10/24/16 Atorvastatin Calcium [Lipitor 20 20 mg PO DAILY 11/03/16 mg (*)] Pantoprazole Sodium [Protonix 40mg 40 mg PO DAILY 11/03/16 (*)] Ranolazine [Ranexa] 500 mg PO BID@08,11/03/16 Medical Decision Making - Diagnostics EKG Interpretation: EKG: Complete interpretation has been separately recorded in the [employer] archive. Summary impression: Sinus rhythm, nonspecific ST T wave changes noted ED Course/Re-evaluation: The patient presents the emergency department with recurrent chest pain and dyspnea. I reviewed her extensive past medical records. At this point time I do not feel that additional intervention is indicated in the absence of any dynamic EKG changes. I strongly suspect there is a component of anxiety to the patient's presentation pattern. The patient has recently had a coronary angiogram with a stent to the right coronary artery. There is no evidence of acute ischemia at this point time. She does have a history of a chronically elevated troponin which is felt to be clinically insignificant. This is not been repeated in the ED today. The patient will be discharged home and follow up with her primary care provider Dr. Pollard. I have asked our case management to contact Dr. Pollard to see if he could facilitate a primary care provider evaluation for this patient as I strongly suspect anxiety is a contributing component to her multiple ED visits. Because the patient is anticoagulated I do not feel that it is important to evaluate pulmonary embolism as an etiology as she has no tachycardia or hypoxia. I certainly in where the fact she has underlying coronary artery disease. I do not think that she would benefit from repeat angiography at this point time. Differential Diagnosis: Differential diagnosis considered includes myocardial infarction, arrhythmia, anxiety, dyspnea Departure - Departure Disposition: Home, Routine, Self-Care Clinical Impression: Chest pain of unknown etiology Condition: Good Instructions: Chest Pain (ED) Additional Instructions: 1. Please schedule a follow-up appointment with Dr. Pollard to discuss a referral to a new primary care provider. 2. I do recommend contacting Dr. Pollard to discuss your ongoing symptoms. Referrals: James Pollard MD [Medical Doctor] - As per Instructions
[2016-11-16 08:50] VITALS: BP 141/72; RESP 18; O2SAT 95
== END 2016-11-16 08:50 | disposition home or self-care (01) ==
DX: R07.9 Chest pain, unspecified (principal); I10 Essential (primary) hypertension; I25.810 Atherosclerosis of coronary artery bypass graft(s) without angina pectoris; Z95.5 Presence of coronary angioplasty implant and graft; Z79.82 Long term (current) use of aspirin

== ENCOUNTER 2016-11-19 02:58 | Emergency (ER) | payer OTHER ==
--- NOTE | 2016-11-19 03:11 | EDPHY ---
H & P Stated Complaint: Difficulty breathing HPI/ROS: HPI CHIEF COMPLAINT: Difficulty breathing HISTORY OF PRESENT ILLNESS: This patient very pleasant 81-year-old female, she does have an extensive past medical history including coronary artery disease, peripheral vascular disease, aortic valve, pulmonary embolism, congestive heart failure, AFib, chronic chest pain, she has been recently here in the emergency room multiple times, she presents emergency room by EMS with son at bedside for shortness of breath. Patient tells me that around 11 o'clock she developed shortness of breath. She also tells me that she had a brief episode of chest pain however this has resolved. She tells me she feels very anxious and at times that causes her shortness of breath. Upon arrival here in the emergency room she is resting comfortably in no acute distress. Lung sounds are clear. Past Medical History: AFib, pulmonary embolism, coronary disease, peripheral vascular disease, aortic valve, congestive heart failure, chronic chest pain, Past Surgical History: CABG Social History: denies use of drugs alcohol tobacco products, son at bedside Family History: Noncontributory ROS REVIEW OF SYSTEMS: A comprehensive 10 point review of systems is otherwise negative aside from elements mentioned in the history of present illness. Exam Constitutional triage nursing summary reviewed, vital signs reviewed, awake/ alert. Eyes normal conjunctivae and sclera, EOMI, PERRLA. HENT normal inspection, atraumatic, moist mucus membranes, no epistaxis, neck supple/ no meningismus, no raccoon eyes. Respiratory clear to auscultation bilaterally, normal breath sounds, no respiratory distress, no wheezing. Cardiovascular rate normal, regular rhythm, no murmur, no edema, distal pulses normal. Gastrointestinal soft, non-tender, no rebound, no guarding, normal bowel sounds, no distension, no pulsatile mass. Genitourinary no CVA tenderness. Musculoskeletal no midline vertebral tenderness, full range of motion, no calf swelling, no tenderness of extremities, no meningismus, good pulses, neurovascularly intact. Skin pink, warm, & dry, no rash, skin atraumatic. Neurologic awake, alert and oriented x 3, AAOx3, moves all 4 extremities equally, motor intact, sensory intact, CN II-XII intact, normal cerebellar, normal vision, normal speech. Psychiatric normal mood/affect. Heme/Lymph/Immune no lymphadenopathy. Differential diagnosis includes but is not limited to: Anxiety, ACS, atypical chest pain, pneumothorax, pneumonia, pulmonary embolism, aortic dissection, congestive heart failure, tumor, musculoskeletal pain, esophageal pain, GERD, peptic ulcer disease, pancreatitis Medical Decision Making: This patient had an IV established be placed on full slip presser will obtain EKG, chest x-ray blood work troponin to evaluate for shortness of breath however here in the emergency room her pulse ox is 99% on 2 L, she is resting comfortably she has clear lung sounds. She does tell me she feels anxious I have ordered her 0.5 mg IV Ativan EKG interpretation by me on record in [employer] system. Impression time of EKG 3:13 a.m., this is sinus rhythm rate of [address] elevation or significant ST depression this EKG appears similar morphology is previous EKGs. Specifically when compared to 11/16/2016. Re-evaluation: 0506: Re-examination at this time patient remained stable, oxygen level is appropriate on 2 L nasal cannula her baseline. She did tell me she feels very anxious and that may be the cause of her nighttime dyspnea. She received 0.5 mg IV Ativan here and she feels much better she would like to go home. She tells me she does not have any chest pain or shortness of breath. I reviewed her recent ER visits and recent hospitalization. Her EKG is unchanged from previous EKGs, her chest x-ray has been reviewed here and does not appear in acute change from her previous chest x-rays. Specifically is no evidence of heart failure at this time, no evidence of pulmonary edema, no evidence of pneumonia. Heart size about what her normal heart size is. Her vitals have remained stable here. She felt much better after the Ativan. She would like to go home. I spoke with her son at bedside he agrees with this plan. Do not feel like another hospitalization at this point would benefit the patient. Most likely would put her at further risk for hospital-acquired pneumonia or line infection. I do feel like at times her nighttime dyspnea may be anxiety. I did give her strict return precautions she understands return to the emergency room if she develops worsening symptoms includes worsening shortness of breath, chest pain or questions or concerns. I did review her recent ER visits and hospitalization discharge. Source: Patient, EMS - Medical/Surgical History Hx Asthma: No Hx Chronic Respiratory Disease: Yes Hx Diabetes: No Hx Cardiac Disease: Yes Hx Renal Disease: No Hx Cirrhosis: No Hx Alcoholism: No Hx HIV/AIDS: No Hx Splenectomy or Spleen Trauma: No Other PMH: Home 02, STENTS 2014, CABG 2012, endarterectomy(rt), HTN, headaches, AFIB, blind in rt eye, AORTIC VALVE REPLACEMENT, csection x 2, pe post valve replacement - Social History Smoking Status: Never smoked Constitutional: Initial Vital Signs Temperature (C) 36.7 C 11/19/16 03:00 Heart Rate 79 11/19/16 03:00 Respiratory Rate 24 H 11/19/16 03:00 Blood Pressure 126/86 H 11/19/16 03:00 O2 Sat (%) 98 11/19/16 03:00 O2 Delivery Mode Room Air O2 (L/minute) 3 Allergies/Adverse Reactions: Penicillins Allergy (Intermediate, Verified 11/16/16 07:57) Hives Home Medications: Medication Instructions Recorded Cholecalciferol Vit D3 [Vitamin D3 1,000 units PO DAILY@10/19/13 (*)] Multivitamins [Multivitamin (*)] 1 each PO DAILY@10/19/13 Clopidogrel Bisulfate [Plavix (*)] 75 mg PO DAILY@10/24/13 Apixaban [Eliquis] 5 mg PO BID@,04/16/15 Gabapentin [Neurontin 100 MG (*)] 100 mg PO BID@,04/22/15 Herbals/Supplements -Info Only 1 ea PO DAILY@05/18/16 Calcium Carbonate [Oyster Shell 500 mg PO DAILY@10/11/16 Calcium 500 mg (*)] Nitroglycerin [Nitrostat 0.4 mg 0.4 mg SL Q5M PRN 10/19/16 (*)] amLODIPine BESYLATE [Norvasc 5 mg 5 mg PO DAILY@10/19/16 (*)] Aspirin EC [Aspirin EC 81 mg (*)] 81 mg PO DAILY #0 tab 10/24/16 Atorvastatin Calcium [Lipitor 20 20 mg PO DAILY 11/03/16 mg (*)] Pantoprazole Sodium [Protonix 40mg 40 mg PO DAILY 11/03/16 (*)] Ranolazine [Ranexa] 500 mg PO BID@08,11/03/16 Medical Decision Making - Data Points Laboratory Results: Laboratory Results 11/19/16 03:30 11/19/16 03:30 11/19/16 03:30 WBC 3.30 L 10^3/uL (3.80-9.50) RBC 4.16 L 10^6/uL (4.18-5.33) Hgb 11.8 L g/dL (12.6-16.3) Hct 35.6 L % (38.0-47.0) MCV 85.6 fL (81.5-99.8) MCH 28.4 pg (27.9-34.1) MCHC 33.1 g/dL (32.4-36.7) RDW 13.5 % (11.5-15.2) Plt Count 132 L 10^3/uL (150-400) MPV 10.1 fL (8.7-11.7) Neut % (Auto) 37.3 L % (39.3-74.2) Lymph % (Auto) 52.4 H % (15.0-45.0) [place] % (Auto) 7.6 % (4.5-13.0) Eos % (Auto) 1.8 % (0.6-7.6) Baso % (Auto) 0.6 % (0.3-1.7) Nucleat RBC Rel Count 0.0 % (0.0-0.2) Absolute Neuts (auto) 1.23 L 10^3/uL (1.70-6.50) Absolute Lymphs (auto) 1.73 10^3/uL (1.00-3.00) Absolute Monos (auto) 0.25 L 10^3/uL (0.30-0.80) Absolute Eos (auto) 0.06 10^3/uL (0.03-0.40) Absolute Basos (auto) 0.02 10^3/uL (0.02-0.10) Absolute Nucleated RBC 0.00 10^3/uL (0-0.01) Immature Gran % 0.3 % (0.0-1.1) Immature Gran # 0.01 10^3/uL (0.00-0.10) PT 15.9 H SEC (12.0-15.0) INR 1.27 H (0.83-1.16) APTT 33.5 SEC (23.0-38.0) Sodium 144 mEq/L (134-144) Potassium 4.1 mEq/L (3.5-5.2) Chloride 110 mEq/L (97-110) Carbon Dioxide 24 mEq/l (22-31) Anion Gap 10 mEq/L (8-16) BUN 16 mg/dL (7-23) Creatinine 1.0 mg/dL (0.6-1.0) Estimated GFR 53 Glucose 110 H mg/dL (70-100) Calcium 9.7 mg/dL (8.5-10.4) Magnesium 1.9 mg/dL (1.6-2.3) Total Bilirubin 0.5 mg/dL (0.1-1.4) Conjugated Bilirubin 0.4 mg/dL (0.0-0.5) Unconjugated Bilirubin 0.1 mg/dL (0.0-1.1) AST 25 IU/L (14-46) ALT 22 IU/L (9-52) Alkaline Phosphatase 58 IU/L (38-126) Creatine Kinase 35 IU/L (0-156) CK-MB (CK-2) Fraction 0.83 ng/mL (0-3.19) Troponin I < 0.012 ng/mL (0-0.034) NT-Pro-B Natriuret Pep 348 pg/mL (0-450) Total Protein 6.5 g/dL (6.3-8.2) Albumin 3.8 g/dL (3.5-5.0) Lipase 180.0 IU/L (23-300) Medications Given: Discontinued Medications Aspirin (Aspirin) 324 mg PO EDNOW ONE Stop: 11/19/16 03:17 Last Admin: 11/19/16 03:45 Dose: 324 mg Sodium Chloride (Ns) 1,000 mls @ 0 mls/hr IV ONCE ONE PRN Reason: As Directed Stop: 11/19/16 03:17 Last Admin: 11/19/16 03:45 Dose: 1,000 mls Lorazepam (Ativan Injection) 0.5 mg IVP EDNOW ONE Stop: 11/19/16 03:21 Last Admin: 11/19/16 03:45 Dose: 0.5 mg Departure - Departure Disposition: Home, Routine, Self-Care Clinical Impression: Anxiety Condition: Good Instructions: Dyspnea (ED), Anxiety (ED) Additional Instructions: 1.If you have worsening symptoms includes worsening shortness of breath or chest pain please return to the emergency room. Referrals: NONE *PRIMARY CARE P,. [Primary Care Provider] - As per Instructions
[2016-11-19] MEDS ORDERED: NS 1,000 ML IV ONE (03:16)
[2016-11-19] MEDS ORDERED: ASPIRIN 81 MG CHEWABLE TAB PO ONE (03:16)
[2016-11-19] MEDS ORDERED: LORazepam 2 MG/ML INJ IVP ONE (03:20)
--- NOTE | 2016-11-19 03:38 | CPEKG ---
Heart Rate: 73 RR Interval: 822 P-R Interval: 200 QRSD Interval: 100 QT Interval: 420 QTC Interval: 463 P [place]: -13 QRS [place]: -31 EKG Severity - ABNORMAL ECG - EKG Impression: SINUS RHYTHM EKG Impression: LEFT AXIS DEVIATION EKG Impression: NONSPECIFIC T ABNORMALITIES, DIFFUSE LEADS Electronically Signed By: Zach Damon 20-Nov-2016 22:25:56
[2016-11-19 04:02] LABS: INR 1.27 (0.83-1.16); PROTIME(PATIENT) 15.9 SEC (12.0-15.0)
[2016-11-19 04:03] LABS: APTT 33.5 SEC (23.0-38.0)
[2016-11-19 04:08] LABS: ALANINE AMINOTRANSFERASE 22 IU/L (9-52); ALBUMIN 3.8 g/dL (3.5-5.0); ALKALINE PHOSPHATASE 58 IU/L (38-126); ANION GAP 10 mEq/L (8-16); ASPARTATE AMINOTRANSFERASE 25 IU/L (14-46); BILIRUBIN,TOTAL 0.5 mg/dL (0.1-1.4); BILIRUBIN-CONJUGATED 0.4 mg/dL (0.0-0.5); BILIRUBIN-UNCONJUGATED 0.1 mg/dL (0.0-1.1); CALCIUM 9.7 mg/dL (8.5-10.4); CARBON DIOXIDE 24 mEq/l (22-31); CHLORIDE 110 mEq/L (97-110); GLOMERULAR FILTRATION RATE 53; GLUCOSE 110 mg/dL (70-100); MAGNESIUM 1.9 mg/dL (1.6-2.3); POTASSIUM 4.1 mEq/L (3.5-5.2); SODIUM 144 mEq/L (134-144); TOTAL PROTEIN 6.5 g/dL (6.3-8.2)
[2016-11-19 04:18] LABS: % IMMATURE GRANULYOCYTES 0.3 % (0.0-1.1); ABSOLUTE IMMATURE GRANULOCYTES 0.01 10^3/uL (0.00-0.10); ADD DIFF? NO; ADD MORPH? NO; ADD SCAN? YES; FRAGMENT RBC FLAG 0 (0-99); HEMATOCRIT 35.6 % (38.0-47.0); HEMOGLOBIN 11.8 g/dL (12.6-16.3); LEFT SHIFT FLG 0 (0-99); LIPEMIA HEMOLYSIS FLAG 80 (0-99); MEAN CELL HEMOGLOBIN 28.4 pg (27.9-34.1); MEAN CELL HEMOGLOBIN CONCENTR. 33.1 g/dL (32.4-36.7); MEAN CELL VOLUME 85.6 fL (81.5-99.8); MEAN PLATELET VOLUME 10.1 fL (8.7-11.7); PLATELET CLUMPS FLAG 0 (0-99); PLATELET COUNT 132 10^3/uL (150-400); RED BLOOD CELL COUNT 4.16 10^6/uL (4.18-5.33); RED CELL DISTRIBUTION WIDTH 13.5 % (11.5-15.2)
[2016-11-19 04:20] LABS: ATYPICAL LYMPHOCYTE FLAG 300 (0-99); CREATINE KINASE-MB FRACTION 0.83 ng/mL (0-3.19); TROPONIN I < 0.012 ng/mL (0-0.034)
[2016-11-19 04:45] LABS: SCAN NEGATIVE
[2016-11-19 05:56] VITALS: BP 140/75; PULSE 65; RESP 17; TEMP 98.6; O2SAT 100
--- NOTE | 2016-11-19 08:10 | DX ---
Portable Chest 323 a.m. History: Chest pain Comparison: November 16, 2016, November 03, 2016 Findings: The heart remains enlarged and globular in contour suggesting possible pericardial effusion . Findings of atherosclerotic coronary artery disease, CABG surgery and an aortic valve replacement r emain. The pulmonary vascularity is not plethoric. The costophrenic gutters are sharp. There is no pu lmonary edema or pneumothorax. EKG leads and oxygen tubing overlie the chest. Impression: Chronic compensated cardiomegaly with possible pericardial effusion.
== END 2016-11-19 06:18 | disposition home or self-care (01) ==
LOC: EDUNIT#
DX: F41.9 Anxiety disorder, unspecified (principal); I50.9 Heart failure, unspecified; I10 Essential (primary) hypertension; Z79.01 Long term (current) use of anticoagulants; Z79.82 Long term (current) use of aspirin
CPT/HCPCS: 96374

== ENCOUNTER → 2016-12-05 | Outpatient (CLI) | payer OTHER | LOC: FIMAGING 08:59 | PROVIDERS: ATTEND Internal Medicine | DX: F44.89 Other dissociative and conversion disorders (principal); R13.10 Dysphagia, unspecified ==

== ENCOUNTER 2017-05-11 12:23 | Emergency (ER) | payer OTHER ==
[2017-05-11 12:32] VITALS: TEMP 97.5
--- NOTE | 2017-05-11 13:23 | EDPHY ---
H & P Time Seen by Provider: 05/11/17 13:20 HPI/ROS: Chief complaint. Shortness of breath HPI. 81-year-old female with history of CHF on home O2 presents with shortness of breath that she developed last night. No fever cough. She had a little tightness in her chest last night but not now. No unusual leg pain or swelling. She has had similar symptoms previously. She has occasional headaches but again not now. Her shortness of breath was present in bed and she felt that she was somewhat anxious as well. ROS Constitutional. no fever/chills, no weakness Eyes. no problems with vision ENT. no sore throat, no nasal drainage Cardiovascular. no chest pain Respiratory. Shortness of breath Abdominal. no abdominal pain, no nausea/vomiting, no diarrhea . no problems urinating MS. no calf pain/swelling, no neck/back pain, no joint pain Skin. no rash Lymph. no swollen glands Neuro. no headache, no dizziness, no difficulty walking or with speech Past Medical/Surgical History: Past medical history coronary artery disease with stents, coronary artery bypass graft, endarterectomy, hypertension, headaches, atrial fibrillation, aortic valve replacement Social History: Single, nonsmoker, no alcohol Smoking Status: Never smoked Physical Exam: General Appearance: Alert well-developed female mild distress vital signs are stable. 97% O2 saturation on room air Eyes: Pupils equal and round no pallor or injection. ENT, Mouth: Mucous membranes are moist. Respiratory: There are no retractions, lungs are clear to auscultation. Cardiovascular: Regular rate and rhythm. Gastrointestinal: Abdomen is soft and nontender, no masses, bowel sounds normal. Neurological: Awake and alert, sensory and motor exams grossly normal. Skin: Warm and dry, no rashes. Musculoskeletal: Neck is supple nontender. Extremities symmetrical, full range of motion. Psychiatric: Patient is oriented X 3, there is no agitation. Constitutional: Initial Vital Signs Temperature (C) 36.4 C 05/11/17 12:28 Heart Rate 66 05/11/17 12:28 Respiratory Rate 16 05/11/17 12:28 Blood Pressure 150/79 H 05/11/17 12:28 O2 Sat (%) 97 05/11/17 12:28 O2 Delivery Mode Room Air O2 (L/minute) 2 Allergies/Adverse Reactions: Penicillins Allergy (Intermediate, Verified 05/11/17 12:32) Hives Home Medications: Medication Instructions Recorded Cholecalciferol Vit D3 [Vitamin D3 1,000 units PO DAILY@10/19/13 (*)] Multivitamins [Multivitamin (*)] 1 each PO DAILY@10/19/13 Clopidogrel Bisulfate [Plavix (*)] 75 mg PO DAILY@10/24/13 Apixaban [Eliquis] 5 mg PO BID@04/16/15 Herbals/Supplements -Info Only 1 ea PO DAILY@05/18/16 Calcium Carbonate [Oyster Shell 500 mg PO DAILY@10/11/16 Calcium 500 mg (*)] Nitroglycerin [Nitrostat 0.4 mg 0.4 mg SL Q5M PRN 10/19/16 (*)] amLODIPine BESYLATE [Norvasc 5 mg 5 mg PO DAILY@10/19/16 (*)] Aspirin EC [Aspirin EC 81 mg (*)] 81 mg PO DAILY #0 tab 10/24/16 Atorvastatin Calcium [Lipitor 20 20 mg PO DAILY 11/03/16 mg (*)] Pantoprazole Sodium [Protonix 40mg 40 mg PO DAILY 11/03/16 (*)] Medical Decision Making - Diagnostics EKG Interpretation: EKG interpreted by me shows normal sinus rhythm with first-degree AV block. Left axis deviation with left anterior fascicular block. QRS is otherwise normal. There is no significant ST elevation or depression. No arrhythmia. The rate is 56 Imaging Results: Imaging Impressions Chest X-Ray 05/11/17 13:33 Impression: 1. Stable moderate cardiomegaly. 2. No new abnormality seen. Chest x-ray interpreted by me is nonacute Procedures: IV normal saline, monitor ED Course/Re-evaluation: Re-evaluation 2:20 p.m.--patient is stable. The patient, her son, and I discussed imaging lab EKG studies. We discussed treatment plan including criteria for return importance of follow-up and further evaluation. They expressed understanding and agreement. The patient in her son wonder whether she maybe had some anxiety last night. As there are no acute findings this is certainly a possibility Differential Diagnosis: I considered acute coronary syndrome, congestive heart failure, pulmonary embolus. The patient is Eliquis pulmonary embolus less likely. This could certainly be anxiety - Data Points Laboratory Results: Laboratory Results 05/11/17 13:15 05/11/17 13:15 05/11/17 05/11/17 05/11/17 13:15 13:15 13:15 WBC 3.15 10^3/uL L 10^3/uL (3.80-9.50) RBC 4.99 10^6/uL 10^6/uL (4.18-5.33) Hgb 13.5 g/dL g/dL (12.6-16.3) Hct 42.1 % % (38.0-47.0) MCV 84.4 fL fL (81.5-99.8) MCH 27.1 pg L pg (27.9-34.1) MCHC 32.1 g/dL L g/dL (32.4-36.7) RDW 15.3 % H % (11.5-15.2) Plt Count 129 10^3/uL L 10^3/uL (150-400) MPV 11.0 fL fL (8.7-11.7) Neut % (Auto) 40.6 % % (39.3-74.2) Lymph % (Auto) 46.7 % H % (15.0-45.0) [place] % (Auto) 10.2 % % (4.5-13.0) Eos % (Auto) 1.9 % % (0.6-7.6) Baso % (Auto) 0.6 % % (0.3-1.7) Nucleat RBC Rel Count 0.0 % % (0.0-0.2) Absolute Neuts (auto) 1.28 10^3/uL L 10^3/uL (1.70-6.50) Absolute Lymphs (auto) 1.47 10^3/uL 10^3/uL (1.00-3.00) Absolute Monos (auto) 0.32 10^3/uL 10^3/uL (0.30-0.80) Absolute Eos (auto) 0.06 10^3/uL 10^3/uL (0.03-0.40) Absolute Basos (auto) 0.02 10^3/uL 10^3/uL (0.02-0.10) Absolute Nucleated RBC 0.00 10^3/uL 10^3/uL (0-0.01) Immature Gran % 0.0 % % (0.0-1.1) Immature Gran # 0.00 10^3/uL 10^3/uL (0.00-0.10) PT 13.6 SEC SEC (12.0-15.0) INR 1.05 (0.83-1.16) APTT 29.2 SEC SEC (23.0-38.0) D-Dimer 0.49 ug/mLFEU ug/mLFEU (0.00-0.50) Sodium 144 mEq/L mEq/L (134-144) Potassium 4.8 mEq/L mEq/L (3.5-5.2) Chloride 108 mEq/L mEq/L (97-110) Carbon Dioxide 25 mEq/l mEq/l (22-31) Anion Gap 11 mEq/L mEq/L (8-16) BUN 22 mg/dL mg/dL (7-23) Creatinine 1.0 mg/dL mg/dL (0.6-1.0) Estimated GFR 53 Glucose 92 mg/dL mg/dL (70-100) Calcium 9.7 mg/dL mg/dL (8.5-10.4) Troponin I 0.023 ng/mL ng/mL (0-0.034) NT-Pro-B Natriuret Pep 375 pg/mL pg/mL (0-450) Departure - Departure Disposition: Home, Routine, Self-Care Clinical Impression: Dyspnea Qualifiers: Dyspnea type: unspecified Qualified Code(s): R06.00 - Dyspnea, unspecified Condition: Good Instructions: Dyspnea (ED) Additional Instructions: Continue regular medications. Return for worsening shortness of breath or chest discomfort. Recheck by regular physician in 2-3 days. Referrals: Anuradha Drummond MD [Primary Care Provider] - 2-3 days, call for appt.
[2017-05-11 13:45] LABS: ADD DIFF? NO; ADD MORPH? NO; ADD SCAN? NO; ATYPICAL LYMPHOCYTE FLAG 20 (0-99); FRAGMENT RBC FLAG 0 (0-99); HEMATOCRIT 42.1 % (38.0-47.0); HEMOGLOBIN 13.5 g/dL (12.6-16.3); LEFT SHIFT FLG 0 (0-99); LIPEMIA HEMOLYSIS FLAG 80 (0-99); MEAN CELL HEMOGLOBIN 27.1 pg (27.9-34.1); MEAN CELL HEMOGLOBIN CONCENTR. 32.1 g/dL (32.4-36.7); MEAN CELL VOLUME 84.4 fL (81.5-99.8); PLATELET CLUMPS FLAG 0 (0-99); PLATELET COUNT 129 10^3/uL (150-400); RED BLOOD CELL COUNT 4.99 10^6/uL (4.18-5.33); RED CELL DISTRIBUTION WIDTH 15.3 % (11.5-15.2)
[2017-05-11 13:56] LABS: INR 1.05 (0.83-1.16); PROTIME(PATIENT) 13.6 SEC (12.0-15.0)
[2017-05-11 13:57] LABS: APTT 29.2 SEC (23.0-38.0)
[2017-05-11 14:01] LABS: ANION GAP 11 mEq/L (8-16); CALCIUM 9.7 mg/dL (8.5-10.4); CARBON DIOXIDE 25 mEq/l (22-31); CHLORIDE 108 mEq/L (97-110); GLOMERULAR FILTRATION RATE 53; GLUCOSE 92 mg/dL (70-100); POTASSIUM 4.8 mEq/L (3.5-5.2); SODIUM 144 mEq/L (134-144)
--- NOTE | 2017-05-11 14:03 | CPEKG ---
Heart Rate: 56 RR Interval: 1071 P-R Interval: 220 QRSD Interval: 90 QT Interval: 448 QTC Interval: 433 P [place]: 55 QRS [place]: -53 T Wave [place]: 98 EKG Severity - ABNORMAL ECG - EKG Impression: SINUS RHYTHM EKG Impression: FIRST DEGREE AV BLOCK EKG Impression: LAD, CONSIDER LEFT ANTERIOR FASCICULAR BLOCK EKG Impression: ABNRM R PROG, CONSIDER ASMI OR LEAD PLACEMENT Electronically Signed By: Doug Seals 11-May-2017 21:09:44
[2017-05-11 14:05] LABS: TROPONIN I 0.023 ng/mL (0-0.034)
[2017-05-11 14:48] VITALS: BP 156/85; PULSE 58; RESP 19; O2SAT 95
== END 2017-05-11 14:53 | disposition home or self-care (01) ==
DX: R06.00 Dyspnea, unspecified (principal); I25.810 Atherosclerosis of coronary artery bypass graft(s) without angina pectoris; I10 Essential (primary) hypertension; Z79.82 Long term (current) use of aspirin

== ENCOUNTER 2017-05-19 04:05 | Emergency (ER) | payer OTHER ==
[2017-05-19 04:09] VITALS: TEMP 97.7
--- NOTE | 2017-05-19 04:19 | EDPHY ---
H & P Stated Complaint: chest pain, SOB starting 1900 last night HPI/ROS: HPI The patient presents with chest pain which began at 7:00 p.m. last night and has been intermittent. It is described as a left-sided chest tightness which is moderate in severity. It is associated with shortness of breath. She took nitroglycerin, last at 3:00 a.m. with some relief in her symptoms. She has had this pain multiple times before. When she saw her PMD recently she thought the pain could be related to anxiety. She does have a history of NSTEMI.. REVIEW OF SYSTEMS Constitutional: No fever, no chills. Eyes: No discharge. ENT: No sore throat. Cardiovascular: See HPI Respiratory: No cough, no shortness of breath. Gastrointestinal: No abdominal pain, no vomiting. Genitourinary: No hematuria. Musculoskeletal: No back pain. Skin: No rashes. Neurological: No headache. PMHx: CAD status post CABG Soc Hx: Here with her son PHYSICAL General Appearance: Alert, no distress Eyes: Pupils equal and round no pallor or injection ENT, Mouth: Mucous membranes moist Respiratory: There are no retractions, lungs are clear to auscultation Cardiovascular: Regular rate and rhythm Gastrointestinal: Abdomen is soft and non-tender, no masses, bowel sounds normal Neurological: A&O, moves all extremities Skin: Warm and dry, no rashes Musculoskeletal: Neck is supple non tender Extremities: symmetrical, full range of motion Psychiatric: Patient is oriented X 3, there is no agitation Source: Patient Exam Limitations: No limitations - Personal History Current Tetanus/Diphtheria Vaccine: Yes - Medical/Surgical History Hx Asthma: No Hx Chronic Respiratory Disease: Yes Hx Diabetes: No Hx Cardiac Disease: Yes Hx Renal Disease: No Hx Cirrhosis: No Hx Alcoholism: No Hx HIV/AIDS: No Hx Splenectomy or Spleen Trauma: No Other PMH: Home , STENTS 2014, CABG 2012, endarterectomy(rt), HTN, headaches, AFIB, blind in rt eye, AORTIC VALVE REPLACEMENT, csection x 2, pe post valve replacement. - Social History Smoking Status: Never smoked Constitutional: Initial Vital Signs Temperature (C) 36.5 C 05/19/17 04:07 Heart Rate 66 05/19/17 04:07 Respiratory Rate 16 05/19/17 04:07 Blood Pressure 142/67 H 05/19/17 04:07 O2 Sat (%) 96 05/19/17 04:07 O2 Delivery Mode Room Air Allergies/Adverse Reactions: Penicillins Allergy (Intermediate, Verified 05/19/17 04:09) Hives Home Medications: Medication Instructions Recorded Cholecalciferol Vit D3 [Vitamin D3 1,000 units PO DAILY@10/19/13 (*)] Multivitamins [Multivitamin (*)] 1 each PO DAILY@10/19/13 Clopidogrel Bisulfate [Plavix (*)] 75 mg PO DAILY@10/24/13 Herbals/Supplements -Info Only 1 ea PO DAILY@05/18/16 Calcium Carbonate [Oyster Shell 500 mg PO DAILY@10/11/16 Calcium 500 mg (*)] Nitroglycerin [Nitrostat 0.4 mg 0.4 mg SL Q5M PRN 10/19/16 (*)] amLODIPine BESYLATE [Norvasc 5 mg 5 mg PO DAILY@10/19/16 (*)] Aspirin EC [Aspirin EC 81 mg (*)] 81 mg PO DAILY #0 tab 10/24/16 Medical Decision Making - Diagnostics EKG Interpretation: EKG: Complete interpretation has been separately recorded in the [id number] archive. Summary impression: Left axis deviation, no ST segment changes Imaging Results: Chest x-ray one view is unremarkable, interpreted by me, radiology interpretation is pending. Imaging: I viewed and interpreted images myself Differential Diagnosis: This is an 81-year-old female with CAD status post CABG who presents from home with chest pain which began at 7:00 p.m. last night. This is associated with shortness of breath. This is the chest pain that she usually has. Differential diagnosis includes ACS, anxiety, GERD, less likely PE. In the emergency department, the patient was placed on the media monitor with no events. Vital signs were normal. Exam is unremarkable. EKG, chest x-ray, troponin were all normal. Given that she has had the pain now for about 10 hours I do not feel repeat troponin is necessary. She is had normal evaluations recently for the same pain. I will discharge her home with follow up with her primary care doctor. - Data Points Laboratory Results: Laboratory Results 05/19/17 04:30 05/19/17 04:30 05/19/17 05/19/17 04:30 04:30 WBC 3.92 10^3/uL 10^3/uL (3.80-9.50) RBC 4.99 10^6/uL 10^6/uL (4.18-5.33) Hgb 13.5 g/dL g/dL (12.6-16.3) Hct 41.8 % % (38.0-47.0) MCV 83.8 fL fL (81.5-99.8) MCH 27.1 pg L pg (27.9-34.1) MCHC 32.3 g/dL L g/dL (32.4-36.7) RDW 15.4 % H % (11.5-15.2) Plt Count 143 10^3/uL L 10^3/uL (150-400) MPV 11.2 fL fL (8.7-11.7) Neut % (Auto) 41.8 % % (39.3-74.2) Lymph % (Auto) 48.7 % H % (15.0-45.0) [place] % (Auto) 6.6 % % (4.5-13.0) Eos % (Auto) 1.8 % % (0.6-7.6) Baso % (Auto) 0.8 % % (0.3-1.7) Nucleat RBC Rel Count 0.0 % % (0.0-0.2) Absolute Neuts (auto) 1.64 10^3/uL L 10^3/uL (1.70-6.50) Absolute Lymphs (auto) 1.91 10^3/uL 10^3/uL (1.00-3.00) Absolute Monos (auto) 0.26 10^3/uL L 10^3/uL (0.30-0.80) Absolute Eos (auto) 0.07 10^3/uL 10^3/uL (0.03-0.40) Absolute Basos (auto) 0.03 10^3/uL 10^3/uL (0.02-0.10) Absolute Nucleated RBC 0.00 10^3/uL 10^3/uL (0-0.01) Immature Gran % 0.3 % % (0.0-1.1) Immature Gran # 0.01 10^3/uL 10^3/uL (0.00-0.10) Sodium 142 mEq/L mEq/L (134-144) Potassium 4.0 mEq/L mEq/L (3.5-5.2) Chloride 106 mEq/L mEq/L (97-110) Carbon Dioxide 24 mEq/l mEq/l (22-31) Anion Gap 12 mEq/L mEq/L (8-16) BUN 25 mg/dL H mg/dL (7-23) Creatinine 1.0 mg/dL mg/dL (0.6-1.0) Estimated GFR 53 Glucose 94 mg/dL mg/dL (70-100) Calcium 10.0 mg/dL mg/dL (8.5-10.4) Troponin I 0.025 ng/mL ng/mL (0-0.034) Medications Given: Discontinued Medications Ibuprofen (Motrin) 400 mg PO EDNOW ONE Stop: 05/19/17 05:53 Last Admin: 05/19/17 06:08 Dose: 400 mg Departure - Departure Disposition: Home, Routine, Self-Care Clinical Impression: Chest pain Qualifiers: Chest pain type: unspecified Qualified Code(s): R07.9 - Chest pain, unspecified CAD (coronary artery disease) Qualifiers: Coronary Disease-Associated Artery/Lesion type: [place] artery [place] vs. transplanted heart: [place] heart Associated angina: without angina Qualified Code(s): I25.10 - Atherosclerotic heart disease of [place] coronary artery without angina pectoris Condition: Good Instructions: Chest Pain (ED) Referrals: Anuradha Drummond MD [Primary Care Provider] - As per Instructions
[2017-05-19 04:41] LABS: % IMMATURE GRANULYOCYTES 0.3 % (0.0-1.1); ABSOLUTE IMMATURE GRANULOCYTES 0.01 10^3/uL (0.00-0.10); ADD DIFF? NO; ADD MORPH? NO; ADD SCAN? NO; ATYPICAL LYMPHOCYTE FLAG 10 (0-99); FRAGMENT RBC FLAG 0 (0-99); HEMATOCRIT 41.8 % (38.0-47.0); HEMOGLOBIN 13.5 g/dL (12.6-16.3); LEFT SHIFT FLG 0 (0-99); LIPEMIA HEMOLYSIS FLAG 80 (0-99); MEAN CELL HEMOGLOBIN 27.1 pg (27.9-34.1); MEAN CELL HEMOGLOBIN CONCENTR. 32.3 g/dL (32.4-36.7); MEAN CELL VOLUME 83.8 fL (81.5-99.8); MEAN PLATELET VOLUME 11.2 fL (8.7-11.7); PLATELET CLUMPS FLAG 70 (0-99); PLATELET COUNT 143 10^3/uL (150-400); RED BLOOD CELL COUNT 4.99 10^6/uL (4.18-5.33); RED CELL DISTRIBUTION WIDTH 15.4 % (11.5-15.2)
[2017-05-19 04:59] LABS: ANION GAP 12 mEq/L (8-16); CARBON DIOXIDE 24 mEq/l (22-31); CHLORIDE 106 mEq/L (97-110); GLOMERULAR FILTRATION RATE 53; GLUCOSE 94 mg/dL (70-100); SODIUM 142 mEq/L (134-144)
[2017-05-19 05:11] LABS: TROPONIN I 0.025 ng/mL (0-0.034)
[2017-05-19] MEDS ORDERED: IBUPROFEN 200 MG TAB PO ONE (05:52)
[2017-05-19 06:16] VITALS: BP 135/86; PULSE 67; RESP 20; O2SAT 94
--- NOTE | 2017-05-19 07:08 | CPEKG ---
Heart Rate: 59 RR Interval: 1017 P-R Interval: 216 QRSD Interval: 102 QT Interval: 468 QTC Interval: 464 P [place]: 74 QRS [place]: -39 T Wave [place]: 30 EKG Severity - BORDERLINE ECG - EKG Impression: SINUS RHYTHM EKG Impression: PROBABLE LEFT ATRIAL ABNORMALITY EKG Impression: LEFT AXIS DEVIATION Electronically Signed By: Nga Vela 19-May-2017 07:16:21
== END 2017-05-19 06:22 | disposition home or self-care (01) ==
DX: I25.810 Atherosclerosis of coronary artery bypass graft(s) without angina pectoris (principal); I10 Essential (primary) hypertension; Z79.82 Long term (current) use of aspirin; Z95.5 Presence of coronary angioplasty implant and graft

== ENCOUNTER 2017-05-24 15:32 | Emergency (ER) | payer OTHER ==
[2017-05-24 15:42] VITALS: TEMP 97.7
--- NOTE | 2017-05-24 15:57 | CPEKG ---
Heart Rate: 70 RR Interval: 857 P-R Interval: 200 QRSD Interval: 100 QT Interval: 428 QTC Interval: 462 P [place]: 65 QRS [place]: -51 T Wave [place]: 60 EKG Severity - ABNORMAL ECG - EKG Impression: SINUS RHYTHM EKG Impression: VENTRICULAR PREMATURE COMPLEX EKG Impression: PROBABLE LEFT ATRIAL ABNORMALITY EKG Impression: LEFT ANTERIOR FASCICULAR BLOCK Electronically Signed By: Doug Seals 25-May-2017 00:03:53
--- NOTE | 2017-05-24 16:00 | EDPHY ---
H & P Time Seen by Provider: 05/24/17 16:00 HPI/ROS: Chief complaint. Trouble breathing HPI. 81-year-old female presents emergency department with shortness of breath and some transient chest discomfort that began at 10:00 p.m. last night. She describes as a fullness in her chest and felt like it was hard to take a deep breath. She did take a nitroglycerin without relief. Her symptoms are better now. She has had no recent fever or cough. She has had similar symptoms previously and in fact has been seen in the emergency department May 11 and May 19 for same symptoms with normal workup. She denies abdominal pain or vomiting. No unusual leg pain or swelling. She also wonders if this could be anxiety. ROS Constitutional. no fever/chills, no weakness Eyes. no problems with vision ENT. no sore throat, no nasal drainage Cardiovascular. Chest pain Respiratory. Shortness of breath Abdominal. no abdominal pain, no nausea/vomiting, no diarrhea . no problems urinating MS. no calf pain/swelling, no neck/back pain, no joint pain Skin. no rash Lymph. no swollen glands Neuro. no headache, no dizziness, no difficulty walking or with speech Past Medical/Surgical History: Past medical history significant for coronary artery bypass graft and stents. Endarterectomy, hypertension, atrial fibrillation, blind in the right eye, aortic valve replacement Social History: Single, nonsmoker, no alcohol Smoking Status: Never smoked Physical Exam: General Appearance: Alert well-developed female mild distress vital signs are stable Eyes: Pupils equal and round no pallor or injection. Blind right eye ENT, Mouth: Mucous membranes are moist. Respiratory: There are no retractions, lungs are clear to auscultation. Cardiovascular: Regular rate and rhythm. Gastrointestinal: Abdomen is soft and nontender, no masses, bowel sounds normal. Neurological: Awake and alert, sensory and motor exams grossly normal. Skin: Warm and dry, no rashes. Musculoskeletal: Neck is supple nontender. Extremities symmetrical, full range of motion. Psychiatric: Patient is oriented X 3, there is no agitation. Constitutional: Initial Vital Signs Temperature (C) 36.5 C 05/24/17 15:39 Heart Rate 73 05/24/17 15:39 Respiratory Rate 18 05/24/17 15:39 Blood Pressure 157/90 H 05/24/17 15:39 O2 Sat (%) 97 05/24/17 15:39 O2 Delivery Mode Room Air Allergies/Adverse Reactions: Penicillins Allergy (Intermediate, Verified 05/24/17 15:39) Hives Home Medications: Medication Instructions Recorded Cholecalciferol Vit D3 [Vitamin D3 1,000 units PO DAILY@10/19/13 (*)] Multivitamins [Multivitamin (*)] 1 each PO DAILY@10/19/13 Clopidogrel Bisulfate [Plavix (*)] 75 mg PO DAILY@10/24/13 Herbals/Supplements -Info Only 1 ea PO DAILY@05/18/16 Calcium Carbonate [Oyster [place] 500 mg PO DAILY@10/11/16 Calcium 500 mg (*)] Nitroglycerin [Nitrostat 0.4 mg 0.4 mg SL Q5M PRN 10/19/16 (*)] amLODIPine BESYLATE [Norvasc 5 mg 5 mg PO DAILY@10/19/16 (*)] Aspirin EC [Aspirin EC 81 mg (*)] 81 mg PO DAILY #0 tab 10/24/16 Medical Decision Making - Diagnostics EKG Interpretation: EKG interpreted by me shows normal sinus rhythm normal interval to borderline first-degree AV block. There is left axis deviation and left anterior fascicular block. QRS is otherwise normal. There is no significant ST elevation or depression. No arrhythmia. The rate is 70. This EKG is unchanged from previous EKG May 19 Imaging Results: Imaging Impressions Chest X-Ray 05/24/17 16:15 Impression: Cardiomegaly without pulmonary edema, unchanged. One-view chest x-ray shows no acute change Procedures: Review of old records and the last 2 visits patient's symptoms like last night begin late at night. IV normal saline, monitor ED Course/Re-evaluation: Re-evaluation 6:35 p.m.--no symptoms now. Patient and I discussed imaging lab EKG findings. We discussed treatment plan including criteria for return importance of follow-up and further evaluation. She expresses understanding and agreement Differential Diagnosis: Each of these episodes begins at night. I suspect that there is some anxiety with this which the patient also thinks that this might be the case. Her symptoms began about 10:00 p.m. last night and now have resolved. I do not think there is indication for repeat troponin. - Data Points Laboratory Results: Laboratory Results 05/24/17 16:00 05/24/17 16:00 05/24/17 05/24/17 05/24/17 16:00 16:00 16:00 WBC 4.04 10^3/uL 10^3/uL (3.80-9.50) RBC 5.23 10^6/uL 10^6/uL (4.18-5.33) Hgb 14.1 g/dL g/dL (12.6-16.3) Hct 44.0 % % (38.0-47.0) MCV 84.1 fL fL (81.5-99.8) MCH 27.0 pg L pg (27.9-34.1) MCHC 32.0 g/dL L g/dL (32.4-36.7) RDW 15.7 % H % (11.5-15.2) Plt Count 126 10^3/uL L 10^3/uL (150-400) MPV 11.5 fL fL (8.7-11.7) Neut % (Auto) 52.8 % % (39.3-74.2) Lymph % (Auto) 37.6 % % (15.0-45.0) [place] % (Auto) 7.9 % % (4.5-13.0) Eos % (Auto) 1.0 % % (0.6-7.6) Baso % (Auto) 0.5 % % (0.3-1.7) Nucleat RBC Rel Count 0.0 % % (0.0-0.2) Absolute Neuts (auto) 2.13 10^3/uL 10^3/uL (1.70-6.50) Absolute Lymphs (auto) 1.52 10^3/uL 10^3/uL (1.00-3.00) Absolute Monos (auto) 0.32 10^3/uL 10^3/uL (0.30-0.80) Absolute Eos (auto) 0.04 10^3/uL 10^3/uL (0.03-0.40) Absolute Basos (auto) 0.02 10^3/uL 10^3/uL (0.02-0.10) Absolute Nucleated RBC 0.00 10^3/uL 10^3/uL (0-0.01) Immature Gran % 0.2 % % (0.0-1.1) Immature Gran # 0.01 10^3/uL 10^3/uL (0.00-0.10) PT 13.6 SEC SEC (12.0-15.0) INR 1.05 (0.83-1.16) APTT 29.8 SEC SEC (23.0-38.0) D-Dimer 0.40 ug/mLFEU ug/mLFEU (0.00-0.50) Sodium 141 mEq/L mEq/L (134-144) Potassium 4.8 mEq/L mEq/L (3.5-5.2) Chloride 104 mEq/L mEq/L (97-110) Carbon Dioxide 25 mEq/l mEq/l (22-31) Anion Gap 12 mEq/L mEq/L (8-16) BUN 18 mg/dL mg/dL (7-23) Creatinine 1.0 mg/dL mg/dL (0.6-1.0) Estimated GFR 53 Glucose 93 mg/dL mg/dL (70-100) Calcium 10.2 mg/dL mg/dL (8.5-10.4) Troponin I 0.022 ng/mL ng/mL (0-0.034) NT-Pro-B Natriuret Pep 667 pg/mL H pg/mL (0-450) Departure - Departure Disposition: Home, Routine, Self-Care Clinical Impression: Chest pain Qualifiers: Chest pain type: unspecified Qualified Code(s): R07.9 - Chest pain, unspecified Condition: Good Instructions: Chest Pain (ED) Additional Instructions: Continue regular medications. Return for worsening symptoms. Re-evaluation by your regular physician in the next 2-3 days. Referrals: Anuradha Drummond MD [Primary Care Provider] - 2-3 days, call for appt.
[2017-05-24 17:06] LABS: % IMMATURE GRANULYOCYTES 0.2 % (0.0-1.1); ABSOLUTE IMMATURE GRANULOCYTES 0.01 10^3/uL (0.00-0.10); ADD DIFF? NO; ADD MORPH? NO; ADD SCAN? NO; ATYPICAL LYMPHOCYTE FLAG 0 (0-99); FRAGMENT RBC FLAG 0 (0-99); HEMOGLOBIN 14.1 g/dL (12.6-16.3); LEFT SHIFT FLG 0 (0-99); LIPEMIA HEMOLYSIS FLAG 80 (0-99); MEAN CELL VOLUME 84.1 fL (81.5-99.8); MEAN PLATELET VOLUME 11.5 fL (8.7-11.7); PLATELET CLUMPS FLAG 30 (0-99); PLATELET COUNT 126 10^3/uL (150-400); RED BLOOD CELL COUNT 5.23 10^6/uL (4.18-5.33); RED CELL DISTRIBUTION WIDTH 15.7 % (11.5-15.2)
[2017-05-24 17:11] VITALS: RESP 16
[2017-05-24 17:12] LABS: APTT 29.8 SEC (23.0-38.0); INR 1.05 (0.83-1.16); PROTIME(PATIENT) 13.6 SEC (12.0-15.0)
[2017-05-24 17:15] LABS: ANION GAP 12 mEq/L (8-16); CALCIUM 10.2 mg/dL (8.5-10.4); CARBON DIOXIDE 25 mEq/l (22-31); CHLORIDE 104 mEq/L (97-110); GLOMERULAR FILTRATION RATE 53; GLUCOSE 93 mg/dL (70-100); POTASSIUM 4.8 mEq/L (3.5-5.2); SODIUM 141 mEq/L (134-144)
[2017-05-24 17:27] LABS: TROPONIN I 0.022 ng/mL (0-0.034)
[2017-05-24 19:04] VITALS: BP 150/80; PULSE 62; O2SAT 94
== END 2017-05-24 19:02 | disposition home or self-care (01) ==
DX: R07.9 Chest pain, unspecified (principal); I25.810 Atherosclerosis of coronary artery bypass graft(s) without angina pectoris; I10 Essential (primary) hypertension; Z79.82 Long term (current) use of aspirin

== ENCOUNTER 2017-06-22 16:42 | Emergency (ER) | payer OTHER ==
[2017-06-22 16:48] VITALS: O2SAT 97
[2017-06-22] MEDS ORDERED: ACETAMINOPHEN 500 MG TAB PO ONE (17:12)
[2017-06-22] MEDS ORDERED: ACETAMINOPHEN 500 MG TAB ONE (17:13)
--- NOTE | 2017-06-22 17:49 | EDPHY ---
H & P Time Seen by Provider: 06/22/17 17:20 HPI/ROS: CHIEF COMPLAINT: Right hand pain HISTORY OF PRESENT ILLNESS: Patient is an 81-year-old female with right hand pain. Her pain started last night. Her son noticed some mild red streaking up the volar aspect of her thumb and forearm. She denies any trauma. No recent abrasions or cuts. No pain with passive movement. No fevers or chills. The patient does use a cane with her right hand. REVIEW OF SYSTEMS: My complete review of systems is negative except as mentioned in the HPI. Past Medical/Surgical History: Includes coronary artery disease, hypertension, AFib Past surgical history: Includes endarterectomy, aortic valve replacement, C- section Social history: The patient does not smoke. Smoking Status: Never smoked Physical Exam: Vitals noted. 37. GENERAL: Well-appearing, in no acute distress, alert. HEENT: Eyes normal to inspection, normal pharynx, no signs of dehydration. NECK: No thyromegaly, no lymphadenopathy, supple. RESPIRATORY: Clear to auscultation bilaterally, no rales, rhonchi or wheezing. CVS: Regular rate and rhythm, no rubs, systolic murmur, or gallops. ABDOMEN: Soft, nontender, nondistended, no organomegaly. BACK: Normal to inspection, no CVA tenderness. SKIN: Normal color, no rash, warm, dry. No pallor. EXTREMITIES: Patient's right hand has mild red streaking from the greater thenar eminence moving volar up the forearm. There is no deep space mass or tenderness palpation. There is no swelling of the thumb her hand. She has full range of motion of her wrist and fingers without difficulty. NEURO/PSYCH: Alert and oriented x3, normal mood and affect, normal motor sensory exam. Constitutional: Initial Vital Signs Temperature (C) 37 C 06/22/17 16:45 Heart Rate 75 06/22/17 16:45 Respiratory Rate 18 06/22/17 16:45 Blood Pressure 155/93 H 06/22/17 16:45 O2 Sat (%) 97 06/22/17 16:45 O2 Delivery Mode Room Air Allergies/Adverse Reactions: Penicillins Allergy (Intermediate, Verified 06/22/17 16:48) Hives Home Medications: Medication Instructions Recorded Cholecalciferol Vit D3 [Vitamin D3 1,000 units PO DAILY@10/19/13 (*)] Multivitamins [Multivitamin (*)] 1 each PO DAILY@10/19/13 Clopidogrel Bisulfate [Plavix (*)] 75 mg PO DAILY@10/24/13 Herbals/Supplements -Info Only 1 ea PO DAILY@05/18/16 Calcium Carbonate [Oyster Shell 500 mg PO DAILY@10/11/16 Calcium 500 mg (*)] Nitroglycerin [Nitrostat 0.4 mg 0.4 mg SL Q5M PRN 10/19/16 (*)] amLODIPine BESYLATE [Norvasc 5 mg 5 mg PO DAILY@10/19/16 (*)] Aspirin EC [Aspirin EC 81 mg (*)] 81 mg PO DAILY #0 tab 10/24/16 Medical Decision Making - Diagnostics Imaging Results: Imaging Impressions Hand X-Ray 06/22/17 17:55 Impression: Advanced degenerative changes at the right first CMC joint. Moderate degenerative changes at the interphalangeal joint of the thumb. Chondrocalcinosis. ED Course/Re-evaluation: In the emergency department I discussed possible etiologies with the patient and her son. I answered all her questions. X-ray was ordered. Right wrist x-ray: No acute disease noted. I discussed the results with the patient. Due to the redness and streaking up from a she will be started on antibiotics. She was given Keflex. She is given the 1st dose in the emergency department. She was discharged with a prescription. They are given warnings prior to leaving. She will return with worsening symptoms. Differential Diagnosis: Differential includes but is not limited to cellulitis, lymphangitis, deep space infection, abscess, septic joint, gout, pseudogout, stress fracture - Data Points Medications Given: Discontinued Medications Acetaminophen (Tylenol) 1,000 mg PO EDNOW ONE Stop: 06/22/17 17:13 Last Admin: 06/22/17 17:16 Dose: 1,000 mg Departure - Departure Disposition: Home, Routine, Self-Care Clinical Impression: Infection of right hand, Hand pain, right Condition: Good Instructions: Cellulitis (ED) Additional Instructions: Take your entire course of antibiotics. Return with increasing pain, redness, swelling, fever or any other concerns. Referrals: Anuradha Drummond MD [Primary Care Provider] - 1-2 days without fail
[2017-06-22 18:49] VITALS: BP 172/80; PULSE 69; RESP 16; TEMP 98.6
== END 2017-06-22 19:10 | disposition home or self-care (01) ==
DX: L08.9 Local infection of the skin and subcutaneous tissue, unspecified (principal); I25.10 Atherosclerotic heart disease of native coronary artery without angina pectoris; I10 Essential (primary) hypertension; Z79.82 Long term (current) use of aspirin

== ENCOUNTER 2017-11-23 15:23 | Inpatient (IN) | payer OTHER, BC ==
--- NOTE | 2017-11-23 15:30 | EDPHY ---
H & P Stated Complaint: SOB, mid sternal chest pressure. HPI/ROS: HPI CHIEF COMPLAINT: Chest tightness, shortness of breath with exertion HISTORY OF PRESENT ILLNESS: Very pleasant 82-year-old female she has a history of atrial fibrillation, pulmonary embolism, coronary artery disease, peripheral vascular disease, aortic valve CHF, intermittent chronic chest pain who presents emergency room with chest tightness and shortness of breath when she exerts herself. She noticed this today. This started approximately 6 hr ago. She states when she was walking to the mailbox she got shortness of breath with chest tightness. Currently arrest she does states she has some chest tightness but no significant shortness of breath. She states when walking to the mailbox she cannot catch her breath. Denies recent illness denies cough or fever. Past Medical History: Extensive medical history including AFib, history of pulmonary embolism coronary artery disease, aortic valve Past Surgical History: CABG, aortic valve Social History: Denies drugs alcohol tobacco Family History: Noncontributory ROS REVIEW OF SYSTEMS: A comprehensive 10 point review of systems is otherwise negative aside from elements mentioned in the history of present illness. Exam Constitutional appears well nontoxic does not appear volume overloaded, triage nursing summary reviewed, vital signs reviewed, awake/alert. Eyes normal conjunctivae and sclera, EOMI, PERRLA. HENT normal inspection, atraumatic, moist mucus membranes, no epistaxis, neck supple/ no meningismus, no raccoon eyes. Respiratory clear to auscultation bilaterally, normal breath sounds, no respiratory distress, no wheezing. Cardiovascular rate normal, regular rhythm, no murmur, no edema, distal pulses normal. Gastrointestinal soft, non-tender, no rebound, no guarding, normal bowel sounds, no distension, no pulsatile mass. Genitourinary no CVA tenderness. Musculoskeletal no midline vertebral tenderness, full range of motion, no calf swelling, no tenderness of extremities, no meningismus, good pulses, neurovascularly intact. Skin pink, warm, & dry, no rash, skin atraumatic. Neurologic awake, alert and oriented x 3, AAOx3, moves all 4 extremities equally, motor intact, sensory intact, CN II-XII intact, normal cerebellar, normal vision, normal speech. Psychiatric normal mood/affect. Heme/Lymph/Immune no lymphadenopathy. Differential diagnosis includes but is not limited to: ACS, atypical chest pain , pneumothorax, pneumonia, pulmonary embolism, aortic dissection, congestive heart failure, tumor, musculoskeletal pain, esophageal pain, GERD, peptic ulcer disease, pancreatitis Medical Decision Making: Plan for this patient IV establishment full rn cardiac rehab obtain EKG, troponin, D-dimer, BNP, chest x-ray, EKG full-dose aspirin nitroglycerin evaluate. Re-evaluation: 1703: Patient here with exertional chest pain when she walks she gets shortness of breath and chest discomfort. The patient does have extensive cardiac history. Including chronic chest pain. I am unclear what to make of her chest pain today but given her cardiac risk factors and exertional chest discomfort she will be admitted to the hospital. Her troponin is negative. Her EKG is nonischemic. EKG interpretation by me on record in [facility] system. Impression time of EKG 15 40, sinus rhythm rate of 59. Left into for sickle block present. No ST elevation no ST depression. No significant T-wave abnormalities. Similar to previous EKG. Chest x-ray stable. I have asked the hospitalist service Dr. Travis to admit this patient for chest pain and shortness of breath with exertion. Updated patient she is fine with this plan. Unclear etiology of shortness of breath and chest discomfort. Troponin negative. D-dimer negative. Source: Patient - Personal History Current Tetanus Diphtheria and Acellular Pertussis (TDAP): Unsure - Medical/Surgical History Hx Asthma: No Hx Chronic Respiratory Disease: Yes Hx Diabetes: No Hx Cardiac Disease: Yes Hx Renal Disease: No Hx Cirrhosis: No Hx Alcoholism: No Hx HIV/AIDS: No Hx Splenectomy or Spleen Trauma: No Other PMH: Home , STENTS 2014, CABG 2012, endarterectomy(rt), HTN, headaches, AFIB, blind in rt eye, AORTIC VALVE REPLACEMENT, csection x 2, pe post valve replacement. - Social History Smoking Status: Never smoked Constitutional: Initial Vital Signs Temperature (C) 36.6 C 11/23/17 15:23 Heart Rate 77 11/23/17 15:23 Respiratory Rate 16 11/23/17 15:23 Blood Pressure 142/92 H 11/23/17 15:23 O2 Sat (%) 95 11/23/17 15:23 O2 Delivery Mode Room Air O2 (L/minute) 2 Allergies/Adverse Reactions: Penicillins Allergy (Intermediate, Verified 06/22/17 16:48) Hives Home Medications: Medication Instructions Recorded Cholecalciferol Vit D3 [Vitamin D3 1,000 units PO DAILY@10/19/13 (*)] Multivitamins [Multivitamin (*)] 1 each PO DAILY@10/19/13 Clopidogrel Bisulfate [Plavix (*)] 75 mg PO DAILY@10/24/13 Herbals/Supplements -Info Only 1 ea PO DAILY@05/18/16 Calcium Carbonate [Oyster Shell 500 mg PO DAILY@10/11/16 Calcium 500 mg (*)] Nitroglycerin [Nitrostat 0.4 mg 0.4 mg SL Q5M PRN 10/19/16 (*)] amLODIPine BESYLATE [Norvasc 5 mg 5 mg PO DAILY@10/19/16 (*)] Aspirin EC [Aspirin EC 81 mg (*)] 81 mg PO DAILY #0 tab 10/24/16 Atorvastatin Calcium [Lipitor 20 20 mg PO DAILY 11/23/17 mg (*)] Medical Decision Making - Data Points Laboratory Results: Laboratory Results 11/23/17 15:58 11/23/17 15:58 Medications Given: Acetaminophen (Tylenol) 650 mg PO Q4HRS PRN PRN Reason: Pain, Mild/Fever, Can Take PO Stop: 05/22/18 18:14 Last Admin: 11/25/17 08:30 Dose: 650 mg Hydrocodone Bitart/Acetaminophen (Index 5/325) 1 tab PO Q4HRS PRN PRN Reason: Pain, Moderate Able to Take PO Stop: 12/05/17 10:52 Last Admin: 11/25/17 11:01 Dose: 1 tab Amlodipine Besylate (Norvasc) 5 mg PO DAILY@20 [facility] Stop: 05/23/18 19:59 Last Admin: 11/25/17 19:36 Dose: 5 mg Aspirin Buffered (Aspirin Ec) 81 mg PO DAILY [facility] Stop: 05/23/18 08:59 Last Admin: 11/25/17 08:30 Dose: 81 mg Atorvastatin Calcium (Lipitor) 20 mg PO DAILY [facility] Stop: 05/23/18 08:59 Last Admin: 11/25/17 08:32 Dose: 20 mg Calcium Carbonate (Oyster Shell Calcium) 500 mg PO DAILY@08 [facility] Stop: 05/23/18 07:59 Last Admin: 11/25/17 08:32 Dose: 500 mg Cholecalciferol (Vitamin D) 1,000 units PO DAILY@08 [facility] Stop: 05/23/18 07:59 Last Admin: 11/25/17 08:32 Dose: 1,000 units Clopidogrel Bisulfate (Plavix) 75 mg PO DAILY@08 [facility] Stop: 05/23/18 07:59 Last Admin: 11/25/17 08:32 Dose: 75 mg Multivitamins (Tab-A-Allison) 1 each PO DAILY@08 [facility] Stop: 05/23/18 07:59 Last Admin: 11/25/17 08:31 Dose: 1 each Ondansetron HCl (Zofran Odt) 4 mg PO Q4HRS PRN PRN Reason: Nausea/Vomiting, Use 1st Stop: 05/22/18 18:14 Last Admin: 11/24/17 12:09 Dose: 4 mg Discontinued Medications Acetaminophen (Tylenol) 1,000 mg PO ONCE ONE Stop: 11/23/17 17:45 Last Admin: 11/23/17 17:47 Dose: 1,000 mg Aspirin (Aspirin) 324 mg PO EDNOW ONE Stop: 11/23/17 15:34 Last Admin: 11/23/17 15:44 Dose: 324 mg Sodium Chloride (Ns) 1,000 mls @ 0 mls/hr IV EDNOW ONE; Wide Open PRN Reason: Protocol Stop: 11/23/17 15:34 Last Admin: 11/23/17 15:47 Dose: 1,000 mls Influenza Virus Vaccine Quadrival (Fluarix Quad [id number]) 0.5 ml IM .ONCE ONE Stop: 11/24/17 14:31 Last Admin: 11/24/17 15:36 Dose: 0.5 ml Metoprolol Tartrate (Lopressor) 12.5 mg PO BID [facility] Stop: 05/23/18 20:59 Last Admin: 11/25/17 08:31 Dose: 12.5 mg Nitroglycerin (Nitrostat) 0.4 mg SL EDNOW ONE Stop: 11/23/17 15:38 Last Admin: 11/23/17 15:43 Dose: 0.4 mg Departure - Departure Disposition: [facility] Inpatient Acute Clinical Impression: Shortness of breath Chest pain Qualifiers: Chest pain type: unspecified Qualified Code(s): R07.9 - Chest pain, unspecified Condition: Fair
[2017-11-23] MEDS ORDERED: NS 1,000 ML IV ONE (15:33)
[2017-11-23] MEDS ORDERED: ASPIRIN 81 MG CHEWABLE TAB PO ONE (15:33)
[2017-11-23] MEDS ORDERED: NITROGLYCERIN 0.4 MG BTL SL ONE (15:37)
--- NOTE | 2017-11-23 15:42 | CPEKG ---
Heart Rate: 59 RR Interval: 1017 P-R Interval: 216 QRSD Interval: 100 QT Interval: 436 QTC Interval: 432 P Irvona: 57 QRS Irvona: -48 T Wave Irvona: 58 EKG Severity - ABNORMAL ECG - EKG Impression: SINUS RHYTHM EKG Impression: LEFT ANTERIOR FASCICULAR BLOCK Electronically Signed By: Niels Echols 23-Nov-2017 20:06:33
[2017-11-23 16:03] LABS: PLATELET COUNT 116 10^3/uL (150-400)
[2017-11-23 16:19] LABS: CREATINE KINASE 73 IU/L (0-156)
[2017-11-23 16:23] LABS: INR 1.1 (0.83-1.16); PROTIME(PATIENT) 14.4 SEC (12.0-15.0)
[2017-11-23] MEDS ORDERED: ACETAMINOPHEN 500 MG TAB PO ONE (17:44)
[2017-11-23] MEDS ORDERED: ONDANSETRON DISINTEGRATING 4 MG TAB PO PRN (18:15)
[2017-11-23] MEDS ORDERED: ONDANSETRON 4 MG/2 ML VIAL IVP PRN (18:15)
--- NOTE | 2017-11-23 19:23 | GHP ---
[f rep st] HISTORY AND PHYSICAL DATE OF ADMISSION: 11/23/2017 HISTORY OF PRESENT ILLNESS: The patient is an 82-year-old female with a history of coronary disease and pulmonary embolism with multiple admissions for chest pain. She was admitted in October of 2016 with chest pain, and was taken to the catheterization lab by Dr. Pollard where she had an OM-1 stent placed and otherwise had widely patent stents. She has a history of pulmonary embolism that she believes presented as dyspnea. She is no longer on anticoagulation. When I speak with the patient, she describes chest pain, tightness, and is also exertional in nature. It started about 6 hours prior to presentation, she was walking to the mailbox. She denies radiation. She denies dyspnea. She denies diaphoresis. She has not fallen. She takes h er medication as prescribed. She has not had a productive cough. REVIEW OF SYSTEMS: Complete 10-point review of systems conducted, negative except as noted in the HP I. PAST MEDICAL HISTORY: 1. Coronary disease with CABG and multiple stents. 2. History of pulmonary embolism. 3. Atrial fibrillation. 4. History of aortic valve replacement. 5. Carotid endarterectomy. 6. Type 2 diabetes. 7. Hypertension. 8. Hyperlipidemia. 9. Peripheral arterial disease. 10. I believe she has memory impairment as well. SOCIAL HISTORY: She lives in [employer]. Son who has been in the hospital with her every time I have s een her, is involved in her care. ALLERGIES: Penicillins. HOME MEDICATIONS: Amlodipine, enteric-coated aspirin, calcium carbonate, vitamin D3, Plavix, multivi tamin, nitroglycerin. FAMILY HISTORY: Son is healthy, at the bedside. Parents . PHYSICAL EXAMINATION: PRESENTING VITALS: Temp 36.6, blood pressure 142/92, pulse 17, breathing 60 t imes a minute, and 94% on room air. GENERAL: No acute distress. HEENT: Sclerae anicteric. Oropha rynx clear. Mucous membranes moist. NECK: Supple without lymphadenopathy or JVD. LUNGS: Clear to auscultation bilaterally. HEART: S1, S2. The patient has a systolic ejection murmur. ABDOMEN: S oft, nontender, nondistended. LOWER EXTREMITIES: Without edema. Calves are nontender. SKIN: With out rash. NEUROLOGIC: Nonfocal. LABORATORY DATA: White count 3, hematocrit 40, platelets are 116,000. Coags normal. D-dimer 0.037. Sodium 143, potassium 4.7, chloride 106, bicarb 28, BUN 14, creatinine 0.9. LFTs normal. BNP is 6 46 which is mid range for her. Troponin is exactly 0.012. Chest x-ray interpreted by me shows stable cardiomegaly without sequelae of prior CABG. Also noted t hat her chest x-ray outlining of her coronary arteries and stent, she has evidence of a bioprosthetic aortic valve. EKG interpreted by me shows sinus bradycardia at 59 with left axis deviation and norm al intervals. There are no ST or T-wave changes. Compared with prior EKG from 6 months ago, it is l argely the same. I have discussed the case with Dr. Kurt Echols. ASSESSMENT AND PLAN: 82-year-old female presents with chest pain. 1. Chest pain. Patient has had numerous admissions for chest pain, and many of them revealed a nega tive workup. However, given that she has not had an evaluation for 6 months, I will place her on the treadmill tomorrow without nuclear imaging. She has a relatively normal electrocardiogram which meredith l allow for interpretation. Pulmonary embolism has been considered, but a negative D-dimer in the ab sence of shortness of breath makes this unlikely. We will forego further workup. 2. Memory impairment. The patient's family lays out her medications, and I think this is a reasonab le plan for her. 3. Leukopenia, this is mild and relatively chronic for her. 4. Diabetes. The patient has a blood sugar of 87 here. I actually think the patient does not have diabetes. 5. Disposition: Observation status. /[id number]/MODL
[2017-11-23] MEDS ORDERED: NITROGLYCERIN 0.4 MG BTL SL PRN (20:20)
[2017-11-23] MEDS: ACETAMINOPHEN 325 MG TAB PO PRN (21:07)
[2017-11-24] MEDS ORDERED: Herbals/Supplements -Info Only PO SCH (08:00)
[2017-11-24] MEDS ORDERED: FLU VACC QS 2017-18 (3YR+)/PF 0.5 ML SYR (FLUARIX QUAD) IM ONE ×2 (12:06→14:30)
[2017-11-24] MEDS: ASPIRIN EC 81 MG TAB PO SCH (12:09)
[2017-11-24] MEDS: ATORVASTATIN CALCIUM 20 MG TAB PO SCH (12:09)
[2017-11-24] MEDS: CHOLECALCIFEROL VIT D3 1,000 UNITS TAB PO SCH (12:09)
[2017-11-24] MEDS: MULTIVITAMINS 1 EACH TAB PO SCH (12:09)
[2017-11-24] MEDS: CLOPIDOGREL BISULFATE 75 MG TAB PO SCH (12:09)
[2017-11-24] MEDS: CALCIUM CARBONATE 500 MG TAB PO SCH (12:09)
[2017-11-24] MEDS ORDERED: REGADENOSON 0.4 MG/5 ML SYR IVP ONE (12:49)
--- NOTE | 2017-11-24 13:00 | CPR ---
[f rep st] NONINVASIVE CARDIAC PROCEDURE REPORT DATE OF PROCEDURE: 11/24/2017 PROCEDURE: Exercise treadmill test. INDICATION: The patient is an 82-year-old female with a history of bypass surgery and multiple PCIs. She presented to the hospital complaining of 2 days of chest fullness, which occurs after exertion. PROCEDURE IN DETAIL: Consent was obtained. The patient was placed on continuous telemetry. Her res ting EKG revealed normal sinus rhythm with a heart rate of 64 and 1 PVC. She has nonspecific ST-T wa ve changes specifically in the inferior leads. There is T-wave flattening. The patient walked on e treadmill for 4 minutes. The speed of the treadmill was capped at 1.7 miles/hour throughout the udy. We were unable to increase the speed secondary to her gait. She did reach 100% of her age-pred icted maximum heart rate. She complained of chest fullness in the 1st stage of exertion which persis kenyatta throughout the exercise portion of the study. Her discomfort finally resolved 7 minutes into rec overy. She did develop late biphasic T-waves in the inferior leads, concerning for ischemia. She ra kenyatta her chest discomfort 8/10 with peak exercise. Her blood pressure at rest was 118/66 and increase d appropriately, peaking at 150/74. It returned to baseline 5 minutes into recovery. PLAN: Abnormal exercise treadmill test. The patient had symptoms concerning for angina as well as E KG changes. I have recommended we proceed with a nuclear stress test to determine the amount of isch emia. If she does have a large area of ischemia, I would recommend an angiogram. If it is small to moderate, medical therapy could be considered. /[id number]/MODL
--- NOTE | 2017-11-24 14:03 | HOSPPROG ---
Hospitalist Progress Note Assessment/Plan: #Chest pain -Had ischemic changes in inferior leads on Treadmill -Nuclear scan pending -Trops negative x 3 #HTN #Hx of CAD #Hx of P.E., negative D-Dimer #Leukopenia, chronic #Hx of AVR Plan: -Nuclear scan and possibly angiogram pending results -will monitor overnight, change to inpatient, given persistent sx's -cont aspirin, amlodipine, statin, plavix SCD's Subjective: had chest pain during treadmill stress test. Also had ischemic changes on EKG. Objective: Vital Signs Temp Pulse Resp BP Pulse Ox 36.8 C 62 20 161/83 H 98 11/24/17 08:00 11/24/17 08:00 11/24/17 08:00 11/24/17 08:00 11/24/17 08:00 11/23/17 11/24/17 11/25/17 05:59 05:59 05:59 Intake Total 1250 Balance 1250 PT 14.4 SEC (12.0-15.0) 11/23/17 15:58 INR 1.10 (0.83-1.16) 11/23/17 15:58 - Physical Exam Constitutional: no apparent distress Eyes: PERRL Ears, Nose, Mouth, Throat: moist mucous membranes, hearing normal Cardiovascular: regular rate and rhythym, No edema Respiratory: no respiratory distress, no rales or rhonchi Gastrointestinal: normoactive bowel sounds, soft, non-tender abdomen Skin: warm Neurologic: AAOx3 Psychiatric: interacting appropriately, not anxious Lymph, Heme, Immunologic: No petechiae ICD10 Worksheet Patient Problems: Problems Problem Status Onset Chest pain Acute Shortness of breath Acute Atrial flutter Acute CAD (coronary artery disease) Acute Chest pain at rest Acute Chest pain in adult Acute Dyspnea Acute Elevated blood pressure reading Acute Headache Acute Hypertension Acute NSTEMI (non-ST elevated myocardial infarction) Acute Pelvic fracture Acute Pulmonary emboli Acute Troponin level elevated Acute
--- NOTE | 2017-11-24 14:05 | CPR ---
[f rep st] NONINVASIVE CARDIAC PROCEDURE REPORT DATE OF PROCEDURE: 11/24/2017 PROCEDURE: Lexiscan nuclear stress test. INDICATION: The patient is an 82-year-old female with a history of coronary artery disease status po st CABG and multiple stents. She presented to the hospital complaining of dyspnea on exertion and ch est fullness, which is similar to how she presented prior to stenting in the past. She had an exerci se treadmill test which was abnormal with inferior T-wave changes. PROCEDURE IN DETAIL: Consent was obtained. The patient was placed on continuous telemetry. Her res ting EKG revealed sinus bradycardia at a rate of 59 with 1 PVC. She has T-wave flattening in the inf erior leads. The patient was infused with Lexiscan and complained of mild flushing. She remained in normal sinus rhythm with unifocal PVCs throughout the study. Her PVCs did occur in trigeminy early in recovery. Her blood pressure at rest was 134/64 and increased to 152/70. It returned to baseline 2 minutes into recovery. The patient was given caffeine in the recovery phase with an improvement i n her flushing. PLAN: Await nuclear images. If the patient has a large area of ischemia, recommend proceeding with angiogram. If her area of ischemia is small to moderate, consider medical therapy. /[id number]/MODL
[2017-11-24] MEDS: ACETAMINOPHEN 325 MG TAB PO PRN ×2 (14:24→20:22)
--- NOTE | 2017-11-24 15:08 | PDMN ---
Medical Necessity Medical necessity: change to IP; los>2mn for ongoing chest pain occurring during stress test, and ischemic changes on EKG; requires continued cardiac monitoring, f/u on nuclear scans, possible angiogram; comorbid CAD, HTN, hx AVR , PE, chronic leukopenia; per order and progress note 11/24/17
--- NOTE | 2017-11-24 16:03 | ASMTCMCOM ---
CM Note CM Note Notes: 11/24/2017 Case Management Note Reviewed pt during rounds. There are no case management d/c needs identified at this time. OT is recommending home with resumption of previous routine. Case Management d/c poc: return home with family support with follow up as directed. Case Management available if needs change. Date Signed: 11/24/2017 04:02 PM Electronically Signed By:Risa Huffman RN
[2017-11-24] MEDS: amLODIPine BESYLATE 5 MG TAB PO SCH (20:22)
[2017-11-24] MEDS: METOPROLOL TARTRATE 25 MG TAB PO SCH (22:18)
[2017-11-25] MEDS: ACETAMINOPHEN 325 MG TAB PO PRN ×2 (03:40→08:30)
[2017-11-25] MEDS: ASPIRIN EC 81 MG TAB PO SCH (08:30)
[2017-11-25] MEDS: METOPROLOL TARTRATE 25 MG TAB PO SCH (08:31)
[2017-11-25] MEDS: MULTIVITAMINS 1 EACH TAB PO SCH (08:31)
[2017-11-25] MEDS: CALCIUM CARBONATE 500 MG TAB PO SCH (08:32)
[2017-11-25] MEDS: CLOPIDOGREL BISULFATE 75 MG TAB PO SCH (08:32)
[2017-11-25] MEDS: CHOLECALCIFEROL VIT D3 1,000 UNITS TAB PO SCH (08:32)
[2017-11-25] MEDS: ATORVASTATIN CALCIUM 20 MG TAB PO SCH (08:32)
[2017-11-25] MEDS: HYDROCODONE/APAP 5/325 TAB PO PRN (11:01)
--- NOTE | 2017-11-25 13:09 | HOSPPROG ---
Hospitalist Progress Note Assessment/Plan: #Chest pain -Had ischemic changes in inferior leads on Treadmill -Nuclear scan negative -Trops negative x 3 -No further chest pain #HTN, very labile #Bradycardia, likely from starting Metoprolol #Hx of CAD #Hx of P.E., negative D-Dimer #Leukopenia, chronic #Hx of AVR Plan: -stop Metoprolol -monitor overnigh -cont aspirin, amlodipine, statin, plavix SCD's Subjective: Bradycardia, labile BP. No SOB. No further CP Objective: Vital Signs Temp Pulse Resp BP Pulse Ox 36.4 C 46 L 18 84/41 L 94 11/25/17 11:33 11/25/17 11:33 11/25/17 11:33 11/25/17 11:33 11/25/17 11:33 11/24/17 11/25/17 11/26/17 05:59 05:59 05:59 Intake Total 590 Balance 590 PT 14.4 SEC (12.0-15.0) 11/23/17 15:58 INR 1.10 (0.83-1.16) 11/23/17 15:58 - Physical Exam Constitutional: no apparent distress Eyes: PERRL, EOMI Ears, Nose, Mouth, Throat: moist mucous membranes, hearing normal Cardiovascular: regular rate and rhythym, bradycardia Respiratory: no respiratory distress Gastrointestinal: normoactive bowel sounds Skin: warm Musculoskeletal: full muscle strength Neurologic: AAOx3 Psychiatric: interacting appropriately, not anxious, not encephalopathic Lymph, Heme, Immunologic: No petechiae ICD10 Worksheet Patient Problems: Problems Problem Status Onset Chest pain Acute Shortness of breath Acute Atrial flutter Acute CAD (coronary artery disease) Acute Chest pain at rest Acute Chest pain in adult Acute Dyspnea Acute Elevated blood pressure reading Acute Headache Acute Hypertension Acute NSTEMI (non-ST elevated myocardial infarction) Acute Pelvic fracture Acute Pulmonary emboli Acute Troponin level elevated Acute
[2017-11-25] MEDS: amLODIPine BESYLATE 5 MG TAB PO SCH (19:36)
[2017-11-26] MEDS: ASPIRIN EC 81 MG TAB PO SCH (09:24)
[2017-11-26] MEDS: CALCIUM CARBONATE 500 MG TAB PO SCH (09:24)
[2017-11-26] MEDS: MULTIVITAMINS 1 EACH TAB PO SCH (09:24)
[2017-11-26] MEDS: ATORVASTATIN CALCIUM 20 MG TAB PO SCH (09:25)
[2017-11-26] MEDS: CLOPIDOGREL BISULFATE 75 MG TAB PO SCH (09:25)
[2017-11-26] MEDS: CHOLECALCIFEROL VIT D3 1,000 UNITS TAB PO SCH (09:25)
[2017-11-26 11:15] VITALS: BP 137/61; RESP 16; TEMP 98.1; O2SAT 94
[2017-11-26 13:13] VITALS: PULSE 68
--- NOTE | 2017-11-26 14:43 | PDDCSUM ---
Discharge Summary Discharge Summary: HPI/HOSPITAL COURSE 82 YO female who was admitted with CP. Please see below. She had a negative nuclear scan and chest pain had resolved. Per Cards reccs, Metoprolol tartrate was started but she did not tolerate as it caused Bradycardia. This has now been stopped. She is ready for discharge. #Chest pain -Had ischemic changes in inferior leads on Treadmill -Nuclear scan negative -Trops negative x 3 -No further chest pain #HTN, very labile #Bradycardia, likely from starting Metoprolol, resolving #Hx of CAD #Hx of P.E., negative D-Dimer #Leukopenia, chronic #Hx of AVR Exam: vss, HR 60's rrr cta b s/nt/nd no le edema meds: see med rec f/u: with pcp in one week total time spent on d/c is 40 mins
[2017-11-26] MEDS: HYDROCODONE/APAP 5/325 TAB PO PRN (15:14)
== END 2017-11-26 16:30 | disposition home or self-care (01) | DRG 313 ==
LOC: F2W 17:55 → OBSVTOIN 11-24 14:05
PROVIDERS: ADMIT Internal Medicine; ATTEND Internal Medicine
DX: R07.9 Chest pain, unspecified (principal); I10 Essential (primary) hypertension; R00.1 Bradycardia, unspecified; I25.10 Atherosclerotic heart disease of native coronary artery without angina pectoris; D72.819 Decreased white blood cell count, unspecified; E11.9 Type 2 diabetes mellitus without complications; Z23 Encounter for immunization; Z95.1 Presence of aortocoronary bypass graft; Z95.5 Presence of coronary angioplasty implant and graft; Z95.4 Presence of other heart-valve replacement; Z86.711 Personal history of pulmonary embolism
CPT/HCPCS: 97110-GP; 97161-GP; 97165-GO; A9500; G0008; G0378; G8978-GP-CI; G8979-GP-CI; G8980-GP-CI; G8987-GO-CI; G8988-GO-CI; G8989-GO-CI; J2785

== ENCOUNTER 2018-03-29 20:39 | Inpatient (IN) | payer OTHER ==
--- NOTE | 2018-03-29 20:52 | CPEKG ---
Heart Rate: 63 RR Interval: 952 P-R Interval: 216 QRSD Interval: 102 QT Interval: 456 QTC Interval: 467 P Peever: 55 QRS Peever: -48 T Wave Peever: 79 EKG Severity - ABNORMAL ECG - EKG Impression: SINUS RHYTHM EKG Impression: LEFT ANTERIOR FASCICULAR BLOCK EKG Impression: BORDERLINE T ABNORMALITIES, ANT-LAT LEADS Electronically Signed By: Doug Seals 29-Mar-2018 21:57:56
[2018-03-29] MEDS ORDERED: ASPIRIN 81 MG CHEWABLE TAB PO ONE (20:55)
[2018-03-29 21:05] LABS: PLATELET COUNT 172 10^3/uL (150-400)
--- NOTE | 2018-03-29 21:34 | EDPHY ---
H & P Time Seen by Provider: 03/29/18 21:17 HPI/ROS: Chief complaint. Chest pain HPI. 82-year-old female presents with chest tightness and pressure that began this evening. She has left anterior chest pressure without radiation. She has shortness of breath. She used nitroglycerin without relief. She has no fever cough. No unusual leg pain or swelling. No abdominal pain or vomiting or diarrhea. Her shortness of breath is worse with exertion but it does not exacerbate her chest pain. She has had similar symptoms previously. ROS Constitutional. no fever/chills, no weakness Eyes. no problems with vision ENT. no sore throat, no nasal drainage Cardiovascular. Chest pressure Respiratory. Shortness of breath Abdominal. no abdominal pain, no nausea/vomiting, no diarrhea . no problems urinating MS. no calf pain/swelling, no neck/back pain, no joint pain Skin. no rash Lymph. no swollen glands Neuro. no headache, no dizziness, no difficulty walking or with speech Past Medical/Surgical History: Past medical history is significant for coronary artery disease with 6 stents and coronary artery bypass graft and end arterectomy. She has history of hypertension, atrial fibrillation, aortic valve replacement, pulmonary embolus post valve replacement. She is on Plavix Social History: Single, nonsmoker, no alcohol Smoking Status: Never smoked Physical Exam: General Appearance: Alert pleasant well-developed female mild distress vital signs are stable Eyes: Pupils equal and round no pallor or injection. ENT, Mouth: Mucous membranes are moist. Respiratory: There are no retractions, lungs are clear to auscultation. Cardiovascular: Regular rate and rhythm. Gastrointestinal: Abdomen is soft and nontender, no masses, bowel sounds normal. Neurological: Awake and alert, sensory and motor exams grossly normal. Skin: Warm and dry, no rashes. Musculoskeletal: Neck is supple nontender. Extremities symmetrical, full range of motion. Psychiatric: Patient is oriented X 3, there is no agitation. Constitutional: Initial Vital Signs Temperature (C) 36.9 C 03/29/18 20:45 Heart Rate 65 03/29/18 20:45 Respiratory Rate 20 03/29/18 20:45 Blood Pressure 152/66 H 03/29/18 20:45 O2 Sat (%) 95 03/29/18 20:45 O2 Delivery Mode Room Air Allergies/Adverse Reactions: Penicillins Allergy (Intermediate, Verified 06/22/17 16:48) Hives Home Medications: Medication Instructions Recorded Cholecalciferol Vit D3 [Vitamin D3 1,000 units PO DAILY@10/19/13 (*)] Multivitamins [Multivitamin (*)] 1 each PO DAILY@10/19/13 Clopidogrel Bisulfate [Plavix (*)] 75 mg PO DAILY@10/24/13 Herbals/Supplements -Info Only 1 ea PO DAILY@05/18/16 Calcium Carbonate [Oyster Shell 500 mg PO DAILY@10/11/16 Calcium 500 mg (*)] Nitroglycerin [Nitrostat 0.4 mg 0.4 mg SL Q5M PRN 10/19/16 (*)] amLODIPine BESYLATE [Norvasc 5 mg 5 mg PO DAILY@10/19/16 (*)] Aspirin EC [Aspirin EC 81 mg (*)] 81 mg PO DAILY #0 tab 10/24/16 Atorvastatin Calcium [Lipitor 20 20 mg PO DAILY 11/23/17 mg (*)] Medical Decision Making - Diagnostics EKG Interpretation: EKG interpreted by me shows normal sinus rhythm normal interval is left axis deviation with a left anterior fascicular block. QRS is normal a peer hip and patient has ED slight lateral ST depression. No arrhythmia. The rate is 63 EKG is not changed from previous EKG May 2017 Imaging Results: Imaging Impressions Chest X-Ray 03/29/18 20:54 Impression: Stable cardiomegaly. No evidence for acute cardiopulmonary abnormality. Stable chronic findings, as above. Chest x-ray interpreted by me shows cardiomegaly but no evidence of pneumonia. She has had coronary artery bypass graft. Chest x-ray not changed from previous chest x-ray 5 months ago Procedures: IV normal saline monitor ED Course/Re-evaluation: Re-evaluation 9:50 p.m.. Patient is stable. The patient, her son, and I discussed imaging EKG lab results. We discussed treatment plan including recommendation for admission. They expressed understanding and agreement I consulted discussed the case with Dr. Perdomo, hospitalist who agrees to the admission Differential Diagnosis: 82-year-old woman with known coronary artery disease and a vasculopath. She has had stents, coronary artery bypass graft, and arterectomy. Here with chest discomfort and some pedal edema with the shortness of breath. I considered CHF. I considered acute coronary syndrome as well. - Data Points Laboratory Results: Laboratory Results 03/29/18 20:50 03/29/18 20:50 03/29/18 03/29/18 03/29/18 20:56 20:50 20:50 WBC 3.77 10^3/uL L 10^3/uL (3.80-9.50) RBC 4.95 10^6/uL 10^6/uL (4.18-5.33) Hgb 13.2 g/dL g/dL (12.6-16.3) Hct 40.7 % % (38.0-47.0) MCV 82.2 fL fL (81.5-99.8) MCH 26.7 pg L pg (27.9-34.1) MCHC 32.4 g/dL g/dL (32.4-36.7) RDW 15.5 % H % (11.5-15.2) Plt Count 172 10^3/uL 10^3/uL (150-400) MPV 11.0 fL fL (8.7-11.7) Neut % (Auto) 42.0 % % (39.3-74.2) Lymph % (Auto) 46.2 % H % (15.0-45.0) Stanton % (Auto) 8.8 % % (4.5-13.0) Eos % (Auto) 1.9 % % (0.6-7.6) Baso % (Auto) 0.8 % % (0.3-1.7) Nucleat RBC Rel Count 0.0 % % (0.0-0.2) Absolute Neuts (auto) 1.59 10^3/uL L 10^3/uL (1.70-6.50) Absolute Lymphs (auto) 1.74 10^3/uL 10^3/uL (1.00-3.00) Absolute Monos (auto) 0.33 10^3/uL 10^3/uL (0.30-0.80) Absolute Eos (auto) 0.07 10^3/uL 10^3/uL (0.03-0.40) Absolute Basos (auto) 0.03 10^3/uL 10^3/uL (0.02-0.10) Absolute Nucleated RBC 0.00 10^3/uL 10^3/uL (0-0.01) Immature Gran % 0.3 % % (0.0-1.1) Immature Gran # 0.01 10^3/uL 10^3/uL (0.00-0.10) Sodium 140 mEq/L mEq/L (135-145) Potassium 4.1 mEq/L mEq/L (3.3-5.0) Chloride 105 mEq/L mEq/L (97-110) Carbon Dioxide 24 mEq/l mEq/l (22-31) Anion Gap 11 mEq/L mEq/L (8-16) BUN 19 mg/dL mg/dL (7-23) Creatinine 0.8 mg/dL mg/dL (0.6-1.0) Estimated GFR > 60 Glucose 92 mg/dL mg/dL (70-100) Calcium 9.4 mg/dL mg/dL (8.5-10.4) POC Troponin I 0.04 ng/mL ng/mL (0.00-0.08) Medications Given: Discontinued Medications Aspirin (Aspirin) 324 mg PO EDNOW ONE Stop: 03/29/18 20:56 Last Admin: 03/29/18 20:58 Dose: 243 mg Point of Care Test Results: Chemistry 03/29/18 20:56 POC Troponin I 0.04 ng/mL ng/mL (0.00-0.08) Departure - Departure Disposition: [facility] Inpatient Acute Clinical Impression: Chest pain Qualifiers: Chest pain type: unspecified Qualified Code(s): R07.9 - Chest pain, unspecified Condition: Fair Referrals: Anuradha Drummond MD [Primary Care Provider] - As per Instructions
[2018-03-29] MEDS ORDERED: ONDANSETRON 4 MG/2 ML VIAL IVP PRN (22:39)
[2018-03-30] MEDS ORDERED: FUROSEMIDE 40 MG TAB PO ONE (00:11)
--- NOTE | 2018-03-30 00:16 | PDGENHP ---
History and Physical - Chief Complaint Chest pain and shortness of breath - History of Present Illness Source-patient able to provide majority of the history she does have some memory deficits. Her son who provides primary support is at bedside and supplements details. EMR was reviewed and case discussed with ED provider. HPI - is a very pleasant 82-year-old female with past medical history significant for CAD with history of CABG and stenting x6, dm 2, atrial fibrillation, aortic valve replacement, HTN, HLD, PAD and remote history of PE no longer on anticoagulation who presents to the emergency department today with complaints of left-sided chest tightness and pressure this evening. Patient reports that over the last several days she has been having increasing dyspnea on exertion. Today her shortness of breath did increase along with her left-sided chest pressure. Patient has chronic lower extremity edema but does not feel that is necessarily more than normal. She denies any orthopnea or PND recently. She denies any fevers, chills, cough, rhinorrhea, sore throat. No recent sick contacts. Patient took 2 doses of nitroglycerin at home without improvement chest pain. Prior to arrival to the emergency department patient's chest pain did resolve. 12/05/2017 patient was admitted to the hospital for recurrence of her chest pain. She underwent nuclear stress testing which was not revealing for any evidence of ischemia. It did note that patient is the EF to be 40%. Patient had subsequent followup with Dr. Akhtar in December 2017 and has since been chest pain-free. History Information - Allergies/Home Medication List Allergies/Adverse Reactions: Penicillins Allergy (Intermediate, Verified 06/22/17 16:48) Hives Home Medications: Cholecalciferol Vit D3 [Vitamin D3 (*)] 1,000 units PO DAILY@10/19/13 [Last Taken 11/23/17 08:00] Multivitamins [Multivitamin (*)] 1 each PO DAILY@10/19/13 [Last Taken ] Clopidogrel Bisulfate [Plavix (*)] 75 mg PO DAILY@10/24/13 [Last Taken ] Herbals/Supplements -Info Only 1 ea PO DAILY@05/18/16 [Last Taken 11/10/16] Calcium Carbonate [Oyster Shell Calcium 500 mg (*)] 500 mg PO DAILY@10/11/16 [Last Taken 11/23/17] Nitroglycerin [Nitrostat 0.4 mg (*)] 0.4 mg SL Q5M PRN 10/19/16 [Last Taken 06/02] amLODIPine BESYLATE [Norvasc 5 mg (*)] 5 mg PO DAILY@20 10/19/16 [Last Taken 05/02] Atorvastatin Calcium [Lipitor 20 mg (*)] 20 mg PO DAILY 11/23/17 [Last Taken 06/02] I have personally reviewed and updated: family history, medical history, social history, surgical history - Past Medical History atrial fibrillation, coronary artery disease, CHF, diabetes type 2, hypertension , hyperlipidemia, peripheral artery disease, pulmonary embolism Additional medical history: Memory impairment. Right eye blindness with lid droop - Surgical History Reports: coronary bypass surgery, coronary stent, vascular surgery (CEA) - Family History Positive for: non-pertinent Additional family history: Son is healthy. Parents . - Social History Smoking Status: Never smoked Alcohol Use: None Drug Use: None Additional social history: Previously lived independently in her own home, since recent hospitalization has been living with her son who is very involved in her care. Review of Systems Review of Systems: ROS: 10pt was reviewed & negative except for what was stated in HPI & below Constitutional: Reports: no symptoms. Denies: chills, fever, recent illness EENMT: Reports: no symptoms Cardiac: Reports: chest pain, edema. Denies: palpitations, syncope Respiratory: Reports: shortness of breath (Dyspnea on exertion and at rest.). Denies: cough, orthopnea Gastrointestinal: Reports: no symptoms Genitourinary: Reports: no symptoms Muscolosketal: Reports: no symptoms Skin: Reports: no symptoms Neurological: Reports: no symptoms. Denies: anxiety, depressed, emotional problems, weakness Hematologic/Lymphatic: Reports: no symptoms Physical Exam Physical Exam: Selected Entries 03/29/18 20:45 Blood Pressure Automatic Method Heart Rate 65 Respiratory 20 Rate O2 Sat (%) 95 Temperature (C) 36.9 C Blood Pressure 152/66 H Mean Arterial 94 Pressure (MAP) O2 Delivery Room Air Mode Temperature Oral Source Temp Pulse Resp BP Pulse Ox 36.8 C 58 L 16 153/86 H 97 03/29/18 22:00 03/29/18 22:00 03/29/18 22:00 03/29/18 22:00 03/29/18 22:00 Constitutional: no apparent distress, not in pain, other (NAD. Pleasant elderly lady who appears slightly younger than stated age. Son is at bedside.) Eyes: PERRL (right eye decreased response to light but symmetric to left. ), anicteric sclera, EOMI (right eye slightly deviated pt reports blindness.), other (Patient is wearing bifocals), No scleral injection Ears, Nose, Mouth, Throat: moist mucous membranes, hard of hearing Cardiovascular: regular rate and rhythym, systolic murmur, pulses symmetric bilaterally, edema (2+ nonpitting edema bilateral lower extremities.), No tachycardia Peripheral Pulses: 1+: dorsalis-pedis (R), dorsalis-pedis (L) Respiratory: no rales or rhonchi, reduced air movement (Slightly diminished air movement.), inspiratory crackles, respiratory distress (Patient with some mild increased work of breathing while at rest. Taking small shallow breaths.), No expiratory wheeze Gastrointestinal: normoactive bowel sounds, soft, non-tender abdomen, no palpable masses, No distension Genitourinary: no bladder tenderness, No fairchild in urethra Skin: warm, normal color, no rashes or abrasions Musculoskeletal: generalized weakness (4-5 strength upper lower extremities. Moves all extremities while lying in bed.) Neurologic: AAOx3 (Patient with some memory deficits, son supplements details. Overall oriented.), sensation intact bilaterally, No facial droop Psychiatric: interacting appropriately, not anxious, not encephalopathic, thought process linear Lab Data & Imaging Review 03/29/18 20:50 03/29/18 20:50 WBC 3.77 10^3/uL (3.80-9.50) L 03/29/18 20:50 RBC 4.95 10^6/uL (4.18-5.33) 03/29/18 20:50 Hgb 13.2 g/dL (12.6-16.3) 03/29/18 20:50 Hct 40.7 % (38.0-47.0) 03/29/18 20:50 MCV 82.2 fL (81.5-99.8) 03/29/18 20:50 MCH 26.7 pg (27.9-34.1) L 03/29/18 20:50 MCHC 32.4 g/dL (32.4-36.7) 03/29/18 20:50 RDW 15.5 % (11.5-15.2) H 03/29/18 20:50 Plt Count 172 10^3/uL (150-400) 03/29/18 20:50 MPV 11.0 fL (8.7-11.7) 03/29/18 20:50 Neut % (Auto) 42.0 % (39.3-74.2) 03/29/18 20:50 Lymph % (Auto) 46.2 % (15.0-45.0) H 03/29/18 20:50 Camp % (Auto) 8.8 % (4.5-13.0) 03/29/18 20:50 Eos % (Auto) 1.9 % (0.6-7.6) 03/29/18 20:50 Baso % (Auto) 0.8 % (0.3-1.7) 03/29/18 20:50 Nucleat RBC Rel Count 0.0 % (0.0-0.2) 03/29/18 20:50 Absolute Neuts (auto) 1.59 10^3/uL (1.70-6.50) L 03/29/18 20:50 Absolute Lymphs (auto) 1.74 10^3/uL (1.00-3.00) 03/29/18 20:50 Absolute Monos (auto) 0.33 10^3/uL (0.30-0.80) 03/29/18 20:50 Absolute Eos (auto) 0.07 10^3/uL (0.03-0.40) 03/29/18 20:50 Absolute Basos (auto) 0.03 10^3/uL (0.02-0.10) 03/29/18 20:50 Absolute Nucleated RBC 0.00 10^3/uL (0-0.01) 03/29/18 20:50 Immature Gran % 0.3 % (0.0-1.1) 03/29/18 20:50 Immature Gran # 0.01 10^3/uL (0.00-0.10) 03/29/18 20:50 Sodium 140 mEq/L (135-145) 03/29/18 20:50 Potassium 4.1 mEq/L (3.3-5.0) 03/29/18 20:50 Chloride 105 mEq/L (97-110) 03/29/18 20:50 Carbon Dioxide 24 mEq/l (22-31) 03/29/18 20:50 Anion Gap 11 mEq/L (8-16) 03/29/18 20:50 BUN 19 mg/dL (7-23) 03/29/18 20:50 Creatinine 0.8 mg/dL (0.6-1.0) 03/29/18 20:50 Estimated GFR > 60 03/29/18 20:50 Glucose 92 mg/dL (70-100) 03/29/18 20:50 Calcium 9.4 mg/dL (8.5-10.4) 03/29/18 20:50 POC Troponin I 0.04 ng/mL (0.00-0.08) 03/29/18 20:56 NT-Pro-B Natriuret Pep 636 pg/mL (0-450) H 03/29/18 20:50 Imaging Review: Portable Chest, Single View March 29, 2018 History: Chest pain and tightness. Comparison: November 2017. Findings: The heart size is enlarged and stable. Postsurgical changes are seen of open heart surgery and valvular replacement, similar in appearance. Coronary stents are visualized. Right hilar calcifications are unchanged. The pulmonary vascularity is normal. The lungs are clear of acute consolidation. Degenerative change cervical and thoracic spine. Vascular clips in the right neck. Impression: Stable cardiomegaly. No evidence for acute cardiopulmonary abnormality. Stable chronic findings, as above. Chest X-Ray results: no infiltrate Visualized and Interpreted EKG results: Yes EKG additional interpertation: NSR in the 60s. LAFB. T-wave flattening in the anterior leads. LVH. QTC is 467 Assessment & Plan Assessment: Pleasant 82-year-old female with the significant cardiac history status post CABG and stenting, dm 2, AFib, HTN, HLD and history aortic valve replacement on anticoagulation except for Plavix and aspirin who presents emergency department today with complaints of chest pain and shortness of breath. #Chest pain (Acute) - patient without any evidence of acute coronary syndrome. She did not respond to nitroglycerin at home. She additionally she had a nuclear stress in February of 2018 that was non revealing for any kind of ischemia. It did note decline EF 40%. Patient does have some on crackles at her bases other chest x-ray is not significant for any effusions or consolidations I suspect that she has a component of CHF exacerbation. Additionally she has some lower extremity edema that is not significantly worsened but she has dyspnea on exertion and noted cardiomegaly ischemic cardiomyopathy. Discussed with patient and her son. At home she is not on any diuretic therapy. Will plan to give patient a p.o. Dose of 40 mg of Lasix and see if this does not help alleviate her symptoms of dyspnea. She no longer has any chest pain. Will still plan to repeat a troponin in the morning. Check BMP for electrolyte changes in the morning as well. Also of note patient's D- dimer was negative although she does have a history of PE have low suspicion. It was previously provoked status post her valve replacement. Patient does report that her diet consists of no added salts. She does admit to drinking plenty of fluid but unable to quantify. #Acute on chronic CHF systolic with decompensation - p.o. Lasix as noted above. Chronic medical issues # CAD - continue patient's aspirin, Plavix, statin. She is not on any Lee inhibitor or beta-mir. Patient is followed by Dr. Akhtar. # benign essential hypertension - blood pressure is slightly elevated on does SBP 150s but acceptable given patient's advanced age. She will be getting a dose of Lasix will monitor her blood pressures. Plan to continue patient's amlodipine. # atrial fibrillation - rate is currently controlled and patient is not on any beta blockers or antiarrhythmics. Monitor on telemetry. # peripheral arterial disease - continue Plavix, statin therapy # HLD - continue statin # dm 2 - listed previously on her medical record. Appears that patient's blood sugars have been fairly well controlled even last hospitalization. Will not plan to check any Accu-Cheks. She is tolerating diet will change to cardiac low -sodium. # mild memory impairment - patient living with son and he assists with her daily care. FEN - saline lock IV. Electrolyte monitoring with BMP in the morning. ADA diet has been ordered low sodium and fluid restriction - given normal blood sugars with recent hospitalizations on will change to cardiac low-sodium.. PPX-SCDs while lying in bed if tolerated. Lovenox if patient should stay additional day otherwise will try to mobilize early. Cor status- FULL Disposition-patient will be admitted to observation status on PCU floor for close cardiac monitoring pending repeat studies in the morning and improvement with diuretic therapy.
[2018-03-30] MEDS ORDERED: NITROGLYCERIN 0.4 MG BTL SL PRN (08:56)
[2018-03-30] MEDS: ATORVASTATIN CALCIUM 20 MG TAB PO SCH (10:07)
[2018-03-30] MEDS: ASPIRIN EC 81 MG TAB PO SCH (10:07)
[2018-03-30] MEDS: ENOXAPARIN 40 MG/0.4 ML SYR SC SCH (10:07)
[2018-03-30] MEDS: CLOPIDOGREL BISULFATE 75 MG TAB PO SCH (10:07)
[2018-03-30] MEDS ORDERED: IOPAMIDOL (ISOVUE 370) 100 ML BTL IV ONE (11:28)
--- NOTE | 2018-03-30 11:38 | ECHO ---
[email or web address] [address] [address] Main: [phone] Fax: Transthoracic Echocardiogram Name: JAIME VALERIO MR#: [id number] Study Date: 03/30/2018 Study Time: 10:28 AM Date of : 1935 Age: 82 year(s) Height: 170.2 cm (67 in.) Weight: 72.58 kg (160 lb.) BSA: 1.84 m2 Gender: Female Examination: Echo Indication: new CHF Image Quality: Contrast: Requested by: Darren Ramírez BP: / Heart Rate: Rhythm: Indication: new CHF Procedure Staff Production Operations Manager: Toya Fortune [facility] Reading Physician: Paula Epstein MD Requesting Provider: Conclusions: Normal size left ventricle. Mild concentric LV hypertrophy. The ejection fraction is estimated to be 45-50 %. Grade 1 diastolic dysfunction (abnormal relaxation). Inferior wall and inferoseptum are hypokinetic. Normal size right ventricle. Normal RV function. The left atrium is mildly dilated. The right atrium is mildly dilated. Mild mitral valve regurgitation is present. The aortic valve is a bioprosthesis. AV max PG is 59mmHG. AV mean PG is 33mmHG. There is a small perivalvular leak.. Mild tricuspid regurgitation is present. RVSP is top normal. Mild pulmonic valve regurgitation is noted. Mildly dilated ascending aorta measuring 3.8 cm. Compared to the previous echo of 06/2017 the AV gradients have increased significantly and there is now a high gradient. Perivalvular leak related to the aortic bioprosthesis is slightly worse but was previously present.Estimated PA systolic pressures are lower. Measurements: Chambers Valvular Assessment AV/MV Valvular Assessment TV/PV Normal Normal Normal Name Value Range Name Value Range Name Value Range IVSd (2D): 1.3 cm (0.6 cm-1.1 AV Vmax: 3.84 m/s (1 m/s-1.7 TR Vmax: 2.93 mm/s ( - ) cm) m/s) TR PGmax: 34 mmHg ( - ) LVDd (2D): 4.1 cm (3.9 cm-5.3 AV maxP mmHg ( - ) syst. PAP: 39 mmHg ( - ) cm) AV meanP mmHg ( - ) LVDs (2D): 3.5 cm (2.1 cm-4 MV E Vmax: 0.71 m/s ( - ) cm) Patient: JAIME VALERIO Study Date: 03/30/2018 Page 1 of 2 10:28 AM LVPWd (2D): 1.1 cm ( - ) MV A Vmax: 0.82 m/s ( - ) LVEF (MOD4): 47 % (>=55 %) MV E/A: 0.87 ( - ) EF Range: 45-50 % Continued Measurements: Chambers Valvular Assessment AV/MV Valvular Assessment TV/PV Name Value Name Value Name Value LADs: 4.4 cm MV E/E' Septal: 15.80 CVP (est.): 5 mmHg LADs Lon.6 cm MV E/E' Lateral: 11.10 LA Area: 16.5 cm2 Additional Vessels Name Value Ao Ascendin.8 cm Findings: Left Ventricle: Normal size left ventricle. Mild concentric LV hypertrophy. The ejection fraction is estimated to be 45-50 %. Grade 1 diastolic dysfunction (abnormal relaxation). Inferior wall and inferoseptum are hypokinetic. Right Ventricle: Normal size right ventricle. Normal RV function. Left Atrium: The left atrium is mildly dilated. 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 Right Atrium: The right atrium is mildly dilated. Mitral Valve: The mitral valve is normal in appearance and function. Mild mitral valve regurgitation is present. Aortic Valve: The aortic valve is a bioprosthesis. AV max PG is 59mmHG. AV mean PG is 33mmHG. There is a small perivalvular leak.. Tricuspid Valve: The tricuspid valve is normal in appearance and function. Mild tricuspid regurgitation is present. RVSP is top normal. Pulmonic Valve: The pulmonic valve is normal in appearance and function. Mild pulmonic valve regurgitation is noted. Aorta: The aorta is normal. Mildly dilated ascending aorta measuring 3.8 cm. Pericardium: No pericardial effusion. Exam Comments: (No Signature Object) Patient: JAIME VALERIO Study Date: 03/30/2018 Page 2 of 2 10:28 AM [id number]
--- NOTE | 2018-03-30 16:09 | HOSPPROG ---
Hospitalist Progress Note Assessment/Plan: Assessment: 82-year-old female presents with acute orthopnea and shortness of breath most likely secondary to combination of acute systolic congestive heart failure exacerbation as well as bioprosthetic aortic valve Plan: 1. Bioprosthetic aortic valve. Echocardiogram demonstrating increased gradient from previous echo with increased perivalvular leak, potentially contributing to her symptoms comma chest x-ray with increased interstitial infiltrates, BNP 600, troponin marginally elevated indicating myocardial strain -discussed with Jayne Way, cardiology provider, she will consult with on-call application designer and determine whether to perform ongoing diuresis or afterload reduction 2. Acute systolic congestive heart failure exacerbation and ischemic cardiomyopathy. New problem this provider, further workup indicated. Echo with ejection fraction of 45-50% with inferior and inferoseptal hypokinesis, known coronary artery disease with last stress test in November of 2017 demonstrating global hypokinesis with a 40% ejection fraction -patient is status post CABG, currently not experiencing any anginal symptoms at rest, hold on any additional cardiac risk stratification at this time -status post Lasix in the emergency department, 40 mg orally, patient reports that her urine output has not particularly responded and if the decision is made to diurese, would recommend either escalating 40 mg IV or utilizing Lasix 80 mg orally daily -monitor electrolytes while diuresing -patient is not currently on SEBASTIEN-inhibitor, but once indicated, will consider -hold on beta-mir treatment given that her heart rate is 50-60 -continue aspirin, Plavix, statin 3. Demand ischemia. Acute, marginally elevated troponin level, trend, most likely secondary to CHF exacerbation and strain placed on heart secondary to aortic valve gradient 4. Atelectasis. Acute, CT of the chest demonstrating no pulmonary embolism, incentive spirometer 5. Atrial fibrillation. Paroxysmal, EKG demonstrating normal sinus mechanism, personally interpreted 6. Hypertension. Chronic, continue amlodipine Diet. Cards Prophylaxis. High risk patient, Lovenox 40 Code. Full Disposition. Anticipated discharge uncertain this time, anticipated length stay is greater than 48 hr for reasonable medical necessity including high gradient over bioprosthetic aortic valve with resultant acute systolic congestive heart failure and known ischemic cardiomyopathy, upgraded to inpatient admission status. Subjective: Patient reports some ongoing shortness of breath when she is lying supine, reports that she has not been diuresing this afternoon Objective: Vital Signs Temp Pulse Resp BP Pulse Ox 36.7 C 60 16 146/77 H 96 03/30/18 15:33 03/30/18 15:33 03/30/18 15:33 03/30/18 15:33 03/30/18 15:33 Laboratory Results 03/30/18 06:06 - Physical Exam Constitutional: no apparent distress, appears nourished, not in pain, No uncomfortable Eyes: other (Right eye dysconjugate gaze) Cardiovascular: systolic murmur (1/6 at right sternal border), No irregularly irregular, No JVD, No tachycardia, No edema Respiratory: inspiratory crackles (Bilateral bases), No reduced air movement, No expiratory wheeze, No bronchial breath sounds, No respiratory distress Gastrointestinal: normoactive bowel sounds, soft, non-tender abdomen, no palpable masses, No distension Neurologic: AAOx3, No weakness Psychiatric: interacting appropriately, not anxious, not encephalopathic, thought process linear ICD10 Worksheet Patient Problems: Problems Problem Status Onset Chest pain Acute Atrial flutter Acute CAD (coronary artery disease) Acute Chest pain at rest Acute Chest pain in adult Acute Dyspnea Acute Elevated blood pressure reading Acute Headache Acute Hypertension Acute NSTEMI (non-ST elevated myocardial infarction) Acute Pelvic fracture Acute Pulmonary emboli Acute Shortness of breath Acute Troponin level elevated Acute
--- NOTE | 2018-03-30 16:44 | PDCARCONS ---
Cardiology Consult Reason for Consult: Acute systolic CHF exacerbation and ischemic cardiomyopathy Chief Complaint: Chest pain, Shortness of breath Requesting Physician: Dr. Ramírez, Hospitalist History of Present Illness: Lizeth is an 82-year-old female with a history of bioprosthetic aortic valve, acute systolic CHF, and ischemic cardiomyopathy, atelectasis, atrial fibrillation, and hypertension. Lizeth presented to the Emergency Department with acute orthopnea and shortness of breath. She had an echocardiogram that demonstrated increased gradient from her previous echo with increased perivalvular leak. EF of 45-50% with inferior and inferoseptal hypokinesis. Her chest x-ray showed increased interstitial infiltrates. Her BNP is 600. Her troponin is marginally elevated at 0.04. Lizeth received Lasix 40mg in the ED. She has since been monitored on tele. Lizeth's chest discomfort has improved since onset. History Information - Allergies/Home Medication List Allergies/Adverse Reactions: Penicillins Allergy (Intermediate, Verified 06/22/17 16:48) Hives Home Medications: Cholecalciferol Vit D3 [Vitamin D3 (*)] 1,000 units PO DAILY@10/19/13 [Last Taken 03/29/18] Multivitamins [Multivitamin (*)] 1 each PO DAILY@10/19/13 [Last Taken ] Clopidogrel Bisulfate [Plavix (*)] 75 mg PO DAILY@10/24/13 [Last Taken ] Herbals/Supplements -Info Only 1 ea PO DAILY@05/18/16 [Last Taken 03/29/18] Calcium Carbonate [Oyster Shell Calcium 500 mg (*)] 500 mg PO DAILY@10/11/16 [Last Taken 03/29/18] Nitroglycerin [Nitrostat 0.4 mg (*)] 0.4 mg SL Q5M PRN 10/19/16 [Last Taken 06/02] amLODIPine BESYLATE [Norvasc 5 mg (*)] 5 mg PO DAILY@20 10/19/16 [Last Taken ] Atorvastatin Calcium [Lipitor 20 mg (*)] 20 mg PO DAILY 11/23/17 [Last Taken ] I have personally reviewed and updated: family history, medical history, social history, surgical history Past Medical History: - Past Medical History atrial fibrillation, coronary artery disease, CHF, hypertension Additional medical history: Ischemic cardiomyopathy, Bioprosthetic aortic valve - Surgical History Reports: coronary bypass surgery Additional surgical history: Bioprosthetic aortic valve - Social History Smoking Status: Never smoked Alcohol Use: None Drug Use: None Cardiac History - Cardiac History Past Cardiac History: CAD, PCI, CABG, AVR Cardiac Risk Factors: hypertension (>140/90), lipidemia, diabetes mellitus Timing/Duration: Hours Severity: moderate Location: substernal Activities at Onset: none Associated Symptoms: chest pain, shortness of breath ROBERT Risk Evaluation age greater or equal to 65: yes greater or equal to 3 CAD risk factors: yes known CAD(stenosis greater or eqaul to 50%): no ASA use in past 7 days: yes severe angina(greater or equal to 2 episodes in 24hrs): yes EKG ST changes greater or equal to 0.5mm: yes positive cardiac marker: yes Total Score: 7 ROBERT Score: 40.9% risk Physical Exam Physical Exam: Temp Pulse Resp BP Pulse Ox 36.7 C 60 16 146/77 H 96 03/30/18 15:33 03/30/18 15:33 03/30/18 15:33 03/30/18 15:33 03/30/18 15:33 Constitutional: no apparent distress, appears nourished, not in pain Eyes: PERRL, anicteric sclera Ears, Nose, Mouth, Throat: moist mucous membranes Cardiovascular: systolic murmur, irregularly irregular Peripheral Pulses: 2+: carotid (R), carotid (L), femoral (R), femoral (L), dorsalis-pedis (R), dorsalis-pedis (L) Respiratory: no respiratory distress Gastrointestinal: normoactive bowel sounds Genitourinary: no bladder fullness Skin: warm, normal color Musculoskeletal: no muscle tenderness, normal joint ROM Neurologic: AAOx3 Psychiatric: interacting appropriately, not anxious Lab and Imaging 03/29/18 20:50 03/30/18 06:06 WBC 3.77 10^3/uL (3.80-9.50) L 03/29/18 20:50 RBC 4.95 10^6/uL (4.18-5.33) 03/29/18 20:50 Hgb 13.2 g/dL (12.6-16.3) 03/29/18 20:50 Hct 40.7 % (38.0-47.0) 03/29/18 20:50 MCV 82.2 fL (81.5-99.8) 03/29/18 20:50 MCH 26.7 pg (27.9-34.1) L 03/29/18 20:50 MCHC 32.4 g/dL (32.4-36.7) 03/29/18 20:50 RDW 15.5 % (11.5-15.2) H 03/29/18 20:50 Plt Count 172 10^3/uL (150-400) 03/29/18 20:50 MPV 11.0 fL (8.7-11.7) 03/29/18 20:50 Neut % (Auto) 42.0 % (39.3-74.2) 03/29/18 20:50 Lymph % (Auto) 46.2 % (15.0-45.0) H 03/29/18 20:50 Morrow % (Auto) 8.8 % (4.5-13.0) 03/29/18 20:50 Eos % (Auto) 1.9 % (0.6-7.6) 03/29/18 20:50 Baso % (Auto) 0.8 % (0.3-1.7) 03/29/18 20:50 Nucleat RBC Rel Count 0.0 % (0.0-0.2) 03/29/18 20:50 Absolute Neuts (auto) 1.59 10^3/uL (1.70-6.50) L 03/29/18 20:50 Absolute Lymphs (auto) 1.74 10^3/uL (1.00-3.00) 03/29/18 20:50 Absolute Monos (auto) 0.33 10^3/uL (0.30-0.80) 03/29/18 20:50 Absolute Eos (auto) 0.07 10^3/uL (0.03-0.40) 03/29/18 20:50 Absolute Basos (auto) 0.03 10^3/uL (0.02-0.10) 03/29/18 20:50 Absolute Nucleated RBC 0.00 10^3/uL (0-0.01) 03/29/18 20:50 Immature Gran % 0.3 % (0.0-1.1) 03/29/18 20:50 Immature Gran # 0.01 10^3/uL (0.00-0.10) 03/29/18 20:50 D-Dimer 1.28 ug/mLFEU (0.00-0.50) H 03/30/18 10:15 Sodium 141 mEq/L (135-145) 03/30/18 06:06 Potassium 3.7 mEq/L (3.3-5.0) 03/30/18 06:06 Chloride 109 mEq/L (97-110) 03/30/18 06:06 Carbon Dioxide 28 mEq/l (22-31) 03/30/18 06:06 Anion Gap 4 mEq/L (8-16) L 03/30/18 06:06 BUN 18 mg/dL (7-23) 03/30/18 06:06 Creatinine 0.8 mg/dL (0.6-1.0) 03/30/18 06:06 Estimated GFR > 60 03/30/18 06:06 Glucose 91 mg/dL (70-100) 03/30/18 06:06 Calcium 9.6 mg/dL (8.5-10.4) 03/30/18 06:06 POC Troponin I 0.04 ng/mL (0.00-0.08) 03/29/18 20:56 Troponin I 0.040 ng/mL (0.000-0.034) H 03/30/18 06:06 NT-Pro-B Natriuret Pep 636 pg/mL (0-450) H 03/29/18 20:50 Visualized and Interpreted Chest x-ray results: Yes Chest X-ray Interpretation: infiltrate, other (increased interstitial infiltrates. Stable but severe cardiomegaly) Visualized and Interpreted imaging results: Yes Visualized and Interpreted EKG results: Yes EKG Interpretation: Positive for: normal sinsus rhythm, ST depression EKG additional interpertation: Sinus rhythm with LAFB. Telemetry: I reviewed the raw data on the rhythm strips. No significant tachy or gary dysrhythmia present on the monitoring system. Echocardiogram: Echo demonstrates increased aortic valve gradient and increased perivalvular leak compared to previous echo. Her EF is 45-50% with inferior and inferoseptal hypokinesis. A/P Assessment: Lizeth presented with acute orthopnea and shortness of breath most likely secondary to combination of acute systolic CHF exacerbation as well as bioprosthetic aortic valve. Her most recent echocardiogram demonstrated an increased gradient compared to her previous echo with an increased perivalvular leak. Her EF is 45-50% with inferior and inferoseptal hypokinesis. She had a chest x-ray that showed increased interstitial infiltrates. These findings are likely contributing to her symptoms. Lizeth has a marginally elevated Troponin at 0.04. We will plan to trend her troponin. This slight elevation is most likely secondary to CHF exacerbation and increased aortic valve gradient. Her EKG does not appear to be consistent with an acute coronary syndrome. I think she could be a candidate for early discharge with follow up with Dr Akhtar and an evaluation with Dr. Diaz in our structural heart clinic to assess whether she is a candidate for TAVR for indication of failing SAVR. Plan: We will plan to continue to monitor and diurese the patient. She is no longer having chest pain and would like to go home. I anticipate discharge Monday. I would like the patient to have a repeat echocardiogram in 6 months as well as periodic surveillance echocardiograms to continue to monitor the aortic valve gradient. I recommend she see her soaker Dr. Akhtar for a follow up appointment.
--- NOTE | 2018-03-30 16:55 | PDMN ---
Medical Necessity Medical necessity: Change to IP, as of 03/30/18, per MD; los >2 mn for ongoing management of acute orthopnea & shortness of breath most likely r/t high gradient bioprosthetic aortic valve w/resultant acute systolic CHF & known ischemic cardiomyopathy; admit for further monitoring, Cardiology consult & med management; hx CABG, HTN, AFIB, diabetes & PE; per progress note & order 03/30/18
[2018-03-30] MEDS ORDERED: ACET/CAFFEINE/BUTA FIORICET 1 EACH TAB PO PRN (18:10)
[2018-03-30] MEDS ORDERED: FUROSEMIDE 40 MG/4 ML VIAL IVP ONE (18:12)
[2018-03-30] MEDS: ACETAMINOPHEN 325 MG TAB PO PRN (18:26)
[2018-03-30] MEDS: IBUPROFEN 200 MG TAB PO PRN (18:26)
[2018-03-30] MEDS ORDERED: amLODIPine BESYLATE 5 MG TAB PO SCH (20:00)
[2018-03-31] MEDS: ACETAMINOPHEN 325 MG TAB PO PRN (02:52)
[2018-03-31 05:15] LABS: PLATELET COUNT 155 10^3/uL (150-400)
[2018-03-31 07:49] VITALS: BP 154/91
[2018-03-31] MEDS ORDERED: CALCIUM CARBONATE 500 MG TAB PO SCH (08:00)
[2018-03-31] MEDS ORDERED: CHOLECALCIFEROL VIT D3 1,000 UNITS TAB PO SCH (08:00)
[2018-03-31] MEDS ORDERED: MULTIVITAMINS 1 EACH TAB PO SCH (08:00)
[2018-03-31] MEDS ORDERED: Herbals/Supplements -Info Only PO SCH (08:00)
[2018-03-31] MEDS ORDERED: FUROSEMIDE 40 MG/4 ML VIAL IVP SCH (09:00)
--- NOTE | 2018-03-31 09:56 | PDDCSUM ---
Discharge Summary Discharge Summary: Dates of service 03/30-03/31/18 Consultations: cardiology Procedures performed: echocardiogram Hospital course by problem: Assessment: 82-year-old female presents with acute orthopnea and shortness of breath most likely secondary to combination of acute systolic congestive heart failure exacerbation as well as bioprosthetic aortic valve Plan: # chest pain: resolved, cardiology evaluated, w/u unrevealing # acute systolic CHF: with ischemic CM, EF of 45-50%, known CAD with last nuc showing EF of 40%. Cardiology recommending OP f/u, will continue daily oral lasix after dc until f/u with cardiology # VHD: with bioprosthetic AV, echo showing increased gradient and small perivalvular leak, cardiology plans to have patient w/u as an OP for possible TAVR # a fib: paroxysmal, currently in SR # atelectasis: continue IS, ambulation # htn: continue amlodipine # CAD: continue op meds--asa, statin, plavix DC home in good condition f/u with cardiology/PCP > 35 min spent in dc more than half in coordination of care
[2018-03-31] MEDS: IBUPROFEN 200 MG TAB PO PRN (10:01)
[2018-03-31] MEDS: CLOPIDOGREL BISULFATE 75 MG TAB PO SCH (10:02)
[2018-03-31] MEDS: ATORVASTATIN CALCIUM 20 MG TAB PO SCH (10:02)
[2018-03-31] MEDS: ASPIRIN EC 81 MG TAB PO SCH (10:02)
[2018-03-31] MEDS: ENOXAPARIN 40 MG/0.4 ML SYR SC SCH (10:03)
--- NOTE | 2018-03-31 11:45 | ASMTCMCOM ---
CM Note CM Note Notes: Dc order received. Anticipate dc home with support of son. CM available if needs/changes. Date Signed: 03/31/2018 11:44 AM Electronically Signed By:Elizabeth Travis RN
--- NOTE | 2018-03-31 11:49 | ASDISCHSUM ---
Discharge Information Plan Status:Home with No Needs Medically Cleared to Leave: Discharge Date: CM D/C Disposition:Home, Routine, Self-Care ADT D/C Disposition:Home, Routine, Self-Care Projected Discharge Date: Transportation at D/C:Family Discharge Delay Reason: Follow-Up Date: Discharge Slot: Final Diagnosis: Placement Information Patient Contact Information Contact Name:KEM Relationship:Son Address: City:[place] Alternate Phone: State/[facility] Code:[place] Email: Financial Information Financial Class:Medicare Primary Plan Desc:MEDICARE OUTPATIENT Primary Plan Number:[id number] Secondary Plan Desc:[employer]OR[employer] PPO Secondary Plan Number:[id number] Assessment Information [facility] CM Progress Note CM Note CM Note Notes: Dc order received. Anticipate dc home with support of son. CM available if needs/changes. Date Signed: 03/31/2018 11:44 AM Electronically Signed By:Elizabeth Travis RN LACE LACE Length of stay for Answers: 2 days current admission Acuity / Level of Answers: Yes Care: Did the patient have an inpatient admission? Comorbidities - select Answers: Congestive heart failure all that apply Coronary Artery Disease Diabetes (uncontrolled or controlled) Other Notes: memory impairment, R ey e blindness # of Emergency department Answers: 1-2 visits in the last 6 months Score: 12 Date Signed: 03/31/2018 11:47 AM Electronically Signed By:Elizabeth Travis RN Intervention Information Intervention Type:*WHITTEN-Signed Date of Service:03/30/2018 03:53 PM Patient Type:Observation Staff Member:Tasneem Roche Hours: Discipline: Severity: Comment:
== END 2018-03-31 14:29 | disposition home or self-care (01) | DRG 292 ==
LOC: F2W 03-30 12:40 → OBSVTOIN 03-30 16:08
PROVIDERS: ADMIT Family Medicine; ATTEND Family Medicine
DX: I11.0 Hypertensive heart disease with heart failure (principal); I50.21 Acute systolic (congestive) heart failure; J98.11 Atelectasis; I25.5 Ischemic cardiomyopathy; I48.0 Paroxysmal atrial fibrillation; I25.10 Atherosclerotic heart disease of native coronary artery without angina pectoris; Z95.3 Presence of xenogenic heart valve; Z95.5 Presence of coronary angioplasty implant and graft; Z95.1 Presence of aortocoronary bypass graft; E78.5 Hyperlipidemia, unspecified; E11.51 Type 2 diabetes mellitus with diabetic peripheral angiopathy without gangrene; Z86.711 Personal history of pulmonary embolism
CPT/HCPCS: 84484-PO; G0378; J1650; J1940; Q9967

== ENCOUNTER 2018-04-04 22:06 | Inpatient (IN) | payer OTHER, BC ==
--- NOTE | 2018-04-04 22:26 | CPEKG ---
Heart Rate: 63 RR Interval: 952 P-R Interval: 208 QRSD Interval: 102 QT Interval: 456 QTC Interval: 467 P [place]: 60 QRS [place]: -41 T Wave [place]: 95 EKG Severity - ABNORMAL ECG - EKG Impression: SINUS RHYTHM EKG Impression: PROBABLE LEFT ATRIAL ABNORMALITY EKG Impression: LEFT ANTERIOR FASCICULAR BLOCK EKG Impression: BORDERLINE T ABNORMALITIES, ANT-LAT LEADS EKG Impression: Similar to previous Electronically Signed By: Bello Paz 04-Apr-2018 22:54:40
--- NOTE | 2018-04-04 22:53 | EDPHY ---
H & P Stated Complaint: chest tightness since 1999 with SOB Time Seen by Provider: 04/04/18 22:29 HPI/ROS: CHIEF COMPLAINT: Chest tightness HISTORY OF PRESENT ILLNESS: Patient is an 82-year-old female with a history of CHF as well as bioprosthetic aortic valve who was discharged 4 days ago after CHF exacerbation. She is currently on Lasix. She also has a history of AFib but is typically in sinus rhythm and is not anticoagulated. She reports that about 830 this evening she developed chest tightness and slight shortness of breath while she was sitting on the couch. The symptoms seem to be somewhat frequent for her. No fever. No cough. She is currently saturating 96% on room air. She typically uses 2 L. Her son states that she is not having any increased edema. REVIEW OF SYSTEMS: Constitutional: denies: chills, fever, recent illness, recent injury EENTM: denies: blurred vision, double vision, nose congestion Respiratory: See HPI denies: cough, Cardiac: See HPI denies: irregular heart rate, lightheadedness, palpitations Gastrointestinal/Abdominal: denies: abdominal pain, diarrhea, nausea, vomiting, blood streaked stools Genitourinary: denies: dysuria, frequency, hematuria, pain Musculoskeletal: denies: joint pain, muscle pain Skin: denies: lesions, rash, jaundice, bruising Neurological: denies: headache, numbness, paresthesia, tingling, dizziness, weakness Hematologic/Lymphatic: denies: blood clots, easy bleeding, easy bruising Immunologic/allergic: denies: HIV/AIDS, transplant EXAM: GENERAL: Well-appearing, well-nourished and in no acute distress. HEAD: Atraumatic, normocephalic. EYES: Pupils equal round and reactive to light, extraocular movements intact, sclera anicteric, conjunctiva are normal. ENT: TMs normal, nares patent, oropharynx clear without exudates. Moist mucous membranes. NECK: Normal range of motion, supple without lymphadenopathy or JVD. LUNGS: Breath sounds clear to auscultation bilaterally and equal. No wheezes rales or rhonchi. HEART: Regular rate and rhythm without murmurs, rubs or gallops. ABDOMEN: Soft, nontender, normoactive bowel sounds. No guarding, no rebound. No masses appreciated. BACK: No CVA tenderness, no spinal tenderness, step-offs or deformities EXTREMITIES: Normal range of motion, no pitting or edema. No clubbing or cyanosis. NEUROLOGICAL: Cranial nerves II through XII grossly intact. Normal speech, normal gait. 5/5 strength, normal movement in all extremities, normal sensation PSYCH: Normal mood, normal affect. SKIN: Warm, dry, normal turgor, no visible rashes or lesions. Source: Patient, Family Exam Limitations: No limitations - Personal History Current Tetanus/Diphtheria Vaccine: Yes Current Tetanus Diphtheria and Acellular Pertussis (TDAP): Yes - Medical/Surgical History Hx Asthma: No Hx Chronic Respiratory Disease: Yes Hx Diabetes: No Hx Cardiac Disease: Yes Hx Renal Disease: No Hx Cirrhosis: No Hx Alcoholism: No Hx HIV/AIDS: No Hx Splenectomy or Spleen Trauma: No Other PMH: Home 02, 6 STENTS 2014, CABG 2012, endarterectomy(rt), HTN, headaches , AFIB, blind in rt eye, AORTIC VALVE REPLACEMENT, csection x 2, pe post valve replacement. - Family History Significant Family History: No pertinent family hx - Social History Smoking Status: Never smoked Alcohol Use: Sober Constitutional: Initial Vital Signs Temperature (C) 36.5 C 04/04/18 22:12 Heart Rate 70 04/04/18 22:12 Respiratory Rate 16 04/04/18 22:12 Blood Pressure 133/66 H 04/04/18 22:12 O2 Sat (%) 93 04/04/18 22:12 O2 Delivery Mode Room Air Allergies/Adverse Reactions: Penicillins Allergy (Intermediate, Verified 04/04/18 22:14) Hives Home Medications: Medication Instructions Recorded Cholecalciferol Vit D3 [Vitamin D3 1,000 units PO DAILY 10/19/13 (*)] Multivitamins [Multivitamin (*)] 1 each PO DAILY 10/19/13 Clopidogrel Bisulfate [Plavix (*)] 75 mg PO DAILY 10/24/13 Herbals/Supplements -Info Only 1 ea PO DAILY 05/18/16 Calcium Carbonate [Oyster Shell 500 mg PO DAILY 10/11/16 Calcium 500 mg (*)] Nitroglycerin [Nitrostat 0.4 mg 0.4 mg SL Q5M PRN 10/19/16 (*)] amLODIPine BESYLATE [Norvasc 5 mg 5 mg PO DAILY 10/19/16 (*)] Aspirin EC [Aspirin EC 81 mg (*)] 81 mg PO DAILY #0 tab 10/24/16 Atorvastatin Calcium [Lipitor 20 20 mg PO DAILY 11/23/17 mg (*)] Acetaminophen [Tylenol 325mg (*)] 650 mg PO Q4HRS PRN tab 03/31/18 Furosemide [Lasix 20 MG (*)] 20 mg PO DAILY #30 tab 03/31/18 Sertraline HCl [Zoloft 25mg (*)] 25 mg PO DAILY 04/05/18 traMADol [Ultram 50 mg (*)] 50 mg PO Q6HRS PRN 04/05/18 Medical Decision Making - Diagnostics EKG Interpretation: An EKG obtained and was read and documented in trace view. Please see trace view for full reading and report. Sinus rhythm, no acute ischemic changes similar to previous Imaging: Discussed imaging studies w/ scallop shucker Radiologist ED Course/Re-evaluation: The patient looks well. She is not hypoxic even on room air. Her lung sounds are normal. Will initiate cardiac and pulmonary testing. 12:05 a.m. I discussed the case with Dr. Damon who recommends admission to the hospitalist service. I will obtain CT scan because of her D-dimer and history of PE. She is not currently anticoagulated. 12:20 a.m. I discussed the case with Gallego who will admit to the PCU. Differential Diagnosis: Partial list of the Differential diagnosis considered include but were not limited to; CHF exacerbation, pneumonia, PE, anxiety and although unlikely based on the history and physical exam, I also considered dissection, aneurysm, pneumothorax. - Data Points Laboratory Results: Laboratory Results 04/04/18 22:30 04/04/18 22:30 Medications Given: Acetaminophen (Tylenol) 650 mg PO Q4HRS PRN PRN Reason: Pain, Mild/Fever, Can Take PO Stop: 10/02/18 00:26 Last Admin: 04/08/18 04:00 Dose: 650 mg Amlodipine Besylate (Norvasc) 5 mg PO DAILY [facility] Stop: 10/02/18 11:59 Last Admin: 04/09/18 09:05 Dose: 5 mg Aspirin Buffered (Aspirin Ec) 81 mg PO DAILY [facility] Stop: 10/03/18 08:59 Last Admin: 04/09/18 09:05 Dose: 81 mg Atorvastatin Calcium (Lipitor) 20 mg PO DAILY [facility] Stop: 10/03/18 08:59 Last Admin: 04/09/18 09:05 Dose: 20 mg Calcium Carbonate (Oyster Shell Calcium) 500 mg PO DAILY [facility] Stop: 10/03/18 08:59 Last Admin: 04/08/18 10:04 Dose: 500 mg Cholecalciferol (Vitamin D) 1,000 units PO DAILY [facility] Stop: 10/03/18 08:59 Last Admin: 04/08/18 10:04 Dose: 1,000 units Clopidogrel Bisulfate (Plavix) 75 mg PO DAILY [facility] Stop: 10/03/18 08:59 Last Admin: 04/09/18 09:05 Dose: 75 mg Enoxaparin Sodium (Lovenox) 40 mg SC DAILY [facility] Stop: 10/02/18 08:59 Last Admin: 04/08/18 10:05 Dose: 40 mg Furosemide (Lasix) 40 mg PO DAILY [facility] Stop: 10/05/18 08:59 Last Admin: 04/09/18 09:05 Dose: 40 mg Sodium Chloride (Ns) 1,000 mls @ 75 mls/hr IV ONCALL ONE Stop: 04/09/18 19:19 Last Admin: 04/09/18 09:35 Dose: 1,000 mls Multivitamins (Tab-A-Allison) 1 each PO DAILY [facility] Stop: 10/03/18 08:59 Last Admin: 04/08/18 10:05 Dose: 1 each Senna/Docusate Sodium (Senokot-S) 1 - 2 tab PO BID [facility] PRN Reason: Protocol Stop: 10/04/18 08:59 Last Admin: 04/08/18 20:34 Dose: 1 tab Sertraline HCl (Zoloft) 25 mg PO DAILY [facility] Stop: 10/02/18 11:59 Last Admin: 04/09/18 09:05 Dose: 25 mg Tramadol HCl (Ultram) 50 mg PO Q6HRS PRN PRN Reason: Pain, Moderate Stop: 10/02/18 11:54 Last Admin: 04/07/18 00:20 Dose: 50 mg Discontinued Medications Aspirin Buffered (Aspirin Ec) 325 mg PO ONCALL ONE Stop: 04/09/18 06:01 Last Admin: 04/09/18 09:35 Dose: 325 mg Aspirin Buffered (Aspirin Ec) 325 mg PO ONCALL ONE Stop: 04/09/18 09:46 Last Admin: 04/09/18 10:04 Dose: Not Given Diazepam (Valium) 5 mg PO ONCALL ONE Stop: 04/09/18 06:01 Last Admin: 04/09/18 09:35 Dose: 5 mg Diazepam (Valium) 5 mg PO ONCALL ONE Stop: 04/09/18 09:46 Last Admin: 04/09/18 10:04 Dose: Not Given Diphenhydramine HCl (Benadryl) 25 mg PO ONCALL ONE Stop: 04/09/18 06:01 Last Admin: 04/09/18 09:35 Dose: 25 mg Diphenhydramine HCl (Benadryl) 25 mg PO ONCALL ONE Stop: 04/09/18 09:46 Last Admin: 04/09/18 10:04 Dose: Not Given Famotidine (Pepcid) 20 mg PO ONCALL ONE Stop: 04/09/18 06:01 Last Admin: 04/09/18 09:35 Dose: 20 mg Famotidine (Pepcid) 20 mg PO ONCALL ONE Stop: 04/09/18 09:46 Last Admin: 04/09/18 10:04 Dose: Not Given Furosemide (Lasix Injection) 40 mg IVP ONCE ONE Stop: 04/07/18 13:01 Last Admin: 04/07/18 12:07 Dose: 40 mg Point of Care Test Results: Chemistry 04/04/18 22:30 POC Troponin I 0.04 ng/mL ng/mL (0.00-0.08) Departure - Departure Disposition: [facility] Inpatient Acute Clinical Impression: Chest pain Qualifiers: Chest pain type: unspecified Qualified Code(s): R07.9 - Chest pain, unspecified Condition: Fair
[2018-04-04 23:17] LABS: INR 1.04 (0.83-1.16); PROTIME(PATIENT) 13.8 SEC (12.0-15.0)
[2018-04-04] MEDS ORDERED: IOPAMIDOL (ISOVUE 370) 100 ML BTL IV ONE (23:54)
[2018-04-04 23:55] LABS: PLATELET COUNT 125 10^3/uL (150-400)
[2018-04-05] MEDS ORDERED: ONDANSETRON DISINTEGRATING 4 MG TAB PO PRN (00:27)
[2018-04-05] MEDS ORDERED: ONDANSETRON 4 MG/2 ML VIAL IVP PRN (00:27)
--- NOTE | 2018-04-05 00:48 | PDGENHP ---
History and Physical - Chief Complaint Chest pain - History of Present Illness 82 yo F w/ CAD s/p CABG and stenting, ICM, AF, HTN and bioprosthetic AV present with chest tightness. Patient reports right sided chest tightness starting at 8: 30 PM on the night of admission. She denies associated symptoms. She was admitted last week for similar symptoms. She was evaluated by cardiology who suspected symptoms were driven by CHF exacerbation and valvular disease. She presents today appearing euvolemic. Her initial work-up in the ED has been unremarkable. Dr. Damon from cardiology was consulted who requested the patient be admitted for observation. Of note, a nuclear medicine perfusion study performed in November of 2017 did not show any findings concerning for ischemia. History Information - Allergies/Home Medication List Allergies/Adverse Reactions: Penicillins Allergy (Intermediate, Verified 04/04/18 22:14) Hives Home Medications: Cholecalciferol Vit D3 [Vitamin D3 (*)] 1,000 units PO DAILY@10/19/13 [Last Taken 03/29/18] Multivitamins [Multivitamin (*)] 1 each PO DAILY@10/19/13 [Last Taken ] Clopidogrel Bisulfate [Plavix (*)] 75 mg PO DAILY@10/24/13 [Last Taken ] Herbals/Supplements -Info Only 1 ea PO DAILY@05/18/16 [Last Taken 03/29/18] Calcium Carbonate [Oyster Shell Calcium 500 mg (*)] 500 mg PO DAILY@10/11/16 [Last Taken 03/29/18] Nitroglycerin [Nitrostat 0.4 mg (*)] 0.4 mg SL Q5M PRN 10/19/16 [Last Taken 06/02] amLODIPine BESYLATE [Norvasc 5 mg (*)] 5 mg PO DAILY@10/19/16 [Last Taken ] Atorvastatin Calcium [Lipitor 20 mg (*)] 20 mg PO DAILY 11/23/17 [Last Taken ] I have personally reviewed and updated: family history, medical history - Past Medical History atrial fibrillation, coronary artery disease, CHF, hypertension Additional medical history: Ischemic cardiomyopathy, Bioprosthetic aortic valve - Surgical History Reports: coronary bypass surgery Additional surgical history: Bioprosthetic aortic valve - Family History Positive for: non-pertinent Additional family history: Son is healthy. Parents . - Social History Smoking Status: Never smoked Alcohol Use: Sober Additional social history: Previously lived independently in her own home, since recent hospitalization has been living with her son who is very involved in her care. Review of Systems Review of Systems: ROS: 10pt was reviewed & negative except for what was stated in HPI & below Physical Exam Physical Exam: Temp Pulse Resp BP Pulse Ox 36.6 C 65 18 171/84 H 94 04/05/18 00:38 04/05/18 00:38 04/05/18 00:38 04/05/18 00:38 04/05/18 00:38 Constitutional: no apparent distress, not in pain Eyes: PERRL, EOMI Ears, Nose, Mouth, Throat: moist mucous membranes, no oral mucosal ulcers Cardiovascular: regular rate and rhythym, systolic murmur, JVD (JVP 2 cm above clavicle lying at 15 degrees), edema (Trace b/l GRISELDA) Respiratory: no respiratory distress, clear to auscultation Gastrointestinal: normoactive bowel sounds, soft, non-tender abdomen Skin: warm, normal color Musculoskeletal: full muscle strength, no muscle tenderness Neurologic: AAOx3, CN II-XII Intact Psychiatric: interacting appropriately, not anxious Lab Data & Imaging Review 04/04/18 22:30 04/04/18 22:30 WBC 4.11 10^3/uL (3.80-9.50) 04/04/18 22:30 RBC 4.85 10^6/uL (4.18-5.33) 04/04/18 22:30 Hgb 13.0 g/dL (12.6-16.3) 04/04/18 22:30 Hct 41.0 % (38.0-47.0) 04/04/18 22:30 MCV 84.5 fL (81.5-99.8) 04/04/18 22:30 MCH 26.8 pg (27.9-34.1) L 04/04/18 22:30 MCHC 31.7 g/dL (32.4-36.7) L 04/04/18 22:30 RDW 15.7 % (11.5-15.2) H 04/04/18 22:30 Plt Count 125 10^3/uL (150-400) L 04/04/18:30 MPV 10.3 fL (8.7-11.7) 04/04/18:30 Neut % (Auto) 46.6 % (39.3-74.2) 04/04/18:30 Lymph % (Auto) 42.3 % (15.0-45.0) 04/04/18: [place] % (Auto) 8.3 % (4.5-13.0) 04/04/18:30 Eos % (Auto) 1.9 % (0.6-7.6) 04/04/18: Baso % (Auto) 0.7 % (0.3-1.7) 04/04/18: Nucleat RBC Rel Count 0.0 % (0.0-0.2) 04/04/18: Absolute Neuts (auto) 1.91 10^3/uL (1.70-6.50) 04/04/18: Absolute Lymphs (auto) 1.74 10^3/uL (1.00-3.00) 04/04/18:30 Absolute Monos (auto) 0.34 10^3/uL (0.30-0.80) 04/04/18:30 Absolute Eos (auto) 0.08 10^3/uL (0.03-0.40) 04/04/18:30 Absolute Basos (auto) 0.03 10^3/uL (0.02-0.10) 04/04/18: Absolute Nucleated RBC 0.00 10^3/uL (0-0.01) 04/04/18: Immature Gran % 0.2 % (0.0-1.1) 04/04/18: Immature Gran # 0.01 10^3/uL (0.00-0.10) 04/04/18: PT 13.8 SEC (12.0-15.0) 04/04/18:30 INR 1.04 (0.83-1.16) 04/04/18:30 APTT 28.7 SEC (23.0-38.0) 04/04/18: D-Dimer 1.00 ug/mLFEU (0.00-0.50) H 04/04/18 22:30 Sodium 142 mEq/L (135-145) 04/04/18 22:30 Potassium 4.2 mEq/L (3.3-5.0) 04/04/18 22:30 Chloride 104 mEq/L (97-110) 04/04/18 22:30 Carbon Dioxide 29 mEq/l (22-31) 04/04/18 22:30 Anion Gap 9 mEq/L (8-16) 04/04/18 22:30 BUN 21 mg/dL (7-23) 04/04/18 22:30 Creatinine 0.8 mg/dL (0.6-1.0) 04/04/18 22:30 Estimated GFR > 60 04/04/18:30 Glucose 103 mg/dL (70-100) H 04/04/18:30 Calcium 9.9 mg/dL (8.5-10.4) 04/04/18:30 POC Troponin I 0.04 ng/mL (0.00-0.08) 04/04/18 22:30 NT-Pro-B Natriuret Pep 540 pg/mL (0-450) H 04/04/18 22:30 Visualized and Interpreted Chest x-ray results: Yes Chest X-Ray results: no infiltrate Visualized and Interpreted EKG results: Yes EKG Interpretation: Positive for: normal sinsus rhythm, NS ST wave abnormalities , other (LAFB) Assessment & Plan Assessment: 82 yo F w/ CAD s/p CABG and stenting, ICM, AF, HTN and bioprosthetic AV present with chest pain. Plan: 1. Chest pain - Presented with similar symptoms last week, which were thought to be due to mild CHF exacerbation. She appears euvolemic on exam today. Initial ECG (personally interpreted) without signs of acute ischemia; troponin negative. Her BNP is decreased from prior and she is oxygenating well on room air. - Admit to PCU for observation - Dr. Damon of cardiology consulted in the ED who recommended admission, will see patient tomorrow - Monitor on telemetry, trend cardiac enzymes 2. CAD - s/p CABG and multiple stents; last nuclear perfusion study in November of 2017 was negative for ischemia. - Continue home medications 3. ICM - Last EF 45-50% on recent echo with ischemic hypokinesis. BNP decreased from last admission and she appears euvolemic on exam. - Continue daily Lasix 20 mg PO 4. Hx bioprosthetic AV - Cardiology recommended evaluation for TAVR in the near future. 5. AF - In NSR on admission. 6. HTN - Continue home medications Diet - Cardiac Code - Full Ppx - LMWH Dispo - Admit under observation status
[2018-04-05 04:17] LABS: PLATELET COUNT 123 10^3/uL (150-400)
[2018-04-05] MEDS: ENOXAPARIN 40 MG/0.4 ML SYR SC SCH (08:57)
[2018-04-05] MEDS: amLODIPine BESYLATE 5 MG TAB PO SCH (12:41)
[2018-04-05] MEDS: traMADol 50 MG TAB PO PRN (12:41)
[2018-04-05] MEDS: SERTRALINE HCL 25 MG TAB PO SCH (12:41)
--- NOTE | 2018-04-05 14:15 | ASMTCASEMG ---
Living Arrangements What is your living Answers: Alone arrangement? Who do you live with? Type Of Residence What kind of residence do Answers: House you live in? Discharge Plan Comments Coordination Status Comments Notes: Pts case discussed in tx rounds. Pt is a 82 y/o female admitted for chest pain. Pt has an outpatient VICKI scheduled. Pt may be a possible candidate for a TAVR. CM spoke to Sugey with transitional care regarding d/c POC. No needs identified at this time. CM available for changes. Plan: Independent Date Signed: 04/05/2018 02:14 PM Electronically Signed By:CARMELINA Wang
--- NOTE | 2018-04-05 15:45 | HOSPPROG ---
Hospitalist Progress Note Assessment/Plan: DIAGNOSES: -chest pain and fatigue, rule out for PA at this time -stability of congestive heart failure on her current diabetic regimen without fluid reaccumulation -known significant stenosis of her prosthetic aortic valve with increasing gradient, and perivalvular leak based on recent echocardiograms -new onset of lumbar back pain without radicular symptoms past 2 weeks, no injury -chronic AFib stable, known coronary disease with no evidence of perfusion abnormality on nuclear perfusion scan in November -chronic hypertension I discussed this in detail with Dr. Darren Galeana today. The patient had seen Dr. RUIZ in Cardiology [facility] just yesterday, and he felt that the patient was potentially a candidate for percutaneous valvular intervention. His plan was to arrange for a VICKI next week. However as the patient is now here in the hospital with ongoing symptoms it is felt prudent to proceed with this assessment at this time so that we can make progress and avoid unnecessary hospitalizations while waiting for her outpatient evaluation. Dr. Galeana will see the patient and consider likely VICKI tomorrow Patient seen by me today on hospitals rounds as well as multidisciplinary rounds PLANS: -Dr. Galeana will consult, possible VICKI tomorrow -continue her current cardiac medications at this time -she does have some low back pain for the last 2 weeks and I will get x-rays of her lumbar spine for that. 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, my review: Sinus Exam: alert oriented skin warm dry color ok resps not labored lungs clear BSs heart regular abd soft nondistended nontender, bowel sounds present limbs warm, no edema iv site ok Laboratory data: Troponin 0.037 Stable metabolic panel and CBC Objective: Vital Signs Temp Pulse Resp BP Pulse Ox 36.8 C 53 L 18 149/73 H 99 04/05/18 12:00 04/05/18 12:00 04/05/18 12:00 04/05/18 12:00 04/05/18 12:00 Laboratory Results 04/05/18 04:07 04/05/18 04:07 04/04/18 04/05/18 04/06/18 06:59 06:59 06:59 Intake Total 100 Output Total 200 650 Balance -100 -650 PT 13.8 SEC (12.0-15.0) 04/04/18 22:30 INR 1.04 (0.83-1.16) 04/04/18 22:30 - Time Spent With Patient Time Spent with Patient: greater than 35 minutes Time Spent with Patient: Greater than 35 minutes spent on this patients care, greater than 50% of time spent counseling, educating, and coordinating care regarding the above mentioned plan. ICD10 Worksheet Patient Problems: Problems Problem Status Onset Chest pain Acute Atrial flutter Acute CAD (coronary artery disease) Acute Chest pain at rest Acute Chest pain in adult Acute Dyspnea Acute Elevated blood pressure reading Acute Headache Acute Hypertension Acute NSTEMI (non-ST elevated myocardial infarction) Acute Pelvic fracture Acute Pulmonary emboli Acute Shortness of breath Acute Troponin level elevated Acute
[2018-04-06] MEDS: traMADol 50 MG TAB PO PRN ×2 (04:08→10:05)
[2018-04-06] MEDS: ACETAMINOPHEN 325 MG TAB PO PRN (04:08)
--- NOTE | 2018-04-06 09:41 | PDMN ---
Medical Necessity Medical necessity: Change to IP, as of 04/05/18, per MD; los >2 mn for ongoing management of ongoing chest pain & fatigue; r/o CA; admit for further workup/ cardiac monitoring & possible TAVR; hx recent hospitalization w/similar symptoms , CAD s/p CABG, CHF, AFIB, HTN; per progress note & order 04/05/18
[2018-04-06] MEDS: ATORVASTATIN CALCIUM 20 MG TAB PO SCH (09:58)
[2018-04-06] MEDS: ASPIRIN EC 81 MG TAB PO SCH (09:58)
[2018-04-06] MEDS: CHOLECALCIFEROL VIT D3 1,000 UNITS TAB PO SCH (09:58)
[2018-04-06] MEDS: MULTIVITAMINS 1 EACH TAB PO SCH (09:58)
[2018-04-06] MEDS: CALCIUM CARBONATE 500 MG TAB PO SCH (09:58)
[2018-04-06] MEDS: ENOXAPARIN 40 MG/0.4 ML SYR SC SCH (09:58)
[2018-04-06] MEDS: amLODIPine BESYLATE 5 MG TAB PO SCH (09:58)
[2018-04-06] MEDS: SERTRALINE HCL 25 MG TAB PO SCH (09:58)
[2018-04-06] MEDS: CLOPIDOGREL BISULFATE 75 MG TAB PO SCH (09:58)
--- NOTE | 2018-04-06 14:12 | SOAPPROG ---
[facility] Progress Note Assessment/Plan: 1. CHF - Pt has been admitted multiple times over the last year with nocternal dyspnea/CHF. No obvious precipitating factors other than progressive bioprosthetic aortic valve stenosis. LVEF = 45 to 50%. BNP 540. --> Evaluated aortic valve as noted below --> Continue diuresis 2. Aortic stenosis - Patient is s/p bioprosthetic valve in 2012. Her most recent echocardiogram demonstrates moderate aortic stenosis with a mean gradient of 33 mmHg. This represents a significant change from her previous echocardiogram. She was evaluated by Dr. Diaz on 04/04 and was scheduled for a VICKI to further evaluate her valve. Unable to perform VICKI today as patient ate lunch. Will keep her NPO for VICKI in am. 3. CAD - Pt has known CAD and is s/p PCI of her LAD, LCX, and RCA. Her most recent cardiovascular evaluation was a stress test in 12/03 for the same symptoms. Stress testing demonstrated no perfusion defects. Continue secondary prevention. Consider angiogram pending aortic valve evaluation. 4. Trop - Pt has a mild troponin elevation. This is c/w previous hospitalizations. Suspect secondary to CHF. Will cycle enzymes. Subjective: Pt admitted with symptoms of nocturnal dyspnea and low back pain. Pts symptoms of dyspnea improved since admit limited ambulation No edema. Objective: Vital Signs Temp Pulse Resp BP Pulse Ox 36.6 C 59 L 18 96/56 L 94 04/06/18 12:00 04/06/18 12:00 04/06/18 12:00 04/06/18 12:00 04/06/18 12:00 Laboratory Results 04/05/18 04:07 04/05/18 04:07 04/05/18 04/06/18 04/07/18 05:59 05:59 05:59 Intake Total 100 800 Output Total 200 1350 250 Balance -100 -550 -250 PT 13.8 SEC (12.0-15.0) 04/04/18 22:30 INR 1.04 (0.83-1.16) 04/04/18 22:30 Physical Exam - Physical Exam General Appearance: alert, no apparent distress Respiratory: other (crackles L base) Cardiac/Chest: regular rate, rhythm, systolic murmur Abdomen: non-tender, soft Skin: normal color Extremities: No pedal edema ICD10 Worksheet Patient Problems: Problems Problem Status Onset Chest pain Acute Atrial flutter Acute CAD (coronary artery disease) Acute Chest pain at rest Acute Chest pain in adult Acute Dyspnea Acute Elevated blood pressure reading Acute Headache Acute Hypertension Acute NSTEMI (non-ST elevated myocardial infarction) Acute Pelvic fracture Acute Pulmonary emboli Acute Shortness of breath Acute Troponin level elevated Acute
--- NOTE | 2018-04-06 14:29 | HOSPPROG ---
Hospitalist Progress Note Assessment/Plan: #Chronic systolic HF: No edema on CXR (personally-reviewed); likely due to progression of . Restart home lasix #Dyspnea: due to CHF, . No embolism on CTA #Aortic stenosis: mean gradient 33mmhg. Plan for VICKI tomorrow. Evaluated by Dr. Diaz and plan for TAVR #CAD: h/o stents LAD, LCx, RCA. ASA, plavix, statin #Right flank/back pain: denies trauma. Not tender on exam. Ensure no UTI, check lumbar film #Indeterminate trop: due to . Mild T-wave abnormalities ant leads (seen on prior). No perfusion defects on stress in Feb #Diet: NPO #Disp: warrants inpatient admission for VICKI Subjective: pain right lower back. Denies trauma Objective: Vital Signs Temp Pulse Resp BP Pulse Ox 36.6 C 59 L 18 96/56 L 94 04/06/18 12:00 04/06/18 12:00 04/06/18 12:00 04/06/18 12:00 04/06/18 12:00 Laboratory Results 04/05/18 04:07 04/05/18 04:07 04/05/18 04/06/18 04/07/18 05:59 05:59 05:59 Intake Total 100 800 Output Total 200 1350 250 Balance -100 -550 -250 PT 13.8 SEC (12.0-15.0) 04/04/18 22:30 INR 1.04 (0.83-1.16) 04/04/18 22:30 - Time Spent With Patient Time Spent with Patient: greater than 35 minutes Time Spent with Patient: Greater than 35 minutes spent on this patients care, greater than 50% of time spent counseling, educating, and coordinating care regarding the above mentioned plan. - Physical Exam Constitutional: no apparent distress Eyes: PERRL Ears, Nose, Mouth, Throat: moist mucous membranes, hearing normal Cardiovascular: No edema Respiratory: no respiratory distress, No expiratory wheeze, No inspiratory crackles, No rhonchi Gastrointestinal: normoactive bowel sounds, soft, non-tender abdomen Genitourinary: no bladder fullness Skin: warm Musculoskeletal: full muscle strength, other (no bony TTP over spine) Neurologic: AAOx3, CN II-XII Intact Psychiatric: interacting appropriately ICD10 Worksheet Patient Problems: Problems Problem Status Onset Chest pain Acute Atrial flutter Acute CAD (coronary artery disease) Acute Chest pain at rest Acute Chest pain in adult Acute Dyspnea Acute Elevated blood pressure reading Acute Headache Acute Hypertension Acute NSTEMI (non-ST elevated myocardial infarction) Acute Pelvic fracture Acute Pulmonary emboli Acute Shortness of breath Acute Troponin level elevated Acute
[2018-04-07] MEDS: traMADol 50 MG TAB PO PRN (00:20)
[2018-04-07] MEDS ORDERED: BISACODYL 10 MG SUPP PR PRN (03:02)
[2018-04-07] MEDS ORDERED: LACTULOSE 20 GM/30 ML UDCUP PO PRN (03:02)
[2018-04-07] MEDS ORDERED: POLYETHYLENE GLYCOL 3350 17 GM PKT PO PRN (03:02)
[2018-04-07] MEDS ORDERED: MAGNESIUM HYDROXIDE 30 ML UDCUP PO PRN (03:02)
--- NOTE | 2018-04-07 08:53 | SOAPPROG ---
SOAP Progress Note Assessment/Plan: Assessment: 82 y/o AA woman with history of CAD s/p PCIs in [place] by Dr. Evan Pollard and BIOAVR in 2013 and CHF with LVEF 45-50%. She has felt short of breath at rest and mild exertion and vague chest pressure for last 2-3 weeks. She also has some RLQ abdominal discomfort. Denies palpitations, syncope or cough. Her weight is up five pound from last year. DDX: recurrent obstructive CAD, BIOAVR with new severe or AI, volume overload or possible seperate GI process. PLAN: 1)VICKI today to better assess BIOAVR function. R/B/A discussed with patient and her daughter. They wish to proceed. 2)Lasix 40mg IV x one today after VICKI done. 3)change daily Lasix to 40mg PO qam starting Monday 4)may need L/R cardiac cath this hospitalization if symptoms continue 5)check CMP and Amylase and Lipase in AM. 6)rest of meds without changes. 04/07/18 08:48 Subjective: she still is having shortness of breath and feeling she can't get a full breath at rest. Mild RLQ pain in abdomen with no nausea or GI bleeding symptoms. Denies cough, palpitations or fevers or chills. Objective: Vital Signs Temp Pulse Resp BP Pulse Ox 36.4 C 58 L 14 133/77 H 99 04/07/18 08:00 04/07/18 08:00 04/07/18 08:00 04/07/18 08:00 04/07/18 08:00 Laboratory Results 04/05/18 04:07 04/05/18 04:07 04/06/18 04/07/18 04/08/18 05:59 05:59 05:59 Intake Total 800 850 Output Total 1350 1050 Balance -550 -200 PT 13.8 SEC (12.0-15.0) 04/04/18 22:30 INR 1.04 (0.83-1.16) 04/04/18 22:30 Physical Exam - Physical Exam General Appearance: alert EENT: normal ENT inspection Neck: full range of motion Respiratory: lungs clear Cardiac/Chest: regular rate, rhythm, systolic murmur, No gallop, No JVD Peripheral Pulses: 2+: carotid (R), carotid (L), femoral (R), femoral (L), dorsalis-pedis (R), dorsalis-pedis (L) Abdomen: No rebound (mild tenderness on moderate palpitations of RLQ area.), No hepatomegaly, No splenomegaly Pelvic Exam: deferred Rectal: deferred Skin: warm/dry Extremities: No pedal edema Neuro/Psych: alert ICD10 Worksheet Patient Problems: Problems Problem Status Onset Chest pain Acute Atrial flutter Acute CAD (coronary artery disease) Acute Chest pain at rest Acute Chest pain in adult Acute Dyspnea Acute Elevated blood pressure reading Acute Headache Acute Hypertension Acute NSTEMI (non-ST elevated myocardial infarction) Acute Pelvic fracture Acute Pulmonary emboli Acute Shortness of breath Acute Troponin level elevated Acute
[2018-04-07] MEDS ORDERED: FUROSEMIDE 20 MG TAB PO SCH (09:00)
[2018-04-07] MEDS ORDERED: PROPOFOL/EMULSION 500 MG/50 ML BOTTLE IV ONE (10:01)
--- NOTE | 2018-04-07 10:07 | PDANEPAE ---
ANE History of Present Illness 82 year old female w/ PMHx of CAD s/p PCI, AVR replacement (with AI) and symptoms of CHF now for VICKI for evaluation. ANE Past Medical History - Cardiovascular History Hx Hypertension: Yes Hx Arrhythmias: No Hx Chest Pain: No Hx Coronary Artery / Peripheral Vascular Disease: Yes Hx CHF / Valvular Disease: Yes Hx Palpitations: No - Pulmonary History Hx Oxygen in Use at Home: Yes O2 in Use at Home (L/minute): 2 Hx Sleep Apnea: No - Endocrine History Hx Diabetes: No Hypothyroid: No Hyperthyroid: No Obesity: no - Renal History Hx Renal Disorders: No Renal History Comment: denies - Liver History Hx Hepatic Disorders: No Hepatic History Comment: denies - Neurological & Psychiatric Hx Hx Neurological and Psychiatric Disorders: No - Chronic Pain History Chronic Pain: No ANE Review of Systems Review of Systems: - Exercise capacity Exercise capacity: <4 METS ANE Patient History - Allergies Allergies/Adverse Reactions: Penicillins Allergy (Intermediate, Verified 04/04/18 22:14) Hives - Home Medications Home medications: home medication list seen and reviewed Home Medications: Cholecalciferol Vit D3 [Vitamin D3 (*)] 1,000 units PO DAILY 10/19/13 [Last Taken 03/29/18] Multivitamins [Multivitamin (*)] 1 each PO DAILY 10/19/13 [Last Taken 03/29/18] Clopidogrel Bisulfate [Plavix (*)] 75 mg PO DAILY 10/24/13 [Last Taken 03/29/18] Herbals/Supplements -Info Only 1 ea PO DAILY 05/18/16 [Last Taken 03/29/18] Calcium Carbonate [Oyster Shell Calcium 500 mg (*)] 500 mg PO DAILY 10/11/16 [ Last Taken 03/29/18] Nitroglycerin [Nitrostat 0.4 mg (*)] 0.4 mg SL Q5M PRN 10/19/16 [Last Taken 06/02] amLODIPine BESYLATE [Norvasc 5 mg (*)] 5 mg PO DAILY 10/19/16 [Last Taken ] Atorvastatin Calcium [Lipitor 20 mg (*)] 20 mg PO DAILY 11/23/17 [Last Taken ] Sertraline HCl [Zoloft 25mg (*)] 25 mg PO DAILY 04/05/18 [Last Taken Unknown] traMADol [Ultram 50 mg (*)] 50 mg PO Q6HRS PRN 04/05/18 [Last Taken Unknown] - NPO status NPO Status: no food or drink >8 hours - Anes Hx Anes Hx: no prior problems - Smoking Hx Smoking Status: Never smoked - Alcohol Use Alcohol Use: Sober - Family Anes Hx Family Anes Hx: neg - N/A ANE Labs/Vital Signs - Labs Result Diagrams: 04/05/18 04:07 04/05/18 04:07 - Vital Signs Vital Signs: reviewed preoperatively; see RN documention for details Blood Pressure: 133/77 Heart Rate: 58 Respiratory Rate: 14 O2 Sat (%): 99 Height: 172.72 cm Weight: 73.5 kg ANE Physical Exam - Airway Neck exam: FROM Mallampati Score: Class 2 Mouth exam: normal dental/mouth exam - Pulmonary Pulmonary: no respiratory distress - Cardiovascular Cardiovascular: regular rate and rhythym - ASA Status ASA Status: III ANE Anesthesia Plan Anesthesia Plan: GA with mask Total IV Anesthesia: Yes
--- NOTE | 2018-04-07 10:35 | SOAPPROG ---
SOAP Progress Note Assessment/Plan: Assessment: addendum daily SOAP note. VICKI done just now uneventfully. Full VICKI report dictated. VICKI findings: 1)Low normal LVEF 45% with mild-moderate LVH 2)BIOAVR with mild and mild AI. No severe perivalvular AI leak noted. 3)Mild to moderate MR without MV prolapse. 4)Mild TR noted. 5)No ASD or PFO noted by color Doppler. 6)No thrombus seen in any four cardiac chambers or LA appendage. PW in LIGIA 35cm/ sec. 7)No size ascending thoracic aorta 3.2cm Clinically I am more concerned about instent restenosis of one of her many previous cardiac stents. Probably uptitrate her lasix dose and L/R cardiac cath Monday. Discussed with son. 04/07/18 10:32 Objective: Vital Signs Temp Pulse Resp BP Pulse Ox 36.4 C 58 L 14 133/77 H 99 04/07/18 08:00 04/07/18 10:07 04/07/18 10:07 04/07/18 10:07 04/07/18 10:07 Laboratory Results 04/05/18 04:07 04/05/18 04:07 04/06/18 04/07/18 04/08/18 05:59 05:59 05:59 Intake Total 800 850 Output Total 1350 1050 Balance -550 -200 PT 13.8 SEC (12.0-15.0) 04/04/18 22:30 INR 1.04 (0.83-1.16) 04/04/18 22:30 ICD10 Worksheet Patient Problems: Problems Problem Status Onset Chest pain Acute Atrial flutter Acute CAD (coronary artery disease) Acute Chest pain at rest Acute Chest pain in adult Acute Dyspnea Acute Elevated blood pressure reading Acute Headache Acute Hypertension Acute NSTEMI (non-ST elevated myocardial infarction) Acute Pelvic fracture Acute Pulmonary emboli Acute Shortness of breath Acute Troponin level elevated Acute
--- NOTE | 2018-04-07 10:45 | POSTANESTH ---
Post Anesthetic Evaluation Cardiovascular Status: Similar to Pre-Op Cond Respiratory Status: Similar to Pre-op Cond. Level of Consciousness/Mental Status: Can Participate in Eval Pain Control: Adequate, Prn Tx Ordered Nausea/Vomiting Control: Adequate, Prn Tx Ordered Complications Possibly Related to Anesthesia: None Noted (Patient tolerated TIVA w/ supplemental O2 via nasal canula very well for bedside VICKI. Patient awake and stable before anesthesiologist left bedside room 218)
--- NOTE | 2018-04-07 11:00 | ECHO ---
[email or web address] [place] [id number] Main: [phone] Fax: Transesophageal Echocardiography Name: JAIME VALERIO MR#: [id number] Study Date: 04/07/2018 Study Time: 10:08 AM Date of : 1935 Age: 82 year(s) Height: ( ) Weight: ( ) BSA: Gender: Female Examination: VICKI Indication: Evaluate AVR Image Quality: Adequate Contrast: Requested by: Sixto Gallego Heart Rate: Rhythm: BP: / Procedure Staff Manager Of Community Relations: Jaja Graves RDCS Reading Physician: Deric Sandhu MD Requesting Provider: VICKI Exam Details Conclusions: 1)Low normal LV systolic function with a LVEF of 45% and mild to moderate LVH noted. 2)Bioprosthetic AVR with mild and AI. Peak and mean gradients are 27 and 18mmHg respectively. No severe perivalvular AI. 3)Mild to moderate MR without MV prolapse. 4)Mild TR noted. 5)No ASD or PFO noted by color Doppler. 6)No clot or thrombus noted in any of the four cardiac chambers or LA appendage. PW doppler velocity in LIGIA 35cm/sec. 7)Normal size ascending thoracic aorta with no dissection flap. Measurements: Chambers Valvular Assessment AV/MV Valvular Assessment TV/PV Normal Normal Normal Name Value Range Name Value Range Name Value Range Visual EF: 45 % AV Vmax: 2.50 m/s (1 m/s-1.7 m/s) AV maxP mmHg ( - ) AV meanP mmHg ( - ) Additional Measurements: Findings: Left Ventricle: Patient: JAIME VALERIO Study Date: 04/07/2018 Page 1 of 2 10:08 AM Normal size left ventricle. Low normal left ventricular systolic function. The ejection fraction is visually estimated to be 45 %. Left ventricular hypertrophy. Right Ventricle: Normal size right ventricle. Normal RV function. Mitral Valve: The mitral valve is normal in appearance and function. Mild to moderate mitral regurgitation. No mitral stenosis is present. Aortic Valve: The aortic valve is a bioprosthesis. The prosthetic aortic valve is normal. Mild prosthesis regurgitation. Aortic valve mean gradient measures 19 mmhg. Tricuspid Valve: The tricuspid valve is normal in appearance and function. Mild tricuspid regurgitation is present. l1n (No Signature Object) Patient: JAIME VALERIO Study Date: 04/07/2018 Page 2 of 2 10:08 AM [id number]
[2018-04-07] MEDS: ATORVASTATIN CALCIUM 20 MG TAB PO SCH (12:06)
[2018-04-07] MEDS: CALCIUM CARBONATE 500 MG TAB PO SCH (12:06)
[2018-04-07] MEDS: CLOPIDOGREL BISULFATE 75 MG TAB PO SCH (12:06)
[2018-04-07] MEDS: ASPIRIN EC 81 MG TAB PO SCH (12:06)
[2018-04-07] MEDS: CHOLECALCIFEROL VIT D3 1,000 UNITS TAB PO SCH (12:07)
[2018-04-07] MEDS: amLODIPine BESYLATE 5 MG TAB PO SCH (12:07)
[2018-04-07] MEDS: ENOXAPARIN 40 MG/0.4 ML SYR SC SCH (12:07)
[2018-04-07] MEDS: SENNOSIDES/DOCUSATE SODIUM TAB PO SCH ×2 (12:10→21:28)
[2018-04-07] MEDS: SERTRALINE HCL 25 MG TAB PO SCH (12:10)
[2018-04-07] MEDS: MULTIVITAMINS 1 EACH TAB PO SCH (12:10)
[2018-04-07] MEDS ORDERED: FUROSEMIDE 40 MG/4 ML VIAL IVP ONE (13:00)
--- NOTE | 2018-04-07 14:56 | HOSPPROG ---
Hospitalist Progress Note Assessment/Plan: #Chronic systolic HF: No edema on CXR (personally-reviewed); VICKI showed no significant perivalvular leak -increased Lasix to 40mg #Dyspnea: No embolism on CTA, no significant perivalvular leak. Cards concerned about instent thrombosis. Plan for cath Monday #CAD: h/o stents LAD, LCx, RCA. ASA, plavix, statin #Right flank/back pain: denies trauma. Per sons, was recently diagnosed with compression fractures. Followed by orthopedic, Dr. Mendez. Have brace fitting next . Pain controlled here. UA with some whites. Hold off abx until culture back #Indeterminate trop: due to . Mild T-wave abnormalities ant leads (seen on prior). No perfusion defects on stress in Nov #Osteoporosis: Ca/Vit D #Diet: cardiac, 2gm Na #Disp: warrants inpatient admission for diuresis, cath planned Monday Subjective: min flank pain this morning. No urinary symptoms Objective: Vital Signs Temp Pulse Resp BP Pulse Ox 36.5 C 51 L 14 143/74 H 96 04/07/18 11:46 04/07/18 11:46 04/07/18 11:46 04/07/18 11:46 04/07/18 11:46 Laboratory Results 04/05/18 04:07 04/05/18 04:07 04/06/18 04/07/18 04/08/18 05:59 05:59 05:59 Intake Total 800 850 250 Output Total 1350 1050 500 Balance -550 -200 -250 PT 13.8 SEC (12.0-15.0) 04/04/18 22:30 INR 1.04 (0.83-1.16) 04/04/18 22:30 - Time Spent With Patient Time Spent with Patient: greater than 35 minutes Time Spent with Patient: Greater than 35 minutes spent on this patients care, greater than 50% of time spent counseling, educating, and coordinating care regarding the above mentioned plan. - Physical Exam Constitutional: no apparent distress Eyes: PERRL Ears, Nose, Mouth, Throat: moist mucous membranes Cardiovascular: regular rate and rhythym Respiratory: no respiratory distress, No expiratory wheeze, No rhonchi Gastrointestinal: normoactive bowel sounds, soft, non-tender abdomen Genitourinary: other (no flank pain today) Musculoskeletal: full muscle strength, other (no pain over spine, right flank with palpation) Neurologic: AAOx3, CN II-XII Intact ICD10 Worksheet Patient Problems: Problems Problem Status Onset Chest pain Acute NSTEMI (non-ST elevated myocardial infarction) Acute Atrial flutter Acute Pulmonary emboli Acute Headache Acute Hypertension Acute Pelvic fracture Acute Elevated blood pressure reading Acute CAD (coronary artery disease) Acute Chest pain in adult Acute Dyspnea Acute Chest pain at rest Acute Troponin level elevated Acute Shortness of breath Acute
[2018-04-07] MEDS: ACETAMINOPHEN 325 MG TAB PO PRN (21:34)
[2018-04-08] MEDS: ACETAMINOPHEN 325 MG TAB PO PRN (04:00)
--- NOTE | 2018-04-08 08:36 | SOAPPROG ---
SOAP Progress Note Assessment/Plan: Assessment: 82 y/o woman with CAD s/p PCIs of all three epicardial vessels in past by Dr. Evan Pollard with PCI of instent restenosis last year. Also with BIOAVR in 2015 , CHF LVEF 45% and compression thoracic spine fractures with 2-3 hospitalizations for mild CHF flares and borderline troponin leak. VICKI yesterday showed LVEF 45% with mild prosthetic and AI, mild-moderate MR and mild TR. Her compression fractures could be making breathing difficult but wouldn't explain her troponin rise. I am concerned she has new obstructive CAD with possible another instent restenosis. She appears euvolemic on exam today. PLAN: 1)no change in current meds. 2)L/R cardiac cath Monday by Dr. Jorge Tijerina. 3)NPO after midnight tonight. 04/08/18 08:32 Subjective: no new complaints. No CP or sense of dyspnea for last 24hrs. Denies PND, orthopnea, palpitations or cough. No sore throat after VICKI from yesterday. Objective: Vital Signs Temp Pulse Resp BP Pulse Ox 36.6 C 64 14 133/79 H 94 04/08/18 07:05 04/08/18 07:05 04/08/18 07:05 04/08/18 07:05 04/08/18 07:05 Laboratory Results 04/08/18 03:52 04/08/18 03:52 04/07/18 04/08/18 04/09/18 05:59 05:59 05:59 Intake Total 850 1640 Output Total 1050 1325 Balance -200 315 PT 13.8 SEC (12.0-15.0) 04/04/18 22:30 INR 1.04 (0.83-1.16) 04/04/18 22:30 Physical Exam - Physical Exam General Appearance: alert EENT: normal ENT inspection Neck: full range of motion Respiratory: lungs clear Cardiac/Chest: regular rate, rhythm, systolic murmur, No gallop, No JVD Peripheral Pulses: 2+: carotid (R), carotid (L), femoral (R), femoral (L), dorsalis-pedis (R), dorsalis-pedis (L) Abdomen: non-tender, No guarding, No hepatomegaly Skin: warm/dry Extremities: No pedal edema Neuro/Psych: alert ICD10 Worksheet Patient Problems: Problems Problem Status Onset Chest pain Acute Atrial flutter Acute CAD (coronary artery disease) Acute Chest pain at rest Acute Chest pain in adult Acute Dyspnea Acute Elevated blood pressure reading Acute Headache Acute Hypertension Acute NSTEMI (non-ST elevated myocardial infarction) Acute Pelvic fracture Acute Pulmonary emboli Acute Shortness of breath Acute Troponin level elevated Acute
[2018-04-08] MEDS ORDERED: NITROGLYCERIN 0.4 MG BTL SL PRN (08:37)
[2018-04-08] MEDS ORDERED: TEMAZEPAM 15 MG CAP PO PRN (08:37)
[2018-04-08] MEDS ORDERED: ACETAMINOPHEN 325 MG TAB PO PRN (08:37)
[2018-04-08] MEDS: ATORVASTATIN CALCIUM 20 MG TAB PO SCH (10:03)
[2018-04-08] MEDS: FUROSEMIDE 40 MG TAB PO SCH (10:03)
[2018-04-08] MEDS: CALCIUM CARBONATE 500 MG TAB PO SCH (10:04)
[2018-04-08] MEDS: SENNOSIDES/DOCUSATE SODIUM TAB PO SCH ×2 (10:04→20:34)
[2018-04-08] MEDS: CHOLECALCIFEROL VIT D3 1,000 UNITS TAB PO SCH (10:04)
[2018-04-08] MEDS: SERTRALINE HCL 25 MG TAB PO SCH (10:05)
[2018-04-08] MEDS: CLOPIDOGREL BISULFATE 75 MG TAB PO SCH (10:05)
[2018-04-08] MEDS: ASPIRIN EC 81 MG TAB PO SCH (10:05)
[2018-04-08] MEDS: MULTIVITAMINS 1 EACH TAB PO SCH (10:05)
[2018-04-08] MEDS: amLODIPine BESYLATE 5 MG TAB PO SCH (10:05)
[2018-04-08] MEDS: ENOXAPARIN 40 MG/0.4 ML SYR SC SCH (10:05)
--- NOTE | 2018-04-08 15:31 | ASMTCMCOM ---
CM Note CM Note Notes: 04/08/2018 Case Management Note Discussed pt with RN. Cath planned for Monday. Case Management d/c poc: to be determined. Case Mangement to follow. Date Signed: 04/08/2018 03:31 PM Electronically Signed By:Risa Huffman RN
--- NOTE | 2018-04-08 16:00 | HOSPPROG ---
Hospitalist Progress Note Assessment/Plan: #Chronic systolic HF: No edema on CXR (personally-reviewed); VICKI showed no significant perivalvular leak -increased Lasix to 40mg #Dyspnea: No embolism on CTA, no significant perivalvular leak. Cards concerned about instent thrombosis. Cath in morning -Anxiety may be contributing to these symptoms #CAD: h/o stents LAD, LCx, RCA. ASA, plavix, statin #Questionable cognitive impairment: cog eval pending #Compression fractures: recently diagnosed. Followed by orthopedic, Dr. Mendez; brace fitting. . Pain controlled here. UA with some whites, no urinary symptoms #Indeterminate trop: due to . Mild T-wave abnormalities ant leads (seen on prior). No perfusion defects on stress in Nov #Osteoporosis: Ca/Vit D #Diet: cardiac, 2gm Na. NPO after midnight #Disp: warrants inpatient admission for diuresis, cath tomorrow Subjective: no SOB, CP Objective: Vital Signs Temp Pulse Resp BP Pulse Ox 36.4 C 78 14 138/81 H 94 04/08/18 15:03 04/08/18 15:03 04/08/18 15:03 04/08/18 15:03 04/08/18 15:03 Laboratory Results 04/08/18 03:52 04/08/18 03:52 04/07/18 04/08/18 04/09/18 05:59 05:59 05:59 Intake Total 850 1640 120 Output Total 1050 1325 775 Balance -200 315 -655 PT 13.8 SEC (12.0-15.0) 04/04/18 22:30 INR 1.04 (0.83-1.16) 04/04/18 22:30 - Physical Exam Constitutional: no apparent distress Eyes: PERRL Ears, Nose, Mouth, Throat: moist mucous membranes Cardiovascular: regular rate and rhythym Respiratory: no respiratory distress, No expiratory wheeze, No inspiratory crackles Gastrointestinal: normoactive bowel sounds Genitourinary: no bladder fullness Skin: warm Neurologic: AAOx3 Psychiatric: interacting appropriately ICD10 Worksheet Patient Problems: Problems Problem Status Onset Chest pain Acute Atrial flutter Acute CAD (coronary artery disease) Acute Chest pain at rest Acute Chest pain in adult Acute Dyspnea Acute Elevated blood pressure reading Acute Headache Acute Hypertension Acute NSTEMI (non-ST elevated myocardial infarction) Acute Pelvic fracture Acute Pulmonary emboli Acute Shortness of breath Acute Troponin level elevated Acute
[2018-04-09 04:24] LABS: INR 1.06 (0.83-1.16)
[2018-04-09 04:45] LABS: PLATELET COUNT 118 10^3/uL (150-400)
[2018-04-09] MEDS ORDERED: diphenhydrAMINE 25 MG CAP PO ONE ×2 (06:00→09:45)
[2018-04-09] MEDS ORDERED: FAMOTIDINE 20 MG TAB PO ONE ×2 (06:00→09:45)
[2018-04-09] MEDS ORDERED: DIAZEPAM 5 MG TAB PO ONE ×2 (06:00→09:45)
[2018-04-09] MEDS ORDERED: ASPIRIN EC 325 MG TAB PO ONE ×2 (06:00→09:45)
[2018-04-09] MEDS ORDERED: NS 1,000 ML IV ONE (06:00)
--- NOTE | 2018-04-09 09:03 | CPEKG ---
Heart Rate: 69 RR Interval: 870 P-R Interval: 208 QRSD Interval: 102 QT Interval: 440 QTC Interval: 472 P [place]: 70 QRS [place]: -57 T Wave [place]: 108 EKG Severity - ABNORMAL ECG - EKG Impression: SINUS RHYTHM EKG Impression: VENTRICULAR PREMATURE COMPLEX EKG Impression: PROBABLE LEFT ATRIAL ABNORMALITY EKG Impression: LEFT ANTERIOR FASCICULAR BLOCK Electronically Signed By: Darren Maloney 11-Apr-2018 07:31:59
[2018-04-09] MEDS: SERTRALINE HCL 25 MG TAB PO SCH (09:05)
[2018-04-09] MEDS: CLOPIDOGREL BISULFATE 75 MG TAB PO SCH (09:05)
[2018-04-09] MEDS: amLODIPine BESYLATE 5 MG TAB PO SCH (09:05)
[2018-04-09] MEDS: ATORVASTATIN CALCIUM 20 MG TAB PO SCH (09:05)
[2018-04-09] MEDS: ASPIRIN EC 81 MG TAB PO SCH (09:05)
[2018-04-09] MEDS: FUROSEMIDE 40 MG TAB PO SCH (09:05)
[2018-04-09] MEDS ORDERED: LIDOCAINE 1% 300 MG/30 ML SDV ONE (09:49)
[2018-04-09] MEDS ORDERED: MIDAZOLAM 2 MG/2 ML VIAL ONE (09:49)
[2018-04-09] MEDS ORDERED: fentaNYL 100 MCG/2 ML INJ ONE ×2 (09:49→16:31)
[2018-04-09] MEDS ORDERED: IOPAMIDOL (ISOVUE-370) 150 ML BTL IV ONE (09:50)
--- NOTE | 2018-04-09 10:06 | PDHPUP ---
History & Physical Update H&P update statement: This history and physical update is based on an assessment of the patient which was completed after admission or registration (within 24 hours), but prior to the surgery/procedure. H&P update: H&P reviewed & patient examined, no change in patient's condition since H&P completed
--- NOTE | 2018-04-09 10:07 | PDPROPOC ---
Sedation Plan of Care Sedation Plan of Care: vital signs stable, mental status noted, patient educated of risks, benefits, alternatives, patient can tolerate sedation ASA Classification: ASA 2 Planned drugs: fentanyl, midazolam Mallampati Score: Class 1 Mallampati Reference Image: Patient passed 3-3-2 rule?: Yes
[2018-04-09] MEDS ORDERED: HEPARIN 10,000 UNIT/10 ML MDV (1,000 UNIT/ML) ONE (10:34)
--- NOTE | 2018-04-09 11:00 | PDDXCAT ---
Diagnostic Cath Note - . Date: 04/09/18 [facility] Case Manager: Breezy Indication: other (NON Q SC) - Procedure Access: right groin Procedure: left heart catheterization - Materials Left Heart Cath size: 6F Left Heart Cath materials: JL4.0, JR4.0 - Findings-Left Heart Catheterization LM: Unobstructed LAD: Heavily stented. Distal to the distal stent 50% InStent restenosis unchanged. Distal diagonal stents restenosed a 90% also unchanged LCX: Heavily stented. Obtuse marginal branch now occluded with [id number] collaterals. Likely culprit vessel compared to last angiogram. RCA: Heavily stented widely patent Complications: None Estimated blood loss: <50ml Closure method: Angioseal Assessment: Non-Q-wave myocardial infarction with thrombotic occlusion of the obtuse marginal branch stent. Widely patent LAD, right coronary artery stents with stable in stent restenosis. Plan: Attempted PCI Intervention: After reviewing diagnostic angiograms it was elected to proceed with PCI. Patient was anticoagulated with heparin. Using a 6 [place] EBU 3.75 guiding catheter left main coronary selectively intubated. Using a 0.014 jet pilot 50 wire attempts at crossing the obtuse marginal stent were attempted. The wire would not advance beyond the proximal segment. The wire was supported with a 2 mm balloon. Again it would not cross beyond the proximal obtuse marginal stent. The wire was withdrawn. Using a 0.014 [employer] guidewire attempts again were made. By palpation this felt like a chronic occlusion. With adequate support we were unable to cross the obtuse marginal stent. Was elected to stop at this time with excellent collaterals and no resting pain with stable hemodynamics. Conclusions: Non-Q-wave myocardial infarction with inclusion of the circumflex artery/obtuse marginal stent. Failed PCI. Recommend continued aggressive medical therapy with clinical follow-up Patient Problems: Problems Problem Status Onset Chest pain Acute NSTEMI (non-ST elevated myocardial infarction) Acute Atrial flutter Acute Pulmonary emboli Acute Headache Acute Hypertension Acute Pelvic fracture Acute Elevated blood pressure reading Acute CAD (coronary artery disease) Acute Chest pain in adult Acute Dyspnea Acute Chest pain at rest Acute Troponin level elevated Acute Shortness of breath Acute
--- NOTE | 2018-04-09 13:22 | HOSPPROG ---
Hospitalist Progress Note Assessment/Plan: Was not able to see patient since she was in procedure #NSTEMI/CAD: occluded LCX/Om with collaterals. Aggressive medical management #Chronic systolic HF: No edema on CXR (personally-reviewed); VICKI showed no significant perivalvular leak -increased Lasix to 40mg #Dyspnea: No embolism on CTA, no significant perivalvular leak. Cards concerned about instent thrombosis. -Anxiety may be contributing to these symptoms #Questionable cognitive impairment: . Need to speak with family about safety at home #Compression fractures: recently diagnosed. Followed by orthopedic, Dr. Mendez; brace fitting. . Pain controlled here. UA with some whites, no urinary symptoms #Osteoporosis: Ca/Vit D #Diet: cardiac, 2gm Na #Disp: warrants inpatient admission for post-care Subjective: no acute event overnight Objective: Vital Signs Temp Pulse Resp BP Pulse Ox 36.6 C 56 L 16 144/57 H 96 04/09/18 07:22 04/09/18 07:22 04/09/18 07:22 04/09/18 07:22 04/09/18 07:22 Laboratory Results 04/09/18 03:48 04/09/18 03:48 04/08/18 04/09/18 04/10/18 05:59 05:59 05:59 Intake Total 1640 1240 Output Total 1325 1325 Balance 315 -85 PT 14.0 SEC (12.0-15.0) 04/09/18 03:48 INR 1.06 (0.83-1.16) 04/09/18 03:48 ICD10 Worksheet Patient Problems: Problems Problem Status Onset Chest pain Acute Atrial flutter Acute CAD (coronary artery disease) Acute Chest pain at rest Acute Chest pain in adult Acute Dyspnea Acute Elevated blood pressure reading Acute Headache Acute Hypertension Acute NSTEMI (non-ST elevated myocardial infarction) Acute Pelvic fracture Acute Pulmonary emboli Acute Shortness of breath Acute Troponin level elevated Acute
[2018-04-09] MEDS ORDERED: METOPROLOL TARTRATE 50 MG TAB PO ONE (13:30)
[2018-04-09] MEDS ORDERED: ATROPINE SULFATE 1 MG/10 ML SYR ONE (15:52)
[2018-04-09] MEDS ORDERED: hydrALAZINE 20 MG/ML VIAL ONE (15:59)
[2018-04-09] MEDS ORDERED: hydrALAZINE 20 MG/ML VIAL IVP ONE (16:15)
[2018-04-09] MEDS ORDERED: traMADol 50 MG TAB ONE (16:24)
[2018-04-09] MEDS ORDERED: traMADol 50 MG TAB PO PRN (16:30)
[2018-04-09] MEDS ORDERED: fentaNYL 100 MCG/2 ML INJ IV ONE (16:45)
[2018-04-09] MEDS: CALCIUM CARBONATE 500 MG TAB PO SCH (17:01)
[2018-04-09] MEDS: MULTIVITAMINS 1 EACH TAB PO SCH (17:02)
[2018-04-09] MEDS: SENNOSIDES/DOCUSATE SODIUM TAB PO SCH ×2 (17:02→20:28)
[2018-04-09] MEDS: CHOLECALCIFEROL VIT D3 1,000 UNITS TAB PO SCH (17:02)
[2018-04-10] MEDS: ACETAMINOPHEN 325 MG TAB PO PRN (05:22)
--- NOTE | 2018-04-10 09:53 | SOAPPROG ---
GABE Progress Note Assessment/Plan: Assessment: Problem list: 1. Non-Q-wave myocardial infarction with occlusion of the stent to the obtuse marginal branch. 2. Preserved LV systolic function 3. Severe coronary artery disease with multivessel PCI and failed bypass grafting. 4. Hypertension 5. Hyperlipidemia 6. Chronic back and chest pain. Impression: Completed lateral wall myocardial infarction associated with overall preserved LV systolic function occluded stent. Revascularization could not be performed secondary to likely chronic occlusion of the stent. Patient this morning is pain-free on good medical therapy. Stable hemodynamics. Recommendations: Optimization of medical therapy to include low-dose beta-mir for control of blood pressure as well as post myocardial infarction reduction in event rate. Continue antiplatelet agents. Continue calcium channel mir. Cardiac rehabilitation. Close clinical follow-up. Increase statin to maximum dose to achieve LDL cholesterol less than 70 mg/dL. 04/10/18 09:54 Subjective: Feeling well. Back at baseline. No significant chest pain or back pain. No nausea or vomiting. No difficulty of puncture site. Cardiac review of systems is negative for chest pain, shortness of breath, PND , orthopnea, palpitations, syncope, near syncope, edema. Objective: Medications Generic Name Dose Route Start Last Admin Trade Name Freq PRN Reason Stop Dose Admin Amlodipine Besylate 5 mg 04/05/18 12:00 04/09/18 09:05 Norvasc PO 10/02/18 11:59 5 mg DAILY [facility] Clopidogrel Bisulfate 75 mg 04/06/18 09:00 04/09/18 09:05 Plavix PO 10/03/18 08:59 75 mg DAILY [facility] Furosemide 40 mg 04/08/18 09:00 04/09/18 09:05 Lasix PO 10/05/18 08:59 40 mg DAILY [facility] Aspirin Buffered 81 mg 04/06/18 09:00 04/09/18 09:05 Aspirin Ec PO 10/03/18 08:59 81 mg DAILY [facility] Atorvastatin Calcium 20 mg 04/06/18 09:00 04/09/18 09:05 Lipitor PO 10/03/18 08:59 20 mg DAILY [facility] Discontinued Medications Generic Name Dose Route Start Last Admin Trade Name Freq PRN Reason Stop Dose Admin Metoprolol Tartrate 50 mg 04/09/18 13:30 04/09/18 13:49 Lopressor PO 04/09/18 13:31 50 mg ONCE ONE Vital Signs Temp Pulse Resp BP Pulse Ox 36.6 C 52 L 16 144/63 H 96 04/10/18 08:00 04/10/18 08:00 04/10/18 08:00 04/10/18 08:00 04/10/18 08:00 Laboratory Results 04/09/18 03:48 04/09/18 03:48 04/09/18 04/10/18 04/11/18 05:59 05:59 05:59 Intake Total 1240 600 Output Total 1325 800 Balance -85 -200 PT 14.0 SEC (12.0-15.0) 04/09/18 03:48 INR 1.06 (0.83-1.16) 04/09/18 03:48 Laboratory Tests 04/04/18 04/05/18 04/08/18 22:30 04:07 03:52 Troponin I 0.037 H NT-Pro-B Natriuret Pep 540 H 656 H LDL Cholesterol, Calc 04/09/18 03:48 Troponin I NT-Pro-B Natriuret Pep LDL Cholesterol, Calc 93 Physical Exam - Physical Exam General Appearance: alert, no apparent distress EENT: PERRL/EOMI Neck: full range of motion Respiratory: chest non-tender, lungs clear Cardiac/Chest: regular rate, rhythm, No edema, No gallop, No JVD Peripheral Pulses: 1+: carotid (R), carotid (L), femoral (R), femoral (L) Abdomen: normal bowel sounds, non-tender, soft Back: Normal inspection Skin: warm/dry Neuro/Psych: no motor/sensory deficits, alert ICD10 Worksheet Patient Problems: Problems Problem Status Onset Chest pain Acute NSTEMI (non-ST elevated myocardial infarction) Acute Atrial flutter Acute Pulmonary emboli Acute Headache Acute Hypertension Acute Pelvic fracture Acute Elevated blood pressure reading Acute CAD (coronary artery disease) Acute Chest pain in adult Acute Dyspnea Acute Chest pain at rest Acute Troponin level elevated Acute Shortness of breath Acute
[2018-04-10] MEDS: amLODIPine BESYLATE 5 MG TAB PO SCH (09:56)
[2018-04-10] MEDS: CLOPIDOGREL BISULFATE 75 MG TAB PO SCH (09:56)
[2018-04-10] MEDS: ATORVASTATIN CALCIUM 20 MG TAB PO SCH (09:56)
[2018-04-10] MEDS: CHOLECALCIFEROL VIT D3 1,000 UNITS TAB PO SCH (09:57)
[2018-04-10] MEDS: SERTRALINE HCL 25 MG TAB PO SCH (09:57)
[2018-04-10] MEDS: CALCIUM CARBONATE 500 MG TAB PO SCH (09:57)
[2018-04-10] MEDS: FUROSEMIDE 40 MG TAB PO SCH (09:57)
[2018-04-10] MEDS: ASPIRIN EC 81 MG TAB PO SCH (09:57)
[2018-04-10] MEDS: MULTIVITAMINS 1 EACH TAB PO SCH (09:57)
[2018-04-10] MEDS: SENNOSIDES/DOCUSATE SODIUM TAB PO SCH (09:58)
[2018-04-10] MEDS ORDERED: METOPROLOL SUCCINATE XR 50 MG TAB PO SCH (10:00)
[2018-04-10] MEDS ORDERED: ATORVASTATIN CALCIUM 40 MG TAB PO SCH (10:00)
[2018-04-10] MEDS ORDERED: ATORVASTATIN CALCIUM 20 MG TAB PO ONE (10:30)
--- NOTE | 2018-04-10 11:51 | ASMTDCNOTE ---
Case Management Discharge Discharge Order Complete? Answers: Yes Patient to Obtain Answers: via Family Medications Transportation Arranged Answers: Family/Friends EMTALA Complete Answers: No Case Management Transport Answers: No Form Complete Faxed Final Orders Answers: No Agency/Facility Transfer Answers: No Report Printed & Faxed to Receiving Agency Family Notified Answers: No Discharge Comments Notes: CM spoke to ETTA Mack and Dr. Heredia regarding d/c POC. Pt is being discharged today. No needs identified at this time. CM available for changes. Plan: Independent Date Signed: 04/10/2018 11:50 AM Electronically Signed By:CARMELINA Wang
--- NOTE | 2018-04-10 13:11 | ASMTCMCOM ---
CM Note CM Note Notes: CM spoke to Ailin w/ PT and she is recommending HC. CM met w/ pt for dispo planning. Pt is not interested in HC at this time. Pt reports that she plans on staying w/ her son Fer for 2 weeks. Pt reports that her son Fer treats her like a marmolejo. No other needs at this time. Date Signed: 04/10/2018 01:11 PM Electronically Signed By:CARMELINA Wang
[2018-04-10 13:35] VITALS: BP 103/65
--- NOTE | 2018-04-10 13:45 | GDS ---
[f rep st] DISCHARGE SUMMARY DISCHARGE DIAGNOSES: 1. Qfc-QP-[id number] elevation myocardial infarction- obtuse marginal branch occlusion. 2. Severe CAD with multivessel PCI and bypass grafting. 3. Hypertension. 4. Hyperlipidemia. 5. Chronic back pain secondary to compression fracture. 6. Cognitive impairment. 7. Osteoporosis. 8. Chronic systolic heart failure. 9. Atrial fibrillation. PROCEDURES: Cardiac catheterization, 03/02, heavily stented. 50% in -stent restenoses, unchanged. Distal diagonal stent restenosed 90%, unchanged. Left circumflex obtuse marginal branch now occluded with ozax-ia-warf collaterals. Likely culprit vessel compared to last angiogram. RCA heavily stented and widely patent. HISTORY OF PRESENT ILLNESS: An 82-year-old female with coronary artery disease , status post CABG and stenting, ischemic cardiomyopathy, atrial fibrillation, and bioprosthetic AV, presents with chest tightness. She reports tightness starting at 8:30 p.m. the night of admission, but denies other associated symptoms. She had been admitted the week prior for similar symptoms. She was evaluated by Cardiology at that time. Suspected symptoms were driven by CHF exacerbation and valvular disease. She appeared at this admission euvolemic. HOSPITAL COURSE BY PROBLEM: 1. Chest pain: cath showed occluded obtuse marginal branch with collaterals. No significant perivalvular leak. Goal is aggressive medical management. Increase atorvastatin to 80 mg. Add metoprolol 25 and increase Lasix to 40 mg. 2. Chronic systolic heart failure: Lasix increased to 40mg, BB 3. Dyspnea: CTA was negative for PE. There was no significant perivalvular leak. Again, likely secondary to occluded OM. Suspect anxiety is contributing to these symptoms. Per son, she is very anxious at home. 4. Chronic encephalopathy/dementia: cognitive evaluation . Has / care with son at home. 5. Compression fractures: recently diagnosed and will see Dr. Mendez for brace fitting this week. 6. Osteoporosis: Continue calcium and vitamin D. DISPOSITION: Patient is stable for discharge home with her family. DISCHARGE MEDICATIONS: Atorvastatin 80 mg, Lasix 40 mg daily, Toprol 25 mg FOLLOWUP: 1. Dr. Tijerina. 2. Primary care physician. 3. Dr. Mendez, Orthopedics, for brace fitting. PHYSICAL EXAMINATION: VITAL SIGNS: Today, temperature 36.4, blood pressure 144 /63. Heart rate is in the 50s to 60s, respirations 16, 94% on room air. GENERAL : Well appearing, sitting up in bed, in no acute distress. HEENT: PERRLA. Moist mucous membranes. CV: Regular rate. No murmurs present. +1 lower extremity edema. LUNGS: Clear. ABDOMEN: Soft, nontender, nondistended. Positive bowel sounds. NEURO: 2 through 12 intact. PSYCH: Alert and oriented. Time spent on discharge: Greater than 30 minutes coordinating discharge and followup plan. /[id number]/MODL MTDD
== END 2018-04-10 17:05 | disposition home or self-care (01) | DRG 281 ==
LOC: OBSVTOIN 04-05 00:27 → F2W 04-05 00:55
PROVIDERS: ADMIT Student in an Organized Health Care Education/Training Program; ATTEND Student in an Organized Health Care Education/Training Program
PROC: B246ZZ4 Ultrasonography of Right and Left Heart, Transesophageal (ICD-10-PCS; principal; 2018-04-07)
PROC: 4A023N7 Measurement of Cardiac Sampling and Pressure, Left Heart, Percutaneous Approach (ICD-10-PCS; 2018-04-09)
DX: I21.4 Non-ST elevation (NSTEMI) myocardial infarction (principal); T82.855A Stenosis of coronary artery stent, initial encounter; I11.0 Hypertensive heart disease with heart failure; I50.22 Chronic systolic (congestive) heart failure; I25.5 Ischemic cardiomyopathy; I25.10 Atherosclerotic heart disease of native coronary artery without angina pectoris; E78.5 Hyperlipidemia, unspecified; G89.29 Other chronic pain; M81.0 Age-related osteoporosis without current pathological fracture; I48.91 Unspecified atrial fibrillation; F03.90 Unspecified dementia, unspecified severity, without behavioral disturbance, psychotic disturbance, mood disturbance, and anxiety; Z95.3 Presence of xenogenic heart valve
CPT/HCPCS: 84484-PO; 92507-GN; 92523-GN; 97161-GP; C1725; C1769; C1887; G8978-GP-CJ; G8979-GP-CI; G9165-GN-CK; G9166-GN-CJ; J0360; J0461; J1644; J1650; J1940; J2250; J2704; J3010; Q9967

== ENCOUNTER → 2018-04-04 | Outpatient (CLI) | payer OTHER, BC | LOC: BHFA 15:15 | PROVIDERS: ATTEND Internal Medicine Cardiovascular Disease | DX: Z95.2 Presence of prosthetic heart valve (principal); I50.9 Heart failure, unspecified; I35.0 Nonrheumatic aortic (valve) stenosis ==

== ENCOUNTER 2018-04-17 18:50 | Emergency (ER) | payer OTHER, BC ==
--- NOTE | 2018-04-17 19:07 | CPEKG ---
Heart Rate: 53 RR Interval: 1132 P-R Interval: 208 QRSD Interval: 100 QT Interval: 488 QTC Interval: 459 P [place]: 48 QRS [place]: -38 T Wave [place]: 121 EKG Severity - ABNORMAL ECG - EKG Impression: SINUS RHYTHM EKG Impression: PROBABLE LEFT ATRIAL ABNORMALITY EKG Impression: LEFT AXIS DEVIATION EKG Impression: NONSPECIFIC T ABNORMALITIES, LATERAL LEADS Electronically Signed By: Arnaldo Godoy 17-Apr-2018 20:05:11
[2018-04-17 19:32] LABS: PLATELET COUNT 127 10^3/uL (150-400)
[2018-04-17 19:40] LABS: INR 1.06 (0.83-1.16)
[2018-04-17] MEDS ORDERED: VANCOMYCIN HCL/NORMAL SALINE 250 ML IV ONE (19:41)
--- NOTE | 2018-04-17 19:55 | EDPHY ---
H & P Stated Complaint: substernal chest tightness/pain/sob Time Seen by Provider: 04/17/18 19:11 HPI/ROS: CHIEF COMPLAINT: Chest tightness HISTORY OF PRESENT ILLNESS: This is an 82-year-old with coronary artery disease status post CABG and stenting, hypertension, and a bioprosthetic aortic valve who presents with chest tightness. She was admitted to this hospital on April 05 with the same complaint. During that visit she was diagnosed with a completed lateral wall [place] and she underwent cardiac catheterization where she was found to have an occluded stent. Revascularization could not be performed and it is thought that the occlusion is chronic. She was also admitted to this hospital the week before that with similar symptoms. She was also admitted to [facility] 5 days ago with similar complaints and discharged home after evaluation. She states that the chest pressure began about 2 hr ago. She has some mild shortness of breath. She has not noted any lower extremity edema. She denies PND and orthopnea. No lightheadedness. She took 2 nitroglycerin without relief. She now complains of a mild headache but states that she continue have some slight substernal tightness. REVIEW OF SYSTEMS: A ten point review of systems was performed and is negative with the exception of the items mentioned in the HPI. Past medical history: 1. Coronary artery disease, status post CABG and stenting 2. ICM 3. AF 4. Hypertension next number 5. Bioprosthetic aortic valve 6. Hyperlipidemia 7. Chronic back pain 8. Chronic chest pain Past surgical history: 1. Coronary artery bypass grafting Social history: Until recently she lived alone, she is now living with her son who was present tonight. No tobacco or alcohol. General Appearance: Alert. Vital signs reviewed. 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 No conjunctival injection, no discharge. Anicteric. ENT, Mouth: Mucous membranes are moist, no oropharyngeal erythema or edema. Neck: No lymphadenopathy, supple. Respiratory: Lungs are clear to auscultation; no wheezes, rales, or rhonchi. Cardiovascular: Regular rate and rhythm. Gastrointestinal: Abdomen is soft and nontender, no masses or organomegaly, bowel sounds normal. Skin: Warm and dry, no rashes on exposed skin, normal color. Back: Nontender to palpation over the thoracolumbar spine. No CVAT. Extremities: No lower extremity edema, no calf tenderness or swelling. Neurological: Alert and oriented. Moving all four extremities easily and equally. Psychiatric: Normal affect. - Personal History Current Tetanus Diphtheria and Acellular Pertussis (TDAP): Yes - Medical/Surgical History Hx Asthma: No Hx Chronic Respiratory Disease: Yes Hx Diabetes: No Hx Cardiac Disease: Yes Hx Renal Disease: No Hx Cirrhosis: No Hx Alcoholism: No Hx HIV/AIDS: No Hx Splenectomy or Spleen Trauma: No Other PMH: Home 02, 6 STENTS 2014, CABG 2012, endarterectomy(rt), HTN, headaches , AFIB, blind in rt eye, AORTIC VALVE REPLACEMENT, csection x 2, pe post valve replacement. - Social History Smoking Status: Never smoked Constitutional: Initial Vital Signs Temperature (C) 36.6 C 04/17/18 18:55 Heart Rate 58 L 04/17/18 18:55 Respiratory Rate 19 04/17/18 18:55 Blood Pressure 144/65 H 04/17/18 18:55 O2 Sat (%) 94 04/17/18 18:55 O2 Delivery Mode Room Air Allergies/Adverse Reactions: Penicillins Allergy (Intermediate, Verified 04/17/18 18:54) Hives Home Medications: Medication Instructions Recorded Cholecalciferol Vit D3 [Vitamin D3 1,000 units PO DAILY 10/19/13 (*)] Multivitamins [Multivitamin (*)] 1 each PO DAILY 10/19/13 Clopidogrel Bisulfate [Plavix (*)] 75 mg PO DAILY 10/24/13 Herbals/Supplements -Info Only 1 ea PO DAILY 05/18/16 Calcium Carbonate [Oyster Shell 500 mg PO DAILY 10/11/16 Calcium 500 mg (*)] Nitroglycerin [Nitrostat 0.4 mg 0.4 mg SL Q5M PRN 10/19/16 (*)] amLODIPine BESYLATE [Norvasc 5 mg 5 mg PO DAILY 10/19/16 (*)] Aspirin EC [Aspirin EC 81 mg (*)] 81 mg PO DAILY #0 tab 10/24/16 Acetaminophen [Tylenol 325mg (*)] 650 mg PO Q4HRS PRN tab 03/31/18 Sertraline HCl [Zoloft 25mg (*)] 25 mg PO DAILY 04/05/18 traMADol [Ultram 50 mg (*)] 50 mg PO Q6HRS PRN 06/21/18 Acetaminophen [Tylenol 325mg (*)] 650 mg PO Q4HRS PRN tab 04/10/18 Atorvastatin Calcium 80 mg PO DAILY #30 tablet 04/10/18 Furosemide [Lasix 40 MG (*)] 40 mg PO DAILY #30 tab 04/10/18 Metoprolol Succinate Xr [Toprol Xl 25 mg PO DAILY #30 tab.sr 04/10/18 25 mg (*)] Isosorbide Mononitrate [Imdur 30 20 mg PO BIDNITRATE #60 tab.sr 04/17/18 mg (*)] Medical Decision Making - Diagnostics EKG Interpretation: 12 lead EKG is interpreted in Trace master View by emergency department physician. ED Course/Re-evaluation: This is an 82-year-old female with severe coronary artery disease who has undergone bypass grafting. Recent cardiac catheterization showed multivessel disease and an occluded stent. Revascularization could not be performed. Medical management has been recommended. She is compliant with her medications. She presents tonight with chest pain. She was admitted to another hospital less than a week ago with a complaint of chest pain, evaluated , and discharged. I reviewed her chest x-ray which is essentially unchanged compared to 1 last month. She does have some cardiomegaly but no acute changes such as effusion or infiltrate. I do not suspect pneumonia. Her history is not consistent with a diagnosis of PE. I have also reviewed her EKG. Laboratory studies are reviewed. Her troponin is normal. Hemoglobin and been and hematocrit are 11.8 in 36.4, down from 13.7 and 43 on April 09. She is noted to have a BNP of 1150, up from 656 on April 08. I do not see signs of heart failure on her chest x-ray or new evidence of heart failure on physical examination. However, she will need to be closely observed. I spoke with Dr. Perales, road commissioner for Cardiology. I reviewed this patient's history with him and he recommend starting Imdur 20 mg twice daily. She was given her 1st dose in the emergency department. Close cardiology follow-up has been recommended. She has an appointment with Dr. Max Akhtar on April 23. Both she and her son understand the danger signs that should prompt her to return. At the time of her discharge she is pain free, back to baseline. I think that there might be a component of anxiety in her presentation, but given her known diffuse coronary artery disease, the prudent approach is to continue to try to maximize her medical management. Differential Diagnosis: Chest pain including but not limited to myocardial ischemia, pulmonary embolus, chest wall pain, pleural inflammation and pulmonary infectious causes. - Data Points Laboratory Results: Laboratory Results 04/17/18 19:15 04/17/18 19:15 Medications Given: Discontinued Medications Acetaminophen (Tylenol) 1,000 mg PO EDNOW ONE Stop: 04/17/18 20:13 Last Admin: 04/17/18 20:14 Dose: 1,000 mg Vancomycin/Sodium Chloride (Vancomycin 1 Gm (Premix)) 250 mls @ 250 mls/hr IV EDNOW ONE PRN Reason: Protocol Stop: 04/17/18 20:40 Last Admin: 04/17/18 19:42 Dose: Not Given Isosorbide Mononitrate (Isosorbide Mononitrate) 20 mg PO EDNOW ONE Stop: 04/18/18 20:55 Last Admin: 04/17/18 21:22 Dose: 20 mg Point of Care Test Results: Chemistry 04/17/18 19:31 POC Troponin I 0.05 ng/mL ng/mL (0.00-0.08) Departure - Departure Disposition: Home, Routine, Self-Care Clinical Impression: Angina at rest Condition: Fair Instructions: Angina (ED) Additional Instructions: I spoke with the test tech on duty and he recommends adding a new medication. It is called Imdur and it works like the nitroglycerin that you put under your tongue. You should take this medication once in the morning and once at night, 20 mg each time. You have an appointment with Dr. Max Akhtar on April 23. Referrals: RHONDA LEE [Other] - As per Instructions Prescriptions: Isosorbide Mononitrate [Imdur 30 mg (*)] 20 mg PO BIDNITRATE #60 tab.sr
[2018-04-17] MEDS ORDERED: ACETAMINOPHEN 500 MG TAB PO ONE (20:12)
[2018-04-17 21:25] VITALS: BP 164/79
[2018-04-18] MEDS ORDERED: ISOSORBIDE MONONITRATE 30 MG TAB.SR PO ONE (20:53)
[2018-04-18] MEDS ORDERED: ISOSORBIDE MONONITRATE 20 MG TAB PO ONE (20:54)
== END 2018-04-17 21:29 | disposition home or self-care (01) ==
DX: I20.9 Angina pectoris, unspecified (principal); I25.810 Atherosclerosis of coronary artery bypass graft(s) without angina pectoris; I10 Essential (primary) hypertension; Z79.82 Long term (current) use of aspirin; Z95.5 Presence of coronary angioplasty implant and graft
CPT/HCPCS: 84484-PO

== ENCOUNTER → 2018-05-14 | Outpatient (CLI) | payer OTHER | LOC: BMCIMAGING 14:23 | PROVIDERS: ATTEND Internal Medicine | DX: Z13.820 Encounter for screening for osteoporosis (principal); M81.0 Age-related osteoporosis without current pathological fracture; Z78.0 Asymptomatic menopausal state ==

== ENCOUNTER 2018-11-08 20:44 | Inpatient (IN) | payer OTHER ==
[2018-11-08] MEDS ORDERED: NITROGLYCERIN 0.4 MG BTL SL ONE (21:12)
[2018-11-08 21:15] LABS: PLATELET COUNT 122 10^3/uL (150-400)
--- NOTE | 2018-11-08 21:17 | EDPHY ---
H & P Stated Complaint: SOB AND TIGHTNESS IN CHEST SINCE 1930 Time Seen by Provider: 11/08/18 21:04 HPI/ROS: CHIEF COMPLAINT: Chest tightness HISTORY OF PRESENT ILLNESS: 83-year-old female with CAD and dementia presents with chest tightness. Onset of chest tightness at 1930 today while watching TV. The chest tightness is moderate and associated with shortness of breath. She took 1 nitroglycerin, after which the pain resolved. However the chest pain returned and is mild. No other associated symptoms. No alleviating or aggravating factors. Took an aspirin today. Does not remember if this is similar to prior cardiac symptoms. REVIEW OF SYSTEMS: complete 10 point ROS reviewed and is negative except for the noted elements in the HPI - Personal History Current Tetanus/Diphtheria Vaccine: Yes Current Tetanus Diphtheria and Acellular Pertussis (TDAP): Yes - Medical/Surgical History Hx Asthma: No Hx Chronic Respiratory Disease: Yes Hx Diabetes: No Hx Cardiac Disease: Yes Hx Renal Disease: No Hx Cirrhosis: No Hx Alcoholism: No Hx HIV/AIDS: No Hx Splenectomy or Spleen Trauma: No Other PMH: Home , 6 STENTS 2014, CABG 2012, endarterectomy(rt), HTN, headaches , AFIB, blind in rt eye, AORTIC VALVE REPLACEMENT, csection x 2, pe post valve replacement. - Social History Smoking Status: Never smoked Drug Use: None Additional Social History: Lives alone in own home - Physical Exam Exam: General Appearance: Alert, pleasant Eyes: Pupils equal and round, no conjunctival pallor ENT, Mouth: Mucous membranes moist Neck: Normal inspection Respiratory: Lungs are clear to auscultation Cardiovascular: Regular rate and rhythm Gastrointestinal: Abdomen is soft and nontender Neurological: A&O, nonfocal exam Skin: Warm and dry Extremities: Normal inspection Psychiatric: Mood and affect normal Constitutional: Initial Vital Signs Temperature (C) 36.8 C 11/08/18 20:48 Heart Rate 56 L 11/08/18 20:48 Respiratory Rate 18 11/08/18 20:48 Blood Pressure 144/91 H 11/08/18 20:48 O2 Sat (%) 94 11/08/18 20:48 O2 Delivery Mode Room Air Allergies/Adverse Reactions: Penicillins Allergy (Intermediate, Verified 11/08/18 20:51) Hives Home Medications: Medication Instructions Recorded Cholecalciferol Vit D3 [Vitamin D3 1,000 units PO DAILY 10/19/13 (*)] Multivitamins [Multivitamin (*)] 1 each PO DAILY 10/19/13 Clopidogrel Bisulfate [Plavix (*)] 75 mg PO DAILY 10/24/13 Herbals/Supplements -Info Only 1 ea PO DAILY 05/18/16 Nitroglycerin [Nitrostat 0.4 mg 0.4 mg SL Q5M PRN 10/19/16 (*)] amLODIPine BESYLATE [Norvasc 5 mg 5 mg PO DAILY 10/19/16 (*)] Aspirin EC [Aspirin EC 81 mg (*)] 81 mg PO DAILY #0 tab 10/24/16 traMADol [Ultram 50 mg (*)] 50 mg PO Q8H PRN 04/05/18 Acetaminophen [Tylenol 325mg (*)] 650 mg PO Q4HRS PRN tab 04/10/18 Furosemide [Lasix 40 MG (*)] 40 mg PO DAILY #30 tab 04/10/18 Metoprolol Succinate Xr [Toprol Xl 25 mg PO DAILY #30 tab.sr 04/10/18 25 mg (*)] Atorvastatin Calcium [Lipitor 40 40 mg PO HS 11/08/18 mg (*)] Isosorbide Mononitrate [Isosorbide 20 mg PO DAILY 11/08/18 Mononitrate 20 mg (*)] Sertraline HCl [Zoloft 50mg (*)] 50 mg PO DAILY 11/08/18 Medical Decision Making - Diagnostics EKG Interpretation: EKG interpreted by me reveals sinus rhythm, rate 53, LAFB, T-wave flattening in leads 1 and aVL. Interpretation: Abnormal EKG Imaging Results: CXR: NAD Imaging: Discussed imaging studies w/ call centre supervisor Radiologist ED Course/Re-evaluation: This patient presents with chest pain and shortness of breath, most concerning for ACS. Stat EKG reveals no evidence of ischemia or dysrhythmia. CXR: NAD and initial troponin is normal. History is limited by patient's dementia and much of the history is obtained through the patient's son. Pt's cp quickly resolved in the ED and remained asymptomatic. The hospitalist service was consulted for admission for further eval of cp. Differential Diagnosis: Differential diagnosis includes though it is not limited to pneumonia, pneumothorax, pulmonary embolism, aortic dissection, pericarditis, acute coronary syndrome. - Data Points Laboratory Results: Laboratory Results 11/08/18 21:01 11/08/18 21:01 Medications Given: Acetaminophen (Tylenol) 650 mg PO Q4HRS PRN PRN Reason: Pain, Mild/Fever, Can Take PO Stop: 05/07/19 22:20 Last Admin: 11/09/18 08:24 Dose: 650 mg Enoxaparin Sodium (Lovenox) 40 mg SC DAILY ALFONSO Stop: 05/08/19 08:59 Last Admin: 11/09/18 09:22 Dose: 40 mg Senna/Docusate Sodium (Senokot-S) 1 - 2 tab PO BID ALFONSO PRN Reason: Protocol Stop: 05/08/19 08:59 Last Admin: 11/09/18 21:01 Dose: 2 tab Discontinued Medications Nitroglycerin (Nitrostat) 0.4 mg SL EDNOW ONE Stop: 11/08/18 21:13 Last Admin: 11/09/18 01:06 Dose: Not Given Point of Care Test Results: Chemistry 11/08/18 21:06 POC Troponin I 0.04 ng/mL ng/mL (0.00-0.08) Departure - Departure Disposition: [facility] Inpatient Acute Clinical Impression: Chest pain Qualifiers: Chest pain type: precordial pain Qualified Code(s): R07.2 - Precordial pain Condition: Fair
[2018-11-08] MEDS ORDERED: ONDANSETRON 4 MG/2 ML VIAL IVP PRN (22:21)
[2018-11-08] MEDS ORDERED: ONDANSETRON DISINTEGRATING 4 MG TAB PO PRN (22:21)
[2018-11-08] MEDS ORDERED: ACETAMINOPHEN 325 MG TAB PO PRN (22:21)
[2018-11-08] MEDS ORDERED: NITROGLYCERIN 0.4 MG BTL SL PRN (22:24)
[2018-11-08] MEDS ORDERED: NS 1,000 ML IV SCH (22:30)
--- NOTE | 2018-11-08 22:59 | PDGENHP ---
History and Physical - Chief Complaint Chest pain - History of Present Illness Primary client support professional Dr. Adkins Source-patient provides history is fair historian. Her son is at bedside and supplements history. EMR reviewed and case discussed with accepting hospitalist. HPI - this is a very pleasant 83-year-old female with past medical history significant for CAD s/p CABG and recently cardiac catheterization 04/04/2018 with numerous stents no longer amenable to PCI, chronic AFib, HTN, aortic bioprosthetic valve, CHF, HLD who presents emergency department today with complaint of chest pain. Patient reports that she was sitting at home this evening when she developed left-sided chest pain. It did not radiate. She reports associated shortness of breath. She states it is similar to her last episode of chest pain in March 2018 for which patient was admitted with NSTEMI and underwent cardiac catheterization was not amenable to PCI. Patient denies any nausea, vomiting, diaphoresis. She denies any increased lower extremity edema, orthopnea, PND. She does wear 2 L of oxygen at HS. Patient lives alone in her own apartment. Her son is very involved with her care and patient called her son when her chest pain started. Patient did take a single dose of nitroglycerin with improvement of her chest pain however it returns shortly thereafter and son brought the patient to the ED. Patient and son noted that she has not had any episodes of chest pain since March of 2018. History Information - Allergies/Home Medication List Allergies/Adverse Reactions: Penicillins Allergy (Intermediate, Verified 11/08/18 20:51) Hives Home Medications: Cholecalciferol Vit D3 [Vitamin D3 (*)] 1,000 units PO DAILY 10/19/13 [Last Taken 11/08/18] Multivitamins [Multivitamin (*)] 1 each PO DAILY 10/19/13 [Last Taken 11/08/18] Clopidogrel Bisulfate [Plavix (*)] 75 mg PO DAILY 10/24/13 [Last Taken 11/08/18] Herbals/Supplements -Info Only 1 ea PO DAILY 05/18/16 [Last Taken 11/08/18] Nitroglycerin [Nitrostat 0.4 mg (*)] 0.4 mg SL Q5M PRN 10/19/16 [Last Taken 06/02] amLODIPine BESYLATE [Norvasc 5 mg (*)] 5 mg PO DAILY 10/19/16 [Last Taken ] traMADol [Ultram 50 mg (*)] 50 mg PO Q8H PRN 04/05/18 [Last Taken 11/07/18] Atorvastatin Calcium [Lipitor 40 mg (*)] 40 mg PO HS 11/08/18 [Last Taken ] Isosorbide Mononitrate [Isosorbide Mononitrate 20 mg (*)] 20 mg PO DAILY [Last Taken 11/08/18] Sertraline HCl [Zoloft 50mg (*)] 50 mg PO DAILY 11/08/18 [Last Taken 11/08/18] I have personally reviewed and updated: family history, medical history, social history, surgical history - Past Medical History atrial fibrillation, coronary artery disease, CHF, hypertension Additional medical history: Ischemic cardiomyopathy, Bioprosthetic aortic valve. Patient with nocturnal hypoxia wearing 2 liters/minute oxygen by nasal cannula at HS. Blindness in the right eye. - Surgical History Reports: coronary bypass surgery Additional surgical history: Bioprosthetic aortic valve - Family History Positive for: non-pertinent Additional family history: Son is healthy. Parents . - Social History Smoking Status: Never smoked Alcohol Use: None Drug Use: None Additional social history: Previously lived independently in her own apartment. Son is very involved in patient's care. Patient wears 2 liters/minute oxygen at home at HS. She has a cane for ambulation. Cor status-full. Review of Systems Review of Systems: ROS: 10pt was reviewed & negative except for what was stated in HPI & below Constitutional: Reports: no symptoms EENMT: Reports: other (Patient is blind in right eye.) Cardiac: Reports: chest pain. Denies: edema, lightheadedness, palpitations Respiratory: Reports: shortness of breath (With chest pain.) Gastrointestinal: Reports: abdominal distention, constipation. Denies: abdominal pain, nausea Genitourinary: Reports: no symptoms Muscolosketal: Reports: neck pain (Neck discomfort since arriving to the ED.) Skin: Reports: no symptoms Neurological: Reports: no symptoms Hematologic/Lymphatic: Reports: no symptoms Physical Exam Physical Exam: Selected Entries 11/08/18 20:48 Heart Rate 56 L Respiratory 18 Rate O2 Sat (%) 94 Temperature (C) 36.8 C Blood Pressure 144/91 H Mean Arterial 108 H Pressure (MAP) O2 Delivery Room Air Mode Temperature Oral Source Temp Pulse Resp BP Pulse Ox 36.6 C 51 L 16 153/71 H 94 11/08/18 22:50 11/08/18 22:50 11/08/18 22:50 11/08/18 22:50 11/08/18 22:50 Constitutional: no apparent distress, appears nourished, chronically ill appearing, other (NAD. Thin frail elderly appearing female is lying quietly in bed.) Eyes: anicteric sclera, other (Glasses. Right eye strabismus. Left pupil reactive.), No scleral injection Ears, Nose, Mouth, Throat: moist mucous membranes, poor dentition (Some missing dentition in fair condition.), No hard of hearing Cardiovascular: regular rate and rhythym, systolic murmur, pulses symmetric bilaterally, bradycardia (Heart rate in the 50s.), No edema Peripheral Pulses: 1+: dorsalis-pedis (R), dorsalis-pedis (L) Respiratory: no respiratory distress, no rales or rhonchi, clear to auscultation , No expiratory wheeze, No respiratory distress, No rhonchi Gastrointestinal: normoactive bowel sounds, soft, non-tender abdomen, no palpable masses, distension (Abdomen is soft but full. Patient complains of constipation. No rebound guarding or masses appreciated.) Genitourinary: no bladder tenderness, No fairchild in urethra Skin: warm, normal color, no rashes or abrasions, No rash Musculoskeletal: generalized weakness (Thin frail elderly female. Moves all extremities.) Neurologic: AAOx3, other (Grossly nonfocal exam.), No facial droop Psychiatric: interacting appropriately, not anxious, not encephalopathic, thought process linear Lab Data & Imaging Review 11/08/18 21:01 11/08/18 21:01 WBC 3.55 10^3/uL (3.80-9.50) L 11/08/18 21: RBC 4.68 10^6/uL (4.18-5.33) 11/08/18 21:01 Hgb 12.9 g/dL (12.6-16.3) 11/08/18 21: Hct 40.1 % (38.0-47.0) 11/08/18 21:01 MCV 85.7 fL (81.5-99.8) 11/08/18 21:01 MCH 27.6 pg (27.9-34.1) L 11/08/18 21:01 MCHC 32.2 g/dL (32.4-36.7) L 11/08/18 21:01 RDW 15.2 % (11.5-15.2) 11/08/18 21:01 Plt Count 122 10^3/uL (150-400) L 11/08/18 21:01 MPV 10.9 fL (8.7-11.7) 11/08/18 21:01 Neut % (Auto) 45.3 % (39.3-74.2) 11/08/18 21: Lymph % (Auto) 44.2 % (15.0-45.0) 11/08/18 21:01 [place] % (Auto) 7.3 % (4.5-13.0) 11/08/18 21: Eos % (Auto) 2.3 % (0.6-7.6) 11/08/18 21:01 Baso % (Auto) 0.6 % (0.3-1.7) 11/08/18 21: Nucleat RBC Rel Count 0.0 % (0.0-0.2) 11/08/18 21:01 Absolute Neuts (auto) 1.61 10^3/uL (1.70-6.50) L 11/08/18 21:01 Absolute Lymphs (auto) 1.57 10^3/uL (1.00-3.00) 11/08/18 21:01 Absolute Monos (auto) 0.26 10^3/uL (0.30-0.80) L 11/08/18 21:01 Absolute Eos (auto) 0.08 10^3/uL (0.03-0.40) 11/08/18 21:01 Absolute Basos (auto) 0.02 10^3/uL (0.02-0.10) 11/08/18 21:01 Absolute Nucleated RBC 0.00 10^3/uL (0-0.01) 11/08/18 21: Immature Gran % 0.3 % (0.0-1.1) 11/08/18 21:01 Immature Gran # 0.01 10^3/uL (0.00-0.10) 11/08/18 21:01 Sodium 137 mEq/L (135-145) 11/08/18 21:01 Potassium 3.8 mEq/L (3.5-5.2) 11/08/18 21:01 Chloride 106 mEq/L (97-110) 11/08/18 21:01 Carbon Dioxide 24 mEq/l (22-31) 11/08/18 21:01 Anion Gap 7 mEq/L (6-14) 11/08/18 21:01 BUN 27 mg/dL (7-23) H 11/08/18 21:01 Creatinine 0.9 mg/dL (0.6-1.0) 11/08/18 21:01 Estimated GFR 60 11/08/18 21:01 Glucose 96 mg/dL (70-100) 11/08/18 21:01 Calcium 9.5 mg/dL (8.5-10.4) 11/08/18 21:01 POC Troponin I 0.04 ng/mL (0.00-0.08) 11/08/18 21:06 NT-Pro-B Natriuret Pep 578 pg/mL (0-450) H 11/08/18 21:01 Imaging Review: PA and Lateral Chest Indication: Chest Pain. Comparison: Portable chest dated May 29, 2018 Findings: Moderate cardiomegaly, left-sided coronary stents, prosthetic heart valve and midline sternal wires are all unchanged. No cephalization, interstitial edema or pleural effusion. The lungs are clear. No displaced rib fracture or compression fracture. Impression: 1. Cardiomegaly and stigmata of cardiovascular disease are unchanged. 2. No failure or acute process. Dictated By: Alber Hansen MD Visualized and Interpreted Chest x-ray results: Yes Visualized and Interpreted imaging results: Yes Visualized and Interpreted EKG results: Yes EKG additional interpertation: NSR in the 50s. Lad. LAFB. Nonspecific T-wave changes in the anterolateral leads. QTC 471 Assessment & Plan Assessment: his is a very pleasant 83-year-old female with past medical history significant for CAD s/p CABG and recently cardiac catheterization 04/04/2018 with numerous stents no longer amenable to PCI, chronic AFib, HTN, aortic bioprosthetic valve , CHF, HLD who presents emergency department today with complaint of chest pain. Chest pain (Acute) - significant cardiovascular history with a cath in March 2018 that was not amenable to PCI. Patient is currently medically managed. She has no recurrence of her chest pain since arrival. P.r.n. Nitroglycerin. Admit to tele for monitoring. Cardiology consult in the morning. Repeat troponin in the morning. CAD (coronary artery disease) (Acute) - continue patient's statin, Imdur, Plavix , aspirin, metoprolol and nitroglycerin p.r.n. As noted above. Atrial fibrillation - monitor on tele. EKG normal sinus rhythm. Continue beta- mir. Benign essential HTN - blood pressure is mildly elevated. Resume patient's home medications - metoprolol and amlodipine. Chronic compensated CHF - secondary to history of ischemic cardiomyopathy. Patient without any decompensation at this time. Saline lock IV and advance diet as tolerated. Lasix daily. FEN - saline lock IV. Electrolytes adequate did not require placement. Cardiac diet. PPX-SCDs. Lovenox if patient should stay additional day. Monitor platelets. Cor status-full Disposition-patient admitted observation status on PCU floor for close cardiac monitoring pending additional cardiac enzymes and cardiology recommendations.
--- NOTE | 2018-11-08 23:29 | CPEKG ---
Test Reason : OPEN Blood Pressure : / mmHG Vent. Rate : 053 BPM Atrial Rate : 053 BPM P-R Int : 210 ms QRS Dur : 105 ms QT Int : 501 ms P-R-T Axes : 067 -44 107 degrees QTc Int : 471 ms Sinus rhythm Probable left atrial enlargement Left anterior fascicular block Nonspecific T abnrm, lateral leads Confirmed by Parisa Merlos ([id number]) on 11/08/2018 11:28:47 PM Referred By: PHYSICIAN ED Confirmed By:Parisa Merlos
[2018-11-09] MEDS ORDERED: LACTULOSE 20 GM/30 ML UDCUP PO PRN (01:35)
[2018-11-09] MEDS ORDERED: BISACODYL 10 MG SUPP PR PRN (01:35)
[2018-11-09] MEDS ORDERED: POLYETHYLENE GLYCOL 3350 17 GM PKT PO PRN (01:35)
[2018-11-09] MEDS ORDERED: MAGNESIUM HYDROXIDE 30 ML UDCUP PO PRN (01:35)
[2018-11-09] MEDS: ENOXAPARIN 40 MG/0.4 ML SYR SC SCH (09:22)
[2018-11-09] MEDS: SENNOSIDES/DOCUSATE SODIUM TAB PO SCH ×2 (09:23→21:01)
--- NOTE | 2018-11-09 13:39 | ECHO ---
[email or web address] [address] [address] Main: [phone] Fax: [email or web address] Echocardiogram Name: JAIME VALERIO MR#: [id number] Study Date: 11/09/2018 Study Time: 12:04 PM Date of : 1935 Age: 83 year(s) Height: 172.7 cm (68 in.) Weight: 73.94 kg (163 lb.) BSA: 1.87 m2 Gender: Female Examination: Echo Indication: Cardiac: dyspnea, Aortic Valve Regurgitation Image Quality: Adequate Contrast: Requested by: Darren Braga BP: 138 mmHg/68 mmHg Heart Rate: Rhythm: Indication: Cardiac: dyspnea, Aortic Valve Regurgitation Procedure Staff Sole Tier: Jaja Graves [facility] Reading Physician: Darren Braga MD Requesting Provider: Conclusions: Normal size left ventricle. Moderate concentric LV hypertrophy. The ejection fraction is visually estimated to be 45 %. Regional wall motion abnormality noted. There is inferior hypokinesis. Mildly dilated right ventricle. The left atrium is severely dilated. The right atrium is severely dilated. The mitral valve is normal in appearance and function. Mild to moderate mitral regurgitation. The aortic valve is a bioprosthesis. The aortic valve mean gradient is 28 mmhg suggesting moderate aortic stenosis. There is moderate eccentric aortic insufficiency suggestive of jessica-valvular leak.. Moderate to severe tricuspid valve regurgitation. Right ventricular systolic pressure measures 63mmHg. When compared to the 03/30/18 study. The mean aortic valve gradient decreased from 33 to 28 mmHg. The degree of aortic insufficiency increased from mild to moderate. Measurements: Chambers Valvular Assessment AV/MV Valvular Assessment TV/PV Normal Normal Normal Name Value Range Name Value Range Name Value Range Ao Jeimy (2D): 2.9 cm (1.4 cm-2.6 AV Vmax: 3.39 m/s (1 m/s-1.7 TR Vmax: 3.81 mm/s ( - ) cm) m/s) TR PGmax: 58 mmHg ( - ) IVSd (2D): 1.5 cm (0.6 cm-1.1 AV maxP mmHg ( - ) syst. PAP: 63 mmHg ( - ) cm) AV meanP mmHg ( - ) PV Vmax: 0.66 m/s (0.6 m/s-0.9 LVDd (2D): 4.4 cm (3.9 cm-5.3 NELY (VTI): 0.6 cm ( - ) m/s) cm) MV E Vmax: 0.97 m/s ( - ) PV PGmax: 2 mmHg ( - ) LVDs (2D): 2.8 cm (2.1 cm-4 MV A Vmax: 0.66 m/s ( - ) cm) MV E/A: 1.47 ( - ) Patient: JAIME VALERIO Study Date: 11/09/2018 Page 1 of 2 12:04 PM LVPWd (2D): 1.5 cm ( - ) MV PHT: 0.064 s ( - ) LVOTd 1.8 cm 1.8 cm mm MVA (PHT): 3.4 s ( - ) Visual EF: 45 % RVDd(2D): 3.1 cm (1.9 cm-3.8 cmmm) Continued Measurements: Chambers Valvular Assessment AV/MV Valvular Assessment TV/PV Name Value Name Value Name Value LADs: 3.9 cm MV DecTime: 243 m/s CVP (est.): 5 mmHg LADs Lon.2 cm MV E' Septal: 0.05 m/s LA Area: 31.5 cm2 MV E/E' Septal: 20.70 LA Volume: 100 ml MV E/E' Lateral: 12.00 LA Volume Index: 53.5 ml/m2 MR ERO: 0.070 cm2 RA Area: 31.2 cm2 MR PISA radius: 4 mm MR Reg. Volume: 15 ml Additional Vessels Name Value Ao Ascendin.5 cm Findings: Left Ventricle: Normal size left ventricle. Moderate concentric LV hypertrophy. Normal global systolic LV function. The ejection fraction is visually estimated to be 45 %. Regional wall motion abnormality noted. Grade 2 diastolic dysfunction (pseudonormalized LV filling pattern). There is inferior hypokinesis. Right Ventricle: Mildly dilated right ventricle. Normal RV function. Left Atrium: The left atrium is severely dilated. Right Atrium: The right atrium is severely dilated. Mitral Valve: The mitral valve is normal in appearance and function. Mild to moderate mitral regurgitation. No mitral stenosis is present. Aortic Valve: The aortic valve is a bioprosthesis. The aortic valve mean gradient is 28 mmhg suggesting moderate aortic stenosis. There is moderate eccentric aortic insufficiency suggestive of jessica-valvular leak.. Tricuspid Valve: The tricuspid valve is normal in appearance and function. Moderate to severe tricuspid valve regurgitation. Right ventricular systolic pressure measures 63mmHg. Pulmonic Valve: The pulmonic valve is normal in appearance and function. Trivial pulmonic valve regurgitation. Aorta: The aorta is normal. Normal size aortic root measuring 2.9 cm. Normal size ascending aorta measuring 3.5 cm. Pericardium: No pericardial effusion. (No Signature Object) Patient: JAIME VALERIO Study Date: 11/09/2018 Page 2 of 2 12:04 PM [id number]
--- NOTE | 2018-11-09 16:25 | GCON ---
DATE OF CONSULTATION: 11/09/2018 REFERRING PHYSICIAN: Dr. Mccauley CHIEF COMPLAINT: We have been asked by Dr. Mccauley to evaluate the patient with chest tightness and sh ortness of breath. HISTORY OF PRESENT ILLNESS: The patient is an 83-year-old female with a history of coronary artery d isease, aortic valve replacement, and ischemic cardiomyopathy, who presents with a chief complaint of chest tightness and shortness of breath. The patient was in her usual state of health until the noam wesley of admission when she began to experience some tightness in her upper chest associated with some shortness of breath. The patient denied symptoms of nausea, vomiting, or diaphoresis. The patient is unable to clarify if this is similar to her previous anginal-type symptoms. The patient denies sy mptoms of orthopnea and PND. She denies symptoms of palpitations. She has been taking all of her me dications. When her symptoms did not improve, she presented to the emergency department for further evaluation. In the emergency department, she had an EKG performed demonstrating no acute ST or T-wave changes. H er [id number] troponin was within normal limits. Her BNP was mildly elevated at 678. The patient was admitted to the hospital for further evaluation. We have been consulted to help in the further management of this patient. The patient does have a previous history of coronary artery disease and is status post coronary artery bypass grafting surgery, as well as multiple percutaneous coronary int erventions. Her last cardiac catheterization was in March of 2018. Cardiac catheterization at that t counts include 234 beds at the [facility] demonstrated a total occlusion of her OM1 coronary artery that was felt to be the culprit vessel. PCI was attempted but was unsuccessful, and she was managed medically. The patient did well until her recent admission. The patient also has a history of aortic valve replacement. Recently, she has noted an increase in her mean aortic gradient to 33 mmHg. Patient was also noted to have mild periv alvular aortic insufficiency. The patient does have an ischemic cardiomyopathy with an ejection frac tion of approximately 45% to 50%. PAST MEDICAL HISTORY: 1. Coronary artery disease. 2. Status post aortic valve replacement. 3. Ischemic cardiomyopathy. 4. Hypertension. 5. Blindness in right eye. MEDICATIONS: Please see medicine reconciliation form. SOCIAL HISTORY: Patient lives independently. She has a supportive son. She does not smoke. She de nies problems with alcohol. FAMILY HISTORY: Noncontributory. REVIEW OF SYSTEMS: 10-point review of systems is negative except as noted in HPI. PHYSICAL EXAMINATION: GENERAL: The patient is resting comfortably in bed. She does not appear to b e in acute distress at this time. VITAL SIGNS: Temperature is afebrile. Pulse is 50, blood pressur e 145/70, respiratory rate is 20, SaO2 is 99% on 2 L nasal cannula. HEENT: Normocephalic, atraumati c. Extraocular muscles intact. NECK: No JVD. No bruits. LUNGS: Clear to auscultation bilaterall y. CARDIOVASCULAR: Regular rate and rhythm. S1, S2. Grade 3/6 crescendo/decrescendo systolic murm ur is noted at the left sternal border. ABDOMEN: Soft, nontender. No hepatosplenomegaly noted. EX TREMITIES: Trace edema. SKIN: No evidence of rashes. NEURO: Patient is awake, alert, and oriente d. She does have some short-term memory loss. LABORATORY: White blood cell count is 3.55, hemoglobin is 12.9, hematocrit is 40.1, platelet count i s 122. Sodium 140, potassium 3.7, chloride 110, CO2 of 27, BUN 26, creatinine 0.9. Subsequent tropo nancy 0.038 and 0.020. ASSESSMENT AND PLAN: The patient is an 83-year-old female with: 1. Coronary artery disease. The patient has known coronary artery disease and is status post previo us coronary artery bypass grafting surgery, as well as previous percutaneous coronary interventions. Her last cardiac catheterization was in March of 2018. Coronary angiography demonstrated a new total occlusion of her first obtuse marginal 1 coronary artery. An attempt was made at trying to perform revascularization. However, this was unsuccessful secondary to inability to cross the chronic total occlusion. The patient was started on appropriate medical therapy and did well until her most recent visit. Angiography at that time was also notable for an intermediate grade lesion involving her lef t anterior descending coronary artery. Given her current symptomatology, I think it would be appropr iate to obtain a stress test to evaluate for anterior ischemia. I would expect to see lateral ischem ia and would manage that medically. 2. Aortic valve replacement. Patient is status post bioprosthetic aortic valve replacement. Her mo st recent echocardiogram demonstrated an increase in her mean gradient up to 33 mmHg, suggestive of m oderate aortic stenosis. In addition, patient was noted to have mild aortic insufficiency with periv alvular leak. Given her current symptomatology, we will plan on obtaining an echocardiogram to evalu ate for progressive aortic valve disease. 3. Cardiomyopathy. Patient does have a history of an ischemic cardiomyopathy. Her ejection fractio n is typically around 45%. The patient states that her weight has remained stable and she has not no kenyatta symptoms of orthopnea and paroxysmal nocturnal dyspnea. However, her BNP is elevated at 578 whic h is above her typical baseline. It is possible patient did have congestive heart failure exacerbati on causing her current symptomatology, as well as mild troponin elevation. We will plan on managing this medically. /[id number]/MODL
--- NOTE | 2018-11-09 16:26 | HOSPPROG ---
Hospitalist Progress Note Assessment/Plan: his is a very pleasant 83-year-old female with past medical history significant for CAD s/p CABG and recently cardiac catheterization 04/04/2018 with numerous stents no longer amenable to PCI, chronic AFib, HTN, aortic bioprosthetic valve , CHF, HLD who presents emergency department today with complaint of chest pain. 83-year-old female with history of CABG, recent cardiac catheterization in March of 2018 admitted with chest pain. Chest pain (Acute) -troponin only very mildly elevated on admission, EKG with no acute ST/T wave changes. Echocardiogram obtained today which shows left ventricular ejection fraction of 45% with inferior hypokinesis. Left atrium was severely dilated. The right atrium was also severely dilated. I discussed the case with the on-call heel coverer who recommends Lexiscan stress test in the morning. CAD (coronary artery disease) (Acute) -patient is on appropriate therapy with HMG Co a reductase inhibitor, dual antiplatelet therapy, beta-mir long acting nitrate. Will continue all these therapies Atrial fibrillation - monitor on tele. EKG normal sinus rhythm. Continue beta- mir. Benign essential HTN - blood pressure is mildly elevated. Resume patient's home medications - metoprolol and amlodipine. Chronic compensated CHF - secondary to history of ischemic cardiomyopathy. Patient without any decompensation at this time. On diuretic with Lasix PPX- SCDs, heparin fluids- po Lytes- WNL Nutrition- cardiac diet Cor- Full Dispo- change to inpatient, lexiscan in am. Subjective: Chest pain has resolved this morning. No acute complaints Objective: Vital Signs Temp Pulse Resp BP Pulse Ox 36.8 C 48 L 18 138/68 H 95 11/09/18 11:17 11/09/18 11:17 11/09/18 11:17 11/09/18 11:17 11/09/18 11:17 Laboratory Results 11/09/18 03:35 11/08/18 11/09/18 11/10/18 05:59 05:59 05:59 Intake Total 250 Balance 250 - Physical Exam Constitutional: no apparent distress, appears nourished, not in pain Eyes: PERRL, anicteric sclera, EOMI Ears, Nose, Mouth, Throat: moist mucous membranes, hearing normal, ears appear normal, no oral mucosal ulcers Cardiovascular: regular rate and rhythym, no murmur, rub, or gallop Respiratory: no respiratory distress, no rales or rhonchi, clear to auscultation Gastrointestinal: normoactive bowel sounds, soft, non-tender abdomen, no palpable masses Genitourinary: no bladder fullness, no bladder tenderness, no renal bruits Skin: no rashes or abrasions, no fluctuance, no induration Musculoskeletal: full muscle strength, no muscle tenderness, normal joint ROM Neurologic: AAOx3, sensation intact bilaterally Psychiatric: interacting appropriately, not anxious, not encephalopathic, thought process linear Lymph, Heme, Immunologic: no cervical LAD, no supraclavicular LAD ICD10 Worksheet Patient Problems: Problems Problem Status Onset CAD (coronary artery disease) Acute Chest pain Acute Atrial flutter Acute Chest pain at rest Acute Chest pain in adult Acute Dyspnea Acute Elevated blood pressure reading Acute Headache Acute Hypertension Acute NSTEMI (non-ST elevated myocardial infarction) Acute Pelvic fracture Acute Pulmonary emboli Acute Shortness of breath Acute Troponin level elevated Acute
--- NOTE | 2018-11-09 20:49 | ASMTCMCOM ---
CM Note CM Note Notes: Pt with CAD, dementia in for chest pain. Pt lives independently, two sons are listed in chart. Therapy recs are pending. Hospitalist Wenceslao alerted to input palliative care order. CM to follow for d/c planning. Date Signed: 11/09/2018 04:47 PM Electronically Signed By:CONCHA Helms
[2018-11-09] MEDS ORDERED: ACETAMINOPHEN 325 MG TAB PO PRN (21:25)
[2018-11-09] MEDS: amLODIPine BESYLATE 5 MG TAB PO SCH (22:48)
[2018-11-09] MEDS: ISOSORBIDE MONONITRATE 20 MG TAB PO SCH (22:49)
[2018-11-09] MEDS ORDERED: CANN-EASE 2 GM TUBE TP PRN (23:08)
[2018-11-09] MEDS ORDERED: SODIUM CL NASAL 45 ML BTL EACHNARE PRN (23:08)
[2018-11-10] MEDS ORDERED: FUROSEMIDE 40 MG TAB PO SCH (09:00)
[2018-11-10] MEDS ORDERED: METOPROLOL SUCCINATE XR 25 MG TAB PO SCH (09:00)
[2018-11-10] MEDS ORDERED: REGADENOSON 0.4 MG/5 ML SYR IVP ONE (09:23)
[2018-11-10] MEDS: CLOPIDOGREL BISULFATE 75 MG TAB PO SCH (11:24)
[2018-11-10] MEDS: ASPIRIN EC 81 MG TAB PO SCH (11:24)
[2018-11-10] MEDS: SERTRALINE HCL 50 MG TAB PO SCH (11:25)
--- NOTE | 2018-11-10 14:16 | HOSPPROG ---
Hospitalist Progress Note Assessment/Plan: 83-year-old female with past medical history significant for CAD s/p CABG and recently cardiac catheterization 04/04/2018 with numerous stents no longer amenable to PCI, chronic AFib, HTN, aortic bioprosthetic valve, CHF, HLD who presents emergency department today with complaint of chest pain. Chest pain -troponin only very mildly elevated on admission, EKG with no acute ST/T wave changes. Echocardiogram obtained which shows left ventricular ejection fraction of 45% with inferior hypokinesis. Left atrium was severely dilated. The right atrium was also severely dilated. I discussed the case with the on-call revenue research analyst who recommends Lexiscan stress test. MPI images obtained today. If area of ischemia identified, possible left cath, otherwise likely medical optimization and management. CAD (coronary artery disease) (Acute) -patient is on appropriate therapy with HMG Co a reductase inhibitor, dual antiplatelet therapy, beta-mir long acting nitrate. Will continue all these therapies Atrial fibrillation - monitor on tele. EKG normal sinus rhythm. Continue beta- mir. Benign essential HTN - blood pressure is mildly elevated. Resume patient's home medications - metoprolol and amlodipine. Chronic compensated CHF - secondary to history of ischemic cardiomyopathy. Patient without any decompensation at this time. On diuretic with Lasix PPX- SCDs, heparin fluids- po Lytes- WNL Nutrition- cardiac diet Cor- Full Dispo- lexiscan obtained, awaiting MPI images. Likely DC in am. Subjective: no longer with chest pain. tired, but otherwise well. Objective: Vital Signs Temp Pulse Resp BP Pulse Ox 36.8 C 59 L 14 161/83 H 99 11/10/18 11:17 11/10/18 11:17 11/10/18 11:17 11/10/18 11:17 11/10/18 11:17 Laboratory Results 11/09/18 03:35 11/09/18 11/10/18 11/11/18 05:59 05:59 05:59 Intake Total 250 1130 Output Total 450 Balance 250 680 - Physical Exam Constitutional: no apparent distress, appears nourished, not in pain Eyes: PERRL, anicteric sclera, EOMI Ears, Nose, Mouth, Throat: moist mucous membranes, hearing normal, ears appear normal, no oral mucosal ulcers Cardiovascular: regular rate and rhythym, no murmur, rub, or gallop Respiratory: no respiratory distress, no rales or rhonchi, clear to auscultation Gastrointestinal: normoactive bowel sounds, soft, non-tender abdomen, no palpable masses Genitourinary: no bladder fullness, no bladder tenderness, no renal bruits Skin: no rashes or abrasions, no fluctuance, no induration Musculoskeletal: full muscle strength, no muscle tenderness, normal joint ROM Neurologic: AAOx3, sensation intact bilaterally Psychiatric: interacting appropriately, not anxious, not encephalopathic, thought process linear Lymph, Heme, Immunologic: no cervical LAD, no supraclavicular LAD ICD10 Worksheet Patient Problems: Problems Problem Status Onset CAD (coronary artery disease) Acute Chest pain Acute Atrial flutter Acute Chest pain at rest Acute Chest pain in adult Acute Dyspnea Acute Elevated blood pressure reading Acute Headache Acute Hypertension Acute NSTEMI (non-ST elevated myocardial infarction) Acute Pelvic fracture Acute Pulmonary emboli Acute Shortness of breath Acute Troponin level elevated Acute
--- NOTE | 2018-11-10 15:15 | CPR ---
PROCEDURE: Lexiscan injection and Lexiscan MPI study. SUPERVISING MARKETING PRODUCTION MANAGER: Dr. Salvador Akhtar. INDICATION FOR PROCEDURE: Known history of CAD, chest pain. PRE: After obtaining informed consent, the patient was placed on electrocardiogram. Initial EKG orion ws sinus rhythm , first-degree AV block, incomplete right bundle branch block, with left anterior fas cicular block, nonspecific T-wave abnormalities in lateral leads. Patient reports no chest pain or p ressure, but does report ongoing shortness of breath. Initial blood pressure was 169/82, saturation 99% on 2 L nasal cannula. INJECTION: Patient was given Lexiscan slow IV push, followed by nuclear isotope. Within a minute of injection, she reported increased shortness of breath, but no chest pain or pressure. She was noted to have an increased heart rate, up to 102 beats per minute, with occasional PAC, but no other signi ficant EKG changes. Her blood pressure was 179/69. Within 3 minutes, she was given a caffeinated be verage, and heart rate started returning back to baseline. She also reports shortness of breath impr fawn. Within 6 minutes post injection, she had no change in her EKG with her heart rate back to base line. She reports her shortness of breath was back to baseline. She denied any chest pain or pressu re. Vital signs were stable. IMPRESSION: 83-year-old female with known history of coronary artery disease, undergoing cardiac kourtney cardial perfusion imaging study for evaluation of ischemia. No significant electrocardiogram changes with Lexiscan with mildly worsening shortness of breath, but vital signs remained stable, with resol ving of symptoms with caffeinated beverage after 5 minutes injection. Currently, her vital signs are stable. She is being taken to Nuclear Medicine for post-stress imaging. /[id number]/MODL
[2018-11-10] MEDS: amLODIPine BESYLATE 5 MG TAB PO SCH (15:17)
[2018-11-10] MEDS: SENNOSIDES/DOCUSATE SODIUM TAB PO SCH ×2 (15:17→19:49)
[2018-11-10] MEDS: ENOXAPARIN 40 MG/0.4 ML SYR SC SCH (15:18)
--- NOTE | 2018-11-10 16:18 | PDCARPN ---
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 Discontinue oral Lasix Start Lasix 40 mg IV daily Discontinue metoprolol Start Coreg 6.25 mg p.o. B.i.d. Increase amlodipine to 10 mg daily Fasting lipid profile in the morning Consideration of left heart catheterization pending the results of nuclear stress test. 11/10/18 16:15 Subjective: Lizeth complains of some mild shortness of breath this morning. No complaints of chest pain. Troponin since her admission have trended from 0.04, down to 0.038 and most recently 0.020. Her blood pressure remains suboptimally controlled. Echocardiogram demonstrated moderate bioprosthetic valve stenosis with mean gradient of 28 mm of mercury. Moderate aortic insufficiency, which is worsened compared to previous echocardiogram. Moderate to severe tricuspid regurgitation with RV systolic pressure 36 mm of mercury. Most recent left heart catheterization from March 2008. Unsuccessful attempt at opening occluded obtuse marginal branch. LAD with 50% InStent stenosis. Patent stents to the right coronary artery. Left to left collaterals of the obtuse marginal branch. Plan for pharmacologic nuclear stress test today. Note BNP is mildly elevated 578. Objective: Vital Signs (8 Hrs) Temp Pulse Resp BP Pulse Ox 11/10/18 15:36 36.4 C 54 L 12 162/70 H 94 11/10/18 11:17 36.8 C 59 L 14 161/83 H 99 Intake/Output (24 Hrs) 11/09/18 11/10/18 11/11/18 05:59 05:59 05:59 Intake Total 250 1130 Output Total 450 Balance 250 680 Intake: Oral (ml) 250 1130 Output: Urine (ml) 450 Toilet 450 Other: Weight 74.2 kg 73.3 kg Number of Voids 0 Toilet 3 Result Diagrams: 11/08/18 21:01 11/09/18 03:35 Cardiac Labs: Cardiac Lab Results (72 Hrs) 11/09/18 11/09/18 11:53 03:35 Troponin I 0.020 0.038 H - Physical Exam Constitutional: no apparent distress Neurologic: AAOx3, CN II-XII grossly intact Psychiatric: cooperative, interactive ICD10 Worksheet Patient Problems: Problems Problem Status Onset CAD (coronary artery disease) Acute Chest pain Acute Atrial flutter Acute Chest pain at rest Acute Chest pain in adult Acute Dyspnea Acute Elevated blood pressure reading Acute Headache Acute Hypertension Acute NSTEMI (non-ST elevated myocardial infarction) Acute Pelvic fracture Acute Pulmonary emboli Acute Shortness of breath Acute Troponin level elevated Acute
[2018-11-10] MEDS: ISOSORBIDE MONONITRATE 20 MG TAB PO SCH (17:16)
[2018-11-10] MEDS: CARVEDILOL 6.25 MG TAB PO SCH (18:11)
[2018-11-10] MEDS ORDERED: ATORVASTATIN CALCIUM 40 MG TAB PO SCH (21:00)
[2018-11-10] MEDS: traMADol 50 MG TAB PO PRN (21:14)
--- NOTE | 2018-11-10 21:52 | PDMN ---
Medical Necessity Medical necessity: Change to inpt as of 11/09/18 @ 19:46 per MD order and Cardiology GRG. 83 y/o w/long cardiac hx including CAD s/p CABG, cardiac cath w/mult stents no longer amenable to PCI, chronic afib, HTN, aortic bioprosthetic valve, CHF, HLD admitted w/cp and shortness of breath. ECHO shows mod to severe tricuspid regurg. Upgraded to inpt for further diagnostic testing , Lexiscan stress test today, awaiting MPI results, may need L heart cath. Pt w/ some shortness of breath today, BNP elev at 578, IV Lasix started today. Given pt's complicated cardiac hx and need for further diagnostic testing anticipate> 2MN.
[2018-11-11] MEDS: FLUTICASONE NASAL 120 SPRAYS/16 GM MDI EACHNARE SCH ×2 (01:49→10:34)
[2018-11-11] MEDS: CARVEDILOL 6.25 MG TAB PO SCH ×4 (10:28→17:27)
[2018-11-11] MEDS: SENNOSIDES/DOCUSATE SODIUM TAB PO SCH ×2 (10:28→22:03)
[2018-11-11] MEDS: traMADol 50 MG TAB PO PRN (10:28)
[2018-11-11] MEDS: ISOSORBIDE MONONITRATE 20 MG TAB PO SCH (10:30)
[2018-11-11] MEDS: ASPIRIN EC 81 MG TAB PO SCH (10:30)
[2018-11-11] MEDS: FUROSEMIDE 40 MG/4 ML VIAL IVP SCH (10:30)
[2018-11-11] MEDS: CLOPIDOGREL BISULFATE 75 MG TAB PO SCH (10:30)
[2018-11-11] MEDS: SERTRALINE HCL 50 MG TAB PO SCH (10:30)
[2018-11-11] MEDS: ENOXAPARIN 40 MG/0.4 ML SYR SC SCH (10:31)
--- NOTE | 2018-11-11 10:31 | PDCARPN ---
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 [facility] tomorrow pending the results of rest images. Continue Lasix 40 mg IV daily Coreg 6.25 mg p.o. B.i.d. Continue amlodipine to 10 mg daily Discontinue Atorvastatin Start Rosuvastatin 40 mg daily Consideration of left heart catheterization pending the results of nuclear stress test. 11/11/18 10:31 Subjective: Lizeth is feeling well this AM. No further complaints of chest pain or sob. BP has improved slightly with change to Coreg and increase in amlodipine. Fasting Lipids demonstrate LDL of 85. Will plan to DC Atorvastatin and start Rosuvastatin 40 mg daily. Pharm Stress done yesterday was abnormal per my read , rest study results pending ( just completed). Reviewed/Discussed With: hospitalist Objective: Vital Signs (8 Hrs) Temp Pulse Resp BP Pulse Ox 11/11/18 08:00 36.5 C 49 L 20 143/71 H 98 11/11/18 04:00 36.6 C 50 L 18 154/72 H 99 Intake/Output (24 Hrs) 11/10/18 11/11/18 11/12/18 05:59 05:59 05:59 Intake Total 480 700 Output Total 600 250 Balance 480 100 -250 Intake: Oral (ml) 480 700 Output: Urine (ml) 600 250 Toilet 600 250 Other: Weight 73.3 kg 71.758 kg Number of Voids Toilet 3 1 Number of Stools Toilet 1 Result Diagrams: 11/11/18 03:25 11/11/18 03:25 - Physical Exam Cardiovascular: regular rate and rhythm, systolic murmur, pulses symmetric bilat Peripheral Pulses: 2+: carotid (R), carotid (L) Respiratory: clear to auscultate bilat Skin: no rashes Neurologic: AAOx3, CN II-XII grossly intact Psychiatric: cooperative, interactive ICD10 Worksheet Patient Problems: Problems Problem Status Onset CAD (coronary artery disease) Acute Chest pain Acute Atrial flutter Acute Chest pain at rest Acute Chest pain in adult Acute Dyspnea Acute Elevated blood pressure reading Acute Headache Acute Hypertension Acute NSTEMI (non-ST elevated myocardial infarction) Acute Pelvic fracture Acute Pulmonary emboli Acute Shortness of breath Acute Troponin level elevated Acute
--- NOTE | 2018-11-11 15:57 | HOSPPROG ---
Hospitalist Progress Note Assessment/Plan: 83-year-old female with past medical history significant for CAD s/p CABG and recently cardiac catheterization 04/04/2018 with numerous stents no longer amenable to PCI, chronic AFib, HTN, aortic bioprosthetic valve, CHF, HLD who presents emergency department today with complaint of chest pain. Chest pain -troponin only very mildly elevated on admission, EKG with no acute ST/T wave changes. Echocardiogram obtained which shows left ventricular ejection fraction of 45% with inferior hypokinesis. Left atrium was severely dilated. Lexiscan was obtained. Resting MPI images were obtained today and will be compared with stress test images. I discussed the case with Cardiology who feels that depending on the results of the stress test compared with the resting MPI he will take the patient for left heart catheterization. In the interim he recommended continuing with medical management and optimizing cardiac medications -Lasix 40 mg IV daily Carvedilol 6.25 mg twice daily start Crestor 40 mg Continue Norvasc 10 mg Results of resting MPI images will determine need for left heart catheterization CAD (coronary artery disease) (Acute) -patient is on appropriate therapy with HMG Co a reductase inhibitor, dual antiplatelet therapy, beta-mir long acting nitrate. Will continue all these therapies Atrial fibrillation - monitor on tele. EKG normal sinus rhythm. Continue beta- mir. Benign essential HTN - blood pressure is mildly elevated. Resume patient's home medications - metoprolol and amlodipine. Chronic compensated CHF - secondary to history of ischemic cardiomyopathy. Patient without any decompensation at this time. On diuretic with Lasix PPX- SCDs, heparin fluids- po Lytes- WNL Nutrition- cardiac diet Cor- Full Dispo-inpatient for continued workup of chest pain. Possible left heart catheterization in the morning depending on resting MPI Subjective: No complaints today Objective: Vital Signs Temp Pulse Resp BP Pulse Ox 36.3 C 61 18 105/58 L 91 L 11/11/18 11:41 11/11/18 11:41 11/11/18 11:41 11/11/18 11:41 11/11/18 11:41 Laboratory Results 11/11/18 03:25 11/11/18 03:25 11/10/18 11/11/18 11/12/18 05:59 05:59 05:59 Intake Total 480 700 620 Output Total 600 800 Balance 480 100 -180 - Physical Exam Constitutional: no apparent distress, appears nourished, not in pain Eyes: PERRL, anicteric sclera, EOMI Ears, Nose, Mouth, Throat: moist mucous membranes, hearing normal, ears appear normal, no oral mucosal ulcers Cardiovascular: irregularly irregular, edema Respiratory: no respiratory distress, no rales or rhonchi, reduced air movement Gastrointestinal: normoactive bowel sounds, soft, non-tender abdomen, no palpable masses Genitourinary: no bladder fullness, no bladder tenderness, no renal bruits Skin: no rashes or abrasions, no fluctuance, no induration Musculoskeletal: full muscle strength, no muscle tenderness, normal joint ROM Neurologic: AAOx3, sensation intact bilaterally Psychiatric: interacting appropriately, not anxious, not encephalopathic, thought process linear Lymph, Heme, Immunologic: no cervical LAD, no supraclavicular LAD ICD10 Worksheet Patient Problems: Problems Problem Status Onset CAD (coronary artery disease) Acute Chest pain Acute Atrial flutter Acute Chest pain at rest Acute Chest pain in adult Acute Dyspnea Acute Elevated blood pressure reading Acute Headache Acute Hypertension Acute NSTEMI (non-ST elevated myocardial infarction) Acute Pelvic fracture Acute Pulmonary emboli Acute Shortness of breath Acute Troponin level elevated Acute
--- NOTE | 2018-11-11 16:13 | ASMTCMCOM ---
CM Note CM Note Notes: Chart reviewed and patient plan of care discussed with MD. She has an abnormal stress test and likely to undergo a heart cath tomorrow. CM to follow for needs. Plan: TBD Date Signed: 11/11/2018 04:13 PM Electronically Signed By:Carin Best RN
[2018-11-12] MEDS: ENOXAPARIN 40 MG/0.4 ML SYR SC SCH (09:00)
[2018-11-12] MEDS ORDERED: ROSUVASTATIN CALCIUM 40 MG TAB PO SCH (09:00)
[2018-11-12] MEDS: SENNOSIDES/DOCUSATE SODIUM TAB PO SCH (09:03)
[2018-11-12] MEDS: CARVEDILOL 6.25 MG TAB PO SCH (09:03)
[2018-11-12] MEDS: SERTRALINE HCL 50 MG TAB PO SCH (09:03)
[2018-11-12] MEDS: FLUTICASONE NASAL 120 SPRAYS/16 GM MDI EACHNARE SCH (09:11)
[2018-11-12] MEDS: FUROSEMIDE 40 MG/4 ML VIAL IVP SCH (10:45)
[2018-11-12] MEDS: ISOSORBIDE MONONITRATE 20 MG TAB PO SCH (11:40)
[2018-11-12 12:15] VITALS: BP 152/96
[2018-11-12] MEDS: CLOPIDOGREL BISULFATE 75 MG TAB PO SCH (12:39)
[2018-11-12] MEDS: ASPIRIN EC 81 MG TAB PO SCH (12:39)
--- NOTE | 2018-11-12 12:55 | PDCARPN ---
Cardiology Progress Note Assessment/Plan: Ms. Espino is an 83-year-old female with a history of CAD, valvular heart disease, hypertension, and mild ischemic cardiomyopathy. She has a long- standing chest pain syndrome. (For example: Over the past 5 years, she has had 49 emergency room visits and 9 CT pulmonary angiograms for chest pain and shortness of breath. She is also had 10 cardiac mushroom laborer procedures since 2010. ) She was admitted on November 08 for recurrent chest pain/pressure and shortness of breath. Her troponin and BNP were minimally elevated. She did not demonstrate any evidence of significant volume retention. She says she feels fairly well today. Coronary Artery Disease: She has multivessel CAD with previous extensive stenting of the LAD, ramus intermedius, and circumflex. She underwent a single- vessel CABG (SVG to obtuse marginal branch) at the time of her bioprosthetic aortic valve replacement in Sep 2013. Her last cardiac catheterization took place just over 6 months ago. At that time, she had [id number] restenosis lesions in the LAD and ramus intermedius. The principal obtuse marginal branch of the circumflex (which had also previously been stented) was totally occluded. There was an unsuccessful attempt at PCI of the obtuse marginal branch. A pharmacologic nuclear stress test performed over the weekend demonstrated a small, fixed, anterior perfusion defect. There was no evidence for significant myocardium at risk. - I am not convinced that there is a one-to-one correlation between her CAD and her long-standing chest pain syndrome. I doubt that repeat cardiac catheterization would reveal a significant finding with respect to her coronary anatomy that would provide an opportunity for revascularization and resolution of her chest discomfort. - Would continue medical management and secondary prevention. Hypertension: Her blood pressure is mildly to moderately labile. Has been acceptably controlled for the past 24-48 hours. Of note, her son told me that she has been instructed NOT to check her blood pressure at home. Apparently, in the past if it was somewhat elevated this would provoke anxiety, further elevation in her blood pressure, and chest discomfort. - Continue current antihypertensive regimen. I also note that she is not on an SEBASTIEN inhibitor or ARB. However, she was on lisinopril in the past and it was discontinued for reasons that are not apparent to me. Will defer this to her outpatient landscape foreman. Valvular Heart Disease: She underwent a bioprosthetic aortic valve replacement in September 2013. An echocardiogram performed during this hospitalization demonstrates moderate bioprosthetic stenosis with a mean gradient of 28 mmHg and a moderate perivalvular regurgitation. These issues could increase her myocardial oxygen demand and contribute to her chest discomfort. - Longitudinal followup with serial echocardiography. Cardiomyopathy: She has a mild ischemic cardiomyopathy with an ejection fraction of 45% on her current echo. She has not demonstrated clinical signs of fluid retention. Her BNP was minimally elevated during this hospital stay. - Continue to follow clinically. Disposition: She plans to ambulate after lunch. If she is stable without significant symptoms, I think she can be discharged home today. - Notification has been sent to Dr. Akhtar's nurse asking her to contact the patient to arrange a followup appointment with Dr. Akhtar. 11/12/18 12:53 Subjective: No complaints today. Reviewed/Discussed With: family Objective: Vital Signs (8 Hrs) Temp Pulse Resp BP Pulse Ox 11/12/18 12:00 36.6 C 56 L 18 152/96 H 96 11/12/18 10:40 62 121/72 H 11/12/18 09:40 123/65 H 11/12/18 09:35 130/72 H 11/12/18 09:03 67 163/78 H 11/12/18 08:40 36.9 C 55 L 18 163/78 H 96 Intake/Output (24 Hrs) 11/11/18 11/12/18 11/13/18 05:59 05:59 05:59 Intake Total 700 1315 Output Total 600 800 Balance 100 515 Intake: Oral (ml) 700 1315 Output: Urine (ml) 600 800 Toilet 600 800 Other: Weight 73.3 kg Number of Voids Toilet 1 3 Number of Stools Toilet 1 Result Diagrams: 11/11/18 03:25 11/11/18 03:25 - Physical Exam Constitutional: no apparent distress Eyes: anicteric sclera Ears, Nose, Mouth, Throat: moist mucous membranes Cardiovascular: regular rate and rhythm, systolic murmur Respiratory: clear to auscultate bilat Gastrointestinal: normoactive bowel sounds, no tenderness, no masses Skin: no rashes, no edema Neurologic: AAOx3 Psychiatric: not anxious ICD10 Worksheet Patient Problems: Problems Problem Status Onset Chest pain Acute NSTEMI (non-ST elevated myocardial infarction) Acute Atrial flutter Acute Pulmonary emboli Acute Headache Acute Hypertension Acute Pelvic fracture Acute Elevated blood pressure reading Acute CAD (coronary artery disease) Acute Chest pain in adult Acute Dyspnea Acute Chest pain at rest Acute Troponin level elevated Acute Shortness of breath Acute
--- NOTE | 2018-11-12 15:14 | PDIAF ---
- Diagnosis Code Status: Full Code - Medication Management Discharge Medications: electronically signed and located in the Home Medication List. - Orders Services needed: Home Care, Registered Nurse, Physical Therapy Home Care Face to Face: I certify that this patient was under my care and that I had the required [id number] encounter meeting the encounter requirements on the discharge day. My findings support the fact that the patient is homebound as defined in Home Care Face to Face Continued: CMS Chapter 7 Medicare Benefits Manual 30.1.1 , The condition of the patient is such that there exists a normal inability to leave home and consequently, leaving home would require a considerable and taxing effort. Isolation Type: None Additional Instructions: We have stopped your metoprolol and replaced this with carvedilol. You should take this twice daily. Otherwise, continue your medications as prescribed. Please follow up with Dr Akhtar in 1-2 weeks. We are setting you up with home health physical therapist and nurse. - Follow Up Care Current Providers and Referrals: Harper Rabago MD [Primary Care Provider] - As per Instructions
--- NOTE | 2018-11-12 15:14 | PDDCSUM ---
Discharge Summary Discharge Summary: Date of Admission: 11/08/2018 Date of Discharge: 11/12/2018 Consultants: cardiology Studies/Procedures: 1. TTE 2. Lexiscan stress with NM Discharge Diagnoses: 1. Acute on chronic chest pain 2. Multivessel CAD with prior extensive stenting and 1v CABG 3. Mild ischemic cardiomyopathy (LVEF ~45%) 4. H/o bioprosthetic aortic valve replacement 5. HTN with labile BPs Brief Hospital Course: 83yo F with CAD s/p stenting and 1v CABG, mild chronic systolic CHF, aortic valve replacement, long-standing chest pain syndrome (49 ED visits and 9 CTA chest for evaluation over last 5 years, 10 caths since 2010) presented with chest pain. Cardiology was consulted. Her troponin (0.03) and BNP (500s) were minimally elevated. TTE showed stable LVEF of 45% and stable aortic valve gradients. Pharmacologic stress test was abnormal demonstrating a small, fixed anterior perfusion defect but no evidence of reversible ischemia. Her last cath was 03/2018 and showed non-flow limiting lesions in the LAD and ramus intermedius and an unsuccessful attempt to PCI an occluded obtuse marginal branch. Ultimately, cardiology did not feel that her chest pain was directly correlated to her CAD and did not pursue repeat catheterization. She is on appropriate anti-anginal medical therapy and her symptoms were controlled prior to discharge. Medications: Please refer to EMR. Follow Up Plan: 1. Follow up with her primary foreign correspondent, Dr Akhtar Physical Exam: Vitals reviewed, stable. Alert and oriented, rrr with systolic murmur, lungs clear, abd soft and nt, no leg edema, no rashes.
--- NOTE | 2018-11-12 16:02 | ASMTDCNOTE ---
Case Management Discharge Discharge Order Complete? Answers: Yes Patient to Obtain Answers: via Family Medications Transportation Arranged Answers: Family/Friends Faxed Final Orders Answers: Yes Notes: to [facility] Agency/Facility Transfer Answers: Yes Notes: to [facility] Report Printed & Faxed to Receiving Agency Family Notified Answers: Yes Notes: antonio Yates in room Discharge Comments Notes: 11/12/2018 Case Management Note Pt to stay with antonio Monroe [phone] at [address] [facility] [id number]. Discussed home care options. Faxed referrals to several agencies. [facility] accepted pt. Discussed contact info for pt at discharge. Faxed final orders. Antonio Yates to transport to [facility]. Case Management d/c poc: [facility] RN PT with 24 hour supervision by antonio Monroe. Date Signed: 11/12/2018 04:01 PM Electronically Signed By:Risa Huffman RN
--- NOTE | 2018-11-12 16:04 | ASDISCHSUM ---
Discharge Information Plan Status:Home with Home Health Medically Cleared to Leave:11/11/2018 Discharge Date:11/11/2018 CM D/C Disposition:Home Health Service ADT D/C Disposition:[id number] Projected Discharge Date:11/12/2018 11:00 AM Transportation at D/C:Family Discharge Delay Reason: Follow-Up Date:11/12/2018 11:00 AM Discharge Slot: Final Diagnosis: Placement Information Referral Type:*Home Health Care Services Referral ID:[id number] Provider Name:[facility] Address 1:[address] [place] [address] Address 2: City:[place] Selection Factors: State:[place] Patient Contact Information Contact Name:DEBBIEZIONTORIN Relationship:Son Address: City:[place] Alternate Phone: [facility]/Zip Code:[place] Email: Financial Information Financial Class:Medicare Advantage Plans Primary Plan Desc:[place] MED[employer]ARE ADV Primary Plan Number:[id number] Secondary Plan Desc: Secondary Plan Number: Assessment Information LACE LACE Length of stay for Answers: 2 days current admission Acuity / Level of Answers: Yes Care: Did the patient have an inpatient admission? Comorbidities - select Answers: Congestive heart failure all that apply Coronary Artery Disease Dementia Previous myocardial infarction Other Notes: HTN; AFib; HLD # of Emergency department Answers: 3-4 visits in the last 6 months Score: 17 Date Signed: 11/12/2018 04:02 PM Electronically Signed By:Risa Huffman RN [facility] CM Progress Note CM Note CM Note Notes: Pt with CAD, dementia in for chest pain. Pt lives independently, two sons are listed in chart. Therapy recs are pending. Hospitalist Wenceslao alerted to input palliative care order. CM to follow for d/c planning. Date Signed: 11/09/2018 04:47 PM Electronically Signed By:CONCHA Helms [facility] CM Progress Note CM Note CM Note Notes: Chart reviewed and patient plan of care discussed with MD. She has an abnormal stress test and likely to undergo a heart cath tomorrow. CM to follow for needs. Plan: TBD Date Signed: 11/11/2018 04:13 PM Electronically Signed By:Carin Best RN Case Management Discharge Plan Note Case Management Discharge Discharge Order Complete? Answers: Yes Patient to Obtain Answers: via Family Medications Transportation Arranged Answers: Family/Friends Faxed Final Orders Answers: Yes Notes: to [facility] Agency/Facility Transfer Answers: Yes Notes: to [facility] Report Printed & Faxed to Receiving Agency Family Notified Answers: Yes Notes: rafael Yates in room Discharge Comments Notes: 11/12/2018 Case Management Note Pt to stay with rafael Monroe [phone] [address] [place] [address]. Discussed home care options. Faxed referrals to several agencies. [facility] accepted pt. Discussed contact info for pt at discharge. Faxed final orders. Rafael Yates to transport to [facility]. Case Management d/c poc: [facility] PT with 24 hour supervision by rafael Monroe. Date Signed: 11/12/2018 04:01 PM Electronically Signed By:Risa Huffman RN Intervention Information
== END 2018-11-12 16:14 | disposition home health service (06) | DRG 313 ==
LOC: F2W 22:55 → OBSVTOIN 11-09 19:46
PROVIDERS: ADMIT Internal Medicine; ATTEND Internal Medicine
DX: R07.89 Other chest pain (principal); I25.10 Atherosclerotic heart disease of native coronary artery without angina pectoris; F03.90 Unspecified dementia, unspecified severity, without behavioral disturbance, psychotic disturbance, mood disturbance, and anxiety; Z95.5 Presence of coronary angioplasty implant and graft; I11.0 Hypertensive heart disease with heart failure; I50.9 Heart failure, unspecified; I48.91 Unspecified atrial fibrillation; Z95.3 Presence of xenogenic heart valve; Z95.1 Presence of aortocoronary bypass graft
CPT/HCPCS: 84484-ER; 97116-GP; 97161-GP; A9500; G0378; J1650; J1940; J2785